=== PATIENT | female | born 1940 | race Caucasian/White ===

== ENCOUNTER 2020-12-03 08:55 | Outpatient (REF) | payer MEDICARE, OTHER, SELFPAY ==
[2020-12-03 09:36] LABS: Basophils Percent Auto 0.4 % (0-2); Eosinophils Absolute Auto 0.1 X10*3/uL (0.0-0.4); Eosinophils Percent Auto 1.2 % (0-4); Hematocrit 43.2 % (37-47); Hemoglobin 14.7 g/dl (12.0-16.0); Imm Gran Abs Auto 0.02 X10*3/uL (0.00-0.03); Imm Gran Pct Auto 0.3 % (0.0-0.4); Lymphocytes Absolute Auto 2.2 X10*3/uL (1.2-4.9); Lymphocytes Percent Auto 31.4 % (20-40); MANUAL DIFF FLAG NO; Mean Corpuscular Hemoglobin 32.5 pg (27.0-33.0); Mean Corpuscular Volume 95.4 fL (80-98); Monocytes Absolute Auto 0.5 X10*3/uL (0.1-1.2); Monocytes Percent Auto 7.6 % (2-11); Neutrophils Absolute Auto 4.1 X10*3/uL (2.0-8.3); Neutrophils Percent Auto 59.1 % (45-73); Platelet Count 222 X10*3/uL (160-400); Red Blood Count 4.53 X10*6/uL (4.20-5.50); White Blood Count 6.9 X10*3/uL (4.8-10.8)
[2020-12-03 09:49] LABS: Estimated Average Glucose 103 mg/dL; Hemoglobin A1c % 5.2 %
[2020-12-03 10:05] LABS: Creatinine Urine 30.26 mg/dL; Microalbumin Urine < 5.0 mg/L
[2020-12-03 10:09] LABS: Alanine Aminotransferase 21 U/L (0-31); Albumin Level 4.4 g/dL (3.5-5.0); Alkaline Phosphatase 81 U/L (39-117); Anion Gap 12 (12-20); Aspartate Amino Transferase 29 U/L (5-31); Bilirubin Total 0.6 mg/dL (0.0-1.0); Blood Urea Nitrogen 22 mg/dL (9-16); Calcium 9.4 mg/dL (8.4-10.2); Carbon Dioxide 29 mmol/L (22-29); Chloride 107 mmol/L (96-108); Cholesterol 222 mg/dL; Estimated Glomerular Filt Rate > 60; Glucose Fasting 109 mg/dL (60-99); HDL Cholesterol 63 mg/dL; LDL Cholesterol Calculated 146 mg/dl; Potassium 4.9 mmol/l (3.3-5.1); Sodium 143 mmol/L (135-145); Total Protein 7.1 g/dL (6.5-8.0); Triglycerides 66 mg/dL
[2020-12-03 10:29] LABS: Thyroid Stimulating Hormone 1.36 uIU/mL (0.32-4.0); Vitamin D 25-OH Total 38.3 ng/mL (>30)
== END 2020-12-03 08:56 | disposition home or self-care (01) ==
LOC: HO.LAB 08:55
PROVIDERS: PCP Internal Medicine; Visit Provider Internal Medicine
DX: E03.9 Hypothyroidism, unspecified (principal); R73.03 Prediabetes; E78.00 Pure hypercholesterolemia, unspecified; E55.9 Vitamin D deficiency, unspecified
CPT/HCPCS: 36415; 80053; 80061; 82043; 82306; 83036; 84443; 85025

== ENCOUNTER 2021-06-12 12:23 | Outpatient (REF) | payer MEDICARE, OTHER, SELFPAY ==
[2021-06-12 13:10] LABS: TSH reflex Free T4 1.33 uIU/mL (0.32-4.0)
== END 2021-06-12 12:24 | disposition home or self-care (01) ==
LOC: HO.LNP 12:23
PROVIDERS: Visit Provider Internal Medicine
DX: E03.9 Hypothyroidism, unspecified (principal)
CPT/HCPCS: 84443

== ENCOUNTER 2021-12-22 10:31 | Outpatient (REF) | payer MEDICARE, OTHER, SELFPAY ==
[2021-12-22 10:33] LABS: MANUAL DIFF FLAG NO
[2021-12-22 10:43] LABS: Basophils Absolute Auto 0.1 X10*3/uL (0.0-0.2); Basophils Percent Auto 0.7 % (0-2); Eosinophils Absolute Auto 0.1 X10*3/uL (0.0-0.4); Eosinophils Percent Auto 1.5 % (0-4); Hematocrit 43.6 % (37.0-47.0); Hemoglobin 14.2 g/dl (12.0-16.0); Imm Gran Abs Auto 0.03 X10*3/uL (0.00-0.03); Imm Gran Pct Auto 0.4 % (0.0-0.4); Lymphocytes Absolute Auto 2.7 X10*3/uL (1.2-4.9); Lymphocytes Percent Auto 31.9 % (20-40); Mean Corpuscular HGB Conc 32.6 g/dl (31.0-35.0); Mean Corpuscular Hemoglobin 31.5 pg (27.0-33.0); Mean Corpuscular Volume 96.7 fL (80.0-98.0); Mean Platelet Volume 10.9 fL (9.4-12.3); Monocytes Absolute Auto 0.7 X10*3/uL (0.1-1.2); Monocytes Percent Auto 8.7 % (2-11); Neutrophils Absolute Auto 4.9 x10*3/uL (2.0-8.3); Neutrophils Percent Auto 56.8 % (45-73); Platelet Count 218 X10*3/uL (160-400); Red Blood Count 4.51 X10*6/uL (4.20-5.50); Red Cell Distribution Width 13.2 % (11.0-16.0); White Blood Count 8.5 X10*3/uL (4.8-10.8)
[2021-12-22 10:46] LABS: Appearance Urine HAZY; Color Urine YELLOW; Glucose Urine UA NEG (NEG); Leukocyte Esterase Urine 1+ (NEG); Nitrite Urine POS (NEG); PH 5.5 (5.0-8.0); Specific Gravity - Urine 1.025 (1.005-1.025); Urine Blood TRACE (NEG); Urine Ketones NEG (NEG); Urine Protein NEG (NEG-TRACE)
[2021-12-22 11:19] LABS: TSH reflex Free T4 1.12 uIU/mL (0.32-4.0); Vitamin D 25-OH Total 40.1 ng/mL (>30)
[2021-12-22 11:20] LABS: Alanine Aminotransferase 15 U/L (0-31); Albumin Level 4.1 g/dL (3.5-5.0); Alkaline Phosphatase 81 U/L (39-117); Anion Gap 13 (12-20); Aspartate Amino Transferase 25 U/L (5-31); Bilirubin Total 0.6 mg/dL (0.0-1.0); Blood Urea Nitrogen 21 mg/dL (9-16); Calcium 9.4 mg/dL (8.4-10.2); Carbon Dioxide 26 mmol/L (22-29); Chloride 108 mmol/L (96-108); Cholesterol 216 mg/dL; Estimated Glomerular Filt Rate > 60; Glucose Fasting 113 mg/dL (60-99); HDL Cholesterol 56 mg/dL; LDL Cholesterol Calculated 142 mg/dl; Potassium 4.2 mmol/L (3.3-5.1); Sodium 143 mmol/L (135-145); Total Protein 7.1 g/dL (6.5-8.0); Triglycerides 94 mg/dL
[2021-12-22 11:33] LABS: Bacteria Urine 4+ /LPF; RBC Urine 0-2 /HPF (0); Squamous Epithelial Cell Urine 2+ /LPF
== END 2021-12-22 10:32 | disposition home or self-care (01) ==
LOC: HO.LNP 10:31
PROVIDERS: PCP Internal Medicine; Visit Provider Internal Medicine
DX: E03.9 Hypothyroidism, unspecified (principal); R73.03 Prediabetes; E78.00 Pure hypercholesterolemia, unspecified; E55.9 Vitamin D deficiency, unspecified
CPT/HCPCS: 80053; 80061; 81001; 82306; 84443; 85025

== ENCOUNTER 2021-12-25 15:57 | Outpatient (REF) | payer MEDICARE, OTHER, SELFPAY | END 2021-12-25 15:58 | disposition home or self-care (01) | LOC: HO.LNP 15:57 | PROVIDERS: Visit Provider Internal Medicine | DX: N39.0 Urinary tract infection, site not specified (principal) | CPT/HCPCS: 87086; 87088; 87186 ==

== ENCOUNTER 2022-02-23 14:30 | Outpatient (REF) | payer MEDICARE, OTHER, SELFPAY ==
--- NOTE | ~2022-02-23 | FL_ITS ---
EXAMINATION: XR BARIUM SWALLOW CLINICAL INFORMATION: Aspiration into airway. Dysphagia. COMPARISON: None TECHNIQUE: Routine modified barium swallow was performed with the patient in a left lateral seated position. The patient took thin, pureed and solid food consistencies of barium without difficulty. FINDINGS: The patient demonstrated normal oral bolus formation. There was no delay in the swallow trigger mechanism with no pooling of fluid in the vallecula and piriform sinuses. There was good contraction and elevation of the soft palate without evidence of nasopharyngeal reflux. There was good anterior-superior excursion of the laryngeal-hyoid complex with good posterior-inferior tipping of the epiglottis. No cricopharyngeal abnormalities were noted. The pharynx and cervical spine have a normal appearance. No aspiration or laryngeal penetration was seen with any oral intake. FLUOROSCOPY TIME: 0.6 minutes DOSE AREA PRODUCT: 0.291 Gy-cm2 (avila-centimeter squared) FL/FL barium swallow modified IMPRESSION: No aspiration or penetration with any intake. No significant abnormality during the oral pharyngeal phase of swallow. Please see speech pathologist report for further information and diet recommendations.
--- NOTE | 2022-02-24 12:59 | MHC.SL.IMP ---
Date of Plan of Treatment: 02/23/22 Onset of Symptoms/Illness: 12/26/21 Date Treatment Started: 02/23/22 Admitting Diagnosis: N/A Primary Speech & Language Diagnosis: R13.14 Pharyngoesophageal Phase Dysphagia Reason for Today's Visit: 68660 Modified Barium Swallow Study Pre-evaluation Dietary Consistencies: Regular Pre-evaluation Liquid Consistency: Thin Pre-evaluation Medication Administration: Whole with Liquid Medical History: Modified Barium Swallow Study Fluoroscopic Evaluation of Swallowing Function CPT Code 24084 Evaluation Year: 2021 Reason for Study: Patient reports globus sensation. Referring Physician: Pal Randall MD Evaluating Clinician: Camila Worthington MA, CCC-STICK INSERTER Study Number: 1 Patient Name: Donna Andino Status: Outpatient, Ambulatory Age: 81 Gender: Female MEDICAL HISTORY: Year of Onset or Diagnosis: 2021 Comorbidities: Thyroid Current (pre-evaluation) Intake/Diet: Route: PO Diet Grade: Regular Liquid Consistencies: Thin Pre-Study Functional Oral Intake Scale (FOIS): 7- Total oral intake with no restrictions Pain: None reported at time of study SUBJECTIVE: Patient is an 81 year old female referred for a modified barium swallow study (MBSS) by Pal Randall MD. Patient reports that in December 2021, she was eating peas and she had choked, which required the Heimlich Maneuver provided by her son and resulted in her coughing up pea skins. Patient denies having such episodes since that one incident. Patient reports having reflux, which she has never had before. She describes a burning sensation in her throat, as well as globus sensation below her sternum. Patient denies coughing when eating and denies feeling food or liquid ?go down the wrong way.? Patient reports she was not yet seen by gastroenterology. Oral Motor Exam Facial Symmetry: Symmetrical Mouth Occlusion: Normal Oral-Facial Teeth Characteristics: Intact/Normal Dental Appliance Oral-Facial Lip Pucker Description: Normal Oral-Facial Smile (Lips) Description: Normal Oral-Facial Puff Cheeks Description: Normal Tongue Size: Normal Tongue Excursion Description: Normal Tongue Range of Movement Description: Normal Tongue Speed of Movement Description: Normal Tongue Strength of Movement (against opposing pressure): Normal Tongue Movement Characteristics: Normal/Absent Is patient able to manage secretions?: Yes Food and Liquid Trials: Oral Impairment: Lip Closure: 0=No labial escape Oral Impairment: Tongue Control During Bolus Hold: 0=Cohesive bolus between tongue to palatal seal Oral Impairment: Bolus Preparation/Mastication: 0=Timely and efficient chewing and mashing Oral Impairment: Bolus Transport/Lingual Motion: 0=Brisk tongue motion Oral Impairment: Oral Residue: 1=Trace residue lining oral structures Oral Impairment:Initiation of Pharyngeal Swallow: 0=Bolus head at posterior angle of ramus (first hyoid excursion) Pharyngeal Impairment: Soft Palate Elevation: 0=No bolus between soft palate (SP)/pharyngeal wall (PW) Pharyngeal Impairment: Laryngeal Elevation: 1=Partial thyroid cartilage/arytenoids to epiglottic petiole movement Pharyngeal Impairment: Anterior Hyoid Excursion: 1=Partial anterior movement Pharyngeal Impairment: Epiglottic Movement: 0=Complete inversion Pharyngeal Impairment: Laryngeal Vestibular Closure:: 0=Complete: no air/contrast in laryngeal vestibule Pharyngeal Impairment: Pharyngeal Stripping Wave: 0=Present: complete Pharyngeal Impairment: Pharyngeal Contraction: Did not test Pharyngeal Impairment: Pharyngoesophageal Segment Openin=Complete distension and complete duration: no obstruction of flow Pharyngeal Impairment: Tongue Base (TB) Retraction: 1=Trace column of contrast/air between TB and posterior PW Pharyngeal Impairment: Pharyngeal Residue: 0=Complete pharyngeal clearance Pharyngeal Impairment: Esophageal Clearance Upright Position: Did not test Impressions and Recommendations Clinical Observations: OBJECTIVE: Time-out: performed at 02:55 Evaluation Start: 02:45; Stop: 02:50 Patient Positioning: Seated 70-90 degrees Viewing Planes: LATERAL ONLY Contrast: MBSImP? Standardized Protocol using commercially prepared, standardized Barium viscosities, including: Varibar? THIN LIQUID (40% w/v, <15 cps) , 1/2 Shortbread Cookie (1 x1 x.25 ) MBSImP ID: [id number] MBSImP Results: Lip closure for intraoral bolus containment resulted in no labial escape. Tongue control during bolus hold maintained a cohesive bolus held between tongue to palate seal. Bolus preparation and mastication resulted in timely and efficient chewing and mashing. Bolus transport/lingual motion was with brisk tongue motion. Oral residue was a trace, lining oral structures. Initiation of the pharyngeal swallow occurred as the bolus head reached the posterior angle of the mandibular ramus. Soft palate elevation resulted in no bolus between the soft palate and the pharyngeal wall. Laryngeal elevation was decreased, with partial superior movement of the thyroid cartilage/partial approximation of the arytenoids to the epiglottic petiole. Anterior hyoid excursion demonstrated partial anterior movement. Epiglottic movement resulted in complete inversion. Laryngeal vestibular closure was complete, as indicated by no air or contrast within the laryngeal vestibule at the height of the swallow. Pharyngeal stripping wave was present and complete. Pharyngeal contraction could not be determined due to logistical reasons not related to physiologic impairment. Pharyngoesophageal segment opening was completely distended for complete duration with no obstruction of bolus flow. Tongue base retraction allowed a trace column of contrast or air between the retracted tongue base and the posterior pharyngeal wall. Pharyngeal residue was not present. There was complete pharyngeal clearance. Esophageal clearance in the upright position could not be assessed due to logistical reasons not related to physiologic impairment. Oral Impairment Score: 0 Pharyngeal Impairment Score: 2 (absence of score, component 13) Esophageal Impairment Score: --- (absence of score, component 17) Laryngeal Penetration and Aspiration: Neither penetration nor aspiration was observed in today's study with Cookie, Thin. ASSESSMENT: Clinician Assessment: This exam was conducted by a multidisciplinary team, which included a speech pathologist, radiologist, and textile science technician. Patient was seated upright at 90 degrees in chair for lateral view only. Patient trialed the following liquid and solid consistencies: 5 mL thin liquid barium, individual cup sip thin liquid barium, chain cup sips thin liquid barium, pureed solid (mixture applesauce with barium paste), regular solid (Karen Doone cookie coated with barium paste). Patient displayed good lip closure, with no anterior loss of bolus. Patient demonstrated good tongue control, forming a cohesive bolus between tongue to palatal seal. No posterior escape of bolus. Mastication was timely and efficient, resulting in good oral clearance. Patient displayed brisk posterior lingual propulsion of bolus. Pharyngeal swallow trigger was timely. No nasopharyngeal reflux. Partial laryngeal elevation with partial anterior hyoid excursion. Epiglottic inversion was complete and laryngeal vestibular closure was complete. No evidence of aspiration or penetration during this exam. Complete pharyngeal clearance. No obstruction of flow through pharyngoesophageal segment opening. Liquid Intake Recommendation: Thin Liquid Intake Strategies: Unrestricted Dietary Recommendations: Regular Medication Administration: Whole with Liquid Please contact the pharmacy regarding appropriate crushable or liquid drug formulations that are available whenever modified delivery is recommended. Compensatory Strategies Recommended: Sitting Upright (90 deg) Supervision during eating and or drinking: None Needed Recommendation for Speech Therapy: NA:Typical Evaluation PLAN: Intake Recommendations: Route: PO Diet Grade: Regular Liquid Consistencies: Thin Post-Study Functional Oral Intake Scale (FOIS): 7- Total oral intake with no restrictions No evidence of aspiration or penetration during this exam. Patient displayed good oral and pharyngeal clearance with both solids and liquids. This exam was unremarkable. Further ST intervention is no longer warranted as patient?s swallow is deemed to be within functional limits. Patient may benefit from a G.I. consult for further workup given her reports of reflux and globus sensation. Suggested Referrals: The patient might benefit from a referral to: Gastroenterology Indication for Referral: Patient reports reflux, globus sensation, burning sensation. Therapy Recommendations: Therapy will be discontinued Prognosis for Improvement: The prognosis for the patient to meet nutritional needs by mouth is excellent based on degree of impairment. Clinician - Supplemental, Miscellaneous Communication: It is important to note MBSS objective studies are snapshots in time and Patient function might vary with factors such as time of day or concomitant medical conditions. For this reason, the final treatment plan for this patient should rest with their medical care team. Additional recommendations should be considered with the totality of the Patient in mind. Thank for the opportunity to participate in the care of this patient. If you have any questions about the content of this report, please contact the [facility] at [facility]. Education: Education regarding findings from today's study and plans for therapy were provided to Patient only through Verbal Instruction. Understanding was expressed by the Patient only. Ground Systems Engineer Clinician/Clinical Fellow: No Supervisory Statement: N/A Speech Language Pathologist: Camila Worthington M.A., CCC-STICK INSERTER
== END 2022-02-23 14:31 | disposition home or self-care (01) ==
LOC: HO.XRAY 14:30
PROVIDERS: Visit Provider Internal Medicine
DX: T17.908A Unspecified foreign body in respiratory tract, part unspecified causing other injury, initial encounter (principal); X58.XXXA Exposure to other specified factors, initial encounter; Y93.9 Activity, unspecified; Y92.9 Unspecified place or not applicable; Y99.9 Unspecified external cause status
CPT/HCPCS: 74230; 92611

== ENCOUNTER 2022-04-14 09:50 | Inpatient (IN) | payer MEDICARE, OTHER, SELFPAY ==
--- NOTE | ~2022-04-14 | XR_ITS ---
EXAMINATION: XR CHEST CLINICAL INFORMATION: Syncope COMPARISON: None TECHNIQUE: Frontal view of the chest was obtained. FINDINGS: The lungs are well expanded. There is no focal consolidation, edema, or effusion. No pneumothorax. The cardiomediastinal silhouette is within normal limits of size. Mitral annular calcifications. No acute osseous abnormality. XR/XR chest 1V IMPRESSION: No acute pulmonary finding.
--- NOTE | ~2022-04-14 | XR_ITS ---
EXAMINATION: XR ANKLE, LEFT CLINICAL INFORMATION: Pain at the lateral ankle COMPARISON: None TECHNIQUE: AP, lateral, and mortise views of the left ankle. FINDINGS: Nondisplaced fracture with oblique orientation at the distal fibula. This is in the region of the ankle mortise. Ankle mortise remains congruent. There is lateral soft tissue swelling. No ankle joint effusion. XR/XR ankle LT 2V IMPRESSION: Nondisplaced distal fibular fracture with overlying soft tissue swelling.
--- NOTE | ~2022-04-14 | CT_ITS ---
EXAMINATION: CT BRAIN AND CT CERVICAL SPINE WITHOUT CONTRAST. CLINICAL INFORMATION: Head injury. LOC. COMPARISON: None TECHNIQUE: 5 mm thin axial and reformatted 2 mm thin sagittal and coronal images of brain were obtained without contrast. Subsequently axial 3 mm thin and reformatted 2 mm thin sagittal coronal images of cervical spine were obtained. DLP [id number]. FINDINGS: Brain: There is no acute intra-axial extra-axial bleed, masses, collection or mass effect. There is no acute infarction evolution. The lateral ventricles are symmetrical in size and configuration with mild ventriculomegaly. There is diffuse periventricular hypodensity in both several hemispheres without mass effect. There is left parietal scalp moderate size hematoma without any underlying calvarial fracture. Rest the calvarium and the scalp is unremarkable. Bilateral paranasal sinuses and mastoid air cells are well-aerated. There is moderate deviation nasal septum to the right. Cervical spine: There is mild straightening of cervical lordosis. The vertebral heights, alignment and disc heights are normal. There is grade 1 anterolisthesis C3 over C4. Rest of the vertebral alignment is normal. There is no visible acute fracture, dislocation or subluxation. The craniovertebral junction is normal. Mild interstitial changes seen at the C1-C2 alignment. The lung apices are normal CT/CT head/brain wo con IMPRESSION: Moderate lateral parietal scalp hematoma without calvarial fracture. No acute intracranial process seen. Age-related changes. There is no acute fracture, dislocation or subluxation cervical spine.
--- NOTE | ~2022-04-14 | CT_ITS ---
EXAMINATION: CT BRAIN AND CT CERVICAL SPINE WITHOUT CONTRAST. CLINICAL INFORMATION: Head injury. LOC. COMPARISON: None TECHNIQUE: 5 mm thin axial and reformatted 2 mm thin sagittal and coronal images of brain were obtained without contrast. Subsequently axial 3 mm thin and reformatted 2 mm thin sagittal coronal images of cervical spine were obtained. DLP 958. FINDINGS: Brain: There is no acute intra-axial extra-axial bleed, masses, collection or mass effect. There is no acute infarction evolution. The lateral ventricles are symmetrical in size and configuration with mild ventriculomegaly. There is diffuse periventricular hypodensity in both several hemispheres without mass effect. There is left parietal scalp moderate size hematoma without any underlying calvarial fracture. Rest the calvarium and the scalp is unremarkable. Bilateral paranasal sinuses and mastoid air cells are well-aerated. There is moderate deviation nasal septum to the right. Cervical spine: There is mild straightening of cervical lordosis. The vertebral heights, alignment and disc heights are normal. There is grade 1 anterolisthesis C3 over C4. Rest of the vertebral alignment is normal. There is no visible acute fracture, dislocation or subluxation. The craniovertebral junction is normal. Mild interstitial changes seen at the C1-C2 alignment. The lung apices are normal CT/CT cervical spine wo con IMPRESSION: Moderate lateral parietal scalp hematoma without calvarial fracture. No acute intracranial process seen. Age-related changes. There is no acute fracture, dislocation or subluxation cervical spine.
[2022-04-14 09:56] VITALS: BP 182/79; PULSE 72; RESP 18; TEMP 36.9; O2SAT 98; BMI 24.3
--- NOTE | 2022-04-14 10:02 | ECG_ITS ---
Test Reason : FALL Blood Pressure : / mmHG Vent. Rate : 067 BPM Atrial Rate : 000 BPM P-R Int : 000 ms QRS Dur : 080 ms QT Int : 384 ms P-R-T Axes : 000 036 024 degrees QTc Int : 405 ms Accelerated Junctional rhythm Abnormal ECG When compared with ECG of 26-MAY-2010 09:30, Junctional rhythm has replaced Sinus rhythm Referred By: Generic ED Physician Electronically Signed By:Ze Gallegos
[2022-04-14 10:18] LABS: Glucose, Whole Blood 145 mg/dL (60-115)
[2022-04-14 10:21] LABS: MANUAL DIFF FLAG NO
[2022-04-14 10:30] LABS: INTERNATIONAL NORM RATIO 1.1 (0.9-1.1); Prothrombin Time 12.1 SEC (9.9-13.0)
[2022-04-14 10:31] LABS: Basophils Absolute Auto 0.1 X10*3/uL (0.0-0.2); Basophils Percent Auto 0.7 % (0-2); Eosinophils Absolute Auto 0.1 X10*3/uL (0.0-0.4); Eosinophils Percent Auto 0.7 % (0-4); Hematocrit 42.7 % (37.0-47.0); Hemoglobin 14.2 g/dl (12.0-16.0); Imm Gran Abs Auto 0.03 X10*3/uL (0.00-0.03); Imm Gran Pct Auto 0.4 % (0.0-0.4); Lymphocytes Absolute Auto 1.8 X10*3/uL (1.2-4.9); Lymphocytes Percent Auto 22.4 % (20-40); Mean Corpuscular HGB Conc 33.3 g/dl (31.0-35.0); Mean Corpuscular Hemoglobin 31.4 pg (27.0-33.0); Mean Corpuscular Volume 94.5 fL (80.0-98.0); Mean Platelet Volume 10.2 fL (9.4-12.3); Monocytes Absolute Auto 0.7 X10*3/uL (0.1-1.2); Neutrophils Absolute Auto 5.6 x10*3/uL (2.0-8.3); Neutrophils Percent Auto 67.8 % (45-73); Platelet Count 198 X10*3/uL (160-400); Red Blood Count 4.52 X10*6/uL (4.20-5.50); Red Cell Distribution Width 13.2 % (11.0-16.0); White Blood Count 8.2 X10*3/uL (4.8-10.8)
[2022-04-14 10:41] LABS: Troponin-I High Sensitivity < 3.5 ng/L (<3.5-17.0)
[2022-04-14 10:42] LABS: Alanine Aminotransferase 19 U/L (0-31); Albumin Level 3.9 g/dL (3.5-5.0); Alkaline Phosphatase 78 U/L (39-117); Anion Gap 12 (12-20); Aspartate Amino Transferase 24 U/L (5-31); Bilirubin Total 0.5 mg/dL (0.0-1.0); Blood Urea Nitrogen 24 mg/dL (9-16); COVID-19 Test Negative (Negative); Calcium 9.3 mg/dL (8.4-10.2); Carbon Dioxide 23 mmol/L (22-29); Chloride 109 mmol/L (96-108); Creatinine Clr Calc Pharmacy 50.2; Estimated Glomerular Filt Rate > 60; Glucose Random 136 mg/dL (60-115); IDNOW Serial# 55D5AD1C; Potassium 4.2 mmol/L (3.3-5.1); Sodium 140 mmol/L (135-145); Total Protein 6.8 g/dL (6.5-8.0)
[2022-04-14 11:49] LABS: Appearance Urine CLEAR; Color Urine STRAW; Glucose Urine UA NEG (NEG); Leukocyte Esterase Urine 1+ (NEG); Nitrite Urine POS (NEG); Specific Gravity - Urine <= 1.005 (1.005-1.025); UACC Culture Trigger YES; Urine Blood NEG (NEG); Urine Ketones NEG (NEG); Urine Protein NEG (NEG-TRACE)
[2022-04-14 12:11] LABS: Bacteria Urine 4+ /LPF; RBC Urine 0 /HPF (0); Squamous Epithelial Cell Urine TRACE /LPF
[2022-04-14 12:40] LABS: B Type Natriuretic Peptide 57 pg/mL (<100)
--- NOTE | 2022-04-14 13:30 | PHA.MEDREC ---
Pharmacy Consult ? Medication Reconciliation Pharmacy has completed the medication reconciliation.
--- NOTE | 2022-04-14 13:52 | ED.FALL ---
HPI - Fall General Chief Complaint: Fall Stated Complaint: Fall/head inj Time Seen by Provider: 04/14/22 11:39 Source: patient Mode of arrival: ambulatory History of Present Illness HPI Narrative: 81-year-old female with a past medical history of hypothyroid, presenting to the ED complaining of syncopal episode this morning around 08:00AM. Patient reports she was going to put on her shoe and then woke up on the ground. Daughter states patient was slightly confused upon waking, states she was in the other room and heard the fall, no witnessed seizure-like activity or incontinence. + Head trauma and +LOC during incident. Denies taking anticoagulation. Patient has not been ambulatory since incident due to left ankle pain. Of note patient reports intermittent right eye visual changes however denies occurring today. Denies other symptoms prior to syncope including CP/ SOB, abdominal pain, nausea /vomiting, headache, recent illness MD complaint: fall Onset (ago): hour(s) Related Data Home Medications Medication Instructions Recorded Confirmed cholecalciferol (vitamin D3) 25 25 mcg PO DAILY 04/14/22 04/14/22 mcg (1,000 unit) tablet levothyroxine 88 mcg tablet 1 tab PO DAILY 04/14/22 04/14/22 (Synthroid) Allergies Allergy/AdvReac Type Severity Reaction Status Date / Time No Known Allergies Allergy Verified 04/14/22 09:56 Review of Systems Review of Systems: Constitutional: No Fever, No Chills, No Fatigue, No Malaise ENT/Mouth: No Ear Pain, No Nasal Congestion, No sore throat, No Rhinorrhea, No Swallowing Difficulty Eyes: No Eye Pain, No Swelling, No Redness, +Vision Changes (remote--not today) Cardiovascular: No Chest Pain, No SOB, No Dyspnea on Exertion, No Palpitations Respiratory: No Cough, No Sputum, No Dyspnea Gastrointestinal: No Nausea, No Vomiting, No Diarrhea, No Constipation, No Abdominal pain Genitourinary: No Dysuria, No Urinary Frequency, No Hematuria, No Urinary Incontinence/retention, No Flank Pain Musculoskeletal: + joint pain, No Myalgias, + Joint Swelling Skin: No Skin Lesions, No rash Neuro: No Weakness, No Numbness, No Paresthesias, + Loss of Consciousness, No Dizziness, + Head injury Yes all other systems are reviewed and are negative [facility] Past Medical History Attestation statement: The following information was validated with the patient. Social History Social History Advance Directives: No Physical Exam Vital Signs: Vital Signs: Last Vital Signs Temp 98.5 F 04/14/22 09:56 Pulse 72 04/14/22 09:56 Resp 18 04/14/22 09:56 BP 182/79 H 04/14/22 09:56 Pulse Ox 98 04/14/22 09:56 BMI result Body Mass Index 24.3 Const: General: cooperative, healthy appearing and no acute distress Orientation/consciousness: patient oriented x3 Limitations: no limitations HEENT: Other: + hematoma noted to left posterior scalp with mild tenderness. No appreciable skull depression or laceration Head: No Kumar's sign and No raccoon eyes Ears: hearing grossly normal bilaterally General nose exam: Normal external nose present Face and sinus: Yes normal facial exam Mouth: Normal oral and palatal mucosa present Throat: Yes posterior oropharynx normal, Yes tonsils normal and Yes uvula midline Eyes: General: appearance normal, both eyes and all related structures EOM: EOMs intact bilaterally Neck: Neck: Yes normal visual inspection and Yes no meningeal signs Resp: Effort & Inspection: normal respiratory effort and no respiratory distress Auscultation: clear to auscultation bilaterally, no rales, no rhonchi and no wheezes Cardio: Rate: regular rate Heart sounds: S1 normal heart sound present and S2 normal heart sound present GI: Inspection: Yes normal to inspection Palpation (GI): Soft to palpation, nontender, no guarding and not rigid : General: Yes no CVA tenderness Back/Spine/Pelvis: Other: No midline thoracic/lumbar spinous tenderness/step-off or deformity Back: no CVA tenderness Pelvis: no pain with anterior-posterior compression and no pain with lateral compression Skin: Rashes: no rashes Wounds: no wounds Neuro: General: patient oriented x3, tone normal, moves all extremities, no meningeal signs, no focal motor deficits and CN's II-XI intact bilaterally Cranial nerves: Yes CN's II-XII intact bilaterally and Yes Bilaterally intact EOM present Gait exam (Neuro): Normal gait present Motor exam (neuro): 5/5 motor strength present throughout and Pronator motor function not present Coordination: [id number] test normal Romberg Test: Negative Extrem: Other: left ankle with noted swelling/ ecchymosis greater to lateral aspect with tenderness to palpation. Foot/ knee nontender. Limited ROM secondary to pain. Neurovascularly intact. Sensation intact to light touch Course Course Course Narrative: -1352-- No leukocytosis. BUN mildly elevated (chronically elevated). Labs otherwise unremarkable. Initial troponin negative > Will obtain 3 hour repeat a syncope was OUTREACH ANALYST - UA infected > IV Rocephin ordered based on prior urine cultures CT head/brain wo con IMPRESSION: Moderate lateral parietal scalp hematoma without calvarial fracture. No acute intracranial process seen. Age-related changes. ? CT cervical spine wo con IMPRESSION: There is no acute fracture, dislocation or subluxation cervical spine. XR chest 1V IMPRESSION: No acute pulmonary finding. XR ankle LT 2V IMPRESSION: Nondisplaced distal fibular fracture with overlying soft tissue swelling. >> patient placed in a posterior short-leg splint to be nonweightbearing and follow up with Orthopedics. - Results discussed with patient and daughter at bedside, plan to admit for further management MDM - Fall MDM Narrative Medical decision making narrative: 81-year-old female with a past medical history of hypothyroid, presenting to the ED complaining of syncopal episode this morning around 08:00AM. + Head trauma and +LOC during incident. on exam vital signs stable, NAD, injury noted to posterior scalp, no midline spinous tenderness throughout, no focal neuro deficits. concern for syncope vs ? ACS vs metabolic/infectious etiologies. R/o ICH/fxs plan: EKG, labs, UA, head/ C-spine CT, x-rays, IVF, orthostatics, anticipated admission Differential Diagnosis Differential diagnosis: Likely syncope Medical Records Attestation: I reviewed the patient's medical records. Lab Data Attestation: I reviewed the patient's lab results. Result diagrams: 04/14/22 10:14 04/14/22 10:13 Labs: Lab Results 04/14/22 04/14/22 04/14/22 Range/Units 09:57 10:13 10:13 WBC (4.8-10.8) X10*3/uL RBC (4.20-5.50) X10*6/uL Hgb (12.0-16.0) g/dl Hct (37.0-47.0) % MCV (80.0-98.0) fL MCH (27.0-33.0) pg MCHC (31.0-35.0) g/dl RDW (11.0-16.0) % Plt Count (160-400) X10*3/uL MPV (9.4-12.3) fL Immature Gran % (Auto) (0.0-0.4) % Neut % (Auto) (45-73) % Lymph % (Auto) (20-40) % [place] % (Auto) (2-11) % Eos % (Auto) (0-4) % Baso % (Auto) (0-2) % Lymph # (Auto) (1.2-4.9) X10*3/uL [place] # (Auto) (0.1-1.2) X10*3/uL Eos # (Auto) (0.0-0.4) X10*3/uL Baso # (Auto) (0.0-0.2) X10*3/uL Abs Immat Gran (auto) (0.00-0.03) X10*3/uL Absolute Neuts (auto) (2.0-8.3) x10*3/uL Absolute Nucleated RBC (0.0-0.012) X10*3/uL Nucleated RBC % (auto) (0.0-0.2) /100WBC PT 12.1 (9.9-13.0) SEC INR 1.1 (0.9-1.1) Sodium 140 (135-145) mmol/L Potassium 4.2 (3.3-5.1) mmol/L Chloride 109 H (96-108) mmol/L Carbon Dioxide 23 (22-29) mmol/L Anion Gap 12 (12-20) BUN 24 H (9-16) mg/dL Creatinine 0.71 (0.5-1.4) mg/dL Estim Creat Clear Calc 50.2 Estimated GFR > 60 POC Glucose 145 H (60-115) mg/dL Random Glucose 136 H (60-115) mg/dL Calcium 9.3 (8.4-10.2) mg/dL Magnesium 2.0 (1.6-2.6) mg/dL Total Bilirubin 0.5 (0.0-1.0) mg/dL AST 24 (5-31) U/L ALT 19 (0-31) U/L Alkaline Phosphatase 78 (39-117) U/L Troponin I High Sens (<3.5-17.0) ng/L B-Natriuretic Peptide (<100) pg/mL Total Protein 6.8 (6.5-8.0) g/dL Albumin 3.9 (3.5-5.0) g/dL Urine Color Urine Appearance Urine pH (5.0-8.0) Ur Specific [place] (1.005-1.025) Urine Protein (NEG-TRACE) MG/DL Urine Glucose (UA) (NEG) MG/DL Urine Ketones (NEG) MG/DL Urine Blood (NEG) Urine Nitrite (NEG) Ur Leukocyte Esterase (NEG) Urine RBC (0) /HPF Urine WBC (0-4) /HPF Ur Squamous Epith Cells /LPF Urine Bacteria /LPF COVID-19 (SAMIA) (Negative) COVID-19 Clin Com 04/14/22 04/14/22 04/14/22 Range/Units 10:13 10:13 10:14 WBC 8.2 (4.8-10.8) X10*3/uL RBC 4.52 (4.20-5.50) X10*6/uL Hgb 14.2 (12.0-16.0) g/dl Hct 42.7 (37.0-47.0) % MCV 94.5 (80.0-98.0) fL MCH 31.4 (27.0-33.0) pg MCHC 33.3 (31.0-35.0) g/dl RDW 13.2 (11.0-16.0) % Plt Count 198 (160-400) X10*3/uL MPV 10.2 (9.4-12.3) fL Immature Gran % (Auto) 0.4 (0.0-0.4) % Neut % (Auto) 67.8 (45-73) % Lymph % (Auto) 22.4 (20-40) % [place] % (Auto) 8.0 (2-11) % Eos % (Auto) 0.7 (0-4) % Baso % (Auto) 0.7 (0-2) % Lymph # (Auto) 1.8 (1.2-4.9) X10*3/uL [place] # (Auto) 0.7 (0.1-1.2) X10*3/uL Eos # (Auto) 0.1 (0.0-0.4) X10*3/uL Baso # (Auto) 0.1 (0.0-0.2) X10*3/uL Abs Immat Gran (auto) 0.03 (0.00-0.03) X10*3/uL Absolute Neuts (auto) 5.6 (2.0-8.3) x10*3/uL Absolute Nucleated RBC 0.000 (0.0-0.012) X10*3/uL Nucleated RBC % (auto) 0.0 (0.0-0.2) /100WBC PT (9.9-13.0) SEC INR (0.9-1.1) Sodium (135-145) mmol/L Potassium (3.3-5.1) mmol/L Chloride (96-108) mmol/L Carbon Dioxide (22-29) mmol/L Anion Gap (12-20) BUN (9-16) mg/dL Creatinine (0.5-1.4) mg/dL Estim Creat Clear Calc Estimated GFR POC Glucose (60-115) mg/dL Random Glucose (60-115) mg/dL Calcium (8.4-10.2) mg/dL Magnesium (1.6-2.6) mg/dL Total Bilirubin (0.0-1.0) mg/dL AST (5-31) U/L ALT (0-31) U/L Alkaline Phosphatase (39-117) U/L Troponin I High Sens < 3.5 (<3.5-17.0) ng/L B-Natriuretic Peptide 57 (<100) pg/mL Total Protein (6.5-8.0) g/dL Albumin (3.5-5.0) g/dL Urine Color Urine Appearance Urine pH (5.0-8.0) Ur Specific [place] (1.005-1.025) Urine Protein (NEG-TRACE) MG/DL Urine Glucose (UA) (NEG) MG/DL Urine Ketones (NEG) MG/DL Urine Blood (NEG) Urine Nitrite (NEG) Ur Leukocyte Esterase (NEG) Urine RBC (0) /HPF Urine WBC (0-4) /HPF Ur Squamous Epith Cells /LPF Urine Bacteria /LPF COVID-19 (SAMIA) Negative (Negative) COVID-19 Clin Com See Note 04/14/22 Range/Units 11:23 WBC (4.8-10.8) X10*3/uL RBC (4.20-5.50) X10*6/uL Hgb (12.0-16.0) g/dl Hct (37.0-47.0) % MCV (80.0-98.0) fL MCH (27.0-33.0) pg MCHC (31.0-35.0) g/dl RDW (11.0-16.0) % Plt Count (160-400) X10*3/uL MPV (9.4-12.3) fL Immature Gran % (Auto) (0.0-0.4) % Neut % (Auto) (45-73) % Lymph % (Auto) (20-40) % [place] % (Auto) (2-11) % Eos % (Auto) (0-4) % Baso % (Auto) (0-2) % Lymph # (Auto) (1.2-4.9) X10*3/uL [place] # (Auto) (0.1-1.2) X10*3/uL Eos # (Auto) (0.0-0.4) X10*3/uL Baso # (Auto) (0.0-0.2) X10*3/uL Abs Immat Gran (auto) (0.00-0.03) X10*3/uL Absolute Neuts (auto) (2.0-8.3) x10*3/uL Absolute Nucleated RBC (0.0-0.012) X10*3/uL Nucleated RBC % (auto) (0.0-0.2) /100WBC PT (9.9-13.0) SEC INR (0.9-1.1) Sodium (135-145) mmol/L Potassium (3.3-5.1) mmol/L Chloride (96-108) mmol/L Carbon Dioxide (22-29) mmol/L Anion Gap (12-20) BUN (9-16) mg/dL Creatinine (0.5-1.4) mg/dL Estim Creat Clear Calc Estimated GFR POC Glucose (60-115) mg/dL Random Glucose (60-115) mg/dL Calcium (8.4-10.2) mg/dL Magnesium (1.6-2.6) mg/dL Total Bilirubin (0.0-1.0) mg/dL AST (5-31) U/L ALT (0-31) U/L Alkaline Phosphatase (39-117) U/L Troponin I High Sens (<3.5-17.0) ng/L B-Natriuretic Peptide (<100) pg/mL Total Protein (6.5-8.0) g/dL Albumin (3.5-5.0) g/dL Urine Color STRAW Urine Appearance CLEAR Urine pH 6.0 (5.0-8.0) Ur Specific [place] <= 1.005 (1.005-1.025) Urine Protein NEG (NEG-TRACE) MG/DL Urine Glucose (UA) NEG (NEG) MG/DL Urine Ketones NEG (NEG) MG/DL Urine Blood NEG (NEG) Urine Nitrite POS H (NEG) Ur Leukocyte Esterase 1+ H (NEG) Urine RBC 0 (0) /HPF Urine WBC 1-4 (0-4) /HPF Ur Squamous Epith Cells TRACE /LPF Urine Bacteria 4+ /LPF COVID-19 (SAMIA) (Negative) COVID-19 Clin Com ECG Data Attestation: I personally reviewed and interpreted this ECG as follows: ECG interpretation date: 04/14/22 ECG interpretation time: 09:59 Interpretation: EKG showing accelerated junctional rhythm which has replaced sinus rhythm at a rate of 67. QTC 405. No STEMI. Artifact present Discharge Plan Discharge Clinical Impression: Syncope, Acute UTI, Fracture of distal end of fibula Patient Disposition: Admitted As Inpatient Prescriptions: No Action levothyroxine [Synthroid] 88 mcg tablet 1 tab PO DAILY 0RF cholecalciferol (vitamin D3) 25 mcg (1,000 unit) Tablet 25 mcg PO DAILY 0RF
[2022-04-14] MEDS: 0.9 % Sodium Chloride 1,000 ML 999 ML IV (14:37)
[2022-04-14] MEDS: cefTRIAXone sodium 1 GM in 0.9 % Sodium Chloride 50 ML IV (14:37)
[2022-04-14 15:00] LABS: Influenza A Negative (Negative); Influenza B2 Negative (Negative)
[2022-04-14 15:04] LABS: Troponin-I High Sensitivity 4.4 ng/L (<3.5-17.0)
--- NOTE | 2022-04-14 15:20 | PC.NURSE ---
Thelma LIM instructed blood cultures are not needed prior to antibiotics starting
--- NOTE | 2022-04-14 15:52 | PM.IMHP ---
History of Present Illness Date of Service: 04/14/22 Attending physician on admission: Benita Al Chief Complaint: syncope 81-year-old female patient with past medical history significant for hypothyroidism, congenital nystagmus presented to [facility] [place] after syncopal episode this morning, as per patient and her daughter at bedside patient woke up this morning had her bed coffee then went to the bathroom dressed up had 1 shoe on and was trying to place the other issue after but she does not remember what happened she woke up on the floor daughter in neck is room the fall came to the room and found the patient on the floor, patient denied any preceding symptoms of headache, lightheadedness, dizziness or chest pain she had no weakness, no recent bout of nausea ,vomiting diarrhea, she denied any coughing episodes, after the fall patient was awake alert noted to have no confusion, no tongue biting no incontinence of bowel or bladder noted, fall was not witnessed, patient complained of left ankle pain daughter brought her to the emergency room, as per patient patient was a little confused early in the morning, workup they ER including CT head, C-spine and chest x-ray showed no acute abnormality other than moderate lateral parietal scalp hematoma, urinalysis is positive, troponin negative, x-ray a of left ankle showed nondisplaced distal fibula fracture patient is now being admitted with a diagnosis of syncope, question etiology, urinary tract infection. Review of Systems Review of Systems: [employer] no headache, no dizziness CVS no chest pain, no palpitation general no fevers no chills, no recent weight loss skin no rash musculoskeletal left ankle pain Yes all other systems are reviewed and are negative PMFSH Functional capacity: independent ambulation Pertinent family history: father of sudden cardiac arrest, mother had pacemaker, no family history of seizures Social History Advance Directives: No Meds Allergies Allergy/AdvReac Type Severity Reaction Status Date / Time No Known Allergies Allergy Verified 04/14/22 09:56 Active Medications: Current Medications Acetaminophen (Acetaminophen 325 Mg Tablet) 650 mg PO Q6H PRN PRN Reason: Pain, Mild (Pain Scale 1-3) Enoxaparin Sodium (Enoxaparin Sodium 40 Mg/0.4 Ml Syringe) 40 mg SUBCUT Q24H JAMES Ceftriaxone Sodium 1 gm/ (Sodium Chloride) 50 mls @ 100 mls/hr IV Q24H [facility] Levothyroxine Sodium (Levothyroxine Sodium 88 Mcg Tablet) 88 mcg PO DAILY JAMES Magnesium Hydroxide (Milk Of Magnesia 30 Ml Oral.Susp) 30 ml PO DAILY PRN PRN Reason: Constipation Melatonin (Melatonin 3 Mg Tablet) 3 mg PO BEDTIME PRN PRN Reason: Insomnia Ondansetron HCl (Ondansetron Hcl 4 Mg/2 Ml Vial) 4 mg IVPUSH Q8H PRN PRN Reason: Nausea and Vomiting Pharmacy Consult (Consult Rx Perform Med Rec) 1 each MISCELLANE ONCE PRN PRN Reason: Consult order Sodium Chloride (0.9 % Sodium Chloride Flush 3 Ml Syringe) 3 ml IVFLUSH QSHIFT [facility] Vitamin D (Cholecalciferol (Vitamin D3) 25 Mcg Tablet) 25 mcg PO DAILY [facility] Home Medications Medication Instructions Recorded Confirmed Last Taken Type cholecalciferol (vitamin D3) 25 25 mcg PO DAILY 04/14/22 04/14/22 04/14/22 History mcg (1,000 unit) tablet levothyroxine 88 mcg tablet 1 tab PO DAILY 04/14/22 04/14/22 04/14/22 History (Synthroid) Physical Exam Vital Signs and Narrative: Vital Signs: Last Vital Signs Temp 98.5 F 04/14/22 09:56 Pulse 72 04/14/22 09:56 Resp 18 04/14/22 09:56 BP 182/79 H 04/14/22 09:56 Pulse Ox 98 04/14/22 09:56 BMI result Body Mass Index 24.3 Const: Other: General awake alert x3, in no acute distress. HEENT bilateral rotator nystagmus Neck supple no JVD. CVS regular rate rhythm, Respiratory lungs clear to auscultation, no respiratory distress, no wheeze, no rhonchi. Gastrointestinal abdomen soft, nontender, bowel sounds audible Extremities no edema/ left ankle splint in place. Neuro nonfocal Skin no rash psych appropriate affect Results Labs CBC and Chem 7: 04/14/22 10:14 04/14/22 10:13 Labs: Laboratory Results - last 24 hr 04/14/22 04/14/22 04/14/22 09:57 10:13 10:13 MCV MCH MCHC RDW Plt Count MPV Immature Gran % (Auto) Neut % (Auto) Lymph % (Auto) [place] % (Auto) Eos % (Auto) Baso % (Auto) Lymph # (Auto) [place] # (Auto) Eos # (Auto) Baso # (Auto) Abs Immat Gran (auto) Absolute Neuts (auto) Absolute Nucleated RBC Nucleated RBC % (auto) PT 12.1 INR 1.1 Anion Gap 12 Estim Creat Clear Calc 50.2 Estimated GFR > 60 POC Glucose 145 H Random Glucose 136 H Calcium 9.3 Magnesium 2.0 Total Bilirubin 0.5 AST 24 ALT 19 Alkaline Phosphatase 78 Troponin I High Sens B-Natriuretic Peptide Total Protein 6.8 Albumin 3.9 Urine Color Urine Appearance Urine pH Ur Specific [place] Urine Protein Urine Glucose (UA) Urine Ketones Urine Blood Urine Nitrite Ur Leukocyte Esterase Urine RBC Urine WBC Ur Squamous Epith Cells Urine Bacteria COVID-19 (SAMIA) COVID-19 Clin Com Influenza Type A (PROSPER) Influenza Type B (PROSPER) Influenza A & B Note 04/14/22 04/14/22 04/14/22 10:13 10:13 10:14 MCV 94.5 MCH 31.4 MCHC 33.3 RDW 13.2 Plt Count 198 MPV 10.2 Immature Gran % (Auto) 0.4 Neut % (Auto) 67.8 Lymph % (Auto) 22.4 [place] % (Auto) 8.0 Eos % (Auto) 0.7 Baso % (Auto) 0.7 Lymph # (Auto) 1.8 [place] # (Auto) 0.7 Eos # (Auto) 0.1 Baso # (Auto) 0.1 Abs Immat Gran (auto) 0.03 Absolute Neuts (auto) 5.6 Absolute Nucleated RBC 0.000 Nucleated RBC % (auto) 0.0 PT INR Anion Gap Estim Creat Clear Calc Estimated GFR POC Glucose Random Glucose Calcium Magnesium Total Bilirubin AST ALT Alkaline Phosphatase Troponin I High Sens < 3.5 B-Natriuretic Peptide 57 Total Protein Albumin Urine Color Urine Appearance Urine pH Ur Specific [place] Urine Protein Urine Glucose (UA) Urine Ketones Urine Blood Urine Nitrite Ur Leukocyte Esterase Urine RBC Urine WBC Ur Squamous Epith Cells Urine Bacteria COVID-19 (SAMIA) Negative COVID-19 Clin Com See Note Influenza Type A (PROSPER) Influenza Type B (PROSPER) Influenza A & B Note 04/14/22 04/14/22 04/14/22 11:23 14:29 14:29 MCV MCH MCHC RDW Plt Count MPV Immature Gran % (Auto) Neut % (Auto) Lymph % (Auto) [place] % (Auto) Eos % (Auto) Baso % (Auto) Lymph # (Auto) [place] # (Auto) Eos # (Auto) Baso # (Auto) Abs Immat Gran (auto) Absolute Neuts (auto) Absolute Nucleated RBC Nucleated RBC % (auto) PT INR Anion Gap Estim Creat Clear Calc Estimated GFR POC Glucose Random Glucose Calcium Magnesium Total Bilirubin AST ALT Alkaline Phosphatase Troponin I High Sens 4.4 B-Natriuretic Peptide Total Protein Albumin Urine Color STRAW Urine Appearance CLEAR Urine pH 6.0 Ur Specific [place] <= 1.005 Urine Protein NEG Urine Glucose (UA) NEG Urine Ketones NEG Urine Blood NEG Urine Nitrite POS H Ur Leukocyte Esterase 1+ H Urine RBC 0 Urine WBC 1-4 Ur Squamous Epith Cells TRACE Urine Bacteria 4+ COVID-19 (SAMIA) COVID-19 Clin Com Influenza Type A (PROSPER) Negative Influenza Type B (PROSPER) Negative Influenza A & B Note See Note Imaging Radiologist's Impressions: Impressions Ankle X-Ray 04/14/22 12:21 IMPRESSION: Nondisplaced distal fibular fracture with overlying soft tissue swelling. Chest X-Ray 04/14/22 12:21 IMPRESSION: No acute pulmonary finding. Head CT 04/14/22 12:25 IMPRESSION: Moderate lateral parietal scalp hematoma without calvarial fracture. No acute intracranial process seen. Age-related changes. There is no acute fracture, dislocation or subluxation cervical spine. Cervical Spine CT 04/14/22 12:38 IMPRESSION: Moderate lateral parietal scalp hematoma without calvarial fracture. No acute intracranial process seen. Age-related changes. There is no acute fracture, dislocation or subluxation cervical spine. Assessment and Plan (1) Nystagmus, congenital: Status: Acute (2) Hypothyroidism: Status: Acute (3) Syncope: Status: Acute (4) Acute UTI: Status: Acute (5) Fracture of distal end of fibula: Status: Acute Plan 81-year-old female patient with congenital nystagmus and hypothyroidism presented to [facility] [place] after the risks syncopal episode patient diagnosed to have urinary tract infection and left nondisplaced fibula fracture. Syncope with head trauma/ left nondisplaced fibula fracture question etiology of syncope, no seizure-like activity no preceding symptoms suggestive of vasovagal episode no arrhythmia on monitor no preceding symptoms of lightheadedness, dizziness. question related to lack of sleep since take care of her with dementia with history of for nocturia requiring constant assistance at night admit to telemetry rule out arrhythmia, check orthostatic blood pressures, neuro checks Q shift treat underlying infection, check TSH urinary tract infection follow urine cultures, continue IV ceftriaxone started in emergency room, patient asymptomatic no fevers no chills no dysuria. Nondisplaced left fibular fracture obtain orthopedic consult, nonweightbearing for now, Tylenol and as needed oxycodone for pain control hypothyroidism continue Synthroid DVT prophylaxis with Lovenox patient will require inpatient is state due to syncope will require further workup for cause of syncope as well as treatment for urinary tract infection and nondisplaced left fibular fracture patient unable to bear weight. Need ortho eval. code status full code Quality Stroke Does the patient have a stroke diagnosis?: No VTE Prior VTE?: No VTE Risk Level:: Medical - moderate - high VTE Device Contraindication: Treatment Not Indicated VTE Drug Contraindication: N/A - Med Ordered
[2022-04-14 16:08] VITALS: BP 176/79; PULSE 68; RESP 16; TEMP 36.9; O2SAT 97
--- NOTE | 2022-04-14 16:22 | PC.NURSE ---
MD Al made aware of patients blood pressure.
[2022-04-14] MEDS: 0.9 % Sodium Chloride Flush 3 ML SYRINGE IVFLUSH (16:23)
[2022-04-14 16:32] LABS: Thyroid Stimulating Hormone 0.92 uIU/mL (0.32-4.0)
[2022-04-14] MEDS: Enoxaparin Sodium 40 MG/0.4 ML SYRINGE SUBCUT (17:19)
[2022-04-14 22:43] VITALS: PULSE 80; TEMP 37.1; O2SAT 97
[2022-04-15] VITALS (8 sets, daily range): BP systolic 126–170; BP diastolic 60–74; PULSE 64–86; RESP 16–20; TEMP 36.1–36.9; O2SAT 93–98; BMI 26.5
[2022-04-15] MEDS: 0.9 % Sodium Chloride Flush 3 ML SYRINGE IVFLUSH ×3 (01:50→15:50)
[2022-04-15] MEDS: Levothyroxine Sodium 88 MCG TABLET PO (06:02)
--- NOTE | 2022-04-15 07:44 | P.PNOP_ITS ---
Subjective Subjective Date of Service: 04/15/22 Interval history: Ms. Andino Is an 81-year-old female who sustained a syncopal episode yesterday. She states that she was putting on a shoe and then the next thing that she remembers she was on the ground. She had a left ankle pain and difficulty with ambulation. She presented to the emergency department where x- rays were obtained of her left ankle and revealed a nondisplaced distal fibular fracture. The patient was admitted to the medical service for evaluation syncopal episode and Orthopedics was consulted for the left ankle. Physical Exam Vital Signs: Vital Signs: Last Vital Signs Temp 97.0 F 04/15/22 07:33 Pulse 70 04/15/22 07:33 Resp 17 04/15/22 07:33 BP 161/74 H 04/15/22 07:33 Pulse Ox 95 04/15/22 07:33 BMI result Body Mass Index 26.5 Const: General: cooperative, healthy appearing and no acute distress Resp: Effort & Inspection: normal respiratory effort and able to speak in complete sentences Cardio: Rate: regular rate Peripheral pulses: Peripheral pulses 2+ throughout GI: Palpation (GI): Soft to palpation Skin: Lesions: no lesions Rashes: no rashes Extrem: Other: Left ankle skin is intact with no abrasions or lesions. Patient is able to dorsiflex and plantar flex with minor pain. Able to move all digits. Sensation is intact. Pedal pulse intact. Splint is clean dry and intact. Procedures Date of Service Date of Service: 04/15/22 Progress Note: A&P Assessment and plan (1) Fracture of distal end of left fibula: Status: Acute Assessment and Plan: Ms. Andino is an 81-year-old female who presented to the emergency department on 04/14/2022 after sustaining a syncopal episode. After syncopal episode she noticed an increase in left ankle pain with inability to weighbear. X-rays obtained in the emergency department reveal a nondisplaced left distal fibular fracture. The patient was placed in a posterior short-leg splint and Orthopedics was consulted for further evaluation and treatment. Patient will be placed in a tall walking boot. She may weight bear as tolerated. No additional orthopedic intervention needed at this time. She may follow-up in the outpatient clinic after discharge. Time Spent With Patient Time: Total time spent is greater than 50% in coordination of care (as documented) at patient's floor/unit and/or counseling patient: Quality Stroke Does the patient have a stroke diagnosis?: No VTE Prior VTE?: No VTE Risk Level:: Medical - moderate - high VTE Device Contraindication: Treatment Not Indicated VTE Drug Contraindication: N/A - Med Ordered
[2022-04-15] MEDS: Cholecalciferol (Vitamin D3) 25 MCG TABLET PO (09:04)
[2022-04-15] MEDS: lisinopriL 10 MG TABLET PO (09:04)
[2022-04-15] MEDS: Acetaminophen 325 MG TABLET 650 MG PO ×2 (09:06→16:32)
--- NOTE | 2022-04-15 09:58 | P.CONCA_ITS ---
History of Present Illness History of Present Illness Date of Service: 04/15/22 Requesting physician: Benita Al Chief complaint: Syncope Narrative: 81-year-old female with background history of hypothyroidism and congenital nystagmus was presenting with syncope. She said she was getting dressed up and was wearing her shoe when she bent forward and then found herself on the floor. She said her daughter heard the fall and came running and was talking to her and she remembers the conversation. It appears this was a very short period of unconsciousness if any. Does not remember having any chest discomfort shortness of breath. Has not had any previous episodes similar to this. She has been admitted for observation. No arrhythmia on telemetry. EKG is not showing any heart block. She has a nondisplaced left foot fracture and has a boot on now. [facility] Past Medical History Functional capacity: independent ambulation Social History Social History Household Members: Spouse and Family Housing: House Alcohol intake: never Patient Tobacco Use Status: Never used Tobacco Meds Allergies Allergy/AdvReac Type Severity Reaction Status Date / Time No Known Allergies Allergy Verified 04/14/22 09:56 Active Medications: Current Medications Acetaminophen (Acetaminophen 325 Mg Tablet) 650 mg PO Q6H PRN PRN Reason: Pain, Mild (Pain Scale 1-3) Last Admin: 04/15/22 09:06 Dose: 650 mg Documented by: Enoxaparin Sodium (Enoxaparin Sodium 40 Mg/0.4 Ml Syringe) 40 mg SUBCUT Q24H COUNTS INCLUDE 234 BEDS AT THE [facility] Last Admin: 04/14/22 17:19 Dose: 40 mg Documented by: Ceftriaxone Sodium 1 gm/ (Sodium Chloride) 50 mls @ 100 mls/hr IV Q24H COUNTS INCLUDE 234 BEDS AT THE [facility] Levothyroxine Sodium (Levothyroxine Sodium 88 Mcg Tablet) 88 mcg PO DAILY@0600 COUNTS INCLUDE 234 BEDS AT THE [facility] Last Admin: 04/15/22 06:02 Dose: 88 mcg Documented by: Lisinopril (Lisinopril 10 Mg Tablet) 10 mg PO DAILY COUNTS INCLUDE 234 BEDS AT THE [facility]; Protocol Last Admin: 04/15/22 09:04 Dose: 10 mg Documented by: Magnesium Hydroxide (Milk Of Magnesia 30 Ml Oral.Susp) 30 ml PO DAILY PRN PRN Reason: Constipation Melatonin (Melatonin 3 Mg Tablet) 3 mg PO BEDTIME PRN PRN Reason: Insomnia Ondansetron HCl (Ondansetron Hcl 4 Mg/2 Ml Vial) 4 mg IVPUSH Q8H PRN PRN Reason: Nausea and Vomiting Pharmacy Consult (Consult Rx Perform Med Rec) 1 each MISCELLANE ONCE PRN PRN Reason: Consult order Sodium Chloride (0.9 % Sodium Chloride Flush 3 Ml Syringe) 3 ml IVFLUSH QSHIFT COUNTS INCLUDE 234 BEDS AT THE [facility] Last Admin: 04/15/22 09:08 Dose: 3 ml Documented by: Vitamin D (Cholecalciferol (Vitamin D3) 25 Mcg Tablet) 25 mcg PO DAILY COUNTS INCLUDE 234 BEDS AT THE [facility] Last Admin: 04/15/22 09:04 Dose: 25 mcg Documented by: Home Medications Medication Instructions Recorded Confirmed Last Taken Type cholecalciferol (vitamin D3) 25 25 mcg PO DAILY 04/14/22 04/14/22 04/14/22 History mcg (1,000 unit) tablet levothyroxine 88 mcg tablet 1 tab PO DAILY 04/14/22 04/14/22 04/14/22 History (Synthroid) Physical Exam Vital Signs: Vital Signs: Last Vital Signs Temp 97.0 F 04/15/22 07:33 Pulse 70 04/15/22 07:33 Resp 17 04/15/22 07:33 BP 161/74 H 04/15/22 07:33 Pulse Ox 95 04/15/22 07:33 BMI result Body Mass Index 26.5 GENERAL APPEARANCE: in no acute distress, pleasant. NECK: no carotid bruit, no jugular venous distention. SKIN: no suspicious lesions, warm and dry. HEART: no murmurs, regular rate and rhythm. LUNGS: clear to auscultation bilaterally. ABDOMEN: soft, nontender. EXTREMITIES: no edema. Left foot in boot. PERIPHERAL PULSES: equal. NEUROLOGIC: No gross deficits, AAO X 3 Objective Labs and Meds Result diagrams: 04/14/22 10:14 04/14/22 10:13 Lab results: Laboratory Results - last 24 hr 04/14/22 04/14/22 04/14/22 09:57 10:13 10:13 WBC RBC Hgb Hct MCV MCH MCHC RDW Plt Count MPV Immature Gran % (Auto) Neut % (Auto) Lymph % (Auto) Sanders % (Auto) Eos % (Auto) Baso % (Auto) Lymph # (Auto) Sanders # (Auto) Eos # (Auto) Baso # (Auto) Abs Immat Gran (auto) Absolute Neuts (auto) Absolute Nucleated RBC Nucleated RBC % (auto) PT 12.1 INR 1.1 Sodium 140 Potassium 4.2 Chloride 109 H Carbon Dioxide 23 Anion Gap 12 BUN 24 H Creatinine 0.71 Estim Creat Clear Calc 50.2 Estimated GFR > 60 POC Glucose 145 H Random Glucose 136 H Calcium 9.3 Magnesium 2.0 Total Bilirubin 0.5 AST 24 ALT 19 Alkaline Phosphatase 78 Troponin I High Sens B-Natriuretic Peptide Total Protein 6.8 Albumin 3.9 TSH 0.92 Urine Color Urine Appearance Urine pH Ur Specific [place] Urine Protein Urine Glucose (UA) Urine Ketones Urine Blood Urine Nitrite Ur Leukocyte Esterase Urine RBC Urine WBC Ur Squamous Epith Cells Urine Bacteria COVID-19 (SAMIA) COVID-19 Clin Com Influenza Type A (PROSPER) Influenza Type B (PROSPER) Influenza A & B Note 04/14/22 04/14/22 04/14/22 10:13 10:13 10:14 WBC 8.2 RBC 4.52 Hgb 14.2 Hct 42.7 MCV 94.5 MCH 31.4 MCHC 33.3 RDW 13.2 Plt Count 198 MPV 10.2 Immature Gran % (Auto) 0.4 Neut % (Auto) 67.8 Lymph % (Auto) 22.4 Sanders % (Auto) 8.0 Eos % (Auto) 0.7 Baso % (Auto) 0.7 Lymph # (Auto) 1.8 Sanders # (Auto) 0.7 Eos # (Auto) 0.1 Baso # (Auto) 0.1 Abs Immat Gran (auto) 0.03 Absolute Neuts (auto) 5.6 Absolute Nucleated RBC 0.000 Nucleated RBC % (auto) 0.0 PT INR Sodium Potassium Chloride Carbon Dioxide Anion Gap BUN Creatinine Estim Creat Clear Calc Estimated GFR POC Glucose Random Glucose Calcium Magnesium Total Bilirubin AST ALT Alkaline Phosphatase Troponin I High Sens < 3.5 B-Natriuretic Peptide 57 Total Protein Albumin TSH Urine Color Urine Appearance Urine pH Ur Specific [place] Urine Protein Urine Glucose (UA) Urine Ketones Urine Blood Urine Nitrite Ur Leukocyte Esterase Urine RBC Urine WBC Ur Squamous Epith Cells Urine Bacteria COVID-19 (SAMIA) Negative COVID-19 Clin Com See Note Influenza Type A (PROSPER) Influenza Type B (PROSPER) Influenza A & B Note 04/14/22 04/14/22 04/14/22 11:23 14:29 14:29 WBC RBC Hgb Hct MCV MCH MCHC RDW Plt Count MPV Immature Gran % (Auto) Neut % (Auto) Lymph % (Auto) Sanders % (Auto) Eos % (Auto) Baso % (Auto) Lymph # (Auto) Sanders # (Auto) Eos # (Auto) Baso # (Auto) Abs Immat Gran (auto) Absolute Neuts (auto) Absolute Nucleated RBC Nucleated RBC % (auto) PT INR Sodium Potassium Chloride Carbon Dioxide Anion Gap BUN Creatinine Estim Creat Clear Calc Estimated GFR POC Glucose Random Glucose Calcium Magnesium Total Bilirubin AST ALT Alkaline Phosphatase Troponin I High Sens 4.4 B-Natriuretic Peptide Total Protein Albumin TSH Urine Color STRAW Urine Appearance CLEAR Urine pH 6.0 Ur Specific [place] <= 1.005 Urine Protein NEG Urine Glucose (UA) NEG Urine Ketones NEG Urine Blood NEG Urine Nitrite POS H Ur Leukocyte Esterase 1+ H Urine RBC 0 Urine WBC 1-4 Ur Squamous Epith Cells TRACE Urine Bacteria 4+ COVID-19 (SAMIA) COVID-19 Clin Com Influenza Type A (PROSPER) Negative Influenza Type B (PROSPER) Negative Influenza A & B Note See Note Imaging Radiologist's impression: Impressions Ankle X-Ray 04/14/22 12:21 IMPRESSION: Nondisplaced distal fibular fracture with overlying soft tissue swelling. Chest X-Ray 04/14/22 12:21 IMPRESSION: No acute pulmonary finding. Head CT 04/14/22 12:25 IMPRESSION: Moderate lateral parietal scalp hematoma without calvarial fracture. No acute intracranial process seen. Age-related changes. There is no acute fracture, dislocation or subluxation cervical spine. Cervical Spine CT 04/14/22 12:38 IMPRESSION: Moderate lateral parietal scalp hematoma without calvarial fracture. No acute intracranial process seen. Age-related changes. There is no acute fracture, dislocation or subluxation cervical spine. Assessment and Plan (1) Syncope: Status: Acute Plan 81-year-old female presenting for syncope. She was bending forward and when tried to stand up she passed out and fell to the ground. This was transient as her daughter heard her falling and came to check and she was awake at that time and remembers a conversation with her daughter. She has no chest pain or shortness of breath. EKG and labs were reviewed and do not show any obvious issues. Orthostatic vital signs are normal. She has a trach infection and has been started on ceftriaxone. It is possible that the infection led to some orthostasis and that is why she passed out. In any case we are monitoring her on telemetry. I will check echocardiogram to rule out any cardiomyopathy or valvular disease. Gentle hydration. Depending on if he fine obvious cause or not we may have to do a Holter monitor on her to rule out any arrhythmia outside the hospital. Thank you for allowing me to participate in the care of your patient. Please feel free to contact me if you have any questions. Procedures Date of Service Date of Service: 04/15/22
--- NOTE | 2022-04-15 13:11 | P.PNIM_ITS ---
Subjective Subjective Date of Service: 04/15/22 Interval History: Offers no acute complaints denies headache, no dizziness, no ankle pain, no acute overnight events noted to have elevated blood pressures with no prior history of hypertension, was never told to have high blood pressure in the past, denies chest pain, no shortness of breath, no fevers, no chills Review of Systems General no headache no dizziness no fever chills. CVS no chest pain, no palpitation. Respiratory no cough no sob Gastrointestinal no nausea ,no vomiting, no abdominal pain Review of Systems: Yes all other systems are reviewed and are negative Physical Exam Vital Signs: Vital Signs: Last Vital Signs Temp 98.4 F 04/15/22 11:32 Pulse 69 04/15/22 11:32 Resp 17 04/15/22 11:32 BP 140/65 H 04/15/22 11:32 Pulse Ox 96 04/15/22 11:32 BMI result Body Mass Index 26.5 Const: Other: General? awake alert x3, in no acute distress. HEENT? bilateral rotator nystagmus Neck? supple no JVD. CVS? regular rate rhythm, Respiratory lungs clear to auscultation, no respiratory distress, no wheeze, no rhonchi. Gastrointestinal abdomen soft, nontender, bowel sounds audible Extremities no edema/ left ankle splint in place. Neuro nonfocal Skin no rash psych appropriate affect Objective Data Active Medications Acetaminophen (Acetaminophen 325 Mg Tablet) 650 mg PO Q6H PRN PRN Reason: Pain, Mild (Pain Scale 1-3) Last Admin: 04/15/22 09:06 Dose: 650 mg Documented by: VAN Enoxaparin Sodium (Enoxaparin Sodium 40 Mg/0.4 Ml Syringe) 40 mg SUBCUT Q24H [facility] Last Admin: 04/14/22 17:19 Dose: 40 mg Documented by: THOMAS Ceftriaxone Sodium 1 gm/ (Sodium Chloride) 50 mls @ 100 mls/hr IV Q24H [facility] Levothyroxine Sodium (Levothyroxine Sodium 88 Mcg Tablet) 88 mcg PO DAILY@0600 [facility] Last Admin: 04/15/22 06:02 Dose: 88 mcg Documented by: MARIPOSA Lisinopril (Lisinopril 10 Mg Tablet) 10 mg PO DAILY [facility]; Protocol Last Admin: 04/15/22 09:04 Dose: 10 mg Documented by: VAN Magnesium Hydroxide (Milk Of Magnesia 30 Ml Oral.Susp) 30 ml PO DAILY PRN PRN Reason: Constipation Melatonin (Melatonin 3 Mg Tablet) 3 mg PO BEDTIME PRN PRN Reason: Insomnia Ondansetron HCl (Ondansetron Hcl 4 Mg/2 Ml Vial) 4 mg IVPUSH Q8H PRN PRN Reason: Nausea and Vomiting Pharmacy Consult (Consult Rx Perform Med Rec) 1 each MISCELLANE ONCE PRN PRN Reason: Consult order Sodium Chloride (0.9 % Sodium Chloride Flush 3 Ml Syringe) 3 ml IVFLUSH QSHIFT [facility] Last Admin: 04/15/22 09:08 Dose: 3 ml Documented by: VAN Vitamin D (Cholecalciferol (Vitamin D3) 25 Mcg Tablet) 25 mcg PO DAILY [facility] Last Admin: 04/15/22 09:04 Dose: 25 mcg Documented by: VAN Labs CBC & Chem 7: 04/14/22 10:14 04/14/22 10:13 Labs: Laboratory Results - last 24 hr 04/14/22 04/14/22 04/14/22 09:57 10:13 10:13 POC Glucose 145 H Magnesium 2.0 Troponin I High Sens B-Natriuretic Peptide 57 TSH 0.92 Influenza Type A (PROSPER) Influenza Type B (PROSEPR) Influenza A & B Note 04/14/22 04/14/22 14:29 14:29 POC Glucose Magnesium Troponin I High Sens 4.4 B-Natriuretic Peptide TSH Influenza Type A (PROSPER) Negative Influenza Type B (PROSPER) Negative Influenza A & B Note See Note Microbiology Microbiology Results: Microbiology 04/14/22 00:00 Urine Culture - Preliminary Urine clean catch - Urine avila top Gram negative iliana Assessment and Plan (1) Fracture of distal end of left fibula: Status: Acute (2) Nystagmus, congenital: Status: Acute (3) Hypothyroidism: Status: Acute (4) Syncope: Status: Acute (5) Acute UTI: Status: Acute (6) Elevated blood pressure reading: Status: Acute Plan 81-year-old female patient with congenital nystagmus and hypothyroidism presented [facility] after the risks syncopal episode patient diagnosed to have urinary tract infection and left nondisplaced fibula fracture. ?Syncope with head trauma/ left nondisplaced fibula fracture ? question etiology of syncope, no seizure-like activity no preceding symptoms suggestive of vasovagal episode no arrhythmia on monitor no preceding symptoms of lightheadedness, dizziness. ? question related to lack of sleep since take care of her with dementia with history of for nocturia requiring constant assistance at night/question due to UTI ? Tele monitor showed no abnormal rhythm, normal TSH, normal orthostatic blood pressure, normal neuro exam, not related to mildly elevated blood pressure Await cardiology input, continue treatment for infection ?urinary tract infection urine culture growing Gram-negative rods continue IV ceftriaxone, follow final urine culture, patient asymptomatic no fevers no chills no dysuria. ?Nondisplaced left fibular fracture seen by orthopedic surgery they will order tall walking boot and recommend weightbear as tolerated and outpatient follow-up with ortho Continue Tylenol and as needed oxycodone for pain control Obtain PT eval Hypertension no prior history of hypertension, started on low-dose lisinopril follow BP closely ?hypothyroidism continue? Synthroid ?DVT prophylaxis with Lovenox ?Will require continued inpatient hospitalization for syncope/IV antibiotics for urinary tract infection newly diagnosed hypertension and for safe discharge planning awaiting PT eval ?code status full code Quality Stroke Does the patient have a stroke diagnosis?: No VTE Prior VTE?: No VTE Risk Level:: Medical - moderate - high VTE Device Contraindication: Treatment Not Indicated VTE Drug Contraindication: N/A - Med Ordered
--- NOTE | 2022-04-15 13:57 | MHC.CM.PN ---
IMM 04/15/22, EMR REVIEWED, PT ADMITTED S/P SYNCOPE/UTI AND LEFT DISTAL TIB FX, PER PT PT DOES NOT REQUIRE HOME SERVICES, PT WILL REMAIN INPT SHE WILL NEED CARDIOLOGY WORK UP AND ECCHO, PT REPORTS SHE LIVES W/ AND HER YOUNGER SON, PT HAS A CANE/WALKER AND GRAB BARS IN BR/KITCHEN, PT'S ONLY HOME SERVICE IS [facility] HOWEVER [facility] IS GETTING A SURGERY ATTENDANT FOR PT AND PT'S , PT PCP VERIFIED GERMAN TODD, PFIZER X3 ON FILE. HCP COMPLETED W/PT, PT PROVIDED W/EDUCATION, ORIGINAL DOCUMENT AND TWO COPIES, COPY UPLOADED TO ALLCall [employer]TS AND PLACED IN CHART W/PT PERMISSION D/C PLAN HOME W/SCRIPT FOR WALKER VS HOME W/NEW VNA, FAMILY FOR TRANSPORT
[2022-04-15] MEDS: Enoxaparin Sodium 40 MG/0.4 ML SYRINGE SUBCUT (15:48)
[2022-04-15] MEDS: cefTRIAXone sodium 1 GM in 0.9 % Sodium Chloride 50 ML IV (15:48)
[2022-04-16] MEDS: 0.9 % Sodium Chloride Flush 3 ML SYRINGE IVFLUSH ×2 (01:17→08:13)
[2022-04-16 03:36] VITALS: BP 152/84; PULSE 72; RESP 18; TEMP 36.1; O2SAT 94
[2022-04-16] MEDS: Acetaminophen 325 MG TABLET 650 MG PO (05:10)
[2022-04-16] MEDS: Levothyroxine Sodium 88 MCG TABLET PO (05:10)
--- NOTE | 2022-04-16 07:00 | CA_ITS ---
Transthoracic Echocardiogram Patient (Last, First, Middle): Donna Andino M Gender: Female Date of : 1940 Age: 81 Procedure Date: 04/16/2022 Procedure Type: Transthoracic Echocardiogram Location: S3E Height: 154.94 cm Weight: 63.5 kg BSA: 1.62 m2 Heart Rate: bpm BP: 140 / 65 mmHg Dog Daycare Provider: GIANNA Referring MD: Benita Al MD Symptoms: syncope Study Quality: Fair Conclusions: - Normal left ventricular cavity size. There is mildly increased left ventricular wall thickness. The left ventricular systolic function is hyperdynamic. The visually estimated ejection fraction is >70%. - There is severe mitral annular calcification. - Calcification of the subvalvular apparatus and papillary muscle is noted. - Normal right ventricular cavity size and systolic function. Findings Left Ventricle Normal left ventricular cavity size. There is mildly increased left ventricular wall thickness. The left ventricular systolic function is hyperdynamic. The visually estimated ejection fraction is >70%. There is no evidence of regional wall motion abnormalities. Diastolic function is indeterminate on the basis of available data. Right Ventricle Normal right ventricular cavity size and systolic function. Atria Both atria are normal in size. Aortic Valve Normal aortic valve structure and function. There is no aortic valve stenosis. There is no aortic valve regurgitation. Mitral Valve There is severe mitral annular calcification. There is no mitral valve regurgitation. There is no mitral valve stenosis. Calcification of the subvalvular apparatus and papillary muscle is noted. Pulmonic Valve The pulmonic valve is likely normal. Tricuspid Valve Normal tricuspid valve structure and function. There is trace tricuspid valve regurgitation. Normal right atrial pressure. There is no evidence of pulmonary hypertension. Great Vessels All visible segments of the aorta are normal in size. The visualized portions of the pulmonary artery and branches are normal. Venous The inferior vena cava is normal in size and collapses greater than 50% with inspiration. Pericardium/Pleural There is no evidence of pericardial effusion. Prior Study Comparison No prior study available for comparison. Measurements 2D Linear Measurements IVSd: 1.02 0.6-0.9/0.6-1.0 cm LVIDd: 3.72 3.9-5.3/4.2-5.9 cm LVIDd Index: 2.30 2.4-3.2/2.2-3.1 cm/m2 LVIDs: 2.37 2.0-3.6 cm LVPWd: 1.01 0.7-1.1 cm LA Diam: 3.00 2.7-3.8/3.0-4.0 cm LAIDs Index: 1.85 1.5-2.3 cm/m2 LV Mass: 144.18 67-162/88-224 g LV Mass Index: 89.00 43-95/49-115 g/m2 LVOT Diam: 2.00 3.0+(-)1.3 cm 2D Systolic Function EF 4C: 67.70 >55% EF 2C: 68.00 >55% EF BiP: 67.30 >55% Mitral Valve MV VTI: 0.45 MV Pk Jose Enrique: 1.38 MV Mn Jose Enrique: 0.86 MV Pk Grad: 8.00 MV Mn Grad: 3.00 MV Pk E: 0.92 MV PK A: 1.23 MV Decel Time: 274.00 E/A: 0.70 E'Lateral: 7.40 E'Medial: 6.53 E/E' Med: 14.10 E/E' Lat: 12.50 PHT: 80.00 MVA PHT: 2.75 MVA Continuity: 1.55 Decel [place]: 3.36 Aortic Valve AoV Pk Jose Enrique: 1.45 AoV Mn Jose Enrique: 0.92 AoV VTI: 0.28 AoV Pk Grad: 8.00 Aov Mn Grad: 4.00 SHERMAN Cont.VTI: 2.49 LVOT LVOT Pk Jose Enrique: 1.11 LVOT Mn Jose Enrique: 0.72 LVOT VTI: 0.22 LVOT Pk Grad: 5.00 LVOT Mn Grad: 2.00 LVOT Diam: 2.00 LVOT Area: 3.14 Diastolic Function MV Pk E: 0.92 MV Pk A: 1.23 E/A: 0.70 E'Medial: 6.53 E/E' Med: 14.10 E' Laterial: 7.40 E/E' Lat: 12.50 Right Ventricle TAPSE (mm): 23.20 TVS' Jose Enrique: 12.32 Tricuspid Valve TR Pk Jose Enrique: 1.10 TR Pk Grad: 5.00 RA Press: 3.00 RVSP: 8.00 Great Vessels Aorta Sinus of Valsalva: 3.05 2.0-3.[address] [place]: 2.93 1.7-3.4 cm Ao Asc: 3.20 2.1-3.4 cm Ao Arch: 2.60 Updated in Other Vendor System with Status of Final Ze Gallegos MD electronically signed on 04/16/2022 1:52:02 PM with status of Final
[2022-04-16 07:09] VITALS: BP 151/69; PULSE 70; RESP 16; TEMP 36.2; O2SAT 96
[2022-04-16] MEDS: Cholecalciferol (Vitamin D3) 25 MCG TABLET PO (08:13)
[2022-04-16] MEDS: lisinopriL 10 MG TABLET PO (08:13)
[2022-04-16 09:40] VITALS: BP 151/69; PULSE 70; O2SAT 96
--- NOTE | 2022-04-16 10:22 | P.DS_ITS ---
DS: Providers Provider Date of Service: 04/16/22 Date of admission: 04/14/22 15:40 Primary care physician: Pal Dumas MD Consults: 04/14/22 15:50 Consult to Orthopedics Routine Consulting Provider: Homero Teran Reason for consultation: left distal fibula fx Has provider been notified: No 04/15/22 08:33 Consult to Cardiology Routine Consulting Provider: Ze Gallegos Reason for consultation: syncope Has provider been notified: No DS: Diagnosis Discharge Diagnosis (1) Fracture of distal end of left fibula: Status: Acute (2) Nystagmus, congenital: Status: Acute (3) Hypothyroidism: Status: Acute (4) Syncope: Status: Acute (5) Acute UTI: Status: Acute (6) Elevated blood pressure reading: Status: Acute DS: Summary Hospital Course Hospital Course: Chief Complaint:? syncope ?81-year-old female patient with past medical history significant for hypothyroidism, congenital nystagmus presented to [facility] after syncopal episode this morning, as per patient and her daughter at bedside patient woke up this morning had her bed coffee then went to the bathroom dressed up had 1 shoe on and was trying to place the other issue after but she does not remember what happened she woke up on the floor daughter in neck is room the fall came to the room and found the patient on the floor, patient denied any preceding symptoms of headache, lightheadedness, dizziness or chest pain she had no weakness, no recent bout of nausea ,vomiting diarrhea, she denied any coughing episodes, after the fall patient was awake alert noted to have no confusion, no tongue biting no incontinence of bowel or bladder noted, fall was not witnessed, patient complained of left ankle pain daughter brought her to the emergency room, as per patient patient was a little confused early in the morning, workup they ER including CT head, C-spine and chest x-ray showed no acute abnormality other than moderate lateral parietal scalp hematoma, urinalysis is positive, troponin negative, x-ray a of left ankle showed nondisplaced distal fibula fracture patient is now being admitted with a diagnosis of syncope, question etiology, urinary tract infection. Hospital course 81-year-old female patient with congenital nystagmus and hypothyroidism presented to [facility] after the risks syncopal episode patient diagnosed to have urinary tract infection and left nondisplaced fibula fracture. ?Syncope with head trauma/ left nondisplaced fibula fracture, patient admitted to telemetry unit, noted to have normal orthostatic studies, tele monitor showed no arrhythmia, had no seizure-like activity, TSH normal, patient diagnosed to have urinary tract infection and high blood pressure patient treated with IV ceftriaxone urine culture grew E coli sensitive to cephalosporin therefore being discharged home on by mouth Ceftin for total 5 day course of antibiotic in regard to her blood pressure patient placed on Zestril 10 mg daily patient evaluated by plastic products sales representative Dr. Gallegos, no cause of syncope found likely syncope related to underlying infection, lack of sleep, patient is being discharged home to have outpatient follow-up with Cardiology for outpatient Holter monitor, and echocardiogram showed EF greater than 70% severe mitral annular calcification, mildly increased left ventricular wall thickness no regional wall motion abnormality diastolic function is indeterminate on the basis of L of available data, severe mitral annular calcification. ?Urinary tract infection , patient had no fever, normal WBC count, urine culture grew E coli will discharge home on by mouth Ceftin for total 5 day serve antibiotic ?Nondisplaced left fibular fracture seen by orthopedic surgery they recommend tall walking boot and weightbear as tolerated , patient evaluated by Physical therapy and they recommend home PT, patient is being discharged home with [facility] services and physical therapy ? ?Hypertension? no prior history of hypertension, started on low-dose lisinopril recommend close outpatient follow-up with PCP ?hypothyroidism continue? Synthroid Time Spent with Patient Time attestation: Total time spent providing and/or coordinating discharge services: Discharge coordination time: Greater than 30 minutes Quality: Safe Use of Opioids Does Pt have an Active Cancer Diagnosis on the Problem List?: No Quality: Stroke Does the patient have a stroke diagnosis?: No Physical Exam Vital Signs: Vital Signs: Last Vital Signs Temp 97.2 F 04/16/22 07:09 Pulse 70 04/16/22 09:40 Resp 16 04/16/22 07:09 BP 151/69 H 04/16/22 09:40 Pulse Ox 96 04/16/22 09:40 BMI result Body Mass Index 26.5 Const: Other: General? awake alert x3, no acute distress. HEENT? bilateral rotator nystagmus (congenital) Neck? supple no JVD. CVS? regular rate rhythm, Respiratory lungs clear to auscultation, no respiratory distress, no wheeze, no rhonchi. Gastrointestinal abdomen soft, nontender, bowel sounds audible Extremities no edema/ left ankle boot in place. Neuro nonfocal Skin no rash psych appropriate affect Discharge Plan Discharge Patient Disposition: Home Health Service Discharge Diagnosis: Syncope UTI Left distal fibula fracture Hypertension Referrals: [facility] [Other] - 3-5 Days ([facility] FOR HOME PHYSICAL THERAPY PCP DR DUMAS TO CALL FOR [facility]SP[facility] ) Pal Dumas MD [Primary Care Provider] - 1 Week Discharge Medications: New cefuroxime axetil 250 mg tablet 250 mg PO BID Qty: 7 0RF lisinopril 10 mg Tablet 10 mg PO DAILY Qty: 30 0RF Protocol: Hold for SBP< HOLD for SBP < : 90 (DME) Ultra-Light Rollator Misc See Rx Instructions .Route Qty: 1 0RF Rx Instructions: As directed Continued levothyroxine [Synthroid] 88 mcg tablet 1 tab PO DAILY 0RF cholecalciferol (vitamin D3) 25 mcg (1,000 unit) Tablet 25 mcg PO DAILY 0RF Discharge Orders: Discharge Order (Routine); Ordered 04/16/22 Ordered By: Benita Al Diet: advance to usual diet Activity on Discharge: As tolerated Stand Alone Forms: Patient Portal Discharge page Care Plan Goals: Continue orthopedic boot weight-bearing as tolerated, with home physical therapy ambulate with front wheeled walker, in regard to syncope follow-up with plastic products sales representative Dr. 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 Gallegos for Holter monitor, outpatient follow-up with Orthopedic surgery call to make appointment. Assessment: As per discharge summary
[2022-04-16 11:18] VITALS: BP 148/69; PULSE 80; RESP 18; TEMP 36.3; O2SAT 98
--- NOTE | 2022-04-16 11:31 | MHC.CM.PN ---
NURSE ELECTRIC INSTALLER NOTE ELECTRONIC MEDICAL RECORD REVIEWED ALONG WITH CASE DISUCSSED WITH STAFF NURSE AND THE HOS[IT;AIT PATIENT TO BE DISCHARGED HOME TODAY WITH NEW REFERRAL FOR THE [facility] DISCHARGE PLAN HOME WITH [facility] FOR HOME PHYSICAL THERAPY PCP DR KATHRYN DUMAS TRANSPORTATION FAMILY RECIVED T/C FROM PATIENTS GRANDDAUGHTER AMBROCIO. (SHE INFORMED ME THAT PATIENT KARO HAS [facility] JARED MEALS ON WHEELS ,
--- NOTE | 2022-04-16 11:49 | W.MHC.F2F ---
Service Date Service Date: 04/16/22 Encounter Date of encounter: 04/16/22 Reasons for Services Signs and symptoms assessed: Syncope unknown etiology likely due to infection and lack of sleep, left distal fibular fracture continue ankle splint use boot for ambulation weightbear as tolerated will need home physical therapy , noted to have elevated blood pressure will need close blood pressure monitoring as outpatient. Reason for shelter: medication management Reason for physical therapy: home safety and mobility Homebound: Leaving the home is medically contraindicated at this time without the asist of a device and/or another person due th the listed conditions above and below. Reason homebound: pain with ambulation and weakness related to hospital stay Homebound supporting statement: Left distal fibular fracture with limited ambulation/infection Certification: Based on the above findings, I certify that this patient is confined to the home and needs intermittent shelter care, physical therapy and/or speech therapy, or continues to need occupational therapy. The patient is under my care, and I have initiated the establishment of the plan of care. The patient will be followed by a physician who will periodically review the plan of care.
--- NOTE | 2022-04-16 12:51 | P.PNCA_ITS ---
Subjective Subjective Date of Service: 04/16/22 <JOJO Harrington - Last Filed: 04/16/22 13:02> 04/16/22 <Ze Gallegos MD - Last Filed: 04/16/22 14:16> Principal diagnosis: syncope <JOJO Harrington Last Filed: 04/16/22 13:02> Interval history: Seen at 1100. Today she is observed sitting in recliner, no distress. Reports feeling good. No dizziness or lightheadedness. Has ambulated with use of walker and help of physical therapist. No chest discomfort, palpitations, sob. Wearing orthopedic boot on left. Tele monitor showing normal rhythm, occassional PVC. <JOJO Harrington Last Filed: 04/16/22 13:02> Review of Systems Review of Systems as above <JOJO Harrington - Last Filed: 04/16/22 13:02> Yes all other systems are reviewed and are negative <JOJO Harrington - Last Filed: 04/16/22 13:02> Physical Exam Vital Signs: Last Vital Signs Temp 97.3 F 04/16/22 11:18 Pulse 80 04/16/22 11:18 Resp 18 04/16/22 11:18 BP 148/69 H 04/16/22 11:18 Pulse Ox 98 04/16/22 11:18 BMI result Body Mass Index 26.5 <JOJO Harrington - Last Filed: 04/16/22 13:02> Const General: cooperative, healthy appearing, no acute distress, alert and awake <JOJO Harrington - Last Filed: 04/16/22 13:02> Orientation/consciousness: patient oriented x3 <JOJO Harrington Last Filed: 04/16/22 13:02> Neck Neck: Yes normal visual inspection and Yes no JVD <JOJO Harrington Last Filed: 04/16/22 13:02> Resp Effort & Inspection: normal respiratory effort, able to speak in complete sentences and not labored <JOJO Harrington - Last Filed: 04/16/22 13:02> Auscultation: clear to auscultation bilaterally, no rales, no rhonchi and no wheezes <JOJO Harrington Last Filed: 04/16/22 13:02> Cardio Jugular venous distension: JVD present <JOJO Harrington Last Filed: 04/16/22 13:02> Palpation: normal PMI <[facility] Last Filed: 04/16/22 13:02> Rate: regular rate <CECIL Harrington David Last Filed: 04/16/22 13:02> Rhythm: regular rhythm <[facility] Last Filed: 04/16/22 13:02> Heart sounds: S1 normal heart sound present and S2 normal heart sound present <CECIL Harrington David Last Filed: 04/16/22 13:02> Peripheral pulses: Peripheral pulses 2+ throughout <[facility] Last Filed: 04/16/22 13:02> Neuro General: patient oriented x3 <CECIL Harrington David Last Filed: 04/16/22 13:02> Extrem Other: ortho boot on left. right lower leg normal <JOJO Harrington [facility] Filed: 04/16/22 13:02> Objective Labs and Meds Result diagrams: : 04/14/22 10:14 04/14/22 10:13 <CECIL Harrington David Last Filed: 04/16/22 13:02> Progress Note: A&P Assessment and plan (1) Syncope: Status: Acute <CECIL Harrington David Last Filed: 04/16/22 13:02> Assessment and Plan: Syncopal event at home prior to admission. EKG and lab work reviewed with no significant abnormalities. She was positive for UTI and started on appropriate medical management. Telemetry monitoring has shown no significant a rrhythmia. She has sinus rhythm with an occasional PVC, heart rate range 70s to 80s. She has no reports of heart palpitations, dizziness and no recurrent presyncope or syncopal events. Echocardiogram has been completed, result is pending. If no significant findings and she can likely be discharged from a cardiology perspective. We can arrange for outpatient Holter monitor for completeness. <JOJO Harrington - Last Filed: 04/16/22 13:02> (2) Elevated blood pressure reading: Status: Acute <JOJO Harrington - Last Filed: 04/16/22 13:02> Assessment and Plan: Blood pressure elevated during this admission. High reading of 182/79. Lisinopril 10 mg daily has been added. Blood pressure improving, today 148/69. Labs show potassium 4.2, creatinine 0.71. <JOJO Harrington - Last Filed: 04/16/22 13:02> (3) Fracture of distal end of left fibula: Status: Acute <JOJO Harrington Last Filed: 04/16/22 13:02> Assessment and Plan: Being followed by Orthopedics <JOJO Harrington - Last Filed: 04/16/22 13:02> (4) Acute UTI: Status: Acute <JOJO Harrington Last Filed: 04/16/22 13:02> Assessment and Plan: The managed by hospitalist <JOJO Harrington - Last Filed: 04/16/22 13:02> Plan Patient seen examined at bedside. Clinically stable. Telemetry did not show any significant arrhythmia. Echocardiography has shown hyperdynamic left ventricular function and normal right ventricular function. She has severe mitral annular calcification as well as calcification of papillary muscle. This is an incidental finding in her. There is no wall motion abnormalities to suggest old IN which is 1 of the conditions where papillary muscle calcification can be seen. She is not end-stage renal disease. I think this is incidental finding in her and this could be senile calcification. I do not think she needs further workup for this. We will arrange a Holter monitor for her to rule out any significant arrhythmia. I think her presentation is due to UTI and orthostasis. She should hydrate herself and be treated for the UTI. Thank you for allowing me to participate in the care of your patient. Please feel free to contact me if you have any questions. <Ze Gallegos MD - Last Filed: 04/16/22 14:16> Time Spent With Patient Time: Total time spent is greater than 50% in coordination of care (as docum ented) at patient's floor/unit and/or counseling patient: 20 <JOJO Harrington - Last Filed: 04/16/22 13:02> Progress Note: Quality Stroke Does the patient have a stroke diagnosis?: No <JOJO Harrington - Last Filed: 04/16/22 13:02> Procedures Date of Service Date of Service: 04/16/22 <JOJO Harrington - Last Filed: 04/16/22 13:02>
--- NOTE | 2022-04-16 13:12 | MHC.CM.PN ---
UPDATE PATIENTSDARITA BUSH CALLED AND SHE ANTS ME TO CANCELL THE [facility] WANTS REFERRALS TO [facility] THIS IS THE AGENCY THAT COMES TO THE HOUSE TO SEE PATIENTS , THIS REFERRAL WAS MADE AND IN INFORMED HER THAT THEY COULD START THE [place] OF THE WEEK BUT WAS TOLD THEY WILL TRY TO HAVE PT OVER THE WEEKENDED , SHE IS AWARE OF THIS AND ACEPPTING , SHE RPEORTED THAT HER BROTHER LIVES WITH FAMILY AND EXTENDED FAMILYWILL BE IN/OUT THROUGHT THE WEEK . ONFORMED THE [facility] OF THIS CHANGE ALL D/C PAPERWORK WAS SENT TO [facility]
== END 2022-04-16 16:38 | disposition home health service (06) | DRG 690 ==
LOC: HO.ED 14:18 → HO.EDOVER 15:48 → HO.S3 23:23
PROVIDERS: Physician Assistant; Admitting Provider Hospitalist; Emergency Provider Internal Medicine; PCP Internal Medicine; Visit Provider Hospitalist
DX: N39.0 Urinary tract infection, site not specified (principal); E03.9 Hypothyroidism, unspecified; S82.435A Nondisplaced oblique fracture of shaft of left fibula, initial encounter for closed fracture; W18.30XA Fall on same level, unspecified, initial encounter; Y92.009 Unspecified place in unspecified non-institutional (private) residence as the place of occurrence of the external cause; R03.0 Elevated blood-pressure reading, without diagnosis of hypertension; B96.20 Unspecified Escherichia coli [E. coli] as the cause of diseases classified elsewhere; I49.3 Ventricular premature depolarization; H55.01 Congenital nystagmus; Z20.822 Contact with and (suspected) exposure to COVID-19; Z79.02 Long term (current) use of antithrombotics/antiplatelets; Z79.82 Long term (current) use of aspirin; Z79.890 Hormone replacement therapy; Z79.899 Other long term (current) drug therapy
CPT/HCPCS: 36415; 70450; 71045; 72125; 73600; 80053; 81001; 82947; 83735; 83880; 84443; 84484; 85025; 85610; 87086; 87088; 87186; 87502; 87635; 93005; 93306; 96361; 96365; 97110; 97116; 97162; 99285; J0696; J1650

== ENCOUNTER 2022-04-18 12:52 | Inpatient (IN) | payer MEDICARE, OTHER, SELFPAY ==
[2022-04-18] VITALS (9 sets, daily range): BP systolic 124–172; BP diastolic 67–94; PULSE 68–79; RESP 16–20; TEMP 36.6–37.2; O2SAT 95–98; BMI 24.5
--- NOTE | 2022-04-18 | ECG_ITS ---
Test Reason : SYNCOPE Blood Pressure : / mmHG Vent. Rate : 076 BPM Atrial Rate : 076 BPM P-R Int : 172 ms QRS Dur : 074 ms QT Int : 368 ms P-R-T Axes : 024 028 032 degrees QTc Int : 414 ms Normal sinus rhythm Normal ECG When compared with ECG of 14-APR-2022 09:59, No significant change was found Referred By: Generic ED Physician Electronically Signed By:Ze Gallegos
--- NOTE | ~2022-04-18 | CT_ITS ---
EXAMINATION: CT ANGIOGRAM NECK AND HEAD CLINICAL INFORMATION: Right patient changes, syncope COMPARISON: Noncontrast head CT from earlier today TECHNIQUE: Test bolus sequences followed by intravenous administration 70 mL of Omnipaque 350. Helical imaging was performed in the axial plane from the thoracic inlet to the skull vertex. Delayed postcontrast imaging of the head was also performed. The data was processed at the 3d technologist's workstation for generation of MIP sequences. Angled MIPs and volume rendered reformatted images were also generated at an offline 3D workstation. Stenoses are assessed in accordance with NASCET criteria unless otherwise indicated. DOSE LOWERING TECHNIQUES: This CT examination was performed using dose optimization techniques as appropriate, variously including the following: - Automated exposure control - Adjustment of mA and/or kV according to patient size (this includes techniques or standardized protocols for targeted exams were dose is matched to indication/reason for exam; i.e. extremities or head) - Use of iterative reconstruction technique DLP: 1409 mGy-cm FINDINGS: Neck CTA: There is a classic 3 vessel branching pattern of the aortic arch. There is mild calcification at the origin of the left subclavian artery. There is a segment of left V2 vertebral artery dissection at the level of C4-C5 with a double-lumen appearance, extending for approximately 1.7 cm in length. Remainder of the left vertebral artery is unremarkable. The right vertebral artery appears normal. There is calcified and noncalcified plaque at the proximal right internal carotid artery with less than 50% luminal narrowing. There is minimal calcification at the origin and proximal left internal carotid artery. Otherwise normal appearance of the common and internal carotid arteries without significant stenosis. Brain CTA: Normal appearance of the intradural vertebral arteries. Basilar artery is well-opacified. Normal appearance of the posterior cerebral arteries bilaterally. Normal appearance of the intradural internal carotid arteries without focal stenosis. Normal appearance of the anterior cerebral and middle cerebral arteries without focal occlusion or stenosis. Normal anterior communicating artery. Normal arborization of the middle cerebral arteries. CT Head: No intracranial mass, hemorrhage, extra-axial collection, or midline shift. The avila-white matter differentiation is preserved. There is mild periventricular white matter hypoattenuation consistent with chronic small vessel ischemic disease. Mild volume loss is noted. No pathologic intra-axial enhancement or regional oligemia. No hydrocephalus. No acute fracture is seen. There is left posterior scalp soft tissue swelling at the vertex. The mastoid air cells and paranasal sinuses remain well aerated. CT Neck: The thyroid gland and remaining cervical soft tissues are normal in appearance. No acute cervical spine abnormalities demonstrated. Upper Chest: No abnormalities in the visualized lung apices or upper mediastinum. CT/CT angio head neck IMPRESSION: 1. 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 2. No large vessel occlusion or significant stenosis in the intracranial circulation. 3. Mild chronic small vessel ischemic disease and volume loss. This critical result was discussed with RAPHAEL Brown on 04/19/2022 12:06 AM, and it was ascertained that the content and urgency of the report was understood at the time of direct communication.
--- NOTE | ~2022-04-18 | XR_ITS ---
EXAMINATION: XR CHEST CLINICAL INFORMATION: Syncope. COMPARISON: Chest radiograph dated from 04/14/2022. TECHNIQUE: AP view of the chest was obtained. FINDINGS: Stable appearance of the cardiomediastinal silhouette including mitral annular calcifications. Similar asymmetric lucency of the right costodiaphragmatic angle. No focal airspace opacities, pleural effusions or pneumothorax. No acute osseous abnormalities. The visualized upper abdomen is within normal limit. XR/XR chest 1V IMPRESSION: No acute cardiopulmonary findings.
--- NOTE | ~2022-04-18 | CT_ITS ---
EXAMINATION: CT HEAD WITHOUT CONTRAST CLINICAL INFORMATION: Syncope COMPARISON: None TECHNIQUE: Contiguous axial imaging was performed from the skull base to vertex without intravenous administration of contrast. This CT examination was performed using dose optimization techniques as appropriate, variously including the following: *Automated exposure control *Adjustment of mA and/or kV according to patient size (this includes techniques or standardized protocols for targeted exams where dose is matched to indication/reason for exam; i.e. extremities or head) *Use of iterative reconstruction technique DLP: 639 mGy-cm FINDINGS: There is no evidence of acute intracranial hemorrhage or territorial infarction. No abnormal mass effect or midline shift is seen. Tapia to white matter differentiation is well preserved. No extra-axial fluid collections are identified. The ventricles are normal in size. There is no abnormal attenuation within the brain parenchyma. The osseous structures and soft tissues are normal. The mastoid air cells and visualized portions of the paranasal sinuses are well aerated. CT/CT head/brain wo con IMPRESSION: No acute intracranial pathology.
[2022-04-18 13:21] LABS: MANUAL DIFF FLAG NO
[2022-04-18 13:23] LABS: Basophils Absolute Auto 0.1 X10*3/uL (0.0-0.2); Basophils Percent Auto 0.5 % (0-2); Eosinophils Absolute Auto 0.2 X10*3/uL (0.0-0.4); Hematocrit 38.6 % (37.0-47.0); Hemoglobin 12.8 g/dl (12.0-16.0); Imm Gran Abs Auto 0.03 X10*3/uL (0.00-0.03); Imm Gran Pct Auto 0.3 % (0.0-0.4); Lymphocytes Absolute Auto 2.6 X10*3/uL (1.2-4.9); Lymphocytes Percent Auto 25.9 % (20-40); Mean Corpuscular HGB Conc 33.2 g/dl (31.0-35.0); Mean Corpuscular Hemoglobin 31.4 pg (27.0-33.0); Mean Corpuscular Volume 94.6 fL (80.0-98.0); Mean Platelet Volume 10.3 fL (9.4-12.3); Monocytes Absolute Auto 0.7 X10*3/uL (0.1-1.2); Monocytes Percent Auto 7.1 % (2-11); Neutrophils Absolute Auto 6.4 x10*3/uL (2.0-8.3); Neutrophils Percent Auto 64.2 % (45-73); Platelet Count 197 X10*3/uL (160-400); Red Blood Count 4.08 X10*6/uL (4.20-5.50); Red Cell Distribution Width 13.6 % (11.0-16.0)
[2022-04-18 13:38] LABS: Alanine Aminotransferase 26 U/L (0-31); Albumin Level 3.8 g/dL (3.5-5.0); Alkaline Phosphatase 65 U/L (39-117); Anion Gap 12 (12-20); Aspartate Amino Transferase 26 U/L (5-31); Bilirubin Total 0.6 mg/dL (0.0-1.0); Blood Urea Nitrogen 17 mg/dL (9-16); COVID-19 Test Negative (Negative); Calcium 9.2 mg/dL (8.4-10.2); Carbon Dioxide 26 mmol/L (22-29); Chloride 106 mmol/L (96-108); Creatinine Clr Calc Pharmacy 47.7; Estimated Glomerular Filt Rate > 60; Glucose Random 141 mg/dL (60-115); IDNOW Serial# 9DB6401D; Influenza A Negative (Negative); Influenza B2 Negative (Negative); Sodium 140 mmol/L (135-145); Total Protein 6.6 g/dL (6.5-8.0)
[2022-04-18 13:44] LABS: Troponin-I High Sensitivity 3.5 ng/L (<3.5-17.0)
[2022-04-18 16:41] LABS: B Type Natriuretic Peptide 50 pg/mL (<100)
--- NOTE | 2022-04-18 16:51 | ED_ITS ---
HPI - Syncope General Chief Complaint: Syncope Stated Complaint: Blacked Out D/C on 04/16/22 Time Seen by Provider: 04/18/22 15:52 Source: patient Mode of arrival: ambulatory History of Present Illness HPI narrative: 81-year-old female with a past medical history of hypothyroid, presenting to the ED complaining of syncopal episode [employer]. Patient reports she turned her head to the left, turned back, then had delcid curtain quickly go over right eye field and syncopized for about 5-10secs. Episode was witnessed by patient's daughter who reports patient was sitting, no fall to ground or head trauma, does report shakiness, and memory loss after incodent. Denies seizure-like activity. Of note patient was recently admitted to our facility on 04/14 for similar instance of syncope, had negative workup. Patient denies other symptoms prior to incident including headache, lightheadedness, CP/SOB, abdominal pain, nausea/vomiting, fever, neck pain. Denies vision changes at present Onset (ago): hour(s) Related Data Home Medications Medication Instructions Recorded Confirmed cholecalciferol (vitamin D3) 25 25 mcg PO DAILY 04/14/22 04/18/22 mcg (1,000 unit) tablet levothyroxine 88 mcg tablet 1 tab PO DAILY 04/14/22 04/18/22 (Synthroid) ibuprofen 200 mg tablet (Advil) 400 mg PO Q6H PRN 04/18/22 04/18/22 lisinopril 10 mg tablet 10 mg PO BEDTIME 04/18/22 04/18/22 Previous Rx's Medication Instructions Recorded cefuroxime axetil 250 mg tablet 250 mg PO BID #7 tab 04/16/22 walker (Ultra-Light Rollator) #1 ea 04/16/22 Allergies Allergy/AdvReac Type Severity Reaction Status Date / Time No Known Allergies Allergy Verified 04/14/22 09:56 Review of Systems Review of Systems: Constitutional: No Fever, No Chills, No Fatigue, No Malaise ENT/Mouth: No Ear Pain, No Nasal Congestion, No sore throat, No Rhinorrhea, No Swallowing Difficulty Eyes: No Eye Pain, No Swelling, No Redness, No Discharge, + Vision Changes Cardiovascular: No Chest Pain, No SOB, No Dyspnea on Exertion, No Palpitations Respiratory: No Cough, No Sputum, No Dyspnea Gastrointestinal: No Nausea, No Vomiting, No Diarrhea, No Constipation, No Abdominal pain Genitourinary: No Dysuria, No Urinary Frequency, No Hematuria, No Urinary Incontinence/retention, No Flank Pain Musculoskeletal: No joint pain, No Myalgias, No Joint Swelling Skin: No Skin Lesions, No rash Neuro: No Weakness, No Numbness, No Paresthesias, + Loss of Consciousness, No Dizziness, No Headache Yes all other systems are reviewed and are negative Neurologic: Denies Abnormal speech present [facility] Past Medical History Attestation statement: The following information was validated with the patient. Social History Social History Household Members: Spouse and Family Housing: House Alcohol intake: never Patient Tobacco Use Status: Never used Tobacco Advance Directives: Yes Advance Directives Information Provided: No Advance Directives on File: No service: No Current occupational status: retired Physical Exam Vital Signs: Vital Signs: Last Vital Signs Temp 98 F 04/18/22 19:06 Pulse 78 04/18/22 19:06 Resp 20 04/18/22 19:06 BP 153/69 H 04/18/22 19:06 Pulse Ox 97 04/18/22 19:06 BMI result Body Mass Index 24.5 Const: General: cooperative, healthy appearing and no acute distress Orientation/consciousness: patient oriented x3 Limitations: no limitations HEENT: Head: Yes normal to inspection, Yes atraumatic, No Kumar's sign and No raccoon eyes Ears: hearing grossly normal bilaterally General nose exam: Normal external nose present Face and sinus: Yes normal facial exam Mouth: Normal oral and palatal mucosa present Throat: Yes posterior oropharynx normal, Yes tonsils normal and Yes uvula midline Eyes: General: appearance normal, both eyes and all related structures Pupils: Equal, round and reactive pupils present EOM: EOMs intact bilaterally Neck: Other: No midline cervical spinous tenderness Neck: Yes normal visual inspection, Yes full ROM and Yes no meningeal signs Resp: Effort & Inspection: normal respiratory effort and no respiratory distress Auscultation: clear to auscultation bilaterally, no rales, no rhonchi and no wheezes Cardio: Rate: regular rate Heart sounds: S1 normal heart sound present and S2 normal heart sound present GI: Inspection: Yes normal to inspection Palpation (GI): Soft to palpation, nontender, no guarding and not rigid : General: Yes no CVA tenderness Back/Spine/Pelvis: Other: No midline thoracic/lumbar spinous tenderness/step-off or deformity Back: no CVA tenderness Skin: Rashes: no rashes Wounds: no wounds Neuro: General: patient oriented x3, tone normal, moves all extremities, no meningeal signs, no focal motor deficits and CN's II-XI intact bilaterally Cranial nerves: Yes CN's II-XII intact bilaterally, Yes Equal, round and reactive pupils present and Yes Bilaterally intact EOM present Cognition (Neuro): normal cognition Speech: No Abnormal speech present Gait exam (Neuro): Normal gait present Motor exam (neuro): 5/5 motor strength present throughout, Pronator motor function not present and no tremor noted Coordination: [id number] test normal Romberg Test: Negative Extrem: General: Yes normal to inspection Course Course Course Narrative: -1708--no leukocytosis. H&H stable. Labs otherwise unremarkable including a negative troponin > Will obtain 3hr repeat -UA negative. COVID-19 and influenza negative -1758--XR chest 1V IMPRESSION: No acute cardiopulmonary findings. CT head/brain wo con IMPRESSION: No acute intracranial pathology. ? >> patient admitted for further management -orthostatic vital signs negative -spoke to hospitalist, will consult Cardiology prior to admission to inquire about Holter monitor >> cardiology Dr. Gallegos also recommends admission MDM - Syncope MDM Narrative Medical decision making narrative: 81-year-old female with a past medical history of hypothyroid, presenting to the ED complaining of syncopal episode [employer]. Patient reports she turned her head to the left, turned back, then had delcid curtain quickly go over right eye field and syncopized for about 5-10secs. On exam vital signs stable, temp 99 degrees, NAD/nontoxic, no focal neuro deficits. Patient asymptomatic at present. Concern for ACS vs ICH vs ?Cervical stenosis. Lower concern for cervical dissection, CVA/TIA. Plan: EKG, labs, CXR, UA, head CT, admission Differential Diagnosis Differential diagnosis: Likely syncope due to orthostatic hypotension, vasovagal syncope, subarachnoid hemorrhage and dehydration Medical Records Attestation: I reviewed the patient's medical records. Lab Data Attestation: I reviewed the patient's lab results. Result diagrams: 04/18/22 13:16 04/18/22 13:16 Labs: Lab Results 04/18/22 04/18/22 04/18/22 Range/Units 13:16 13:16 13:16 WBC 10.0 (4.8-10.8) X10*3/uL RBC 4.08 L (4.20-5.50) X10*6/uL Hgb 12.8 (12.0-16.0) g/dl Hct 38.6 (37.0-47.0) % MCV 94.6 (80.0-98.0) fL MCH 31.4 (27.0-33.0) pg MCHC 33.2 (31.0-35.0) g/dl RDW 13.6 (11.0-16.0) % Plt Count 197 (160-400) X10*3/uL MPV 10.3 (9.4-12.3) fL Immature Gran % (Auto) 0.3 (0.0-0.4) % Neut % (Auto) 64.2 (45-73) % Lymph % (Auto) 25.9 (20-40) % Woodson % (Auto) 7.1 (2-11) % Eos % (Auto) 2.0 (0-4) % Baso % (Auto) 0.5 (0-2) % Lymph # (Auto) 2.6 (1.2-4.9) X10*3/uL Woodson # (Auto) 0.7 (0.1-1.2) X10*3/uL Eos # (Auto) 0.2 (0.0-0.4) X10*3/uL Baso # (Auto) 0.1 (0.0-0.2) X10*3/uL Abs Immat Gran (auto) 0.03 (0.00-0.03) X10*3/uL Absolute Neuts (auto) 6.4 (2.0-8.3) x10*3/uL Absolute Nucleated RBC 0.000 (0.0-0.012) X10*3/uL Nucleated RBC % (auto) 0.0 (0.0-0.2) /100WBC PT (9.9-13.0) SEC INR (0.9-1.1) APTT (24.1-38.0) SEC Sodium 140 (135-145) mmol/L Potassium 4.0 (3.3-5.1) mmol/L Chloride 106 (96-108) mmol/L Carbon Dioxide 26 (22-29) mmol/L Anion Gap 12 (12-20) BUN 17 H (9-16) mg/dL Creatinine 0.75 (0.5-1.4) mg/dL Estim Creat Clear Calc 47.7 Estimated GFR > 60 Random Glucose 141 H (60-115) mg/dL Calcium 9.2 (8.4-10.2) mg/dL Magnesium 2.0 (1.6-2.6) mg/dL Total Bilirubin 0.6 (0.0-1.0) mg/dL AST 26 (5-31) U/L ALT 26 (0-31) U/L Alkaline Phosphatase 65 (39-117) U/L Troponin I High Sens 3.5 (<3.5-17.0) ng/L B-Natriuretic Peptide 50 (<100) pg/mL Total Protein 6.6 (6.5-8.0) g/dL Albumin 3.8 (3.5-5.0) g/dL Urine Color Urine Appearance Urine pH (5.0-8.0) Ur Specific Garvin (1.005-1.025) Urine Protein (NEG-TRACE) MG/DL Urine Glucose (UA) (NEG) MG/DL Urine Ketones (NEG) MG/DL Urine Blood (NEG) Urine Nitrite (NEG) Ur Leukocyte Esterase (NEG) COVID-19 (SAMIA) (Negative) COVID-19 Clin Com Influenza Type A (PROSPER) (Negative) Influenza Type B (PROSPER) (Negative) Influenza A & B Note 04/18/22 04/18/22 04/18/22 Range/Units 13:16 13:16 16:32 WBC (4.8-10.8) X10*3/uL RBC (4.20-5.50) X10*6/uL Hgb (12.0-16.0) g/dl Hct (37.0-47.0) % MCV (80.0-98.0) fL MCH (27.0-33.0) pg MCHC (31.0-35.0) g/dl RDW (11.0-16.0) % Plt Count (160-400) X10*3/uL MPV (9.4-12.3) fL Immature Gran % (Auto) (0.0-0.4) % Neut % (Auto) (45-73) % Lymph % (Auto) (20-40) % Woodson % (Auto) (2-11) % Eos % (Auto) (0-4) % Baso % (Auto) (0-2) % Lymph # (Auto) (1.2-4.9) X10*3/uL Woodson # (Auto) (0.1-1.2) X10*3/uL Eos # (Auto) (0.0-0.4) X10*3/uL Baso # (Auto) (0.0-0.2) X10*3/uL Abs Immat Gran (auto) (0.00-0.03) X10*3/uL Absolute Neuts (auto) (2.0-8.3) x10*3/uL Absolute Nucleated RBC (0.0-0.012) X10*3/uL Nucleated RBC % (auto) (0.0-0.2) /100WBC PT (9.9-13.0) SEC INR (0.9-1.1) APTT (24.1-38.0) SEC Sodium (135-145) mmol/L Potassium (3.3-5.1) mmol/L Chloride (96-108) mmol/L Carbon Dioxide (22-29) mmol/L Anion Gap (12-20) BUN (9-16) mg/dL Creatinine (0.5-1.4) mg/dL Estim Creat Clear Calc Estimated GFR Random Glucose (60-115) mg/dL Calcium (8.4-10.2) mg/dL Magnesium (1.6-2.6) mg/dL Total Bilirubin (0.0-1.0) mg/dL AST (5-31) U/L ALT (0-31) U/L Alkaline Phosphatase (39-117) U/L Troponin I High Sens (<3.5-17.0) ng/L B-Natriuretic Peptide (<100) pg/mL Total Protein (6.5-8.0) g/dL Albumin (3.5-5.0) g/dL Urine Color Urine Appearance Urine pH (5.0-8.0) Ur Specific Garvin (1.005-1.025) Urine Protein (NEG-TRACE) MG/DL Urine Glucose (UA) (NEG) MG/DL Urine Ketones (NEG) MG/DL Urine Blood (NEG) Urine Nitrite (NEG) Ur Leukocyte Esterase (NEG) COVID-19 (SAMIA) Negative (Negative) COVID-19 Clin Com See Note Influenza Type A (PROSPER) Negative Negative (Negative) Influenza Type B (PROSPER) Negative Negative (Negative) Influenza A & B Note See Note See Note 04/18/22 04/18/22 04/18/22 Range/Units 16:32 16:51 17:35 WBC (4.8-10.8) X10*3/uL RBC (4.20-5.50) X10*6/uL Hgb (12.0-16.0) g/dl Hct (37.0-47.0) % MCV (80.0-98.0) fL MCH (27.0-33.0) pg MCHC (31.0-35.0) g/dl RDW (11.0-16.0) % Plt Count (160-400) X10*3/uL MPV (9.4-12.3) fL Immature Gran % (Auto) (0.0-0.4) % Neut % (Auto) (45-73) % Lymph % (Auto) (20-40) % Woodson % (Auto) (2-11) % Eos % (Auto) (0-4) % Baso % (Auto) (0-2) % Lymph # (Auto) (1.2-4.9) X10*3/uL Woodson # (Auto) (0.1-1.2) X10*3/uL Eos # (Auto) (0.0-0.4) X10*3/uL Baso # (Auto) (0.0-0.2) X10*3/uL Abs Immat Gran (auto) (0.00-0.03) X10*3/uL Absolute Neuts (auto) (2.0-8.3) x10*3/uL Absolute Nucleated RBC (0.0-0.012) X10*3/uL Nucleated RBC % (auto) (0.0-0.2) /100WBC PT 11.8 (9.9-13.0) SEC INR 1.0 (0.9-1.1) APTT 33.7 (24.1-38.0) SEC Sodium (135-145) mmol/L Potassium (3.3-5.1) mmol/L Chloride (96-108) mmol/L Carbon Dioxide (22-29) mmol/L Anion Gap (12-20) BUN (9-16) mg/dL Creatinine (0.5-1.4) mg/dL Estim Creat Clear Calc Estimated GFR Random Glucose (60-115) mg/dL Calcium (8.4-10.2) mg/dL Magnesium (1.6-2.6) mg/dL Total Bilirubin (0.0-1.0) mg/dL AST (5-31) U/L ALT (0-31) U/L Alkaline Phosphatase (39-117) U/L Troponin I High Sens < 3.5 (<3.5-17.0) ng/L B-Natriuretic Peptide (<100) pg/mL Total Protein (6.5-8.0) g/dL Albumin (3.5-5.0) g/dL Urine Color YELLOW Urine Appearance CLEAR Urine pH 5.5 (5.0-8.0) Ur Specific Garvin 1.020 (1.005-1.025) Urine Protein NEG (NEG-TRACE) MG/DL Urine Glucose (UA) NEG (NEG) MG/DL Urine Ketones NEG (NEG) MG/DL Urine Blood NEG (NEG) Urine Nitrite NEG (NEG) Ur Leukocyte Esterase NEG (NEG) COVID-19 (SAMIA) (Negative) COVID-19 Clin Com Influenza Type A (PROSPER) (Negative) Influenza Type B (PROSPER) (Negative) Influenza A & B Note ECG Data Attestation: I personally reviewed and interpreted this ECG as follows: ECG interpretation date: 04/18/22 ECG interpretation time: 12:58 Prior ECG tracings: available for review Interpretation: EKG normal sinus rhythm at a rate of 76. Pr interval 172. QTC 414. No STEMI. Discharge Plan Discharge Clinical Impression: Syncope Patient Disposition: Admitted As Inpatient
[2022-04-18 16:57] LABS: Prothrombin Time 11.8 SEC (9.9-13.0)
[2022-04-18 16:58] LABS: Appearance Urine CLEAR; Color Urine YELLOW; Glucose Urine UA NEG (NEG); Leukocyte Esterase Urine NEG (NEG); Nitrite Urine NEG (NEG); PH 5.5 (5.0-8.0); Urine Blood NEG (NEG); Urine Ketones NEG (NEG); Urine Protein NEG (NEG-TRACE)
[2022-04-18 17:00] LABS: Partial Thromboplastin Time 33.7 SEC (24.1-38.0)
[2022-04-18 17:01] LABS: Influenza A Negative (Negative); Influenza B2 Negative (Negative)
[2022-04-18 18:04] LABS: Troponin-I High Sensitivity < 3.5 ng/L (<3.5-17.0)
--- NOTE | 2022-04-18 19:20 | PHA.MEDREC ---
Pharmacy Consult ? Medication Reconciliation Pharmacy has completed the medication reconciliation.
--- NOTE | 2022-04-18 20:14 | PC.NURSE ---
pt provided with sandwich and gingerale per .
--- NOTE | 2022-04-18 21:50 | P.HPHOSP_ITS ---
History of Present Illness Date of Service: 04/18/22 Chief Complaint: syncope 81-year-old female with a past medical history of hypothyroidism, congenital nystagmus; recent admission to the hospital for syncope/UTI/ left fibular fracture; discharged on 04/16/2022; presented to the hospital today with a chief complaint of syncope. Patient reports that today she was sitting in the chair and suddenly felt grayin g out in front of the eyes and briefly lost consciousness; Denies any chest pain or palpitations. Denies any lightheadedness dizziness. Denies any numbness tingling or focal weakness. patient reports that she initially felt mild blurry vision which currently improved. Denies any fall or trauma Review of all other systems is negative except mentioned above ER course: Per ER team patient's exam was nonfocal; EKG was nonischemic; discussed with Cardiology -who suggested admission for observation. [facility] Social History Household Members: Spouse and Family Housing: House Alcohol intake: never Patient Tobacco Use Status: Never used Tobacco Advance Directives: Yes Advance Directives Information Provided: No Advance Directives on File: No service: No Current occupational status: retired Meds Allergies Allergy/AdvReac Type Severity Reaction Status Date / Time No Known Allergies Allergy Verified 04/14/22 09:56 Active Medications: Current Medications Heparin Sodium (Porcine) (Heparin Sodium,Porcine 5,000 Unit/Ml Vial) 5,000 unit SUBCUT Q8H [facility] Sodium Chloride (0.9 % Sodium Chloride Flush 3 Ml Syringe) 3 ml IVFLUSH [facility] Home Medications Medication Instructions Recorded Confirmed Last Taken Type cholecalciferol (vitamin D3) 25 25 mcg PO DAILY 04/14/22 04/18/22 04/18/22 History mcg (1,000 unit) tablet levothyroxine 88 mcg tablet 1 tab PO DAILY 04/14/22 04/18/22 04/18/22 History (Synthroid) ibuprofen 200 mg tablet (Advil) 400 mg PO Q6H PRN 04/18/22 04/18/22 04/17/22 History lisinopril 10 mg tablet 10 mg PO BEDTIME 04/18/22 04/18/22 04/17/22 History Physical Exam 2 Vital Signs and Narrative: Vital Signs: Last Vital Signs Temp 98 F 04/18/22 19:06 Pulse 78 04/18/22 19:06 Resp 20 04/18/22 19:06 BP 153/69 H 04/18/22 19:06 Pulse Ox 97 04/18/22 19:06 BMI result Body Mass Index 24.5 Gen: Appears be in no acute distress HEENT: NCAT, Moist mucosa. Pulmonary: Vesicular breath sounds, fair air entry CVS: Normal S1-S2 Abdomen: BS+, Soft, Nontender Extremities: Warm well perfused; has boot for the left lower extremity Neuro: Alert and awake. Grossly nonfocal Results Labs CBC and Chem 7: 04/18/22 13:16 04/18/22 13:16 Labs: Laboratory Results - last 24 hr 04/18/22 04/18/22 04/18/22 13:16 13:16 13:16 MCV 94.6 MCH 31.4 MCHC 33.2 RDW 13.6 Plt Count 197 MPV 10.3 Immature Gran % (Auto) 0.3 Neut % (Auto) 64.2 Lymph % (Auto) 25.9 Payette % (Auto) 7.1 Eos % (Auto) 2.0 Baso % (Auto) 0.5 Lymph # (Auto) 2.6 [place]ette # (Auto) 0.7 Eos # (Auto) 0.2 Baso # (Auto) 0.1 Abs Immat Gran (auto) 0.03 Absolute Neuts (auto) 6.4 Absolute Nucleated RBC 0.000 Nucleated RBC % (auto) 0.0 PT INR APTT Anion Gap 12 Estim Creat Clear Calc 47.7 Estimated GFR > 60 Random Glucose 141 H Calcium 9.2 Magnesium 2.0 Total Bilirubin 0.6 AST 26 ALT 26 Alkaline Phosphatase 65 Troponin I High Sens 3.5 B-Natriuretic Peptide 50 Total Protein 6.6 Albumin 3.8 Urine Color Urine Appearance Urine pH Ur Specific Olive Urine Protein Urine Glucose (UA) Urine Ketones Urine Blood Urine Nitrite Ur Leukocyte Esterase COVID-19 (SAMIA) COVID-19 Clin Com Influenza Type A (PROSPER) Influenza Type B (PROSPER) Influenza A & B Note 04/18/22 04/18/22 04/18/22 13:16 13:16 16:32 MCV MCH MCHC RDW Plt Count MPV Immature Gran % (Auto) Neut % (Auto) Lymph % (Auto) Payette % (Auto) Eos % (Auto) Baso % (Auto) Lymph # (Auto) [place]ette # (Auto) Eos # (Auto) Baso # (Auto) Abs Immat Gran (auto) Absolute Neuts (auto) Absolute Nucleated RBC Nucleated RBC % (auto) PT INR APTT Anion Gap Estim Creat Clear Calc Estimated GFR Random Glucose Calcium Magnesium Total Bilirubin AST ALT Alkaline Phosphatase Troponin I High Sens B-Natriuretic Peptide Total Protein Albumin Urine Color Urine Appearance Urine pH Ur Specific Olive Urine Protein Urine Glucose (UA) Urine Ketones Urine Blood Urine Nitrite Ur Leukocyte Esterase COVID-19 (SAMIA) Negative COVID-19 Clin Com See Note Influenza Type A (PROSPER) Negative Negative Influenza Type B (PROSPER) Negative Negative Influenza A & B Note See Note See Note 04/18/22 04/18/22 04/18/22 16:32 16:51 17:35 MCV MCH MCHC RDW Plt Count MPV Immature Gran % (Auto) Neut % (Auto) Lymph % (Auto) [place]ette % (Auto) Eos % (Auto) Baso % (Auto) Lymph # (Auto) [place]ette # (Auto) Eos # (Auto) Baso # (Auto) Abs Immat Gran (auto) Absolute Neuts (auto) Absolute Nucleated RBC Nucleated RBC % (auto) PT 11.8 INR 1.0 APTT 33.7 Anion Gap Estim Creat Clear Calc Estimated GFR Random Glucose Calcium Magnesium Total Bilirubin AST ALT Alkaline Phosphatase Troponin I High Sens < 3.5 B-Natriuretic Peptide Total Protein Albumin Urine Color YELLOW Urine Appearance CLEAR Urine pH 5.5 Ur Specific Olive 1.020 Urine Protein NEG Urine Glucose (UA) NEG Urine Ketones NEG Urine Blood NEG Urine Nitrite NEG Ur Leukocyte Esterase NEG COVID-19 (SAMIA) COVID-19 Clin Com Influenza Type A (PROSPER) Influenza Type B (PROSPER) Influenza A & B Note Imaging Radiologist's Impressions: Impressions Head CT 04/18/22 17:10 IMPRESSION: No acute intracranial pathology. Chest X-Ray 04/18/22 17:27 IMPRESSION: No acute cardiopulmonary findings. Assessment and Plan (1) Syncope: Status: Acute Plan 81-year-old female with a past medical history of hypothyroidism, congenital nystagmus; recent admission to the hospital for syncope/UTI/ left fibular fracture; discharged on 04/16/2022; presented to the hospital today with a chief complaint of syncope. Syncope: Patient had recent admission for syncope- presumed to be secondary to dehydration/infection. Echocardiogram showed EF of 70%, severe mitral annular calcification, increased LV wall thickness EKG showed no evidence of bradycardia Telemetry troponins negative Orthostatic vitals Cardiology consult notified Exam nonfocal; CT angio head and neck showed vertebral artery dissection patient denies any concerns for seizure. vertebral artery dissection: CT angio head and neck showed V2 segment of the vertebral artery dissection extending up to 1.7 cm At the level of C4-C5. Neurology consult Dr maher was notified-> suggested to keep the patient on aspirin Plavix History of hypothyroidism: Continue home levothyroxine Recent history of UTI: Continue home cefuroxime to finish the course. Recent left fibular fracture: Patient has boot. Orthopedics follow-up. DVT prophylaxis: Subcu heparin Code status: Full code Quality Stroke Does the patient have a stroke diagnosis?: No VTE Prior VTE?: No VTE Risk Level:: Medical - moderate - high VTE Device Contraindication: Treatment Not Indicated VTE Drug Contraindication: N/A - Med Ordered
[2022-04-18] MEDS: Acetaminophen 325 MG TABLET 650 MG PO (22:03)
[2022-04-18] MEDS: Heparin Sodium,Porcine 5,000 UNIT/ML VIAL 5000 UNIT SUBCUT (22:04)
[2022-04-18] MEDS: Dextrose 5 % and 0.9 % NaCl 1,000 ML 100 ML IVCONT (22:26)
[2022-04-18] MEDS: iohexoL 350 MG/ML 100 ML INFUS..BTL 70 ML IV (23:14)
[2022-04-19 03:24] VITALS: BP 149/75; PULSE 74; RESP 20; TEMP 36.7; O2SAT 96
[2022-04-19] MEDS: Heparin Sodium,Porcine 5,000 UNIT/ML VIAL 5000 UNIT SUBCUT (06:23)
[2022-04-19] MEDS: Levothyroxine Sodium 88 MCG TABLET PO (06:23)
[2022-04-19 07:19] LABS: MANUAL DIFF FLAG NO
[2022-04-19 07:23] LABS: Basophils Absolute Auto 0.1 X10*3/uL (0.0-0.2); Basophils Percent Auto 0.5 % (0-2); Eosinophils Absolute Auto 0.2 X10*3/uL (0.0-0.4); Eosinophils Percent Auto 1.7 % (0-4); Hematocrit 36.2 % (37.0-47.0); Hemoglobin 12.1 g/dl (12.0-16.0); Imm Gran Abs Auto 0.06 X10*3/uL (0.00-0.03); Imm Gran Pct Auto 0.6 % (0.0-0.4); Lymphocytes Percent Auto 21.7 % (20-40); Mean Corpuscular HGB Conc 33.4 g/dl (31.0-35.0); Mean Corpuscular Hemoglobin 31.7 pg (27.0-33.0); Mean Corpuscular Volume 94.8 fL (80.0-98.0); Mean Platelet Volume 10.4 fL (9.4-12.3); Monocytes Absolute Auto 0.8 X10*3/uL (0.1-1.2); Neutrophils Absolute Auto 6.4 x10*3/uL (2.0-8.3); Neutrophils Percent Auto 67.5 % (45-73); Platelet Count 181 X10*3/uL (160-400); Red Blood Count 3.82 X10*6/uL (4.20-5.50); Red Cell Distribution Width 13.6 % (11.0-16.0); White Blood Count 9.4 X10*3/uL (4.8-10.8)
[2022-04-19 07:33] VITALS: BP 153/72; PULSE 77; RESP 21; O2SAT 96
[2022-04-19 07:43] LABS: Anion Gap 12 (12-20); Blood Urea Nitrogen 13 mg/dL (9-16); Calcium 8.4 mg/dL (8.4-10.2); Carbon Dioxide 23 mmol/L (22-29); Chloride 109 mmol/L (96-108); Creatinine Clr Calc Pharmacy 58.7; Estimated Glomerular Filt Rate > 60; Glucose Random 113 mg/dL (60-115); Potassium 4.1 mmol/L (3.3-5.1); Sodium 140 mmol/L (135-145)
[2022-04-19] MEDS: Cholecalciferol (Vitamin D3) 25 MCG TABLET PO (08:04)
[2022-04-19] MEDS: Aspirin Enteric Coated 81 MG TABLET.DR PO (08:04)
[2022-04-19] MEDS: Clopidogrel Bisulfate 75 MG TABLET PO (08:05)
[2022-04-19] MEDS: Dextrose 5 % and 0.9 % NaCl 1,000 ML 100 ML IVCONT (08:05)
--- NOTE | 2022-04-19 10:32 | P.DS_ITS ---
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 Of note patient was discharged from the hospital on 04/16 after being managed and evaluated for syncope which was felt to be secondary to UTI dehydration. Patient return to the hospital on 04/18 and per the HPI with a chief complaint of syncope. Patient's daughter at bedside reported that the syncope happened and witnessed by her after the patient turn her neck. 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 Patient was evaluated by Neurology who recommended Plavix and aspirin for 30 days followed by aspirin only. Neurology also recommended patient to be on Keppra for concern for seizures. Keppra 500 b.i.d. has been started. Patient will be discharged on Keppra, Plavix, aspirin and follow-up with Neurology. This morning patient is feeling well, and reports that she is ready to go home, will have physical therapy at home. On previous discharge patient was prescribed Holter monitor which I recommend that she receives and follow cardiology to rule out other causes of syncope Time Spent with Patient Time attestation: Total time spent providing and/or coordinating discharge services: Discharge coordination time: Greater than 30 minutes Quality: Safe Use of Opioids Does Pt have an Active Cancer Diagnosis on the Problem List?: No Quality: Stroke Does the patient have a stroke diagnosis?: No Physical Exam Vital Signs: Vital Signs: Last Vital Signs Temp 98.1 F 04/19/22 03:24 Pulse 77 04/19/22 07:33 Resp 21 H 04/19/22 07:33 BP 153/72 H 04/19/22 07:33 Pulse Ox 96 04/19/22 07:33 BMI result Body Mass Index 24.5 Const: General: cooperative and no acute distress Eyes: Other: mild positional nystagmus Resp: Effort & Inspection: normal respiratory effort Auscultation: clear to auscultation bilaterally GI: Palpation (GI): Soft to palpation Auscultation: normal bowel sounds DS: Data Data Completed and Pending Labs on day of discharge: Laboratory Results - last 24 hr 04/18/22 04/18/22 04/18/22 13:16 13:16 13:16 WBC 10.0 RBC 4.08 L Hgb 12.8 Hct 38.6 MCV 94.6 MCH 31.4 MCHC 33.2 RDW 13.6 Plt Count 197 MPV 10.3 Immature Gran % (Auto) 0.3 Neut % (Auto) 64.2 Lymph % (Auto) 25.9 Humphreys % (Auto) 7.1 Eos % (Auto) 2.0 Baso % (Auto) 0.5 Lymph # (Auto) 2.6 Humphreys # (Auto) 0.7 Eos # (Auto) 0.2 Baso # (Auto) 0.1 Abs Immat Gran (auto) 0.03 Absolute Neuts (auto) 6.4 Absolute Nucleated RBC 0.000 Nucleated RBC % (auto) 0.0 PT INR APTT Sodium 140 Potassium 4.0 Chloride 106 Carbon Dioxide 26 Anion Gap 12 BUN 17 H Creatinine 0.75 Estim Creat Clear Calc 47.7 Estimated GFR > 60 Random Glucose 141 H Calcium 9.2 Magnesium 2.0 Total Bilirubin 0.6 AST 26 ALT 26 Alkaline Phosphatase 65 Troponin I High Sens 3.5 B-Natriuretic Peptide 50 Total Protein 6.6 Albumin 3.8 Urine Color Urine Appearance Urine pH Ur Specific [place] Urine Protein Urine Glucose (UA) Urine Ketones Urine Blood Urine Nitrite Ur Leukocyte Esterase COVID-19 (SAMIA) COVID-19 Clin Com Influenza Type A (PROSPER) Influenza Type B (PROSPER) Influenza A & B Note 04/18/22 04/18/22 04/18/22 13:16 13:16 16:32 WBC RBC Hgb Hct MCV MCH MCHC RDW Plt Count MPV Immature Gran % (Auto) Neut % (Auto) Lymph % (Auto) [place] % (Auto) Eos % (Auto) Baso % (Auto) Lymph # (Auto) Humph[place]ys # (Auto) Eos # (Auto) Baso # (Auto) Abs Immat Gran (auto) Absolute Neuts (auto) Absolute Nucleated RBC Nucleated RBC % (auto) PT INR APTT Sodium Potassium Chloride Carbon Dioxide Anion Gap BUN Creatinine Estim Creat Clear Calc Estimated GFR Random Glucose Calcium Magnesium Total Bilirubin AST ALT Alkaline Phosphatase Troponin I High Sens B-Natriuretic Peptide Total Protein Albumin Urine Color Urine Appearance Urine pH Ur Specific [place] Urine Protein Urine Glucose (UA) Urine Ketones Urine Blood Urine Nitrite Ur Leukocyte Esterase COVID-19 (SAMIA) Negative COVID-19 Clin Com See Note Influenza Type A (PROSPER) Negative Negative Influenza Type B (PROSPER) Negative Negative Influenza A & B Note See Note See Note 04/18/22 04/18/22 04/18/22 16:32 16:51 17:35 WBC RBC Hgb Hct MCV MCH MCHC RDW Plt Count MPV Immature Gran % (Auto) Neut % (Auto) Lymph % (Auto) [place] % (Auto) Eos % (Auto) Baso % (Auto) Lymph # (Auto) [place] # (Auto) Eos # (Auto) Baso # (Auto) Abs Immat Gran (auto) Absolute Neuts (auto) Absolute Nucleated RBC Nucleated RBC % (auto) PT 11.8 INR 1.0 APTT 33.7 Sodium Potassium Chloride Carbon Dioxide Anion Gap BUN Creatinine Estim Creat Clear Calc Estimated GFR Random Glucose Calcium Magnesium Total Bilirubin AST ALT Alkaline Phosphatase Troponin I High Sens < 3.5 B-Natriuretic Peptide Total Protein Albumin Urine Color YELLOW Urine Appearance CLEAR Urine pH 5.5 Ur Specific [place] 1.020 Urine Protein NEG Urine Glucose (UA) NEG Urine Ketones NEG Urine Blood NEG Urine Nitrite NEG Ur Leukocyte Esterase NEG COVID-19 (SAMIA) COVID-19 Clin Com Influenza Type A (PROSPER) Influenza Type B (PROSPER) Influenza A & B Note 04/19/22 04/19/22 06:57 06:57 WBC 9.4 RBC 3.82 L Hgb 12.1 Hct 36.2 L MCV 94.8 MCH 31.7 MCHC 33.4 RDW 13.6 Plt Count 181 MPV 10.4 Immature Gran % (Auto) 0.6 H Neut % (Auto) 67.5 Lymph % (Auto) 21.7 [place] % (Auto) 8.0 Eos % (Auto) 1.7 Baso % (Auto) 0.5 Lymph # (Auto) 2.0 [place] # (Auto) 0.8 Eos # (Auto) 0.2 Baso # (Auto) 0.1 Abs Immat Gran (auto) 0.06 H Absolute Neuts (auto) 6.4 Absolute Nucleated RBC 0.000 Nucleated RBC % (auto) 0.0 PT INR APTT Sodium 140 Potassium 4.1 Chloride 109 H Carbon Dioxide 23 Anion Gap 12 BUN 13 Creatinine 0.61 Estim Creat Clear Calc 58.7 Estimated GFR > 60 Random Glucose 113 Calcium 8.4 D Magnesium Total Bilirubin AST ALT Alkaline Phosphatase Troponin I High Sens B-Natriuretic Peptide Total Protein Albumin Urine Color Urine Appearance Urine pH Ur Specific [place] Urine Protein Urine Glucose (UA) Urine Ketones Urine Blood Urine Nitrite Ur Leukocyte Esterase COVID-19 (SAMIA) COVID-19 Clin Com Influenza Type A (PROSPER) Influenza Type B (PROSPER) Influenza A & B Note Discharge Plan Discharge Patient Disposition: Home, Self-Care Discharge Diagnosis: Syncope, Vertebral artery dissection Referrals: Pal Randall MD [Primary Care Provider] - 1 Week Ashley Vásquez MD [Physician] - 1 Week Discharge Medications: New acetaminophen 325 mg Tablet 650 mg PO Q8-10H PRN (Reason: Pain, Mild (Pain Scale 1-3)) 90 Days 0RF levetiracetam 500 mg Tablet 500 mg PO BID 30 Days Qty: 60 0RF clopidogrel 75 mg Tablet 75 mg PO DAILY 30 Days Qty: 30 0RF aspirin 81 mg Tablet,Delayed Release (Dr/Ec) 81 mg PO DAILY 90 Days Qty: 90 1RF Continued levothyroxine [Synthroid] 88 mcg tablet 1 tab PO DAILY 0RF cholecalciferol (vitamin D3) 25 mcg (1,000 unit) Tablet 25 mcg PO DAILY 0RF cefuroxime axetil 250 mg tablet 250 mg PO BID Qty: 7 0RF (DME) Ultra-Light Rollator Misc See Rx Instructions .Route Qty: 1 0RF Rx Instructions: As directed lisinopril 10 mg tablet 10 mg PO BEDTIME 0RF Protocol: Hold for SBP< HOLD for SBP < : 90 Discontinued ibuprofen [Advil] 200 mg Tablet 400 mg PO Q6H PRN (Reason: Pain) 0RF Discharge Orders: Discharge Order (Routine); Ordered 04/19/22 Ordered By: Sandrine Wheeler Activity on Discharge: Use cane or walker Stand Alone Forms: Patient Portal Discharge page Care Plan Goals: To avoid injury, and hospitalization Health Concerns: Syncope and injury Plan of Treatment: Aspirin and plavix for 30 days followed by aspirin only keppra 500 BID Assessment: You were admitted and managed for syncopal episode. Found to have vertebral dissection and syncope possibly due to seizure. You have been started on 3 new medications, including Aspirin, Plavix to take daily for 30 days, followed by aspirin only. Also Keppra 500 mg twice/day please follow up with neurology upon discharge please follow up with cardiology to get the holter monitor to rule out cardiological causes of syncope
--- NOTE | 2022-04-19 10:42 | P.CNNE_ITS ---
History of Present Illness Data of Consult Service Date: 04/19/22 Primary Care Provider: Pal Randall MD [facility] Reason for consult: Syncope 81 years old woman with underlying history of congenital nystagmus because of which she always head tilted and neck to left side to get better focus started having new set of symptoms during recent weeks. She had 3 episodes. The 1st episode was about 3 weeks ago when she was walking in her yd when she noted a graying of vision like a curtain was pulled. It lasted few seconds but nothing else happened. The 2nd episode was 2 days ago when family noted a noise from h er room. They rash to her room and found her on the floor passed out. In few seconds she was back but she was confused and did not know what had happened. During this fall she hit back of her head on the ground and sustained a significant bruise on also fractured her left foot. The 3rd episode was yesterday when she was sitting in a chair and looked outside and then back to inside of the room when suddenly the same graying of vision happen and then she did not know what happened. Apparently she passed out for few seconds and during those few seconds she was shaking like a convulsion. After that she was confused for little while or few seconds to a minute not knowing what had happened. Review of Systems Review of Systems: No recent cold or flu-like illness. [facility] Social History Social History Household Members: Spouse and Family Housing: House Alcohol intake: never Patient Tobacco Use Status: Never used Tobacco Advance Directives: Yes Advance Directives Information Provided: No Advance Directives on File: No service: No Current occupational status: retired Meds Allergies Allergy/AdvReac Type Severity Reaction Status Date / Time No Known Allergies Allergy Verified 04/14/22 09:56 Active Medications: Current Medications Acetaminophen (Acetaminophen 325 Mg Tablet) 650 mg PO Q6H PRN PRN Reason: Pain, Mild (Pain Scale 1-3) Last Admin: 04/18/22 22:03 Dose: 650 mg Documented by: Aspirin (Aspirin Enteric Coated 81 Mg Tablet.) 81 mg PO DAILY [facility] Last Admin: 04/19/22 08:04 Dose: 81 mg Documented by: Cefuroxime Axetil (Cefuroxime Axetil 250 Mg Tablet) 250 mg PO BID [facility] Last Admin: 04/19/22 08:05 Dose: 250 mg Documented by: Clopidogrel Bisulfate (Clopidogrel Bisulfate 75 Mg Tablet) 75 mg PO DAILY [facility] Last Admin: 04/19/22 08:05 Dose: 75 mg Documented by: Heparin Sodium (Porcine) (Heparin Sodium,Porcine 5,000 Unit/Ml Vial) 5,000 unit SUBCUT Q8H [facility] Last Admin: 04/19/22 06:23 Dose: 5,000 unit Documented by: Dextrose/Sodium Chloride (D5ns) 1,000 mls @ 100 mls/hr IVCONT .Q10H [facility] Last Admin: 04/19/22 08:05 Dose: 100 mls/hr Documented by: Levetiracetam (Levetiracetam 500 Mg Tablet) 500 mg PO BID [facility] Levothyroxine Sodium (Levothyroxine Sodium 88 Mcg Tablet) 88 mcg PO DAILY@0600 [facility] Last Admin: 04/19/22 06:23 Dose: 88 mcg Documented by: Lisinopril (Lisinopril 10 Mg Tablet) 10 mg PO BEDTIME [facility]; Protocol Melatonin (Melatonin 3 Mg Tablet) 6 mg PO BEDTIME PRN PRN Reason: Insomnia Senna (Sennosides 8.6 Mg Tablet) 17.2 mg PO BEDTIME PRN PRN Reason: Constipation Sodium Chloride (0.9 % Sodium Chloride Flush 3 Ml Syringe) 3 ml IVFLUSH QSHIFT [facility] Last Admin: 04/19/22 08:45 Dose: Not Given Documented by: Vitamin D (Cholecalciferol (Vitamin D3) 25 Mcg Tablet) 25 mcg PO DAILY [facility] Last Admin: 04/19/22 08:04 Dose: 25 mcg Documented by: Home Medications Medication Instructions Recorded Confirmed Last Taken Type cholecalciferol (vitamin D3) 25 25 mcg PO DAILY 04/14/22 04/18/22 04/18/22 History mcg (1,000 unit) tablet levothyroxine 88 mcg tablet 1 tab PO DAILY 04/14/22 04/18/22 04/18/22 History (Synthroid) lisinopril 10 mg tablet 10 mg PO BEDTIME 04/18/22 04/18/22 04/17/22 History Physical Exam Vital Signs: Vital Signs: Last Vital Signs Temp 98.1 F 04/19/22 03:24 Pulse 77 04/19/22 07:33 Resp 21 H 04/19/22 07:33 BP 153/72 H 04/19/22 07:33 Pulse Ox 96 04/19/22 07:33 BMI result Body Mass Index 24.5 Neuro: Other: Mild position changing nystagmus in each visual field. She is alert and awake with normal spontaneity of speech fluency comprehension and affect. Visual patterson are full to threat. Face is symmetrical. Tongue is midline. There is no pronator drift. Xoxfes-qa-ojwn testing is normal. Deep tendon reflexes are trace to 1+ with flexor plantars. Results Labs CBC & Chem 7: 04/19/22 06:57 04/19/22 06:57 Labs: Short CBC 04/18/22 04/19/22 Range/Units 13:16 06:57 WBC 10.0 9.4 (4.8-10.8) X10*3/uL Hgb 12.8 12.1 (12.0-16.0) g/dl Hct 38.6 36.2 L (37.0-47.0) % Plt Count 197 181 (160-400) X10*3/uL BMP 04/18/22 04/19/22 13:16 06:57 Sodium 140 140 Potassium 4.0 4.1 Chloride 106 109 H Carbon Dioxide 26 23 BUN 17 H 13 Creatinine 0.75 0.61 Calcium 9.2 8.4 D Liver Function 04/18/22 Range/Units 13:16 Total Bilirubin 0.6 (0.0-1.0) mg/dL AST 26 (5-31) U/L ALT 26 (0-31) U/L Alkaline Phosphatase 65 (39-117) U/L Albumin 3.8 (3.5-5.0) g/dL Urine 04/18/22 Range/Units 16:51 Urine Color YELLOW Urine Appearance CLEAR Urine pH 5.5 (5.0-8.0) Ur Specific [place] 1.020 (1.005-1.025) Urine Protein NEG (NEG-TRACE) MG/DL Urine Glucose (UA) NEG (NEG) MG/DL CT head without contrast and CTA of brain and neck were reviewed. No obvious acute cortical lesion was noted. Mild diffuse cerebral atrophy and mild chronic microvascular ischemic changes were noted. Also noted was left vertebral dissection. Echocardiogram revealed severe mitral stenosis. EKG revealed NSR. Assessment and Plan (1) Syncope: Status: Acute 81 y/o woman with underlying h/o ceongenital nystagmus prompting her to turn her neck to one side al life to gain process focus, which likely put her vertebral artery at risk for dissection, started having new symptoms. 3 weeks ago she had an episode of blurred vision like a avila curtain coming on for a few seconds. The second episode was two days ago when fell and passed out at home. She hit her head on the ground and fractured her left foot. The 3rd episode was yesterday when she had the same graying of vision and then she became unresponsive for a few seconds and was shaking. Exam revealed nystagmus and otherwise no focal findings. Imaging revealed severe mitral stenosis and left vertebral dissection. The dissection does not explain her symptoms and likey is due to life long risk, as described above, and the fall. Mitral stenosis put her at risk of passing out but she does not describe many other symptoms usually associated with it. Seizure disoder can explain these three episodes and was not uncommon in this age group. I suggest: a: Aspirn 81 plus clopidogrel 75 daily for a month and then aspirin alone. If cardiogloist wanted to anticoagulate, there was no neurological contraindication b: EEG c: Levetiracetam 500mg bid d: Appropriate cardiology work up for mitral stenosis e: MRI brain w/o cont to r/o any acute lesion or stroke. Its absence will help to confirm the diagnosis of seizure as described above Procedures Date of Service Date of Service: 04/19/22
[2022-04-19] MEDS: levETIRAcetam 500 MG TABLET PO (10:44)
[2022-04-19 10:46] VITALS: BP 160/87; PULSE 80; RESP 18; TEMP 36.9; O2SAT 97
--- NOTE | 2022-04-19 12:20 | P.CONCA_ITS ---
History of Present Illness History of Present Illness Date of Service: 04/19/22 Requesting physician: Sandrine Wheeler Chief complaint: Syncope Narrative: 81-year-old female who was recently seen with syncope. She was diagnosed with UTI and story was consistent with likely orthostasis. She was given IV fluids. Echocardiography showed calcification of papillary muscle with normal ejection fraction with no significant valvular or pericardial pathology. She was d ischarged home with a plan to do a Holter monitor. It appears yesterday while she was sitting with her daughter she turned her neck to her left side and started feeling dizzy. She felt as if a curtain was coming over her right eye and soon after that she passed out for few seconds. The daughter was there who noticed that she was shaking. With these symptoms she was brought back. Once again her workup has not shown any significant cardiovascular issue. Cardiac biomarkers are normal. EKG did not show any significant changes. 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 This is not the cause for syncope. She is being managed as seizure. [facility] Social History Social History Household Members: Spouse and Family Housing: House Alcohol intake: never Patient Tobacco Use Status: Never used Tobacco service: No Current occupational status: retired Meds Allergies Allergy/AdvReac Type Severity Reaction Status Date / Time No Known Allergies Allergy Verified 04/14/22 09:56 Active Medications: Current Medications Acetaminophen (Acetaminophen 325 Mg Tablet) 650 mg PO Q6H PRN PRN Reason: Pain, Mild (Pain Scale 1-3) Last Admin: 04/18/22 22:03 Dose: 650 mg Documented by: Aspirin (Aspirin Enteric Coated 81 Mg Tablet.) 81 mg PO DAILY [facility] Last Admin: 04/19/22 08:04 Dose: 81 mg Documented by: Cefuroxime Axetil (Cefuroxime Axetil 250 Mg Tablet) 250 mg PO BID [facility] Last Admin: 04/19/22 08:05 Dose: 250 mg Documented by: Clopidogrel Bisulfate (Clopidogrel Bisulfate 75 Mg Tablet) 75 mg PO DAILY [facility] Last Admin: 04/19/22 08:05 Dose: 75 mg Documented by: Heparin Sodium (Porcine) (Heparin Sodium,Porcine 5,000 Unit/Ml Vial) 5,000 unit SUBCUT Q8H [facility] Last Admin: 04/19/22 06:23 Dose: 5,000 unit Documented by: Dextrose/Sodium Chloride (D5ns) 1,000 mls @ 100 mls/hr IVCONT .Q10H [facility] Last Admin: 04/19/22 08:05 Dose: 100 mls/hr Documented by: Levetiracetam (Levetiracetam 500 Mg Tablet) 500 mg PO BID [facility] Last Admin: 04/19/22 10:44 Dose: 500 mg Documented by: Levothyroxine Sodium (Levothyroxine Sodium 88 Mcg Tablet) 88 mcg PO DAILY@0600 [facility] Last Admin: 04/19/22 06:23 Dose: 88 mcg Documented by: Lisinopril (Lisinopril 10 Mg Tablet) 10 mg PO BEDTIME [facility]; Protocol Melatonin (Melatonin 3 Mg Tablet) 6 mg PO BEDTIME PRN PRN Reason: Insomnia Senna (Sennosides 8.6 Mg Tablet) 17.2 mg PO BEDTIME PRN PRN Reason: Constipation Sodium Chloride (0.9 % Sodium Chloride Flush 3 Ml Syringe) 3 ml IVFLUSH QSHIFT [facility] Last Admin: 04/19/22 08:45 Dose: Not Given Documented by: Vitamin D (Cholecalciferol (Vitamin D3) 25 Mcg Tablet) 25 mcg PO DAILY [facility] Last Admin: 04/19/22 08:04 Dose: 25 mcg Documented by: Home Medications Medication Instructions Recorded Confirmed Last Taken Type cholecalciferol (vitamin D3) 25 25 mcg PO DAILY 04/14/22 04/18/22 04/18/22 History mcg (1,000 unit) tablet levothyroxine 88 mcg tablet 1 tab PO DAILY 04/14/22 04/18/22 04/18/22 History (Synthroid) lisinopril 10 mg tablet 10 mg PO BEDTIME 04/18/22 04/18/22 04/17/22 History Physical Exam Vital Signs: Vital Signs: Last Vital Signs Temp 98.4 F 04/19/22 10:46 Pulse 80 04/19/22 10:46 Resp 18 04/19/22 10:46 BP 160/87 H 04/19/22 10:46 Pulse Ox 97 04/19/22 10:46 BMI result Body Mass Index 24.5 GENERAL APPEARANCE: in no acute distress, pleasant. NECK: no carotid bruit, no jugular venous distention. SKIN: no suspicious lesions, warm and dry. HEART: no murmurs, regular rate and rhythm. LUNGS: clear to auscultation bilaterally. ABDOMEN: soft, nontender. EXTREMITIES: no edema.? Left foot in boot. PERIPHERAL PULSES: equal. NEUROLOGIC: No gross deficits, AAO X 3 Objective Labs and Meds Result diagrams: 04/19/22 06:57 04/19/22 06:57 Lab results: Laboratory Results - last 24 hr 04/18/22 04/18/22 04/18/22 13:16 13:16 13:16 WBC 10.0 RBC 4.08 L Hgb 12.8 Hct 38.6 MCV 94.6 MCH 31.4 MCHC 33.2 RDW 13.6 Plt Count 197 MPV 10.3 Immature Gran % (Auto) 0.3 Neut % (Auto) 64.2 Lymph % (Auto) 25.9 [place] % (Auto) 7.1 Eos % (Auto) 2.0 Baso % (Auto) 0.5 Lymph # (Auto) 2.6 [place] # (Auto) 0.7 Eos # (Auto) 0.2 Baso # (Auto) 0.1 Abs Immat Gran (auto) 0.03 Absolute Neuts (auto) 6.4 Absolute Nucleated RBC 0.000 Nucleated RBC % (auto) 0.0 PT INR APTT Sodium 140 Potassium 4.0 Chloride 106 Carbon Dioxide 26 Anion Gap 12 BUN 17 H Creatinine 0.75 Estim Creat Clear Calc 47.7 Estimated GFR > 60 Random Glucose 141 H Calcium 9.2 Magnesium 2.0 Total Bilirubin 0.6 AST 26 ALT 26 Alkaline Phosphatase 65 Troponin I High Sens 3.5 B-Natriuretic Peptide 50 Total Protein 6.6 Albumin 3.8 Urine Color Urine Appearance Urine pH Ur Specific [place] Urine Protein Urine Glucose (UA) Urine Ketones Urine Blood Urine Nitrite Ur Leukocyte Esterase COVID-19 (SAMIA) COVID-19 Clin Com Influenza Type A (PROSPER) Influenza Type B (PROSPER) Influenza A & B Note 04/18/22 04/18/22 04/18/22 13:16 13:16 16:32 WBC RBC Hgb Hct MCV MCH MCHC RDW Plt Count MPV Immature Gran % (Auto) Neut % (Auto) Lymph % (Auto) [place] % (Auto) Eos % (Auto) Baso % (Auto) Lymph # (Auto) [place] # (Auto) Eos # (Auto) Baso # (Auto) Abs Immat Gran (auto) Absolute Neuts (auto) Absolute Nucleated RBC Nucleated RBC % (auto) PT INR APTT Sodium Potassium Chloride Carbon Dioxide Anion Gap BUN Creatinine Estim Creat Clear Calc Estimated GFR Random Glucose Calcium Magnesium Total Bilirubin AST ALT Alkaline Phosphatase Troponin I High Sens B-Natriuretic Peptide Total Protein Albumin Urine Color Urine Appearance Urine pH Ur Specific [place] Urine Protein Urine Glucose (UA) Urine Ketones Urine Blood Urine Nitrite Ur Leukocyte Esterase COVID-19 (SAMIA) Negative COVID-19 Clin Com See Note Influenza Type A (PROSPER) Negative Negative Influenza Type B (PROSPER) Negative Negative Influenza A & B Note See Note See Note 04/18/22 04/18/22 04/18/22 16:32 16:51 17:35 WBC RBC Hgb Hct MCV MCH MCHC RDW Plt Count MPV Immature Gran % (Auto) Neut % (Auto) Lymph % (Auto) [place] % (Auto) Eos % (Auto) Baso % (Auto) Lymph # (Auto) [place] # (Auto) Eos # (Auto) Baso # (Auto) Abs Immat Gran (auto) Absolute Neuts (auto) Absolute Nucleated RBC Nucleated RBC % (auto) PT 11.8 INR 1.0 APTT 33.7 Sodium Potassium Chloride Carbon Dioxide Anion Gap BUN Creatinine Estim Creat Clear Calc Estimated GFR Random Glucose Calcium Magnesium Total Bilirubin AST ALT Alkaline Phosphatase Troponin I High Sens < 3.5 B-Natriuretic Peptide Total Protein Albumin Urine Color YELLOW Urine Appearance CLEAR Urine pH 5.5 Ur Specific [place] 1.020 Urine Protein NEG Urine Glucose (UA) NEG Urine Ketones NEG Urine Blood NEG Urine Nitrite NEG Ur Leukocyte Esterase NEG COVID-19 (SAMIA) COVID-19 Clin Com Influenza Type A (PROSPER) Influenza Type B (PROSPER) Influenza A & B Note 04/19/22 04/19/22 06:57 06:57 WBC 9.4 RBC 3.82 L Hgb 12.1 Hct 36.2 L MCV 94.8 MCH 31.7 MCHC 33.4 RDW 13.6 Plt Count 181 MPV 10.4 Immature Gran % (Auto) 0.6 H Neut % (Auto) 67.5 Lymph % (Auto) 21.7 [place] % (Auto) 8.0 Eos % (Auto) 1.7 Baso % (Auto) 0.5 Lymph # (Auto) 2.0 [place] # (Auto) 0.8 Eos # (Auto) 0.2 Baso # (Auto) 0.1 Abs Immat Gran (auto) 0.06 H Absolute Neuts (auto) 6.4 Absolute Nucleated RBC 0.000 Nucleated RBC % (auto) 0.0 PT INR APTT Sodium 140 Potassium 4.1 Chloride 109 H Carbon Dioxide 23 Anion Gap 12 BUN 13 Creatinine 0.61 Estim Creat Clear Calc 58.7 Estimated GFR > 60 Random Glucose 113 Calcium 8.4 D Magnesium Total Bilirubin AST ALT Alkaline Phosphatase Troponin I High Sens B-Natriuretic Peptide Total Protein Albumin Urine Color Urine Appearance Urine pH Ur Specific [place] Urine Protein Urine Glucose (UA) Urine Ketones Urine Blood Urine Nitrite Ur Leukocyte Esterase COVID-19 (SAMIA) COVID-19 Clin Com Influenza Type A (PROSPER) Influenza Type B (PROSPER) Influenza A & B Note Imaging Radiologist's impression: Impressions Head CT 04/18/22 17:10 IMPRESSION: No acute intracranial pathology. Chest X-Ray 04/18/22 17:27 IMPRESSION: No acute cardiopulmonary findings. Head/Neck CTA 04/18/22 23:15 IMPRESSION: 1. 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 2. No large vessel occlusion or significant stenosis in the intracranial circulation. 3. Mild chronic small vessel ischemic disease and volume loss. This critical result was discussed with RAPHAEL Brown on 04/19/2022 12:06 AM, and it was ascertained that the content and urgency of the report was understood at the time of direct communication. Assessment and Plan (1) Syncope: Status: Acute Plan 81-year-old female with recent episode of syncope presenting with another episode of syncope. she was turning head to the left side when this happened. She does not have any recurrent symptoms on turning her head. She was not wearing a tight call or sure when this happened. I doubt this is carotid hypersensitivity. Neurology is on board and it is felt that this is due to seizures. She has been started on Keppra. She also has vertebral artery dissection and has been started on aspirin and Plavix. Overall I think her presentation does not sound cardiovascular. We will still pursue Holter monitor on her to rule out any arrhythmia outside the hospital. Patient has severe mitral annular calcification and severe papillary muscle calcification. These are incidental findings. Thank you for allowing me to participate in the care of your patient. Please feel free to contact me if you have any questions. Procedures Date of Service Date of Service: 04/19/22
--- NOTE | 2022-04-19 19:39 | P.DS_ITS ---
DS: Providers Provider Date of Service: 04/19/22 Date of admission: 04/18/22 21:48 Primary care physician: Pal Randall MD Consults: 04/18/22 21:48 Consult to Cardiology Routine Consulting Provider: Ze Gallegos Reason for consultation: Rec Syncope 04/19/22 04:40 Consult to Neurology Routine Consulting Provider: [facility] Reason for consultation: V2 vertebral artery dissection at the level of C4-C5 DS: Diagnosis Discharge Diagnosis (1) Syncope: Status: Acute DS: Summary Hospital Course Hospital Course: This is an 81-year-old female with past medical history of hypothyroidism, congenital nystagmus and recently diagnosed hypertension as well as UTI presents to the hospital with syncope. Of note patient was discharged from the hospital on 04/16 after being managed and evaluated for syncope which was felt to be secondary to UTI dehydration. Patient return to the hospital on 04/18 and per the HPI with a chief complaint of syncope. Patient's daughter at bedside reported that the syncope happened and witnessed by her after the patient turn her neck. 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 Patient was evaluated by Neurology who recommended Plavix and aspirin for 30 days followed by aspirin only. Neurology also recommended patient to be on Keppra for concern for seizures. Keppra 500 b.i.d. has been started. Patient will be discharged on Keppra, Plavix, aspirin and follow-up with Neurology. This morning patient is feeling well, and reports that she is ready to go home, will have physical therapy at home. On previous discharge patient was prescribed Holter monitor which I recommend that she receives and follow cardiology to rule out other causes of syncope Time Spent with Patient Time attestation: Total time spent providing and/or coordinating discharge services: Discharge coordination time: Greater than 30 minutes Quality: Safe Use of Opioids Does Pt have an Active Cancer Diagnosis on the Problem List?: No Physical Exam Vital Signs: Vital Signs: Last Vital Signs Temp 98.4 F 04/19/22 10:46 Pulse 80 04/19/22 10:46 Resp 18 04/19/22 10:46 BP 160/87 H 04/19/22 10:46 Pulse Ox 97 04/19/22 10:46 BMI result Body Mass Index 24.5 DS: Data Data Completed and Pending Labs on day of discharge: Laboratory Results - last 24 hr 04/18/22 04/18/22 04/19/22 13:16 13:16 06:57 WBC 9.4 RBC 3.82 L Hgb 12.1 Hct 36.2 L MCV 94.8 MCH 31.7 MCHC 33.4 RDW 13.6 Plt Count 181 MPV 10.4 Immature Gran % (Auto) 0.6 H Neut % (Auto) 67.5 Lymph % (Auto) 21.7 [place] % (Auto) 8.0 Eos % (Auto) 1.7 Baso % (Auto) 0.5 Lymph # (Auto) 2.0 [place] # (Auto) 0.8 Eos # (Auto) 0.2 Baso # (Auto) 0.1 Abs Immat Gran (auto) 0.06 H Absolute Neuts (auto) 6.4 Absolute Nucleated RBC 0.000 Nucleated RBC % (auto) 0.0 Sodium Potassium Chloride Carbon Dioxide Anion Gap BUN Creatinine Estim Creat Clear Calc Estimated GFR Random Glucose Calcium Magnesium 2.0 B-Natriuretic Peptide 50 04/19/22 06:57 WBC RBC Hgb Hct MCV MCH MCHC RDW Plt Count MPV Immature Gran % (Auto) Neut % (Auto) Lymph % (Auto) [place] % (Auto) Eos % (Auto) Baso % (Auto) Lymph # (Auto) [place] # (Auto) Eos # (Auto) Baso # (Auto) Abs Immat Gran (auto) Absolute Neuts (auto) Absolute Nucleated RBC Nucleated RBC % (auto) Sodium 140 Potassium 4.1 Chloride 109 H Carbon Dioxide 23 Anion Gap 12 BUN 13 Creatinine 0.61 Estim Creat Clear Calc 58.7 Estimated GFR > 60 Random Glucose 113 Calcium 8.4 D Magnesium B-Natriuretic Peptide Discharge Plan Discharge Patient Disposition: Home, Self-Care Discharge Diagnosis: Syncope, Vertebral artery dissection Referrals: Pal Randall MD [Primary Care Provider] - 1 Week Ashley Vásquez MD [Physician] - 1 Week Discharge Medications: New acetaminophen 325 mg Tablet 650 mg PO Q8-10H PRN (Reason: Pain, Mild (Pain Scale 1-3)) 90 Days 0RF levetiracetam 500 mg Tablet 500 mg PO BID 30 Days Qty: 60 0RF clopidogrel 75 mg Tablet 75 mg PO DAILY 30 Days Qty: 30 0RF aspirin 81 mg Tablet,Delayed Release (Dr/Ec) 81 mg PO DAILY 90 Days Qty: 90 1RF Continued levothyroxine [Synthroid] 88 mcg tablet 1 tab PO DAILY 0RF cholecalciferol (vitamin D3) 25 mcg (1,000 unit) Tablet 25 mcg PO DAILY 0RF cefuroxime axetil 250 mg tablet 250 mg PO BID Qty: 7 0RF (DME) Ultra-Light Rollator Misc See Rx Instructions .Route Qty: 1 0RF Rx Instructions: As directed lisinopril 10 mg tablet 10 mg PO BEDTIME 0RF Protocol: Hold for SBP< HOLD for SBP < : 90 Discontinued ibuprofen [Advil] 200 mg Tablet 400 mg PO Q6H PRN (Reason: Pain) 0RF Discharge Orders: Discharge Order (Routine); Ordered 04/19/22 Ordered By: Sandrine Wheeler Activity on Discharge: Use cane or walker Stand Alone Forms: Patient Portal Discharge page Care Plan Goals: To avoid injury, and hospitalization Health Concerns: Syncope and injury Plan of Treatment: Aspirin and plavix for 30 days followed by aspirin only keppra 500 BID Assessment: You were admitted and managed for syncopal episode. Found to have vertebral dissection and syncope possibly due to seizure. You have been started on 3 new medications, including Aspirin, Plavix to take daily for 30 days, followed by aspirin only. Also Keppra 500 mg twice/day please follow up with neurology upon discharge please follow up with cardiology to get the holter monitor to rule out cardiological causes of syncope Patient Instructions: Syncope (DC) Discharge Date/Time: 04/19/22 13:29
== END 2022-04-19 13:29 | disposition home or self-care (01) | DRG 312 ==
LOC: HO.ED 18:00 → HO.EDOVER 21:54 → HO.IMC 04-19 13:14
PROVIDERS: Physician Assistant; Admitting Provider Hospitalist; Emergency Provider Emergency Medicine Emergency Medical Services; PCP Internal Medicine; Visit Provider Internal Medicine
DX: R55 Syncope and collapse (principal); I77.74 Dissection of vertebral artery; E03.9 Hypothyroidism, unspecified; R56.9 Unspecified convulsions; H55.01 Congenital nystagmus; Z20.822 Contact with and (suspected) exposure to COVID-19; Z87.440 Personal history of urinary (tract) infections; Z79.02 Long term (current) use of antithrombotics/antiplatelets; Z79.890 Hormone replacement therapy; Z79.899 Other long term (current) drug therapy
CPT/HCPCS: 36415; 70450; 70496; 70498; 71045; 80048; 80053; 81003; 83735; 83880; 84484; 85025; 85610; 85730; 87502; 87635; 93005; 99285; Q9967

== ENCOUNTER 2022-04-30 04:34 | Inpatient (IN) | payer MEDICARE, OTHER, SELFPAY ==
--- NOTE | 2022-04-30 | ECG_ITS ---
Test Reason : BRADYCARDIA Blood Pressure : / mmHG Vent. Rate : 092 BPM Atrial Rate : 092 BPM P-R Int : 194 ms QRS Dur : 076 ms QT Int : 352 ms P-R-T Axes : 074 041 026 degrees QTc Int : 435 ms Normal sinus rhythm Normal ECG When compared with ECG of 18-APR-2022 12:58, No significant change was found Referred By: Generic ED Physician Electronically Signed By:DELMI ROBERTS
--- NOTE | ~2022-04-30 | CT_ITS ---
EXAMINATION: CT ANGIOGRAM OF THE CHEST WITH AND WITHOUT CONTRAST (CT PULMONARY ANGIOGRAM FOR PE) CLINICAL INFORMATION: Reason for Exam SOB, Dizzy, ankle fx COMPARISON: None TECHNIQUE: Prior to contrast administration, noncontrast localization images were obtained. Subsequently, multidetector volumetric imaging was performed from the thoracic inlet to below the diaphragms following the administration of 80 mL Omnipaque 350 intravenous contrast. No contrast reaction reported Sagittal, coronal, and MIP oblique sagittal reformatted images were obtained on the CT workstation, uploaded to PACS, and reviewed. This CT examination was performed using dose optimization techniques as appropriate, variously including the following: *Automated exposure control *Adjustment of mA and/or kV according to patient size (this includes techniques or standardized protocols for targeted exams where dose is matched to indication/reason for exam; i.e. extremities or head) *Use of iterative reconstruction technique Total exam dose-length product 239 mGy-cm FINDINGS: QUALITY OF STUDY/CONTRAST BOLUS: Satisfactory. PULMONARY ARTERIES: Left upper lobe and left lower lobe segmental and subsegmental pulmonary emboli. Main pulmonary artery is not enlarged. THORACIC AORTA: No aneurysm or dissection. Atherosclerotic calcifications of the aortic arch. LUNG/PLEURA: Biapical pleural parenchymal scarring. Mild to moderate emphysematous changes. Peripheral reticular nodular opacities likely representing scarring. Respiratory motion artifact limits evaluation of the bilateral mid and lower lung patterson. 3 mm subpleural nodule in the lateral aspect of the left upper lobe (series 7, image 22). Bibasilar atelectasis. Central airways are patent. No pneumothorax. No large pleural effusion. MEDIASTINUM: Heart is not enlarged. No pericardial effusion. Coronary artery calcifications are noted. No enlarged lymph nodes per size criteria. No evidence of septal bowing or right heart strain. CHEST WALL/AXILLA: No axillary or internal mammary lymphadenopathy. OSSEOUS STRUCTURES: Osteopenia. Multilevel degenerative changes of the thoracolumbar spine. No large lytic or blastic lesions are noted. Rotatory levocurvature of the lower thoracic spine. 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 Abdominal aorta is nonaneurysmal and demonstrates atherosclerotic calcifications. Mild thickening of the medial limb of the left adrenal gland, nonspecific. No reflux of contrast into the hepatic veins to suggest elevated right heart pressures. CT/CT angio chest PE protocol IMPRESSION: 1. Left upper lobe and left lower lobe segmental and subsegmental pulmonary emboli without evidence of septal bowing or right heart strain. 2. 3 mm subpleural nodule in the lateral aspect of the left upper lobe (series 7, image 22). Follow-up as per Fleischner criteria. 3. Emphysematous changes of the bilateral lung patterson. 4. Osteopenia. Various management parameters for solitary pulmonary nodules are in the literature. According to the Fleischner Society, recommendations for pulmonary nodules are as follows: According to the UPDATED 2017 Fleischner Society recommendations, the advised follow-up imaging for solid nodules < 6 mm is: LOW RISK PATIENT: No routine follow-up. HIGH RISK PATIENT: Optional CT at 12 months. This critical result was discussed with SERGEY MONTENEGRO NP by telephone on 04/30/2022 9:34 AM and it was ascertained that the content and urgency of the report was understood at the time of direct communication.
[2022-04-30 04:48] VITALS: BP 128/44; PULSE 90; RESP 18; TEMP 36.8; O2SAT 96; BMI 26.1
[2022-04-30 05:07] LABS: Basophils Absolute Auto 0.1 X10*3/uL (0.0-0.2); Basophils Percent Auto 0.6 % (0-2); Eosinophils Absolute Auto 0.2 X10*3/uL (0.0-0.4); Eosinophils Percent Auto 1.5 % (0-4); Hematocrit 39.8 % (37.0-47.0); Hemoglobin 13.4 g/dl (12.0-16.0); Imm Gran Abs Auto 0.06 X10*3/uL (0.00-0.03); Imm Gran Pct Auto 0.5 % (0.0-0.4); Lymphocytes Absolute Auto 2.5 X10*3/uL (1.2-4.9); Lymphocytes Percent Auto 21.5 % (20-40); MANUAL DIFF FLAG NO; Mean Corpuscular HGB Conc 33.7 g/dl (31.0-35.0); Mean Corpuscular Hemoglobin 31.4 pg (27.0-33.0); Mean Corpuscular Volume 93.2 fL (80.0-98.0); Mean Platelet Volume 9.4 fL (9.4-12.3); Monocytes Absolute Auto 0.9 X10*3/uL (0.1-1.2); Monocytes Percent Auto 7.8 % (2-11); Neutrophils Percent Auto 68.1 % (45-73); Platelet Count 289 X10*3/uL (160-400); Red Blood Count 4.27 X10*6/uL (4.20-5.50); Red Cell Distribution Width 13.4 % (11.0-16.0); White Blood Count 11.7 X10*3/uL (4.8-10.8)
--- NOTE | 2022-04-30 05:15 | ED_ITS ---
HPI - Dizziness General Chief Complaint: Dizziness Stated Complaint: dizzy Time Seen by Provider: 04/30/22 05:15 Source: patient Mode of arrival: EMS History of Present Illness HPI Narrative: This is a pleasant 81-year-old female who states that she woke up feeling lightheaded, at this time patient states that it has essentially resolved but when she initially woke up the dizziness was worse when she moved her head. She denies any recent fever, chills, nausea, vomiting, shortness of breath, chest pain/palpitations. EN route and also initially here in the emergency room patient was noted to have episodes of bradycardia into the 30s but maintain good mentation and no hypotension was noted. Related Data Home Medications Medication Instructions Recorded Confirmed cholecalciferol (vitamin D3) 25 25 mcg PO DAILY 04/14/22 04/18/22 mcg (1,000 unit) tablet levothyroxine 88 mcg tablet 1 tab PO DAILY 04/14/22 04/18/22 (Synthroid) lisinopril 10 mg tablet 10 mg PO BEDTIME 04/18/22 04/18/22 Previous Rx's Medication Instructions Recorded cefuroxime axetil 250 mg tablet 250 mg PO BID #7 tabs 04/16/22 walker (Ultra-Light Rollator) #1 ea 04/16/22 acetaminophen 325 mg tablet 650 mg PO Q8-10H PRN Pain, Mild 04/19/22 (Pain Scale 1-3) 90 days aspirin 81 mg tablet,delayed 81 mg PO DAILY 90 days #90 tabs 04/19/22 release clopidogrel 75 mg tablet 75 mg PO DAILY 30 days #30 tabs 04/19/22 levetiracetam 500 mg tablet 500 mg PO BID 30 days #60 tabs 04/19/22 Allergies Allergy/AdvReac Type Severity Reaction Status Date / Time No Known Allergies Allergy Verified 04/14/22 09:56 Review of Systems Review of Systems: Pertinent positives and negatives as stated in HPI 10 point review of systems is otherwise negative. [facility] Past Medical History Source: nursing notes reviewed Medical History Hypothyroidism Nystagmus, congenital Social History Social History Household Members: Spouse and Family Housing: House Alcohol intake: never Patient Tobacco Use Status: Never used Tobacco Advance Directives: No Advance Directives Information Provided: Yes service: No Current occupational status: retired Physical Exam Vital Signs: Vital Signs: Last Vital Signs Temp 98.2 F 04/30/22 04:48 Pulse 90 04/30/22 04:48 Resp 18 04/30/22 04:48 BP 128/44 L 04/30/22 04:48 Pulse Ox 96 04/30/22 04:48 O2 Del Method 04/30/22 04:48 BMI result Body Mass Index 26.1 VITAL SIGNS: Reviewed. GENERAL: Well developed, well nourished, in no acute distress. HEAD: Normocephalic/atraumatic EYES: PERRLA, EOMI intact without pain, no nystagmus EARS: Ext canals without abnormality OROPHARYNX: no oral lesions noted, posterior pharynx clear LUNGS: Normal breath sounds. No adventitious sounds or accessory muscle use. SpO2<96> CARDIOVASCULAR: Regular rate and rhythm without noted murmurs, no JVD or lower extremity edema. ABDOMEN: Soft, non-tender, non-distended with bowel sounds. MUSCULOSKELETAL: No tenderness, deformities, or effusions noted on gross inspection. EXTREMITIES: No cyanosis, clubbing or edema; LLE: Noted walking boot on left foot SKIN: Inspection of the skin reveals no rashes, NEUROLOGIC: Alert and oriented x 4. Strength and sensation to light touch were grossly intact x 4, no facial asymmetry, no pronator drift, finger pass pointing intact, heel to pineda intact, cranial nerves 2-12 grossly intact.. Course Course Course Narrative: 81-year-old female with history and clinical presentation suggestive of possible infectious etiology, but then when I noted the walking boot patient will be worked up for PE as well. I did note some wide range in heart rate variation between 30s and 90s, patient mentated well throughout. D-dimer is elevated and awaiting the PE study. Signed out to RAPHAEL Smith - f/umang UA - f/u CT angio PE protocol MDM - Dizziness Lab Data Result diagrams: 04/30/22 05:02 04/30/22 05:02 Labs: Lab Results 04/30/22 04/30/22 04/30/22 Range/Units 05:02 05:02 05:02 WBC 11.7 H (4.8-10.8) X10*3/uL RBC 4.27 (4.20-5.50) X10*6/uL Hgb 13.4 (12.0-16.0) g/dl Hct 39.8 (37.0-47.0) % MCV 93.2 (80.0-98.0) fL MCH 31.4 (27.0-33.0) pg MCHC 33.7 (31.0-35.0) g/dl RDW 13.4 (11.0-16.0) % Plt Count 289 D (160-400) X10*3/uL MPV 9.4 (9.4-12.3) fL Immature Gran % (Auto) 0.5 H (0.0-0.4) % Neut % (Auto) 68.1 (45-73) % Lymph % (Auto) 21.5 (20-40) % [place] % (Auto) 7.8 (2-11) % Eos % (Auto) 1.5 (0-4) % Baso % (Auto) 0.6 (0-2) % Lymph # (Auto) 2.5 (1.2-4.9) X10*3/uL [place] # (Auto) 0.9 (0.1-1.2) X10*3/uL Eos # (Auto) 0.2 (0.0-0.4) X10*3/uL Baso # (Auto) 0.1 (0.0-0.2) X10*3/uL Abs Immat Gran (auto) 0.06 H (0.00-0.03) X10*3/uL Absolute Neuts (auto) 8.0 (2.0-8.3) x10*3/uL Absolute Nucleated RBC 0.000 (0.0-0.012) X10*3/uL Nucleated RBC % (auto) 0.0 (0.0-0.2) /100WBC APTT 34.7 (24.1-38.0) SEC D-Dimer High Sensitivty 1598 NG/ML Sodium 139 (135-145) mmol/L Potassium 4.1 (3.3-5.1) mmol/L Chloride 110 H (96-108) mmol/L Carbon Dioxide 21 L (22-29) mmol/L Anion Gap 12 (12-20) BUN 29 H D (9-16) mg/dL Creatinine 0.79 (0.5-1.4) mg/dL Estim Creat Clear Calc 46.6 Estimated GFR > 60 Random Glucose 112 (60-115) mg/dL Calcium 9.0 D (8.4-10.2) mg/dL Total Bilirubin 0.2 (0.0-1.0) mg/dL AST 20 (5-31) U/L ALT 13 (0-31) U/L Alkaline Phosphatase 119 H D (39-117) U/L Troponin I High Sens (<3.5-17.0) ng/L Total Protein 6.8 (6.5-8.0) g/dL Albumin 3.8 (3.5-5.0) g/dL COVID-19 (SAMIA) (Negative) COVID-19 Clin Com 04/30/22 04/30/22 Range/Units 05:02 05:15 WBC (4.8-10.8) X10*3/uL RBC (4.20-5.50) X10*6/uL Hgb (12.0-16.0) g/dl Hct (37.0-47.0) % MCV (80.0-98.0) fL MCH (27.0-33.0) pg MCHC (31.0-35.0) g/dl RDW (11.0-16.0) % Plt Count (160-400) X10*3/uL MPV (9.4-12.3) fL Immature Gran % (Auto) (0.0-0.4) % Neut % (Auto) (45-73) % Lymph % (Auto) (20-40) % [place] % (Auto) (2-11) % Eos % (Auto) (0-4) % Baso % (Auto) (0-2) % Lymph # (Auto) (1.2-4.9) X10*3/uL [place] # (Auto) (0.1-1.2) X10*3/uL Eos # (Auto) (0.0-0.4) X10*3/uL Baso # (Auto) (0.0-0.2) X10*3/uL Abs Immat Gran (auto) (0.00-0.03) X10*3/uL Absolute Neuts (auto) (2.0-8.3) x10*3/uL Absolute Nucleated RBC (0.0-0.012) X10*3/uL Nucleated RBC % (auto) (0.0-0.2) /100WBC APTT (24.1-38.0) SEC D-Dimer High Sensitivty NG/ML Sodium (135-145) mmol/L Potassium (3.3-5.1) mmol/L Chloride (96-108) mmol/L Carbon Dioxide (22-29) mmol/L Anion Gap (12-20) BUN (9-16) mg/dL Creatinine (0.5-1.4) mg/dL Estim Creat Clear Calc Estimated GFR Random Glucose (60-115) mg/dL Calcium (8.4-10.2) mg/dL Total Bilirubin (0.0-1.0) mg/dL AST (5-31) U/L ALT (0-31) U/L Alkaline Phosphatase (39-117) U/L Troponin I High Sens 7.0 D (<3.5-17.0) ng/L Total Protein (6.5-8.0) g/dL Albumin (3.5-5.0) g/dL COVID-19 (SAMIA) Negative (Negative) COVID-19 Clin Com See Note ECG Data Attestation: I personally reviewed and interpreted this ECG as follows: Prior ECG tracings: available for review Interpretation: NSR, HR-92, no STEMI, UT/QRS/QTC are within normal limits. Discharge Plan Discharge Clinical Impression: Dizziness, Elevated d-dimer Patient Disposition: Still a Patient Prescriptions: No Action levothyroxine [Synthroid] 88 mcg tablet 1 tab PO DAILY cholecalciferol (vitamin D3) 25 mcg (1,000 unit) Tablet 25 mcg PO DAILY cefuroxime axetil 250 mg tablet 250 mg PO BID Qty: 7 0RF (DME) Ultra-Light Rollator Misc See Rx Instructions .Route Qty: 1 0RF Rx Instructions: As directed lisinopril 10 mg tablet 10 mg PO BEDTIME Protocol: Hold for SBP< HOLD for SBP < : 90 acetaminophen 325 mg Tablet 650 mg PO Q8-10H PRN (Reason: Pain, Mild (Pain Scale 1-3)) 90 Days 0RF levetiracetam 500 mg Tablet 500 mg PO BID 30 Days Qty: 60 0RF clopidogrel 75 mg Tablet 75 mg PO DAILY 30 Days Qty: 30 0RF aspirin 81 mg Tablet,Delayed Release (Dr/Ec) 81 mg PO DAILY 90 Days Qty: 90 1RF
[2022-04-30 05:19] LABS: Partial Thromboplastin Time 34.7 SEC (24.1-38.0)
[2022-04-30 05:26] LABS: Alanine Aminotransferase 13 U/L (0-31); Albumin Level 3.8 g/dL (3.5-5.0); Alkaline Phosphatase 119 U/L (39-117); Anion Gap 12 (12-20); Aspartate Amino Transferase 20 U/L (5-31); Bilirubin Total 0.2 mg/dL (0.0-1.0); Blood Urea Nitrogen 29 mg/dL (9-16); Carbon Dioxide 21 mmol/L (22-29); Chloride 110 mmol/L (96-108); Creatinine Clr Calc Pharmacy 46.6; Estimated Glomerular Filt Rate > 60; Glucose Random 112 mg/dL (60-115); Potassium 4.1 mmol/L (3.3-5.1); Sodium 139 mmol/L (135-145); Total Protein 6.8 g/dL (6.5-8.0)
[2022-04-30 05:35] LABS: COVID-19 Test Negative (Negative)
[2022-04-30 06:40] LABS: D Dimer High Sensitivity 1598 NG/ML
[2022-04-30 08:45] VITALS: BP 144/68; PULSE 77; RESP 16
--- NOTE | 2022-04-30 08:48 | PC.NURSE ---
NSR on tele rate 80s. Pt denies dizziness at this time, worse with movement. Pacer pads in place for precaution. Speech is clear. Son at bedside. SKin pwd.
[2022-04-30] MEDS: iohexoL 350 MG/ML 100 ML INFUS..BTL IV (08:51)
--- NOTE | 2022-04-30 10:19 | PM.IMHP ---
History of Present Illness Date of Service: 04/30/22 Chief Complaint: lightheadedness This is an 81 yo F with a PMH as outlined below who presents to the ED with complaints of lightheadedness which occured immdiately after she awoke during the night prior to admission. She reports her symptoms occurred when she moved her head side to side. She denies any loss of consciousness. She describes the sensation as passing out rather than the room spinning. She had no headache during this time or at all. She reports no cardiac symptoms during this time. She reports being her in usual state of health otherwise. She denies any nausea/vomiting or diarrhea. Per ED provider -- patient had bradycardia in the EMS to the 30s with normal mentation and BP. Work up in the ED this visit reveals subsegmental PE. She has been given Eliquis and now will be admitted for further work up and treatment Review of Systems Review of Systems: negative except HPI PMFSH Medical History Hypothyroidism Nystagmus, congenital Social History Household Members: Spouse and Family Housing: House Alcohol intake: never Patient Tobacco Use Status: Never used Tobacco Use of substances other than those prescribed or required for medical reasons: No Advance Directives: No Advance Directives Information Provided: Yes service: No Current occupational status: retired [employer] Allergies Allergy/AdvReac Type Severity Reaction Status Date / Time No Known Allergies Allergy Verified 04/14/22 09:56 Active Medications: Current Medications Acetaminophen (Acetaminophen 325 Mg Tablet) 650 mg PO Q6H PRN PRN Reason: Pain, Mild (Pain Scale 1-3) Ondansetron HCl (Ondansetron Hcl 4 Mg/2 Ml Vial) 4 mg IVPUSH Q8H PRN PRN Reason: Nausea and Vomiting Pharmacy Consult (Consult Rx Perform Med Rec) 1 each MISCELLANE ONCE PRN PRN Reason: Consult order Sodium Chloride (0.9 % Sodium Chloride Flush 3 Ml Syringe) 3 ml IVFLUSH [facility] Home Medications Medication Instructions Recorded Confirmed Last Taken Type cholecalciferol (vitamin D3) 25 25 mcg PO DAILY 04/14/22 04/30/22 04/29/22 History mcg (1,000 unit) tablet levothyroxine 88 mcg tablet 1 tab PO DAILY 04/14/22 04/30/22 04/29/22 History (Synthroid) lisinopril 10 mg tablet 10 mg PO BEDTIME 04/18/22 04/30/22 04/29/22 History acetaminophen 325 mg tablet 650 mg PO Q8H PRN Pain, Mild (Pain 04/30/22 04/30/22 Unknown History Scale 1-3) Physical Exam Vital Signs and Narrative: Vital Signs: Last Vital Signs Temp 98.2 F 04/30/22 04:48 Pulse 77 04/30/22 08:45 Resp 16 04/30/22 08:45 BP 144/68 H 04/30/22 08:45 Pulse Ox 96 04/30/22 04:48 O2 Del Method 04/30/22 04:48 BMI result Body Mass Index 26.1 Const: Other: Constitutional - Awake and Alert, No apparent distress Eyes - PERRLA, EOMI Cardiovascular - S1S2, RRR, No edema Respiratory - Normal lung expansion, Normal respiratory effort, No respiratory distress, CTA bilaterally Gastrointestinal - NT / ND; +BS; No rebound or guarding - No CVA tenderness Extremities - no calf tenderness bilaterally, no swelling Musculoskeletal - Normal inspection, normal ROM Skin - Warm/Dry Neurological - Alert & oriented x3, No focal deficit; horizontal nystamgus when looking left Psychological - Appropriate affect Results Labs CBC and Chem 7: 04/30/22 05:02 04/30/22 05:02 Labs: Laboratory Results - last 24 hr 04/30/22 04/30/22 04/30/22 05:02 05:02 05:02 MCV 93.2 MCH 31.4 MCHC 33.7 RDW 13.4 Plt Count 289 D MPV 9.4 Immature Gran % (Auto) 0.5 H Neut % (Auto) 68.1 Lymph % (Auto) 21.5 [place] % (Auto) 7.8 Eos % (Auto) 1.5 Baso % (Auto) 0.6 Lymph # (Auto) 2.5 [place] # (Auto) 0.9 Eos # (Auto) 0.2 Baso # (Auto) 0.1 Abs Immat Gran (auto) 0.06 H Absolute Neuts (auto) 8.0 Absolute Nucleated RBC 0.000 Nucleated RBC % (auto) 0.0 APTT 34.7 D-Dimer High Sensitivty 1598 Anion Gap 12 Estim Creat Clear Calc 46.6 Estimated GFR > 60 Random Glucose 112 Calcium 9.0 D Total Bilirubin 0.2 AST 20 ALT 13 Alkaline Phosphatase 119 H D Troponin I High Sens Total Protein 6.8 Albumin 3.8 COVID-19 ([facility]IA) COVID-19 Clin Com 04/30/22 04/30/22 05:02 05:15 MCV MCH MCHC RDW Plt Count MPV Immature Gran % (Auto) Neut % (Auto) Lymph % (Auto) [place] % (Auto) Eos % (Auto) Baso % (Auto) Lymph # (Auto) [place] # (Auto) Eos # (Auto) Baso # (Auto) Abs Immat Gran (auto) Absolute Neuts (auto) Absolute Nucleated RBC Nucleated RBC % (auto) APTT D-Dimer High Sensitivty Anion Gap Estim Creat Clear Calc Estimated GFR Random Glucose Calcium Total Bilirubin AST ALT Alkaline Phosphatase Troponin I High Sens 7.0 D Total Protein Albumin COVID-19 ([facility]IA) Negative COVID-19 Clin Com See Note Imaging Radiologist's Impressions: Impressions Chest CTA 04/30/22 08:55 IMPRESSION: 1. Left upper lobe and left lower lobe segmental and subsegmental pulmonary emboli without evidence of septal bowing or right heart strain. 2. 3 mm subpleural nodule in the lateral aspect of the left upper lobe (series 7, image 22). Follow-up as per Fleischner criteria. 3. Emphysematous changes of the bilateral lung patterson. 4. Osteopenia. Various management parameters for solitary pulmonary nodules are in the literature. According to the Fleischner Society, recommendations for pulmonary nodules are as follows: According to the UPDATED 2017 Fleischner Society recommendations, the advised follow-up imaging for solid nodules < 6 mm is: LOW RISK PATIENT: No routine follow-up. HIGH RISK PATIENT: Optional CT at 12 months. This critical result was discussed with SERGEY MONTENEGRO NP by telephone on 04/30/2022 9:34 AM and it was ascertained that the content and urgency of the report was understood at the time of direct communication. Assessment and Plan (1) Bradycardia: Status: Acute Plan This is an 81 yo F with a history of vertebral artery dissection -- recently started on DAPT + keppra who now presents to the ED with lightheadedness (now resolved) of short duration and acute in onset. This is the patients 3rd visit related to syncope / lightheadedness. A PE has been incidentally found during this work up. 1. Acute PE unlikely to cause the patients symptoms Given Eliquis 10mg in the ED, will continue the same she has a previous echo completed in the last month (but ? doesnt appear to be with bubble study). Will d/w cardiology / neurology to see if one with bubble study is needed HS trop-I negative, check BNP; no evidence of right heart strain on CT imaging 2. Lightheadedness based off her description, this appears to be more pre-syncope rather than vertigo. She does have a history of congenital nystagmus. Check orthostatic Monitor on tele -- she has a period of bradycardia while with the paramedics. Reported mentation and BP in tact at that time. 3. Possible seizure d/o on empiric keppra -- continue the same 4. Hypothyroidism synthroid 5. HTN on lisinopril, will continue Full Code DVT pptx, Marcos Reports one of her children as HCP -- not sure which one, but does have paper work; In light of the patient's multitude of findings as above, particuarly recurrent syncope/lightheadedness without an obvious cause -- I anticipate she will require an inpatient hospitalization which is likely to span at least 2 midnights for work up and treatment of etiology, which is not known at this time. This cannot be completed in a less acute setting. Tele-reviewed -- appears to have a long sinus pause this morning, unclear if any symptoms at that time; pacer pads are in place and cardiology will be seeing the patient. Quality Stroke Does the patient have a stroke diagnosis?: No VTE Prior VTE?: No VTE Risk Level:: Medical - moderate - high VTE Device Contraindication: Treatment Not Indicated VTE Drug Contraindication: N/A - Med Ordered
[2022-04-30] MEDS: Apixaban 5 MG TABLET 10 MG PO (10:28)
--- NOTE | 2022-04-30 11:47 | PHA.MEDREC ---
MED REC COMPLETE, NO ISSUES Pharmacy Consult ? Medication Reconciliation Pharmacy has completed the medication reconciliation.
[2022-04-30] MEDS: levETIRAcetam 500 MG TABLET PO (12:14)
[2022-04-30 12:15] VITALS: BP 148/68; PULSE 76; RESP 23; TEMP 37.1; O2SAT 94
[2022-04-30 12:17] VITALS: BP 142/84; BP 148/68; PULSE 77; PULSE 79
[2022-04-30 12:20] VITALS: BP 177/75; PULSE 87
--- NOTE | 2022-04-30 14:56 | P.CNNE_ITS ---
History of Present Illness Data of Consult Service Date: 04/30/22 Primary Care Provider: Nonstaff Physician HPI Reason for consult: Disease 81 years old woman with underlying history of congenital nystagmus and episodes of dizziness that were suggestive of seizure disorder but recently her CTA of brain and neck also revealed left vertebral dissection. She was discharged on aspirin, clopidogrel and Keppra 500 mg twice a day. She came back to hospital with episode of dizziness. Her family was sitting next to her stating that she had another spell few minutes before I saw her. She remembered the spell stati ng that it was like she was sinking somewhere and her family member was able to pull her out of it. When asked how long it lasted? She said about 5 minutes but according to family member it was few seconds. She was not having any shortness of breath or palpitation or chest pain but was diagnosed with pulmonary embolism. [facility] Past Medical History Medical History Hypothyroidism Nystagmus, congenital Social History Social History Household Members: Spouse and Family Housing: House Alcohol intake: never Patient Tobacco Use Status: Never used Tobacco Use of substances other than those prescribed or required for medical reasons: No Advance Directives: No Advance Directives Information Provided: Yes service: No Current occupational status: retired [employer] Allergies Allergy/AdvReac Type Severity Reaction Status Date / Time No Known Allergies Allergy Verified 04/14/22 09:56 Active Medications: Current Medications Acetaminophen (Acetaminophen 325 Mg Tablet) 650 mg PO Q6H PRN PRN Reason: Pain, Mild (Pain Scale 1-3) Apixaban (Apixaban 5 Mg Tablet) 10 mg PO BID [facility] Stop: 05/06/22 21:01 Levetiracetam (Levetiracetam 500 Mg Tablet) 500 mg PO BID [facility] Last Admin: 04/30/22 12:14 Dose: 500 mg Ondansetron HCl (Ondansetron Hcl 4 Mg/2 Ml Vial) 4 mg IVPUSH Q8H PRN PRN Reason: Nausea and Vomiting Pharmacy Consult (Consult Rx Perform Med Rec) 1 each MISCELLANE ONCE PRN PRN Reason: Consult order Sodium Chloride (0.9 % Sodium Chloride Flush 3 Ml Syringe) 3 ml IVFLUSH QSHIFT [facility] Home Medications Medication Instructions Recorded Confirmed Last Taken Type cholecalciferol (vitamin D3) 25 25 mcg PO DAILY 04/14/22 04/30/22 04/29/22 History mcg (1,000 unit) tablet levothyroxine 88 mcg tablet 1 tab PO DAILY 04/14/22 04/30/22 04/29/22 History (Synthroid) lisinopril 10 mg tablet 10 mg PO BEDTIME 04/18/22 04/30/22 04/29/22 History acetaminophen 325 mg tablet 650 mg PO Q8H PRN Pain, Mild (Pain 04/30/22 04/30/22 Unknown History Scale 1-3) Physical Exam Vital Signs: Vital Signs: Last Vital Signs Temp 98.7 F 04/30/22 12:15 Pulse 87 04/30/22 12:20 Resp 23 H 04/30/22 12:15 BP 177/75 H 04/30/22 12:20 Pulse Ox 94 04/30/22 12:15 O2 Del Method 04/30/22 12:15 BMI result Body Mass Index 26.1 Neuro: Other: She was alert and awake with normal spontaneity of speech fluency comprehension and anxious affect. There was position changing nystagmus in all field of dissection. Face was symmetrical. There was no pronator drift. Cenafh-[id number] testing 1 did not reveal any significant abnormality. Deep tendon reflexes were trace to absent with flexor plantars. 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 She was flat in her bed and did not have full account of what had happened and how long it lasted. This would suggest possibility of seizure disorder more than transient ischemic attack. As far as pulmonary embolism is concerned, I am not sure how it is related. I would recommend continuing anticoagulation now that she was diagnosed with pulmonary embolism and stopping anti-platelet agents. Also I would suggest increasing dose of levetiracetam to 750 mg twice a day and obtaining an EEG tomorrow. Procedures Date of Service Date of Service: 04/30/22
--- NOTE | 2022-04-30 15:18 | PM.CNCAR ---
History of Present Illness History of Present Illness Date of Service: 04/30/22 Chief complaint: Syncope Narrative: This is a cardiology consultation regarding lightheadedness. It seems that she has been having symptoms of feeling dizzy/lightheaded for the last couple of weeks or so. On reviewing the notes, these are variable presentations. Very confusing in fact about what the precipitating factors or. Sometimes these happen randomly. Sometimes when she turns her head left or right she feels somewhat dizzy. Overall, difficult to say. However on the monitoring and evaluation advisor in the ER, the numerous pauses as long as 8 seconds. Hence they could certainly be the etiology for her symptoms. Otherwise, she does not have any known cardiac issues like coronary disease myocardial infarction or cardiomyopathy. Additionally, workup in the ER had shown subsegmental PE. She has been given Eliquis in that regard. Review of Systems Review of Systems: Yes all other systems are reviewed and are negative Constitutional: Constitutional: Reports as per HPI Eyes: Eyes: Reports as per HPI ENT: Reports as per HPI Cardiovascular: Cardiovascular: Reports as per HPI, Denies acrocyanosis, Denies cool extremities, Denies chest pain, Denies leg edema, Denies lightheadedness, Denies palpitations and Denies dyspnea Respiratory: Respiratory: Reports as per HPI, Reports no additional respiratory complaints and Denies dyspnea Gastrointestinal: Gastrointestinal: Reports as per HPI and Reports no additional gastrointestinal complaints Genitourinary: Genitourinary: Reports as per HPI Musculoskeletal: Musculoskeletal: Reports no additional musculoskeletal complaints and Reports as per HPI Integumentary/Breasts: Skin/Breast: Reports system reviewed and no additional complaints, except as docu Neurologic: Reports system reviewed and no additional complaints, except as documented and Reports as per HPI Psychiatric: Psychiatric: Reports no additional psychiatric complaints and Reports as per HPI Endocrine: Endocrine: Reports no additional endocrine complaints, Reports as per HPI and Denies palpitations Hematologic/Lymphatic: Hematologic/Lymphatic: Reports no additional hematologic/lymphatic complaints and Reports as per HPI Allergic/Immunologic: Allergic/Immunologic: Reports no additional allergic/immunologic complaints and Reports as per HPI COUNTS INCLUDE 234 BEDS AT THE [facility] Past Medical History Medical History Hypothyroidism Nystagmus, congenital Family History Family History (Updated 04/30/22 @ 15:23 by Daniel Altamirano MD) Father Myocardial infarction Mother Pacemaker Social History Social History Household Members: Spouse and Family Housing: House Alcohol intake: never Patient Tobacco Use Status: Never used Tobacco Use of substances other than those prescribed or required for medical reasons: No Advance Directives: No Advance Directives Information Provided: Yes service: No Current occupational status: retired Meds Allergies Allergy/AdvReac Type Severity Reaction Status Date / Time No Known Allergies Allergy Verified 04/14/22 09:56 Active Medications: Current Medications Acetaminophen (Acetaminophen 325 Mg Tablet) 650 mg PO Q6H PRN PRN Reason: Pain, Mild (Pain Scale 1-3) Apixaban (Apixaban 5 Mg Tablet) 10 mg PO BID [facility] Stop: 05/06/22 21:01 Levetiracetam (Levetiracetam 500 Mg Tablet) 500 mg PO BID [facility] Last Admin: 04/30/22 12:14 Dose: 500 mg Ondansetron HCl (Ondansetron Hcl 4 Mg/2 Ml Vial) 4 mg IVPUSH Q8H PRN PRN Reason: Nausea and Vomiting Pharmacy Consult (Consult Rx Perform Med Rec) 1 each MISCELLANE ONCE PRN PRN Reason: Consult order Sodium Chloride (0.9 % Sodium Chloride Flush 3 Ml Syringe) 3 ml IVFLUSH QSHIFT [facility] Home Medications Medication Instructions Recorded Confirmed Last Taken Type cholecalciferol (vitamin D3) 25 25 mcg PO DAILY 04/14/22 04/30/22 04/29/22 History mcg (1,000 unit) tablet levothyroxine 88 mcg tablet 1 tab PO DAILY 04/14/22 04/30/22 04/29/22 History (Synthroid) lisinopril 10 mg tablet 10 mg PO BEDTIME 04/18/22 04/30/22 04/29/22 History acetaminophen 325 mg tablet 650 mg PO Q8H PRN Pain, Mild (Pain 04/30/22 04/30/22 Unknown History Scale 1-3) Physical Exam Vital Signs: Vital Signs: Last Vital Signs Temp 98.7 F 04/30/22 12:15 Pulse 87 04/30/22 12:20 Resp 23 H 04/30/22 12:15 BP 177/75 H 04/30/22 12:20 Pulse Ox 94 04/30/22 12:15 O2 Del Method 04/30/22 12:15 BMI result Body Mass Index 26.1 Const: General: comfortable and no acute distress Orientation/consciousness: patient oriented x3 HEENT: Other: Unremarkable Head: Yes normal to inspection Neck: Neck: Yes normal visual inspection Chest: Chest palpation & inspection: normal inspection of the chest Resp: Auscultation: clear to auscultation bilaterally Cardio: Palpation: normal PMI Heart sounds: S1 normal heart sound present, S2 normal heart sound present, no gallops, Murmur heart sound present systolic early, I/ and at the right sternal border and no rubs GI: Palpation (GI): Soft to palpation Back/Spine/Pelvis: Other: unremarkable Skin: General skin exam: no rashes or lesions noted Neuro: General: patient oriented x3 Extrem: General: Yes normal to inspection Psych: Mental Status: mental status grossly normal Objective Labs and Meds Result diagrams: 04/30/22 05:02 04/30/22 05:02 Lab results: Laboratory Results - last 24 hr 04/30/22 04/30/22 04/30/22 05:02 05:02 05:02 WBC 11.7 H RBC 4.27 Hgb 13.4 Hct 39.8 MCV 93.2 MCH 31.4 MCHC 33.7 RDW 13.4 Plt Count 289 D MPV 9.4 Immature Gran % (Auto) 0.5 H Neut % (Auto) 68.1 Lymph % (Auto) 21.5 [place] % (Auto) 7.8 Eos % (Auto) 1.5 Baso % (Auto) 0.6 Lymph # (Auto) 2.5 [place] # (Auto) 0.9 Eos # (Auto) 0.2 Baso # (Auto) 0.1 Abs Immat Gran (auto) 0.06 H Absolute Neuts (auto) 8.0 Absolute Nucleated RBC 0.000 Nucleated RBC % (auto) 0.0 APTT 34.7 D-Dimer High Sensitivty 1598 Sodium 139 Potassium 4.1 Chloride 110 H Carbon Dioxide 21 L Anion Gap 12 BUN 29 H D Creatinine 0.79 Estim Creat Clear Calc 46.6 Estimated GFR > 60 Random Glucose 112 Calcium 9.0 D Total Bilirubin 0.2 AST 20 ALT 13 Alkaline Phosphatase 119 H D Troponin I High Sens Total Protein 6.8 Albumin 3.8 COVID-19 ([facility]) COVID-19 Clin Com 04/30/22 04/30/22 05:02 05:15 WBC RBC Hgb Hct MCV MCH MCHC RDW Plt Count MPV Immature Gran % (Auto) Neut % (Auto) Lymph % (Auto) [place] % (Auto) Eos % (Auto) Baso % (Auto) Lymph # (Auto) [place] # (Auto) Eos # (Auto) Baso # (Auto) Abs Immat Gran (auto) Absolute Neuts (auto) Absolute Nucleated RBC Nucleated RBC % (auto) APTT D-Dimer High Sensitivty Sodium Potassium Chloride Carbon Dioxide Anion Gap BUN Creatinine Estim Creat Clear Calc Estimated GFR Random Glucose Calcium Total Bilirubin AST ALT Alkaline Phosphatase Troponin I High Sens 7.0 D Total Protein Albumin COVID-19 ([facility]IA) Negative COVID-19 Clin Com See Note ECG Interpretation: EKG with sinus rhythm at 92/Min; no significant ST-T changes and otherwise unremarkable. Normal CT/QTc. Imaging Radiologist's impression: Impressions Chest CTA 04/30/22 08:55 IMPRESSION: 1. Left upper lobe and left lower lobe segmental and subsegmental pulmonary emboli without evidence of septal bowing or right heart strain. 2. 3 mm subpleural nodule in the lateral aspect of the left upper lobe (series 7, image 22). Follow-up as per Fleischner criteria. 3. Emphysematous changes of the bilateral lung patterson. 4. Osteopenia. Various management parameters for solitary pulmonary nodules are in the literature. According to the Fleischner Society, recommendations for pulmonary nodules are as follows: According to the UPDATED 2017 Fleischner Society recommendations, the advised follow-up imaging for solid nodules < 6 mm is: LOW RISK PATIENT: No routine follow-up. HIGH RISK PATIENT: Optional CT at 12 months. This critical result was discussed with SERGEY MONTENEGRO NP by telephone on 04/30/2022 9:34 AM and it was ascertained that the content and urgency of the report was understood at the time of direct communication. Assessment and Plan (1) Complete heart block: Status: Acute Telemetry in the emergency room reviewed. There are several areas where there is no conducted QRS complexes. These are likely areas of complete heart block. Duration goes up to about 8 seconds or so. There are several shorter episodes too. There is some atrial activity seen in these areas and hence likely not conducting through the AV node. Doubt these are asystole. However in some areas difficult to say. In the baseline EKG there is no clear conduction system disease. Discussed with patient and son about this in great detail. Her symptoms are difficult to understand as discussed in the initial part of this consultation. Sometimes she gets dizzy just turning her head. I told him that any components of dizziness related to the conduction system disease will be resolved through pacemaker placement. However other causes of dizziness unlikely to get better. They understand and agree to proceed with pacemaker placement. We contacted our real estate underwriter as well as thoracic surgeon but both are unavailable. Hence will need to transfer to [facility]. In the recent echocardiogram, LVEF hyperdynamic, > 70%. (2) Pulmonary emboli: Status: Acute CT chest reported to have left upper lobe/left lower lobe segmental and subsegmental pulmonary emboli. She will need anticoagulation but will hold at this time as she also needs a pacemaker. Probably okay to just use IV heparin for the time being. Procedures Date of Service Date of Service: 04/30/22
--- NOTE | 2022-04-30 15:47 | PM.DS ---
DS: Providers Provider Date of Service: 04/30/22 Date of admission: 04/30/22 10:16 Primary care physician: Nonstaff Physician Consults: 04/30/22 10:17 Consult to Neurology Routine Consulting Provider: [facility] Reason for consultation: known vertebral dissection, multiple admissions for syncope 04/30/22 10:18 Consult to Cardiology Routine Consulting Provider: Daniel Altamirano Reason for consultation: recurrent syncopal episodes DS: Diagnosis Discharge Diagnosis (1) Complete heart block: Status: Acute (2) Pulmonary emboli: Status: Acute DS: Summary Status at Discharge Cognitive/behavioral status at discharge: From the admission H&P: This is an 81 yo F with a PMH as outlined below who presents to the ED with complaints of lightheadedness which occured immdiately after she awoke during the night prior to admission. She reports her symptoms occurred when she moved her head side to side. She denies any loss of consciousness. She describes the sensation as passing out rather than the room spinning. She had no headache during this time or at all. She reports no cardiac symptoms during this time. She reports being her in usual state of health otherwise. She denies any nausea/vomiting or diarrhea. Per ED provider -- patient had bradycardia in the EMS to the 30s with normal mentation and BP. Work up in the ED this visit reveals subsegmental PE. She has been given Eliquis and now will be admitted for further work up and treatment Hospital Course: Patient was placed on tele, given Eliquis for her PE and cardiology was consulted. Patient began having complete heart block and cardiology recommended permanent PPM placement. Unfortunately, a physician was not available to place this and she will require transfer to tertiary care center which is being arranged by cardiology. This was explained to the patient and her son and both are in agreement. Patient was given Eliquis around 10Am for her acute PE. She will be initiated on IV heparin drip around 10PM today and this can be held prior to surgery as deemed appropriate by the surgeon. Furthermore, during her previous hospitalization -- she was initated on DAPT with asa/plavix for her vertebral artery dissection. These have been held while anticoagluation has been initiated. Would recommended neurology input on the need of these watermaster. Time Spent with Patient Time attestation: Total time spent providing and/or coordinating discharge services: Discharge coordination time: Greater than 30 minutes Quality: Safe Use of Opioids Does Pt have an Active Cancer Diagnosis on the Problem List?: No Quality: Stroke Does the patient have a stroke diagnosis?: No Physical Exam Vital Signs: Vital Signs: Last Vital Signs Temp 98.7 F 04/30/22 12:15 Pulse 87 04/30/22 12:20 Resp 23 H 04/30/22 12:15 BP 177/75 H 04/30/22 12:20 Pulse Ox 94 04/30/22 12:15 O2 Del Method 04/30/22 12:15 BMI result Body Mass Index 26.1 Const: Other: General - no acute distress, appears comfortable Cardiovascular - regular rate and rhythm, S1-S2 Lungs - normal respiratory effort, clear to auscultation bilaterally, no wheezing Abdomen - soft, nontender, no rebound or guarding Extremities - no edema bilaterally Neuro - awake and alert, no focal deficits DS: Data Data Completed and Pending Labs on day of discharge: Laboratory Results - last 24 hr 04/30/22 04/30/22 04/30/22 05:02 05:02 05:02 WBC 11.7 H RBC 4.27 Hgb 13.4 Hct 39.8 MCV 93.2 MCH 31.4 MCHC 33.7 RDW 13.4 Plt Count 289 D MPV 9.4 Immature Gran % (Auto) 0.5 H Neut % (Auto) 68.1 Lymph % (Auto) 21.5 Appling % (Auto) 7.8 Eos % (Auto) 1.5 Baso % (Auto) 0.6 Lymph # (Auto) 2.5 Appling # (Auto) 0.9 Eos # (Auto) 0.2 Baso # (Auto) 0.1 Abs Immat Gran (auto) 0.06 H Absolute Neuts (auto) 8.0 Absolute Nucleated RBC 0.000 Nucleated RBC % (auto) 0.0 APTT 34.7 D-Dimer High Sensitivty 1598 Sodium 139 Potassium 4.1 Chloride 110 H Carbon Dioxide 21 L Anion Gap 12 BUN 29 H D Creatinine 0.79 Estim Creat Clear Calc 46.6 Estimated GFR > 60 Random Glucose 112 Calcium 9.0 D Total Bilirubin 0.2 AST 20 ALT 13 Alkaline Phosphatase 119 H D Troponin I High Sens Total Protein 6.8 Albumin 3.8 COVID-19 ([facility]) COVID-19 Clin Com 04/30/22 04/30/22 05:02 05:15 WBC RBC Hgb Hct MCV MCH MCHC RDW Plt Count MPV Immature Gran % (Auto) Neut % (Auto) Lymph % (Auto) Appling % (Auto) Eos % (Auto) Baso % (Auto) Lymph # (Auto) Appling # (Auto) Eos # (Auto) Baso # (Auto) Abs Immat Gran (auto) Absolute Neuts (auto) Absolute Nucleated RBC Nucleated RBC % (auto) APTT D-Dimer High Sensitivty Sodium Potassium Chloride Carbon Dioxide Anion Gap BUN Creatinine Estim Creat Clear Calc Estimated GFR Random Glucose Calcium Total Bilirubin AST ALT Alkaline Phosphatase Troponin I High Sens 7.0 D Total Protein Albumin COVID-19 ([facility]IA) Negative COVID-19 Clin Com See Note Discharge Plan Discharge Patient Disposition: Xfer Acute Care Hospital Discharge Diagnosis: Heart block PE Referrals: Physician,Nonstaff [Primary Care Provider] - 1 Week Discharge Medications: Continued levothyroxine [Synthroid] 88 mcg tablet 1 tab PO DAILY cholecalciferol (vitamin D3) 25 mcg (1,000 unit) Tablet 25 mcg PO DAILY (DME) Ultra-Light Rollator Misc See Rx Instructions .Route Qty: 1 0RF Rx Instructions: As directed levetiracetam 500 mg Tablet 500 mg PO BID 30 Days Qty: 60 0RF acetaminophen 325 mg tablet 650 mg PO Q8H PRN (Reason: Pain, Mild (Pain Scale 1-3)) Held lisinopril 10 mg tablet 10 mg PO BEDTIME Hold Instructions: Resume on 05/06/22. restart once advised to do so by [facility] doctors Protocol: Hold for SBP< HOLD for SBP < : 90 clopidogrel 75 mg Tablet 75 mg PO DAILY 30 Days Qty: 30 0RF Hold Instructions: Resume on 05/06/22. restart once advised to do so by [facility] doctors aspirin 81 mg Tablet,Delayed Release (Dr/Ec) 81 mg PO DAILY 90 Days Qty: 90 1RF Hold Instructions: Resume on 05/06/22. restart once advised to do so by [facility] doctors Discharge Orders: Discharge Order (Routine); Ordered 04/30/22 Ordered By: Sj Sheffield Diet: advance to usual diet Activity on Discharge: As tolerated Stand Alone Forms: Patient Portal Discharge page Care [place] [facility] [place] Health Concerns: Heart Block Pulmonary Embolism Plan of Treatment[place] [facility] [place]: see discharge summary
[2022-04-30 15:49] VITALS: BMI 28.5
[2022-04-30 15:51] VITALS: BP 137/66; PULSE 83; RESP 19; TEMP 36.7; O2SAT 96
--- NOTE | 2022-04-30 16:31 | PC.NURSE ---
@[id number] ANDREW FROM PT TX LINE CALLS WITH ROOM ASSIGNMENT AND ACCEPTING MD FOR THIS PT [employer] [employer] 3 ROOM 21 RN TO RN SHOULD BE CALLED TO [phone] SOLO
[2022-04-30 16:57] LABS: Hemoglobin 13.4 g/dl (12.0-16.0); Mean Corpuscular HGB Conc 33.5 g/dl (31.0-35.0); Mean Corpuscular Hemoglobin 31.5 pg (27.0-33.0); Mean Corpuscular Volume 93.9 fL (80.0-98.0); Mean Platelet Volume 9.5 fL (9.4-12.3); Platelet Count 296 X10*3/uL (160-400); Red Blood Count 4.26 X10*6/uL (4.20-5.50); Red Cell Distribution Width 13.4 % (11.0-16.0); White Blood Count 10.8 X10*3/uL (4.8-10.8)
--- NOTE | 2022-04-30 16:58 | PC.NURSE ---
RN-RN report given to [facility].
[2022-04-30 17:14] LABS: INTERNATIONAL NORM RATIO 1.5 (0.9-1.1); Prothrombin Time 16.6 SEC (9.9-13.0)
[2022-04-30 17:17] LABS: PTT Heparin Drip 37.4 SEC (53-77.9)
--- NOTE | 2022-05-01 10:37 | MHC.CM.PN ---
Patient transferred to [facility] before she could be seen by case management.
== END 2022-04-30 17:30 | disposition short-term general hospital (02) | DRG 308 ==
LOC: HO.ED 08:04 → HO.EDOVER 10:24
PROVIDERS: Admitting Provider Family Medicine; Emergency Provider Student in an Organized Health Care Education/Training Program; Visit Provider Family Medicine
DX: I44.2 Atrioventricular block, complete (principal); I26.94 Multiple subsegmental thrombotic pulmonary emboli without acute cor pulmonale; E03.9 Hypothyroidism, unspecified; G40.909 Epilepsy, unspecified, not intractable, without status epilepticus; H55.01 Congenital nystagmus; Z20.822 Contact with and (suspected) exposure to COVID-19; Z95.0 Presence of cardiac pacemaker; Z79.02 Long term (current) use of antithrombotics/antiplatelets; Z79.82 Long term (current) use of aspirin; Z79.899 Other long term (current) drug therapy
CPT/HCPCS: 36415; 71275; 80053; 84484; 85025; 85027; 85379; 85610; 85730; 87635; 93005; 99284; 99285; Q9967

== ENCOUNTER 2022-05-04 07:21 | Outpatient (REF) | payer MEDICARE, OTHER, SELFPAY | END 2022-05-04 07:22 | disposition home or self-care (01) | LOC: HO.HOSX 07:21 | PROVIDERS: Visit Provider Physician Assistant | DX: Z13.89 Encounter for screening for other disorder (principal) ==

== ENCOUNTER 2022-05-11 08:01 | Outpatient (REF) | payer MEDICARE, OTHER, SELFPAY ==
--- NOTE | ~2022-05-11 | XR_ITS ---
EXAMINATION: XR ANKLE, LEFT CLINICAL INFORMATION: Pain in the left ankle and foot COMPARISON: Left ankle radiograph from 04/14/2022 TECHNIQUE: AP, lateral, and mortise views of the left ankle. FINDINGS: Redemonstration of the oblique distal fibular fracture extending into the ankle joint. There is overlying soft tissue swelling. No additional fractures.. XR/XR ankle LT min 3V IMPRESSION: No change in alignment of the distal fibular fracture.
== END 2022-05-11 08:02 | disposition home or self-care (01) ==
LOC: HO.HOSX 08:01
PROVIDERS: Visit Provider Physician Assistant
DX: M25.572 Pain in left ankle and joints of left foot (principal)
CPT/HCPCS: 73610

== ENCOUNTER 2022-06-15 08:54 | Outpatient (REF) | payer MEDICARE, OTHER, SELFPAY ==
--- NOTE | ~2022-06-15 | XR_ITS ---
EXAMINATION: XR ANKLE, LEFT CLINICAL INFORMATION: M25.572 - Pain in left ankle and joints of left foot COMPARISON: Radiographs left ankle 05/11/2022, 04/14/2022 TECHNIQUE: AP, lateral, and mortise views of the left ankle. FINDINGS: Distal fibular fracture is similar to prior studies. No change in alignment. Fracture line still visible. No callus formation demonstrated at this time. The ankle mortise is symmetric. There is no new fracture or dislocation or destructive process. No joint narrowing. XR/XR ankle LT min 3V IMPRESSION: Distal fibular fracture is stable in alignment. No interval callus formation.
== END 2022-06-15 08:55 | disposition home or self-care (01) ==
LOC: HO.HOSX 08:54
PROVIDERS: Visit Provider Physician Assistant
DX: Z45.018 Encounter for adjustment and management of other part of cardiac pacemaker (principal); M25.572 Pain in left ankle and joints of left foot; R55 Syncope and collapse; R42 Dizziness and giddiness; R00.1 Bradycardia, unspecified; I44.2 Atrioventricular block, complete; I26.99 Other pulmonary embolism without acute cor pulmonale
CPT/HCPCS: 73610; 93280; 99212

== ENCOUNTER → 2022-11-30 12:30 | Outpatient (BNVA) | payer MEDICARE, OTHER, SELFPAY | PROVIDERS: PCP Internal Medicine; Referring Provider Internal Medicine; Visit Provider Nurse Practitioner Family | DX: Z45.018 Encounter for adjustment and management of other part of cardiac pacemaker (principal); R55 Syncope and collapse; R42 Dizziness and giddiness; R00.1 Bradycardia, unspecified; I44.2 Atrioventricular block, complete; I26.99 Other pulmonary embolism without acute cor pulmonale | CPT/HCPCS: 93280; 99212 ==

== ENCOUNTER 2022-12-22 10:53 | Outpatient (REF) | payer MEDICARE, OTHER, SELFPAY ==
[2022-12-22 10:56] LABS: MANUAL DIFF FLAG NO
[2022-12-22 11:14] LABS: Basophils Absolute Auto 0.1 X10*3/uL (0.0-0.2); Basophils Percent Auto 0.6 % (0-2); Eosinophils Absolute Auto 0.1 X10*3/uL (0.0-0.4); Eosinophils Percent Auto 1.1 % (0-4); Hematocrit 43.1 % (37.0-47.0); Hemoglobin 14.5 g/dl (12.0-16.0); Imm Gran Abs Auto 0.03 X10*3/uL (0.00-0.03); Imm Gran Pct Auto 0.3 % (0.0-0.4); Lymphocytes Absolute Auto 3.4 X10*3/uL (1.2-4.9); Lymphocytes Percent Auto 35.4 % (20-40); Mean Corpuscular HGB Conc 33.6 g/dl (31.0-35.0); Mean Corpuscular Hemoglobin 31.3 pg (27.0-33.0); Mean Corpuscular Volume 92.9 fL (80.0-98.0); Mean Platelet Volume 10.8 fL (9.4-12.3); Monocytes Absolute Auto 0.7 X10*3/uL (0.1-1.2); Monocytes Percent Auto 7.4 % (2-11); Neutrophils Absolute Auto 5.4 x10*3/uL (2.0-8.3); Neutrophils Percent Auto 55.2 % (45-73); Platelet Count 215 X10*3/uL (160-400); Red Blood Count 4.64 X10*6/uL (4.20-5.50); Red Cell Distribution Width 13.8 % (11.0-16.0); White Blood Count 9.7 X10*3/uL (4.8-10.8)
[2022-12-22 11:17] LABS: Appearance Urine Clear; Color Urine Yellow; Glucose Urine UA Negative (Negative); Leukocyte Esterase Urine Negative (Negative); Nitrite Urine Negative (Negative); PH 5.5 (5.0-9.0); Urine Blood Negative (Negative); Urine Ketones Negative (Negative); Urine Protein Negative (Neg-Trace)
[2022-12-22 11:22] LABS: Bacteria Urine None Seen (None Seen); Hyaline Casts Urine 0-2 /LPF (0-2); Squamous Epithelial Cell Urine 0-2 /HPF (0-2); WBC Urine 0-5 /HPF (0-5)
[2022-12-22 12:03] LABS: Alanine Aminotransferase 14 U/L (0-31); Albumin Level 4.1 g/dL (3.5-5.0); Alkaline Phosphatase 87 U/L (39-117); Anion Gap 11 (12-20); Aspartate Amino Transferase 22 U/L (5-31); Bilirubin Total 0.7 mg/dL (0.0-1.0); Blood Urea Nitrogen 21 mg/dL (9-16); Calcium 9.2 mg/dL (8.4-10.2); Carbon Dioxide 26 mmol/L (22-29); Chloride 107 mmol/L (96-108); Cholesterol 209 mg/dL; Estimated Glomerular Filt Rate > 60; Glucose Fasting 110 mg/dL (60-99); HDL Cholesterol 50 mg/dL; LDL Cholesterol Calculated 140 mg/dl; Sodium 140 mmol/L (135-145); Total Protein 6.7 g/dL (6.5-8.0); Triglycerides 96 mg/dL
[2022-12-22 12:05] LABS: Vitamin D 25-OH Total 35.4 ng/mL (>30)
[2022-12-22 12:35] LABS: Estimated Average Glucose 114 mg/dL; Hemoglobin A1c % 5.6 %
[2022-12-22 12:53] LABS: Creatinine Urine 91.25 mg/dL; Microalbumin Urine < 5.0 mg/L
== END 2022-12-22 10:54 | disposition home or self-care (01) ==
LOC: HO.LNP 10:53
PROVIDERS: Visit Provider Internal Medicine
DX: E03.9 Hypothyroidism, unspecified (principal); E55.9 Vitamin D deficiency, unspecified; E78.00 Pure hypercholesterolemia, unspecified; R73.03 Prediabetes
CPT/HCPCS: 80053; 80061; 81001; 82043; 82306; 83036; 85025

== ENCOUNTER 2023-01-26 11:04 | Outpatient (REF) | payer MEDICARE, OTHER, SELFPAY ==
[2023-01-26 11:15] LABS: Appearance Urine Clear; Color Urine Yellow; Glucose Urine UA Negative (Negative); Leukocyte Esterase Urine Negative (Negative); Nitrite Urine Negative (Negative); PH 6.5 (5.0-9.0); Urine Blood Negative (Negative); Urine Ketones Negative (Negative); Urine Protein Negative (Neg-Trace)
[2023-01-26 11:21] LABS: Bacteria Urine None Seen (None Seen); Hyaline Casts Urine 0-2 /LPF (0-2); RBC Urine 0-2 /HPF (0-2); Squamous Epithelial Cell Urine 0-2 /HPF (0-2); WBC Urine 0-5 /HPF (0-5)
== END 2023-01-26 11:05 | disposition home or self-care (01) ==
LOC: HO.LNP 11:04
PROVIDERS: Visit Provider Internal Medicine
DX: R31.9 Hematuria, unspecified (principal)
CPT/HCPCS: 81001

== ENCOUNTER 2023-05-31 13:30 | Outpatient (AMB) | payer MEDICARE, OTHER, SELFPAY ==
--- NOTE | 2023-05-31 13:51 | MHC.OFFVIS ---
Intake Vital Signs 05/31/23 13:57 Height 5 ft 1 in BP 128/72 Blood Pressure Location Lt femoral Position Sitting Intake Visit Reasons: 6 mo medtronic Intake Note: 6 mo follow up medtronic check, pt states recently she had an episode when waking in the night where she was short of breath or had the feeling she wasn't breathing. no chest pain or palpitations Accompanied by: Daughter Allergies No Known Allergies Allergy (Verified 05/31/23 13:55) Medication List - Last Reconciled 05/31/23 by Ze Gallegos MD acetaminophen 650 mg PO Q8H PRN apixaban (Eliquis) 10 mg PO BID cholecalciferol (vitamin D3) 25 mcg PO DAILY levothyroxine (Synthroid) 1 tab PO DAILY lisinopril 10 mg PO DAILY walker (Ultra-Light Rollator misc) As directed HPI HPI Comments History of Present Illness Details 82-year-old female who is here for follow-up. She has background of complete heart block and underwent pacemaker placement in April 2022. Also has background of pulmonary emboli in the past. She is on apixaban 10 mg twice a day since the pulmonary emboli last year. No bleeding issues. She is on antihypertensive therapy with lisinopril 10 mg daily. Pacemaker was interrogated in the clinic and is working fine. No acute alerts. She is paced 99% time and is pacer dependent. [facility] Medical History Hypothyroidism Nystagmus, congenital Pacemaker Surgical History History of permanent cardiac pacemaker placement (~05/01/22) Family History Father Myocardial infarction Mother Pacemaker Social History Household Members: Spouse and Family Housing: House Alcohol intake: never Patient Tobacco Use Status: Never used Tobacco service: No Current occupational status: retired Review of Systems Const Denies chills, Denies fatigue, Denies fever(s), Denies frequent falls, Denies weakness, Denies weight gain and Denies weight loss ENT Denies dizziness Card Denies chest pain, Denies leg edema, Denies lightheadedness, Denies palpitations, Denies dyspnea, Denies dyspnea on exertion, Denies orthopnea and Denies other (loss of consciousness) Resp Denies cough, Denies dyspnea and Denies dyspnea on exertion GI Denies hematochezia and Denies change in stool character Musc Denies abnormal gait, Denies muscle weakness, Denies numbness, Denies radiating pain into limb and Denies tingling Neuro Denies abnormal gait, Denies dizziness, Denies frequent falls, Denies numbness, Denies tingling and Denies weakness Endo Denies fatigue and Denies palpitations Physical Exam Vital Signs: Last Vital Signs BP 128/72 05/31/23 13:57 GENERAL APPEARANCE: in no acute distress, pleasant. NECK: no carotid bruit, no jugular venous distention. SKIN: no suspicious lesions, warm and dry. HEART: no murmurs, regular rate and rhythm. LUNGS: clear to auscultation bilaterally. ABDOMEN: soft, nontender. EXTREMITIES: no edema. PERIPHERAL PULSES: equal. NEUROLOGIC: No gross deficits, AAO X 3 Office Procedures Cardiac Device Check Cardiac Device Check Details: Medtronic permanent pacemaker. DDD mode. Battery life 12 years. No new alerts. V paced 99.6%. A paced 2.5%. [id number] Device Interrogation, pacemaker Procedure code (CPT) selection complete EKG Details: Atrial paced rhythm 79 beats minute nonspecific T-wave changes, QTC 424 milliseconds. [id number], Complete Assessment & Plan Assessment & Plan (1) Complete heart block: Code(s): I44.2 - Atrioventricular block, complete Plan 82-year-old female background history of pulmonary emboli and complete heart block. She underwent permanent pacemaker placement in the past. Pacemaker is working fine at this point. She has hypertension and blood pressure control is good on lisinopril 10 mg daily. She should continue same dose for now. She previously had pulmonary emboli and and has been on apixaban 10 mg twice a day. I think she should be on Eliquis 5 mg twice a day. Thank you for allowing me to participate in the care of your patient. Please feel free to contact me if you have any questions. Orders: Orders AMB Cardiac Device Follow-up Today I44.2 - Atrioventricular block, complete Coding Level of Care Code Est Pt Level 4 (73076) Diagnoses Complete heart block I44.2 CPT Codes Cardiac Device Check - Cardiac Device 8: [id number] Device Interrogation, pacemaker ([id number]) EKG - CPT: 52670-Oiirjuccmpkivivjt, Complete ([id number])
[2023-05-31 13:57] VITALS: BP 128/72
== END 2023-05-31 14:26 | disposition home or self-care (01) ==
PROVIDERS: Visit Provider Internal Medicine Cardiovascular Disease
DX: I44.2 Atrioventricular block, complete (principal)
CPT/HCPCS: 93010; 93288; 99214

== ENCOUNTER → 2023-05-31 13:30 | Outpatient (BNVA) | payer MEDICARE, OTHER, SELFPAY | PROVIDERS: Visit Provider Internal Medicine Cardiovascular Disease | DX: I44.2 Atrioventricular block, complete (principal); R06.02 Shortness of breath; Z86.711 Personal history of pulmonary embolism; Z45.018 Encounter for adjustment and management of other part of cardiac pacemaker; Z95.2 Presence of prosthetic heart valve; Z79.01 Long term (current) use of anticoagulants | CPT/HCPCS: 93005; 99212 ==

== ENCOUNTER → 2023-09-26 23:59 | Outpatient (BNV) | payer MEDICARE, OTHER, SELFPAY ==
--- NOTE | 2023-10-18 09:24 | A.OFFVIS_ITS ---
Intake Intake Visit Reasons: Remote Device Check- Medtronic Allergies No Known Allergies Allergy (Verified 09/27/23 15:07) [facility] Medical History Hypothyroidism Nystagmus, congenital Pacemaker Surgical History History of permanent cardiac pacemaker placement (~05/01/22) Family History Father Myocardial infarction Mother Pacemaker Household Members: Spouse and Family Housing: House Alcohol intake: never Patient Tobacco Use Status: Never used Tobacco service: No Current occupational status: retired Office Procedures Cardiac Device Check Cardiac Device Check Details: PPM Good battery life [employer] 100% No new alerts. [id number] Cardiac Device Interrogation, pacemaker Procedure code (CPT) selection complete Assessment & Plan Assessment & Plan (1) History of permanent cardiac pacemaker placement: Onset Date: ~05/01/22 Comment: [place]; Dr. Patel - [facility], 05/01/2022 Code(s): Z95.0 - Presence of cardiac pacemaker Coding Level of Care Code Procedure Only Diagnoses History of permanent cardiac pacemaker placement Z95.0 CPT Codes Cardiac Device Check - Cardiac Device 12: [id number] Cardiac Device Interrogation, pacemaker ([id number])
== END ==
PROVIDERS: PCP Internal Medicine; Visit Provider Internal Medicine Cardiovascular Disease
DX: I44.2 Atrioventricular block, complete (principal); Z95.0 Presence of cardiac pacemaker
CPT/HCPCS: 93294

== ENCOUNTER 2023-09-27 14:52 | Outpatient (AMB) | payer MEDICARE, OTHER, SELFPAY ==
--- NOTE | 2023-09-27 15:04 | A.OFFVIS_ITS ---
Intake Vital Signs 09/27/23 15:05 Weight 123 lb 7.342 oz BP 138/77 Blood Pressure Location Rt brachial Position Sitting Pulse 82 Pulse Source Pulse Oximeter Intake Visit Reasons: follow up SOB Intake Note: f/u up s/b Grain Trader Required: No General Scrap Worker: General Scrap Worker Present Accompanied by: Son Allergies No Known Allergies Allergy (Verified 09/27/23 15:07) Medication List - Last Reconciled 09/27/23 by JOJO Harrington acetaminophen 650 mg PO Q8H PRN apixaban (Eliquis) 5 mg PO BID cholecalciferol (vitamin D3) 25 mcg PO DAILY levothyroxine (Synthroid) 1 tab PO DAILY lisinopril 10 mg PO DAILY walker (Ultra-Light Rollator misc) As directed HPI follow up SOB HPI Details Donna is an 83-year-old female with past medical history pulmonary embolism, heart block, syncope status post dual-chamber pacemaker placement who presents for follow-up. Today she reports that she had an episode 2 weeks ago where she woke up in the morning and she felt short of breath. This lasted for a few minutes and resolved. She did not have any signs of sickness. She does not typically feel short of breath. She has not had recurrent episodes like this. She also describes an episode a few weeks ago where she got up in the morning and she felt tingling around each of her ankles. She was able to walk with her cane and the symptom gradually improved. She has not had recurrent tingling in her ankles. Her breathing has been good, no concerns shortness of breath with ambulation. She has noticed some decreased stamina recently. No chest discomfort at rest or with activity. No heart palpitations, presyncope, syncope, falls. No PND, orthopnea or edema. Her son is present describes that she has had issues with hip discomfort approximately 1 month ago which did slow down her physical activity at that time. Taking meds as directed [facility] Medical History Hypothyroidism Nystagmus, congenital Pacemaker Surgical History History of permanent cardiac pacemaker placement (~05/01/22) Family History Father Myocardial infarction Mother Pacemaker Social History Household Members: Spouse and Family Housing: House Alcohol intake: never Patient Tobacco Use Status: Never used Tobacco service: No Current occupational status: retired Review of Systems Const All systems reviewed & are unremarkable except as noted in HPI and below ENT Denies dizziness Card Denies chest pain, Denies chest pain at rest, Denies chest pain with activity, Denies rapid heart rate, Denies pedal edema, Denies edema, Denies leg edema, Denies lightheadedness, Denies palpitations, Reports dyspnea (one episode), Denies dyspnea on exertion and Denies orthopnea Resp Denies cough, Reports dyspnea (one episode) and Denies dyspnea on exertion GI Denies hematochezia and Denies change in stool character Musc Details: tingling in ankles one morning. ambulates with cane Denies abnormal gait, Denies limited range of motion, Denies muscle cramps, Denies muscle weakness, Denies numbness, Denies radiating pain into limb, Denies stiffness and Denies tingling Neuro Denies abnormal gait, Denies dizziness, Denies numbness and Denies tingling Endo Denies palpitations Physical Exam Vital Signs: Last Vital Signs Pulse 82 09/27/23 15:05 BP 138/77 09/27/23 15:05 Const General: cooperative, healthy appearing, comfortable and no acute distress Orientation/consciousness: patient oriented x3 Neck Neck: Yes normal visual inspection Resp Effort & Inspection: normal respiratory effort Auscultation: clear to auscultation bilaterally, no rales, no rhonchi and no wheezes Cardio Jugular venous distension: no JVD Rate: regular rate Rhythm: regular rhythm Heart sounds: S1 normal heart sound present, S2 normal heart sound present, no murmurs and no rubs Neuro General: patient oriented x3 Extrem General: Yes normal to inspection, No no pedal edema and No calf tenderness Psych Appearance: grossly normal Mental Status: mental status grossly normal Speech and movement: Normal speech and movement present Assessment & Plan Assessment & Plan (1) Shortness of breath: Code(s): R06.02 - Shortness of breath Plan: Episode of feeling short of breath 1 morning approximally 2 weeks ago. No recurrence since then. Symptom lasted a few minutes and resolved. No signs of sickness. She has noticed some decreased stamina. On examination today she does not appear fluid overloaded. Her decrease in stamina could be related to having hip discomfort for a few weeks approximally a month ago. Discussed deconditioning with her. Instructed to call this office if she has any recurrent episodes of shortness of breath in the night or morning. (2) History of permanent cardiac pacemaker placement: Onset Date: ~05/01/22 Comment: [place]; Dr. Patel - [facility], 05/01/2022 Code(s): Z95.0 - Presence of cardiac pacemaker Plan: Permanent pacemaker in place, Medtronic dual-chamber. Functioning normally on last interrogation. Next office interrogation due in 3 months. Remote monitoring used. (3) Complete heart block: Code(s): I44.2 - Atrioventricular block, complete Plan: Pacemaker in place Coding Level of Care Code Est Pt Level 3 (30658) Diagnoses Shortness of breath R06.02 History of permanent cardiac pacemaker placement Z95.0 Complete heart block I44.2 Time Spent (min) 24
[2023-09-27 15:05] VITALS: BP 138/77; PULSE 82
== END 2023-09-27 15:46 | disposition home or self-care (01) ==
PROVIDERS: PCP Internal Medicine; Visit Provider Nurse Practitioner Family
DX: R06.02 Shortness of breath (principal); Z95.0 Presence of cardiac pacemaker; I44.2 Atrioventricular block, complete
CPT/HCPCS: 99213

== ENCOUNTER → 2023-09-27 14:52 | Outpatient (BNVA) | payer MEDICARE, OTHER, SELFPAY | PROVIDERS: PCP Internal Medicine; Visit Provider Nurse Practitioner Family | DX: R06.02 Shortness of breath (principal); I44.2 Atrioventricular block, complete; Z95.0 Presence of cardiac pacemaker | CPT/HCPCS: 99212 ==

== ENCOUNTER 2023-11-30 13:14 | Outpatient (AMB) | payer MEDICARE, OTHER, SELFPAY ==
[2023-11-30 13:23] VITALS: BP 140/64; PULSE 72; BMI 23.5
--- NOTE | 2023-11-30 13:23 | MHC.OFFVIS ---
Intake Vital Signs 11/30/23 13:23 Height 5 ft 1 in Weight 124 lb 5.451 oz BMI 23.5 BP 140/64 H Blood Pressure Location Rt brachial Position Sitting Pulse 72 Pulse Source Pulse Oximeter Intake Visit Reasons: 6 month follow up per KM Chronograph Operator Required: No Cloth Covered Helmet Puller: Cloth Covered Helmet Puller Present Allergies No Known Allergies Allergy (Verified 11/30/23 13:26) Medication List - Last Reconciled 11/30/23 by Nathalia Mendoza NP-C acetaminophen 650 mg PO Q8H PRN apixaban (Eliquis) 5 mg PO BID cholecalciferol (vitamin D3) 25 mcg PO DAILY dexamethasone 2 mg PO BID levothyroxine (Synthroid) 1 tab PO DAILY lisinopril 10 mg PO DAILY walker (Ultra-Light Rollator misc) As directed HPI 6 month follow up per KM HPI Details Donna is an 83-year-old female with past medical history pulmonary embolism, heart block, syncope status post dual-chamber pacemaker placement who presents for follow-up. Today she reports that she has been feeling well since her last visit. She is not having any issues with shortness of breath. She denies chest discomfort, heart palpitations, presyncope, syncope, PND, orthopnea or edema. She tolerates light activities around the house. No reports of bleeding issues. Son is present. [facility] Medical History Pacemaker Nystagmus, congenital Hypothyroidism Surgical History History of permanent cardiac pacemaker placement (~05/01/22) Family History Father Myocardial infarction Mother Pacemaker Social History Household Members: Spouse and Family Housing: House Alcohol intake: never Patient Tobacco Use Status: Never used Tobacco service: No Current occupational status: retired Review of Systems Const All systems reviewed & are unremarkable except as noted in HPI and below ENT Denies dizziness Card Denies chest pain, Denies chest pain at rest, Denies chest pain with activity, Denies rapid heart rate, Denies pedal edema, Denies edema, Denies leg edema, Denies lightheadedness, Denies palpitations, Denies dyspnea, Denies dyspnea on exertion and Denies orthopnea Resp Denies cough, Denies dyspnea and Denies dyspnea on exertion GI Denies hematochezia and Denies change in stool character Musc Denies abnormal gait, Denies limited range of motion, Denies muscle cramps, Denies muscle weakness, Denies numbness, Denies radiating pain into limb, Denies stiffness and Denies tingling Neuro Denies abnormal gait, Denies dizziness, Denies numbness and Denies tingling Endo Denies palpitations Physical Exam Const General: cooperative, healthy appearing, comfortable and no acute distress Orientation/consciousness: patient oriented x3 Neck Neck: Yes normal visual inspection Resp Effort & Inspection: normal respiratory effort Auscultation: clear to auscultation bilaterally, no rales, no rhonchi and no wheezes Cardio Jugular venous distension: no JVD Rate: regular rate Rhythm: regular rhythm Heart sounds: S1 normal heart sound present, S2 normal heart sound present, no murmurs and no rubs Neuro General: patient oriented x3 Extrem General: Yes normal to inspection, No no pedal edema and No calf tenderness Psych Appearance: grossly normal Mental Status: mental status grossly normal Speech and movement: Normal speech and movement present Office Procedures Cardiac Device Check Cardiac Device Check Details: Medtronic dual-chamber pacemaker interrogation today, battery 11.7 years, a threshold 0.75 volts at 0.4 milliseconds, RV threshold 0.75 volts at 0.4 milliseconds, DDD mode, low rate 60, V paced 99.9%, a paced 4.2%, no VT, AF burden less than 0.1%, activity 2-3 hours per day, [id number]-PR Cardiac Device Check, pacemaker dual lead Procedure code (CPT) selection complete Assessment & Plan Assessment & Plan (1) History of permanent cardiac pacemaker placement: Onset Date: ~05/01/22 Comment: BASSAM; Dr. Patel - [facility], 05/01/2022 Code(s): Z95.0 - Presence of cardiac pacemaker Plan: Medtronic dual-chamber pacemaker in place. Office interrogation today shows device is functioning normally. Battery 11.7 years. No alerts. Remote monitoring in use. Pacemaker site is benign. Next office interrogation in 6 months. (2) Complete heart block: Code(s): I44.2 - Atrioventricular block, complete Plan: Pacemaker in place (3) Shortness of breath: Code(s): R06.02 - Shortness of breath Plan: On last visit reported an episode of shortness of breath on 1 occasion. No recurrence since then. Symptom lasted a few minutes and resolved. No signs of sickness. She has noticed some decreased stamina. On examination last visit and today today she does not appear fluid overloaded. Her decrease in stamina could be related deconditioning. She does only light activities around the house. No change to treatment plan at this time. Instructed to call this office or her PCP if she has any recurrent episodes of shortness of breath in the night or morning. Plan Time spent on chart review, documentation, interview and assessment Coding Level of Care Code Est Pt Level 3 (11395) Diagnoses History of permanent cardiac pacemaker placement Z95.0 Complete heart block I44.2 Shortness of breath R06.02 CPT Codes Cardiac Device Check - Cardiac Device 2: 41542-YX Cardiac Device Check, pacemaker dual lead ([id number]) Time Spent (min) 24
== END 2023-11-30 13:57 | disposition home or self-care (01) ==
PROVIDERS: PCP Internal Medicine; Visit Provider Nurse Practitioner Family
DX: I44.2 Atrioventricular block, complete (principal); R06.02 Shortness of breath; Z95.0 Presence of cardiac pacemaker
CPT/HCPCS: 93280; 99213

== ENCOUNTER → 2023-11-30 13:14 | Outpatient (BNVA) | payer MEDICARE, OTHER, SELFPAY | PROVIDERS: PCP Internal Medicine; Visit Provider Nurse Practitioner Family | DX: Z45.018 Encounter for adjustment and management of other part of cardiac pacemaker (principal); I44.2 Atrioventricular block, complete; R06.02 Shortness of breath | CPT/HCPCS: 93280; 99212 ==

== ENCOUNTER 2023-12-15 14:23 | Outpatient (AMB) | payer MEDICARE, OTHER, SELFPAY ==
--- NOTE | 2023-12-15 14:31 | A.OFFVIS_ITS ---
Intake Vital Signs 12/15/23 14:43 Height 5 ft 1 in Weight 120 lb BMI 22.7 BP 120/60 Blood Pressure Location Lt brachial Position Sitting Respiration 14 Pulse 88 Pulse Source Pulse Oximeter Pulse Oximetry (%) 95 Oxygen Delivery Method Room Air Intake Visit Reasons: Lumbar Disc Disease - LVM Intake Note: Patient comes in for initial visit was referred by Primary care. Reports pain 2- 3/10. Allergies No Known Allergies Allergy (Verified 12/15/23 14:43) HPI HPI Comments History of Present Illness Details Donna Acharya) is 83 years old female who came to my office today with the complains on pain in the left lower leg below the level of her knee. She reports that this pain started 1 month ago. She denies any trauma car accident or poor posture which could of resulted in this pain. On further questioning she reported that she feels this pain connected to the pain on the left side of her lower back with some vague radiation. She reports that she can not sleep normally because of this pain but she can not do activities of daily living she can not take care of herself but she can not function normally. She is retired individual. She reports that movements and weather changes aggravate her pain. She reports that she was given dexamethasone oral by Dr. Randall as the taper and she reported pain improvement after the treatment with this medication. She stated that the pain today is 2 to 3/10. She reports her pain most severe at evening and late night and less severe in the afternoon. In terms of tissue damage she reports her pain is pulsing, throbbing, pounding, tugging, pulling, ranging, dull, sore, aching, heavy sensation. She tried Tylenol to treat her pain. She never had physical therapy to treat her pain. He had a history of ankle fracture on the left many years ago, she did not have any history of surgery the fracture was treated conservatively. She does not believe that the pain in the lower leg related to the fracture. Her past medical history significant for hypothyroidism and heart dysrhythmia probably complete heart block for which she was given pacemaker she is taking Synthroid for hypothyroidism. She is retired individual she does not smoke cigarettes does not use alcohol she does not use recreational drugs. [facility] Medical History Pacemaker Nystagmus, congenital Hypothyroidism Surgical History History of permanent cardiac pacemaker placement (~05/01/22) Family History Father Myocardial infarction Mother Pacemaker Social History Household Members: Spouse and Family Housing: House Alcohol intake: never Patient Tobacco Use Status: Never used Tobacco service: No Current occupational status: retired Review of Systems Const All systems reviewed & are unremarkable except as noted in HPI and below Reports no additional complaints ENT Reports Normal hearing present Card Reports as per HPI Resp Reports no additional complaints GI Reports no additional complaints Reports no additional complaints Musc Reports as per HPI Neuro Reports Normal hearing present, Denies Abnormal speech present, Denies confusion and Denies Sensory deficit (Neuro) Psych Denies confusion Physical Exam Vital Signs: Last Vital Signs Pulse 88 12/15/23 14:43 Resp 14 12/15/23 14:43 BP 120/60 12/15/23 14:43 Pulse Ox 95 12/15/23 14:43 Oxygen Delivery Method Room Air 12/15/23 14:43 BMI result Body Mass Index 22.7 Const General: no acute distress; No confusion Orientation/consciousness: patient oriented x3 and No confusion Eyes General: appearance normal, both eyes and all related structures Pupils: Equal, round and reactive pupils present EOM: EOMs intact bilaterally Neck Neck: Yes full ROM Chest Chest palpation & inspection: normal inspection of the chest Resp Effort & Inspection: normal respiratory effort, able to speak in complete sentences, normal respiratory pattern, no audible wheezes and no cough Cardio Jugular venous distension: no JVD GI Inspection: Yes normal to inspection Back/Spine/Pelvis Other: Severe tenderness on palpation in projection of the left sacroiliac joint. SLR is negative bilaterally. Lassegue test is negative bilaterally. Ten test is positive on the left, pelvic distraction test is negative bilaterally but pelvis compression test is positive on the left. Lateral rotation and medial rotation of the hip cause minimal discomfort in the groin. Neuro General: patient oriented x3, gait normal and No confusion Cranial nerves: Yes CN's II-XII intact bilaterally, Yes Equal, round and reactive pupils present, Yes Normal hearing present and Yes Ability to bilaterally elevate shoulders present Speech: No Abnormal speech present Gait exam (Neuro): Normal gait present Motor exam (neuro): 5/5 motor strength present throughout Sensory Exam: No Sensory deficit (Neuro) Extrem Other: Bilateral PT and DP pulses appear to be weak with stronger pulses on the left side and weaker pulses on the right side. However patient does not complain on any pain on the right side. No edema of the left lower extremity which would be evident of deep vein thrombosis however patient exhibits some tenderness on palpation of the calf muscle. General: No pedal edema Psych Speech and movement: Normal speech and movement present Affect: normal affect Attitude: cooperative Thought process: Normal thought process present Thought content: Normal thought content present Insight: Good insight present (Psych) Judgement: Good judgement present (Psych) Assessment & Plan Assessment & Plan (1) Sacroiliac joint dysfunction of left side: Code(s): M53.3 - Sacrococcygeal disorders, not elsewhere classified (2) Sacroiliitis: Code(s): M46.1 - Sacroiliitis, not elsewhere classified Plan: 1 (3) Left leg pain: Code(s): M79.605 - Pain in left leg Plan: To Plan It looks like that this patient is suffering from sacroiliitis with radiation of the pain into the left lower extremity. She has a history of DVT in the past and pulmonary embolism. I noticed this history only after I read her chart. She failed to mention this to me during the conversation. Because of the absence of the edema I do not think that pain in the cough is related to the deep vein thrombosis. In any case she reports that her pain is starting to get better. I offered her to diagnose this pain to perform sacroiliac joint injection on the left. The patient agreed to go for the procedure. I also offered her to go to physical therapy and treat this pain with gentle physical therapy manipulations. Orders: Orders PT Evaluation and Treatment Today M46.1 - Sacroiliitis, not elsewhere classified, M53.3 - Sacrococcygeal disorders, not elsewhere classified, M79.605 - Pain in left leg Patient Instructions: I here by testify that I spent 47 minutes discussing this patient's problem, evaluating her prior records, and organizing this r note. Coding Level of Care Code New Pt Level 4 (77690) Diagnoses Sacroiliac joint dysfunction of left side M53.3 Sacroiliitis M46.1 Left leg pain M79.606
[2023-12-15 14:43] VITALS: BP 120/60; PULSE 88; RESP 14; O2SAT 95; BMI 22.7
== END 2023-12-15 15:09 | disposition home or self-care (01) ==
PROVIDERS: PCP Internal Medicine; Visit Provider Anesthesiology
DX: M53.3 Sacrococcygeal disorders, not elsewhere classified (principal); M46.1 Sacroiliitis, not elsewhere classified; M79.605 Pain in left leg
CPT/HCPCS: 99204

== ENCOUNTER → 2023-12-15 14:23 | Outpatient (BNVA) | payer MEDICARE, OTHER, SELFPAY | PROVIDERS: PCP Internal Medicine; Visit Provider Anesthesiology | DX: M53.3 Sacrococcygeal disorders, not elsewhere classified (principal); M46.1 Sacroiliitis, not elsewhere classified; M79.605 Pain in left leg | CPT/HCPCS: 99202 ==

== ENCOUNTER 2023-12-23 11:05 | Outpatient (REF) | payer MEDICARE, OTHER, SELFPAY ==
[2023-12-23 11:08] LABS: MANUAL DIFF FLAG NO
[2023-12-23 11:44] LABS: Estimated Average Glucose 105 mg/dL; Hemoglobin A1c % 5.3 % (<6.0)
[2023-12-23 11:48] LABS: Basophils Percent Auto 0.4 % (0-2); Eosinophils Absolute Auto 0.2 X10*3/uL (0.0-0.4); Eosinophils Percent Auto 2.2 % (0-4); Hematocrit 46.2 % (37.0-47.0); Hemoglobin 15.3 g/dl (12.0-16.0); Imm Gran Abs Auto 0.03 X10*3/uL (0.00-0.03); Imm Gran Pct Auto 0.3 % (0.0-0.4); Lymphocytes Absolute Auto 4.2 X10*3/uL (1.2-4.9); Mean Corpuscular HGB Conc 33.1 g/dl (31.0-35.0); Mean Corpuscular Hemoglobin 31.9 pg (27.0-33.0); Mean Corpuscular Volume 96.5 fL (80.0-98.0); Mean Platelet Volume 10.4 fL (9.4-12.3); Monocytes Absolute Auto 0.7 X10*3/uL (0.1-1.2); Monocytes Percent Auto 7.9 % (2-11); Neutrophils Absolute Auto 4.1 x10*3/uL (2.0-8.3); Neutrophils Percent Auto 44.2 % (45-73); Platelet Count 190 X10*3/uL (160-400); Red Blood Count 4.79 X10*6/uL (4.20-5.50); Red Cell Distribution Width 14.6 % (11.0-16.0); White Blood Count 9.4 X10*3/uL (4.8-10.8)
[2023-12-23 12:11] LABS: Alanine Aminotransferase 14 U/L (0-31); Alkaline Phosphatase 74 U/L (39-117); Anion Gap 15 (12-20); Aspartate Amino Transferase 22 U/L (5-31); Bilirubin Total 0.7 mg/dL (0.0-1.0); Blood Urea Nitrogen 15 mg/dL (9-16); Calcium 9.3 mg/dL (8.4-10.2); Carbon Dioxide 24 mmol/L (22-29); Chloride 104 mmol/L (96-108); Cholesterol 220 mg/dL (<200); Estimated Glomerular Filt Rate 53; Glucose Fasting 116 mg/dL (60-99); HDL Cholesterol 53 mg/dL (>40); LDL Cholesterol Calculated 136 mg/dL (<100); Potassium 4.1 mmol/L (3.3-5.1); Sodium 139 mmol/L (135-145); Total Protein 6.9 g/dL (6.5-8.0); Triglycerides 158 mg/dL (<150)
== END 2023-12-23 11:06 | disposition home or self-care (01) ==
LOC: HO.LNP 11:05
PROVIDERS: Visit Provider Internal Medicine
DX: E03.9 Hypothyroidism, unspecified (principal); R73.03 Prediabetes; E78.00 Pure hypercholesterolemia, unspecified; E55.9 Vitamin D deficiency, unspecified
CPT/HCPCS: 80053; 80061; 82306; 83036; 85025

== ENCOUNTER → 2023-12-26 23:59 | Outpatient (BNV) | payer MEDICARE, OTHER, SELFPAY ==
--- NOTE | 2024-01-01 21:00 | A.OFFVIS_ITS ---
Intake Intake Visit Reasons: Remote Device Check- Medtronic Allergies No Known Allergies Allergy (Verified 12/15/23 14:43) [facility] Medical History Pacemaker Nystagmus, congenital Hypothyroidism Surgical History History of permanent cardiac pacemaker placement (~05/01/22) Family History Father Myocardial infarction Mother Pacemaker Social History Household Members: Spouse and Family Housing: House Alcohol intake: never Patient Tobacco Use Status: Never used Tobacco service: No Current occupational status: retired Office Procedures Cardiac Device Check Cardiac Device Check Details: PPM Good battery life No new alerts. [id number] Cardiac Device Interrogation, pacemaker or defibrillator Procedure code (CPT) selection complete Assessment & Plan Assessment & Plan (1) Complete heart block: Code(s): I44.2 - Atrioventricular block, complete Plan Orders: Orders AMB Cardiac Device Follow-up 12/26/23 I44.2 - Atrioventricular block, complete Coding Level of Care Code Procedure Only Diagnoses Complete heart block I44.2 CPT Codes Cardiac Device Check - Cardiac Device 14: 13514-[id number] Cardiac Device Interrogation, pacemaker or defibrillator ([id number])
== END ==
PROVIDERS: PCP Internal Medicine; Visit Provider Internal Medicine Cardiovascular Disease
DX: I44.2 Atrioventricular block, complete (principal); Z95.0 Presence of cardiac pacemaker
CPT/HCPCS: 93294

== ENCOUNTER 2023-12-30 15:25 | Outpatient (REF) | payer MEDICARE, OTHER, SELFPAY ==
[2023-12-30 15:35] LABS: Appearance Urine Clear; Color Urine Yellow; Glucose Urine UA Negative (Negative); Leukocyte Esterase Urine Small (1+) (Negative); Nitrite Urine Negative (Negative); PH 6.5 (5.0-9.0); Specific Gravity - Urine 1.015 (1.005-1.025); UMIC TRIGGER UACC YES; Urine Blood Negative (Negative); Urine Ketones Negative (Negative); Urine Protein Negative (Neg-Trace)
[2023-12-30 15:52] LABS: Bacteria Urine Trace (None Seen); Hyaline Casts Urine 0-2 /LPF (0-2); RBC Urine 0-2 /HPF (0-2); Squamous Epithelial Cell Urine 0-2 /HPF (0-2); UACC Culture Trigger YES; WBC Urine 0-5 /HPF (0-5)
[2023-12-30 16:33] LABS: Creatinine Urine 87.86 mg/dL; Microalbumin Urine < 5.0 mg/L
== END 2023-12-30 15:26 | disposition home or self-care (01) ==
LOC: HO.LNP 15:25
PROVIDERS: Visit Provider Internal Medicine
DX: R73.03 Prediabetes (principal); N39.46 Mixed incontinence
CPT/HCPCS: 81001; 82043; 82570; 87086

== ENCOUNTER 2024-01-27 11:40 | Outpatient (REF) | payer MEDICARE, OTHER, SELFPAY ==
[2024-01-27 11:42] LABS: MANUAL DIFF FLAG NO
[2024-01-27 12:00] LABS: Basophils Absolute Auto 0.1 X10*3/uL (0.0-0.2); Basophils Percent Auto 0.9 % (0-2); Eosinophils Absolute Auto 0.2 X10*3/uL (0.0-0.4); Eosinophils Percent Auto 1.6 % (0-4); Hematocrit 41.8 % (37.0-47.0); Imm Gran Abs Auto 0.02 X10*3/uL (0.00-0.03); Imm Gran Pct Auto 0.2 % (0.0-0.4); Lymphocytes Absolute Auto 2.9 X10*3/uL (1.2-4.9); Mean Corpuscular HGB Conc 33.5 g/dl (31.0-35.0); Mean Corpuscular Volume 95.4 fL (80.0-98.0); Mean Platelet Volume 10.7 fL (9.4-12.3); Monocytes Absolute Auto 0.7 X10*3/uL (0.1-1.2); Neutrophils Absolute Auto 5.3 x10*3/uL (2.0-8.3); Neutrophils Percent Auto 57.3 % (45-73); Platelet Count 255 X10*3/uL (160-400); Red Blood Count 4.38 X10*6/uL (4.20-5.50); Red Cell Distribution Width 14.2 % (11.0-16.0); White Blood Count 9.2 X10*3/uL (4.8-10.8)
== END 2024-01-27 11:41 | disposition home or self-care (01) ==
LOC: HO.LNP 11:40
PROVIDERS: Visit Provider Internal Medicine
DX: D72.820 Lymphocytosis (symptomatic) (principal)
CPT/HCPCS: 85025

== ENCOUNTER → 2024-03-25 23:59 | Outpatient (BNV) | payer MEDICARE, OTHER, SELFPAY ==
--- NOTE | 2024-04-24 12:08 | MHC.OFFVIS ---
Intake Visit Reasons: REmote device check- Medtronic Allergies No Known Allergies Allergy (Verified 12/15/23 14:43) [facility] Medical History Pacemaker Nystagmus, congenital Hypothyroidism Surgical History History of permanent cardiac pacemaker placement (~05/01/22) Family History Father Myocardial infarction Mother Pacemaker Social History Household Members: Spouse and Family Housing: House Alcohol intake: never Patient Tobacco Use Status: Never used Tobacco service: No Current occupational status: retired Office Procedures Cardiac Device Check Cardiac Device Check Details: PPM Good battery life 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 No new alerts. 13584-[place] Cardiac Device Check, pacemaker dual lead Procedure code (CPT) selection complete Assessment & Plan Assessment & Plan (1) History of permanent cardiac pacemaker placement: Onset Date: ~05/01/22 Comment: [place]IR[place]; Dr. Patel - [facility], 05/01/2022 Code(s): Z95.0 - Presence of cardiac pacemaker Category: Surgical Plan Coding Level of Care Code Procedure Only Diagnoses History of permanent cardiac pacemaker placement Z95.0 CPT Codes Cardiac Device Check - Cardiac Device 2: 34115-YM Cardiac Device Check, pacemaker dual lead ([id number])
== END ==
PROVIDERS: PCP Internal Medicine; Visit Provider Internal Medicine Cardiovascular Disease
DX: Z45.018 Encounter for adjustment and management of other part of cardiac pacemaker (principal)
CPT/HCPCS: 93294

== ENCOUNTER 2024-06-19 14:11 | Outpatient (AMB) | payer MEDICARE, OTHER, SELFPAY ==
--- NOTE | 2024-06-19 14:29 | MHC.OFFVIS ---
Vital Signs 06/19/24 14:30 Height 5 ft 1 in Weight 113 lb 12.136 oz BMI 21.5 BP 124/62 Blood Pressure Location Lt brachial Position Sitting Pulse 74 Pulse Source Monitor Intake Visit Reasons: 6 mth w/ medtronic ck Residential Direct Support Professional Required: No Carton Gluing Machine Operator: Carton Gluing Machine Operator Present Allergies No Known Allergies Allergy (Verified 06/19/24 14:33) Medication List - Last Reconciled 06/19/24 by Nathalia Mendoza NP-C acetaminophen 650 mg PO Q8H PRN apixaban (Eliquis) 5 mg PO BID cholecalciferol (vitamin D3) 25 mcg PO DAILY dexamethasone 2 mg PO BID levothyroxine (Synthroid) 1 tab PO DAILY lisinopril 10 mg PO DAILY walker (Ultra-Light Rollator misc) As directed HPI HPI 6 mth w/ medtronic ck: Details: Donna is an 83-year-old female with past medical history pulmonary embolism, heart block, syncope status post dual-chamber pacemaker placement who presents for follow-up. Today she reports that she has been feeling well since her last visit in November. She is not having any issues with shortness of breath. She denies chest discomfort, heart palpitations, presyncope, syncope, PND, orthopnea or edema. She tolerates light activities around the house. No reports of bleeding issues. Daughter is present. [facility] Medical History Pacemaker Nystagmus, congenital Hypothyroidism Surgical History History of permanent cardiac pacemaker placement (~05/01/22) Family History Father Myocardial infarction Mother Pacemaker Social History Household Members: Spouse and Family Housing: House Alcohol intake: never Patient Tobacco Use Status: Never used Tobacco service: No Current occupational status: retired Review of Systems Const All systems reviewed & are unremarkable except as noted in HPI and below ENT Denies dizziness Card Denies chest pain, Denies chest pain at rest, Denies chest pain with activity, Denies rapid heart rate, Denies pedal edema, Denies edema, Denies leg edema, Denies lightheadedness, Denies palpitations, Denies dyspnea, Denies dyspnea on exertion and Denies orthopnea Resp Denies cough, Denies dyspnea and Denies dyspnea on exertion GI Denies hematochezia and Denies change in stool character Musc Denies abnormal gait, Denies limited range of motion, Denies muscle cramps, Denies muscle weakness, Denies numbness, Denies radiating pain into limb, Denies stiffness and Denies tingling Neuro Denies abnormal gait, Denies dizziness, Denies numbness and Denies tingling Endo Denies palpitations Physical Exam Vital Signs: Last Vital Signs Pulse 74 06/19/24 14:30 BP 124/62 06/19/24 14:30 BMI result Body Mass Index 21.5 Const General: cooperative, healthy appearing, comfortable and no acute distress Orientation/consciousness: patient oriented x3 Neck Neck: Yes normal visual inspection Resp Effort & Inspection: normal respiratory effort Auscultation: clear to auscultation bilaterally, no rales, no rhonchi and no wheezes Cardio Jugular venous distension: no JVD Rate: regular rate Rhythm: regular rhythm Heart sounds: S1 normal heart sound present, S2 normal heart sound present, no murmurs and no rubs Neuro General: patient oriented x3 Extrem General: Yes normal to inspection, No no pedal edema and No calf tenderness Psych Appearance: grossly normal Mental Status: mental status grossly normal Speech and movement: Normal speech and movement present Office Procedures Cardiac Device Check Cardiac Device Check Details: Medtronic dual-chamber pacemaker interrogation today, battery 11 years, atrial threshold 1 volt at 0.4 milliseconds, ventricular threshold 0.875 volts at 0.4 milliseconds, DDD mode, low rate 60, AT/AF episode November 2023 lasting 3 minutes 6 seconds, V paced 100%, a paced 6.1%, activity 1.3 hours per day 35341-DM Cardiac Device Check, pacemaker dual lead Procedure code (CPT) selection complete Assessment & Plan Assessment & Plan (1) History of permanent cardiac pacemaker placement: Onset Date: ~05/01/22 Comment: [place]; Dr. Patel - [facility], 05/01/2022 Code(s): Z95.0 - Presence of cardiac pacemaker Category: Surgical Plan: Medtronic dual-chamber pacemaker in place. Office interrogation today shows device is functioning normally. Battery 11 years. No alerts. Remote monitoring in use. Pacemaker site is benign. Next office interrogation in 6 months. (2) Complete heart block: Code(s): I44.2 - Atrioventricular block, complete Category: Medical Plan: Pacemaker in place (3) Shortness of breath: Code(s): R06.02 - Shortness of breath Category: Medical Plan: Previously had reported some shortness of breath. Has not had any recurrent episodes since last visit. She reports good activity tolerance. Overall she is very pleased with how she is doing. Last echo in our system 04/16/2022 showed EF greater than 70%, severe mitral annular calcification, no evidence of regional wall motion abnormalities. No clinical signs of heart failure on examination. No further testing needed at this time. Plan Time spent on chart review, documentation, interview and assessment Coding Level of Care Code Est Pt Level 3 (34946) Diagnoses History of permanent cardiac pacemaker placement Z95.0 Complete heart block I44.2 Shortness of breath R06.02 CPT Codes Cardiac Device Check - Cardiac Device 2: 21478-SO Cardiac Device Check, pacemaker dual lead ([id number]) Time Spent (min) 24
[2024-06-19 14:30] VITALS: BP 124/62; PULSE 74; BMI 21.5
== END 2024-06-19 15:03 | disposition home or self-care (01) ==
PROVIDERS: PCP Internal Medicine; Visit Provider Nurse Practitioner Family
DX: I44.2 Atrioventricular block, complete (principal); R06.02 Shortness of breath; Z95.0 Presence of cardiac pacemaker
CPT/HCPCS: 93280; 99213

== ENCOUNTER → 2024-06-19 14:11 | Outpatient (BNVA) | payer MEDICARE, OTHER, SELFPAY | PROVIDERS: PCP Internal Medicine; Visit Provider Nurse Practitioner Family | DX: Z45.018 Encounter for adjustment and management of other part of cardiac pacemaker (principal); I44.2 Atrioventricular block, complete; R06.02 Shortness of breath | CPT/HCPCS: 93280; 99212 ==

== ENCOUNTER → 2024-06-24 23:59 | Outpatient (BNV) | payer MEDICARE, OTHER, SELFPAY ==
--- NOTE | 2024-06-28 20:58 | A.OFFVIS_ITS ---
Intake Visit Reasons: Remote device check- Medtronic Allergies No Known Allergies Allergy (Verified 06/19/24 14:33) [facility] Medical History Pacemaker Nystagmus, congenital Hypothyroidism Surgical History History of permanent cardiac pacemaker placement (~05/01/22) Family History Father Myocardial infarction Mother Pacemaker Social History Household Members: Spouse and Family Housing: House Alcohol intake: never Patient Tobacco Use Status: Never used Tobacco service: No Current occupational status: retired Office Procedures Cardiac Device Check Cardiac Device Check Details: PPM-Medtronic Good battery life No new alerts WOUND CARE CENTER CONSULTANT 100%. 32531-[place] Cardiac Device Check, pacemaker dual lead Procedure code (CPT) selection complete Assessment & Plan Assessment & Plan (1) Complete heart block: Code(s): I44.2 - Atrioventricular block, complete Category: Medical Plan: Orders: Orders AMB Cardiac Device Follow-up 06/24/24 I44.2 - Atrioventricular block, complete Coding Level of Care Code Procedure Only Diagnoses Complete heart block I44.2 CPT Codes Cardiac Device Check - Cardiac Device 2: 16069-WD Cardiac Device Check, pace maker dual lead ([id number])
== END ==
PROVIDERS: PCP Internal Medicine; Visit Provider Internal Medicine Cardiovascular Disease
DX: I44.2 Atrioventricular block, complete (principal); Z95.0 Presence of cardiac pacemaker
CPT/HCPCS: 93294

== ENCOUNTER 2024-07-04 15:35 | Outpatient (REF) | payer MEDICARE, OTHER, SELFPAY ==
[2024-07-04 17:53] LABS: TSH reflex Free T4 1.77 uIU/mL (0.32-4.0)
== END 2024-07-04 15:36 | disposition home or self-care (01) ==
LOC: HO.LNP 15:35
PROVIDERS: Visit Provider Internal Medicine
DX: E03.9 Hypothyroidism, unspecified (principal)
CPT/HCPCS: 84443

== ENCOUNTER → 2024-09-23 23:59 | Outpatient (BNV) | payer MEDICARE, OTHER, SELFPAY ==
--- NOTE | 2024-10-14 20:07 | A.OFFVIS_ITS ---
Intake Visit Reasons: Remote device check- Medtronic Allergies No Known Allergies Allergy (Verified 06/19/24 14:33) [facility] Medical History Pacemaker Nystagmus, congenital Hypothyroidism Surgical History History of permanent cardiac pacemaker placement (~05/01/22) Family History Father Myocardial infarction Mother Pacemaker Social History Household Members: Spouse and Family Housing: House Alcohol intake: never Patient Tobacco Use Status: Never used Tobacco service: No Current occupational status: retired Office Procedures Cardiac Device Check Cardiac Device Check Details: PPM Battery 10 years 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 Patel - [facility], 05/01/2022 Code(s): Z95.0 - Presence of cardiac pacemaker Category: Surgical Plan Coding Level of Care Code Procedure Only Diagnoses History of permanent cardiac pacemaker placement Z95.0 CPT Codes Cardiac Device Check - Cardiac Device 2: 32589-TT Cardiac Device Check, pacemaker dual lead ([id number])
== END ==
PROVIDERS: PCP Internal Medicine; Visit Provider Internal Medicine Cardiovascular Disease
DX: Z45.018 Encounter for adjustment and management of other part of cardiac pacemaker (principal)
CPT/HCPCS: 93294

== ENCOUNTER 2024-10-28 12:45 | Emergency (ER) | payer MEDICARE, OTHER, SELFPAY ==
--- NOTE | ~2024-10-28 | CT_ITS ---
EXAMINATION: CT HEAD WITHOUT CONTRAST CT CERVICAL SPINE WITHOUT CONTRAST CLINICAL INFORMATION: Unwitnessed fall. COMPARISON: Head CTs dated April 16, 2022 and April 14, 2022. CT scan of the cervical spine dated April 14, 2022. TECHNIQUE: CT of the head and cervical spine were performed without intravenous contrast. Multiplanar reformats were rendered and reviewed. This CT examination was performed using dose optimization techniques as appropriate, variously including the following: *Automated exposure control *Adjustment of mA and/or kV according to patient size (this includes techniques or standardized protocols for targeted exams where dose is matched to indication/reason for exam; i.e. extremities or head) *Use of iterative reconstruction technique DLP: Within normal limits, FINDINGS: CT head: No intracranial hemorrhage, large infarction, or mass lesion is seen. Age-appropriate diffuse cortical atrophy and chronic bilateral periventricular white matter ischemic change. No extra-axial collection is appreciated. The ventricles are normal in size and configuration without evidence of hydrocephalus. Left occipital subgaleal/subcutaneous hematoma. The visualized paranasal sinuses and mastoid air cells are clear. Mild deviation of the nasal septum toward the right. Bilateral lens extractions. CT cervical spine: The vertebral body heights appear maintained. No cervical spine fracture is seen. Mild reversal of the normal cervical lordosis, likely positional. No acute malalignment identified. The paraspinal soft tissues appear within normal limits. The partially imaged lung apices appear clear. Mild calcification of the carotid bulbs. CT/CT cervical spine wo IV con IMPRESSION: CT head: No acute intracranial finding. CT cervical spine: No cervical spine fracture or traumatic malalignment identified. Electronically signed by: Lamont Villalta MD 10/28/2024 02:55 PM ANN
--- NOTE | ~2024-10-28 | CT_ITS ---
EXAMINATION: CT HEAD WITHOUT CONTRAST CT CERVICAL SPINE WITHOUT CONTRAST CLINICAL INFORMATION: Unwitnessed fall. COMPARISON: Head CTs dated April 16, 2022 and April 14, 2022. CT scan of the cervical spine dated April 14, 2022. TECHNIQUE: CT of the head and cervical spine were performed without intravenous contrast. Multiplanar reformats were rendered and reviewed. This CT examination was performed using dose optimization techniques as appropriate, variously including the following: *Automated exposure control *Adjustment of mA and/or kV according to patient size (this includes techniques or standardized protocols for targeted exams where dose is matched to indication/reason for exam; i.e. extremities or head) *Use of iterative reconstruction technique DLP: Within normal limits, FINDINGS: CT head: No intracranial hemorrhage, large infarction, or mass lesion is seen. Age-appropriate diffuse cortical atrophy and chronic bilateral periventricular white matter ischemic change. No extra-axial collection is appreciated. The ventricles are normal in size and configuration without evidence of hydrocephalus. Left occipital subgaleal/subcutaneous hematoma. The visualized paranasal sinuses and mastoid air cells are clear. Mild deviation of the nasal septum toward the right. Bilateral lens extractions. CT cervical spine: The vertebral body heights appear maintained. No cervical spine fracture is seen. Mild reversal of the normal cervical lordosis, likely positional. No acute malalignment identified. The paraspinal soft tissues appear within normal limits. The partially imaged lung apices appear clear. Mild calcification of the carotid bulbs. CT/CT head/brain wo IV con IMPRESSION: CT head: No acute intracranial finding. CT cervical spine: No cervical spine fracture or traumatic malalignment identified. Electronically signed by: Lamont Villalta MD 10/28/2024 02:55 PM ANN
--- NOTE | ~2024-10-28 | XR_ITS ---
EXAMINATION: XR CHEST CLINICAL INFORMATION: weakness, fever COMPARISON: CTA chest April 30, 2022 TECHNIQUE: 2 views of the chest were obtained. FINDINGS: The heart and mediastinal borders are normal. No focal consolidation. No pleural effusion. 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 Diffuse osteopenia XR/XR chest 2V IMPRESSION: No focal consolidation to suggest pneumonia Electronically signed by: Brian Orozco MD 10/28/2024 03:48 PM EST
[2024-10-28 12:52] VITALS: BP 118/74; PULSE 103; O2SAT 96; BMI 19.3
[2024-10-28 12:55] VITALS: BP 125/68; PULSE 102; RESP 16; TEMP 38.2; O2SAT 96
--- NOTE | 2024-10-28 13:42 | ECG_ITS ---
Test Reason : weakness Blood Pressure : / mmHG Vent. Rate : 098 BPM Atrial Rate : 098 BPM P-R Int : 148 ms QRS Dur : 124 ms QT Int : 376 ms P-R-T Axes : 094 047 034 degrees QTc Int : 480 ms Normal sinus rhythm Normal ECG When compared with ECG of 30-APR-2022 04:56, No significant changes seen Referred By: Tammie Quinn Electronically Signed By:Ze Gallegos
[2024-10-28 14:49] LABS: MANUAL DIFF FLAG NO
[2024-10-28 14:56] LABS: Basophils Percent Auto 0.2 % (0-2); Eosinophils Percent Auto 0.1 % (0-4); Hemoglobin 13.5 g/dl (12.0-16.0); Imm Gran Abs Auto 0.06 X10*3/uL (0.00-0.03); Imm Gran Pct Auto 0.5 % (0.0-0.4); Lymphocytes Absolute Auto 0.8 X10*3/uL (1.2-4.9); Mean Corpuscular HGB Conc 35.5 g/dl (31.0-35.0); Mean Corpuscular Hemoglobin 32.5 pg (27.0-33.0); Mean Corpuscular Volume 91.6 fL (80.0-98.0); Monocytes Absolute Auto 0.8 X10*3/uL (0.1-1.2); Monocytes Percent Auto 6.7 % (2-11); Neutrophils Absolute Auto 10.3 x10*3/uL (2.0-8.3); Neutrophils Percent Auto 85.5 % (45-73); Red Blood Count 4.15 X10*6/uL (4.20-5.50); Red Cell Distribution Width 13.7 % (11.0-16.0)
[2024-10-28 14:57] LABS: INTERNATIONAL NORM RATIO 1.6 (0.9-1.1); Prothrombin Time 18.6 SEC (10.9-12.4)
[2024-10-28] MEDS: Acetaminophen 325 MG TABLET 975 MG PO (14:58)
[2024-10-28] MEDS: cefTRIAXone sodium 2 GM VIAL IVPUSH (14:58)
[2024-10-28 15:03] LABS: Lactic Acid 1.3 mmol/L (0.5-2.0)
[2024-10-28 15:04] LABS: Alanine Aminotransferase 25 U/L (0-31); Albumin Level 3.9 g/dL (3.5-5.0); Alkaline Phosphatase 56 U/L (39-117); Anion Gap 14 (12-20); Aspartate Amino Transferase 32 U/L (5-31); Bilirubin Direct 0.3 mg/dL (0.0-0.5); Bilirubin Total 0.6 mg/dL (0.0-1.0); Blood Urea Nitrogen 16 mg/dL (9-16); Calcium 9.2 mg/dL (8.4-10.2); Carbon Dioxide 23 mmol/L (22-29); Chloride 103 mmol/L (96-108); Creatinine Clr Calc Pharmacy 42.4; Estimated Glomerular Filt Rate > 60; Glucose Random 112 mg/dL (60-115); Magnesium 1.9 mg/dL (1.6-2.6); Potassium 3.9 mmol/L (3.3-5.1); Sodium 136 mmol/L (135-145); Total Protein 6.8 g/dL (6.5-8.0)
[2024-10-28] MEDS: 0.9 % Sodium Chloride 1,000 ML 999 ML IV (15:04)
[2024-10-28 15:10] LABS: Troponin-I High Sensitivity 31.3 ng/L (<3.5-17.0)
[2024-10-28 15:11] VITALS: BP 122/65; PULSE 99; RESP 18; TEMP 37.6; O2SAT 97
[2024-10-28 15:24] LABS: Mean Platelet Volume 10.1 fL (9.4-12.3); Platelet Count 129 X10*3/uL (160-400)
[2024-10-28 15:38] LABS: Influenza A PCR NEGATIVE (Negative); Influenza B PCR NEGATIVE (Negative); Resp Syncy Virus RNA Qual PCR NEGATIVE (Negative); SARS COV2 PCR INHOUSE POSITIVE (Negative)
--- NOTE | 2024-10-28 15:47 | PC.NURSE ---
this nurse took over pt care for patient from [facility] at 3pm, pt alert to person/place, family at bedside, pt denies pain/discomfort, pt just returned from radiology. neck brace previously removed, iv previously inserted/labs had been drawn, pt had been medicated. pt and family member as well as tech are all aware we need a urine. rr equal/non labored, call jackson within reach, will continue to monitor
[2024-10-28 17:40] LABS: Appearance Urine Clear; Color Urine Yellow; Glucose Urine UA Negative (Negative); Leukocyte Esterase Urine Trace (Negative); Nitrite Urine Negative (Negative); UMIC TRIGGER UACC YES; Urine Blood Small (1+) (Negative); Urine Ketones 15 mg/dL (Negative); Urine Protein 30 (1+) mg/dL (Neg-Trace)
[2024-10-28 17:42] LABS: Bacteria Urine None Seen (None Seen); Hyaline Casts Urine 0-2 /LPF (0-2); WBC Urine 0-5 /HPF (0-5)
[2024-10-28 17:57] VITALS: BP 103/56; PULSE 81; RESP 14; TEMP 36.4; O2SAT 95
--- NOTE | 2024-10-28 17:57 | PC.NURSE ---
contact numbers: [facility] [phone] amish rodrigez [phone]
--- NOTE | 2024-10-28 18:01 | PC.NURSE ---
pts son was inquiring about the patient being admitted to the hospital as he feels she isnt safe to be at home, this nurse told the son that admission is up to the provider who hasn't seen the patient as of yet. the provider would need a reason for admission and at this time that has not been determined. the son stated that he feels she shouldnt go home- this nurse explained to the son and daughter in law that if they would like the patient to be placed in a facility for rehab or permanent placement they could discuss that with the providers and the patient would become pt/case management for placement for short or skilled nursing depending on the needs. after the patient is picked up and seen by a provider this nurse will pass along this information, the son and dil phone numbers have been placed in the chart for the provider to continue this conversation.
[2024-10-28 19:12] LABS: Troponin-I High Sensitivity 32.7 ng/L (<3.5-17.0)
--- NOTE | 2024-10-28 19:28 | ED.GENADULT ---
HPI - General Adult General Chief complaint: Fall Stated complaint: UNWITNESSED FALL Time Seen by Provider: 10/28/24 18:39 Source: patient, family (son, Jeyson), RN notes reviewed and old records reviewed Mode of arrival: EMS Limitations: no limitations History of Present Illness ED Provider: Kyle GOODWIN narrative: 84-year-old female with a past medical history significant for PE on Eliquis, permanent pacemaker due to complete heart block presents for evaluation of weakness and a fall. The patient presents from EMS. Apparently she slid off the edge of the bed and landed on her buttocks. The patient's son reports increased weakness, delirium and foul-smelling urine that started today. The patient denies hitting her head or losing consciousness. The son went to evaluate weight her after he heard the thud from her hitting the ground. The patient was responsive She denies any pain. She reports that the family has had ?a cold going around. She has been around her grandchildren who have been sick She denies any rashes, abdominal pain nausea vomiting, chest pain Related Data Home Medications ?Medication ?Instructions ?Recorded ?Confirmed cholecalciferol (vitamin D3) 25 25 mcg PO DAILY 04/14/22 10/29/24 mcg (1,000 unit) tablet levothyroxine 88 mcg tablet 1 tab PO DAILY 04/14/22 10/29/24 (Synthroid) acetaminophen 325 mg tablet 650 mg PO Q8H PRN Pain, Mild (Pain 04/30/22 10/29/24 Scale 1-3) lisinopril 10 mg tablet 10 mg PO DAILY 11/30/22 10/29/24 apixaban 5 mg tablet (Eliquis) 5 mg PO BID 06/01/23 10/29/24 Previous Rx's ?Medication ?Instructions ?Recorded walker (Ultra-Light Rollator misc) #1 ea 04/16/22 Allergies Allergy/AdvReac Type Severity Reaction Status Date / Time No Known Allergies Allergy Verified 10/28/24 12:53 Review of Systems Constitutional: Constitutional: Denies body ache(s), Denies chills, Reports fever(s), Reports lethargy, Reports malaise and Reports weakness Eyes: Eyes: Denies blurry vision ENT: Denies vertigo and Denies dizziness Cardiovascular: Cardiovascular: Denies chest pain and Denies dyspnea Respiratory: Respiratory: Reports cough and Denies dyspnea Gastrointestinal: Gastrointestinal: Denies abdominal pain, Denies nausea and Denies vomiting Musculoskeletal: Musculoskeletal: Denies back pain Integumentary/Breasts: Skin/Breast: Denies rash Neurologic: Denies vertigo, Denies dizziness and Reports weakness PMFSH Past Medical History Medical History Pacemaker Nystagmus, congenital Hypothyroidism Surgical History History of permanent cardiac pacemaker placement (~05/01/22) Family History Family History Father Myocardial infarction Mother Pacemaker Social History Social History Household Members: Spouse and Family Housing: House Alcohol intake: never Patient Tobacco Use Status: Never used Tobacco Smoked in Last 30 Days: No Use of substances other than those prescribed or required for medical reasons: No Advance Directives: No Advance Directives Information Provided: Yes Do you have a plan to hurt others: No Plan service: No Current occupational status: retired Physical Exam ED Vital Signs: Vital Signs - 24 hr 10/28/24 22:16 10/29/24 06:27 10/29/24 08:00 Temperature 98.0 F 98.8 F 98.1 F Pulse Rate 80 76 88 Respiratory Rate 18 12 18 Blood Pressure 128/72 138/72 128/62 Pulse Oximetry 97 95 97 Oxygen Delivery Method Room Air Room Air Room Air 10/29/24 14:00 10/29/24 16:05 Temperature 99.5 F Pulse Rate 87 Respiratory Rate 18 Blood Pressure 169/77 H 128/74 Pulse Oximetry 97 Oxygen Delivery Method Room Air BMI result Body Mass Index 19.3 Const General: healthy appearing, comfortable, no acute distress, alert and awake Nutritional Appearance: well nourished Orientation/consciousness: patient oriented x3 HENMT Head: Yes normocephalic and Yes atraumatic Eyes Eyelids: Yes eyelids normal Conjunctivae: conjunctivae normal Sclerae: sclerae normal Corneas: corneas normal Pupils: Equal, round and reactive pupils present EOM: EOMs intact bilaterally Neck Neck: Yes full ROM Resp Effort & Inspection: normal respiratory effort, able to speak in complete sentences, no audible wheezes and not labored Auscultation: clear to auscultation bilaterally Cardio Rate: regular rate Rhythm: regular rhythm GI Inspection: No distended Palpation (GI): Soft to palpation, not firm, nontender, no guarding and not rigid Skin General skin exam: elasticity normal Neuro General: patient oriented x3 Cranial nerves: Yes Equal, round and reactive pupils present and Yes Bilaterally intact EOM present Cognition (Neuro): normal cognition Extrem Other: Moving all extremities well without any obvious deformities Course Course Course Narrative: 10/29/2024 0730 ---> Ne Frias PA-C. Observation continues. Patient continues to be followed by case management. Reevaluation(s) Reevaluation #1: Received call from nursing staff, the patient had 1 of 2 blood cultures test positive for Gram-positive cocci in clusters. She has not had any further fevers. It is likely that this is a contaminant, plan to repeat the blood cultures. Time: 19:42 Medications Administered Discontinued Medications Generic Name Dose Route Start Last Admin Trade Name Avelina PRN Reason Stop Dose Admin Acetaminophen 975 mg 10/28/24 13:42 10/28/24 14:58 Acetaminophen 325 Mg Tablet PO 10/28/24 13:43 975 mg ONCE ONE Administration Ceftriaxone Sodium 2 gm 10/28/24 13:42 10/28/24 14:58 Ceftriaxone Sodium 2 Gm Vial IVPUSH 10/28/24 13:43 2 gm ONCE ONE Administration Sodium Chloride 1,000 mls @ 999 mls/hr 10/28/24 13:42 10/28/24 16:05 Ns IV 10/28/24 14:42 Infused .Q1H1M STA Infusion Medical Decision Making Medical Decision Making [facility] Narrative: 84-year-old female presents for evaluation of weakness. She was found to be COVID positive, she was febrile. She had initially received ceftriaxone empirically when she was triaged as she was febrile and family was concerned about a UTI. Her urinalysis is not consistent with a UTI. The patient's fever and weakness is likely related to COVID-19. The remainder the patient's workup is unremarkable. The patient's fever improved with Tylenol. She became mildly hypotensive, but she does not require admission, she was also given IV fluids. She is quite well appearing. I discussed with the patient's son and he would like the patient to remain in the hospital overnight for physical therapy evaluation in case management Differential Diagnosis Differential Diagnoses: The differential diagnosis associated with the presentation includes COVID-19 UTI Upper respiratory infection Pneumonia Admission/Observation Consideration of admission/observation: Escalation of care including admission/observation considered Patient ruled out for sepsis Lab Data MDM Lab Attestation statement: I reviewed the patient's lab results. Mild leukocytosis to 12.0, no anemia. Platelet count of 129k which may be related to the viral syndrome. No significant electrolyte abnormalities. 10/28/24 14:41 10/28/24 14:41 Labs: Lab Results 10/28/24 10/28/24 10/28/24 Range/Units 14:41 14:49 17:27 WBC 12.0 H (4.8-10.8) X10*3/uL RBC 4.15 L (4.20-5.50) X10*6/uL Hgb 13.5 (12.0-16.0) g/dl Hct 38.0 (37.0-47.0) % MCV 91.6 (80.0-98.0) fL MCH 32.5 (27.0-33.0) pg MCHC 35.5 H (31.0-35.0) g/dl RDW 13.7 (11.0-16.0) % Plt Count 129 L D (160-400) X10*3/uL MPV 10.1 (9.4-12.3) fL Immature Gran % (Auto) 0.5 H (0.0-0.4) % Neut % (Auto) 85.5 H (45-73) % Lymph % (Auto) 7.0 L (20-40) % [place] % (Auto) 6.7 (2-11) % Eos % (Auto) 0.1 (0-4) % Baso % (Auto) 0.2 (0-2) % Lymph # (Auto) 0.8 L (1.2-4.9) X10*3/uL [place] # (Auto) 0.8 (0.1-1.2) X10*3/uL Eos # (Auto) 0.0 (0.0-0.4) X10*3/uL Baso # (Auto) 0.0 (0.0-0.2) X10*3/uL Abs Immat Gran (auto) 0.06 H (0.00-0.03) X10*3/uL Absolute Neuts (auto) 10.3 H (2.0-8.3) x10*3/uL Absolute Nucleated RBC 0.000 (0.0-0.012) X10*3/uL Nucleated RBC % (auto) 0.0 (0.0-0.2) /100WBC PT 18.6 H (10.9-12.4) SEC INR 1.6 H (0.9-1.1) Sodium 136 (135-145) mmol/L Potassium 3.9 (3.3-5.1) mmol/L Chloride 103 (96-108) mmol/L Carbon Dioxide 23 (22-29) mmol/L Anion Gap 14 (12-20) BUN 16 (9-16) mg/dL Creatinine 0.78 (0.5-1.4) mg/dL Estim Creat Clear Calc 42.4 Estimated GFR > 60 Random Glucose 112 (60-115) mg/dL Lactic Acid 1.3 (0.5-2.0) mmol/L Calcium 9.2 (8.4-10.2) mg/dL Magnesium 1.9 (1.6-2.6) mg/dL Total Bilirubin 0.6 (0.0-1.0) mg/dL Direct Bilirubin 0.3 (0.0-0.5) mg/dL AST 32 H (5-31) U/L ALT 25 (0-31) U/L Alkaline Phosphatase 56 (39-117) U/L Troponin I High Sens 31.3 H (<3.5-17.0) ng/L Total Protein 6.8 (6.5-8.0) g/dL Albumin 3.9 (3.5-5.0) g/dL Urine Color Yellow Urine Appearance Clear Urine pH 6.0 (5.0-9.0) Ur Specific [place] 1.020 (1.005-1.025) Urine Protein 30 (1+) H (Neg-Trace) mg/dL Urine Glucose (UA) Negative (Negative) mg/dL Urine Ketones 15 (Negative) mg/dL Urine Blood Small (1+) H (Negative) Urine Nitrite Negative (Negative) Ur Leukocyte Esterase Trace H (Negative) Urine RBC 11-20 H (0-2) /HPF Urine WBC 0-5 (0-5) /HPF Ur Squamous Epith Cells 3-5 (0-2) /HPF Urine Bacteria None Seen (None Seen) Hyaline Casts 0-2 (0-2) /LPF Influenza Type A (PCR) NEGATIVE (Negative) Influenza Type B (PCR) NEGATIVE (Negative) RSV RNA Qual (PCR) NEGATIVE (Negative) SARS-CoV-2 RNA (RT-PCR) POSITIVE A (Negative) 10/28/24 Range/Units 18:47 WBC (4.8-10.8) X10*3/uL RBC (4.20-5.50) X10*6/uL Hgb (12.0-16.0) g/dl Hct (37.0-47.0) % MCV (80.0-98.0) fL MCH (27.0-33.0) pg MCHC (31.0-35.0) g/dl RDW (11.0-16.0) % Plt Count (160-400) X10*3/uL MPV (9.4-12.3) fL Immature Gran % (Auto) (0.0-0.4) % Neut % (Auto) (45-73) % Lymph % (Auto) (20-40) % [place] % (Auto) (2-11) % Eos % (Auto) (0-4) % Baso % (Auto) (0-2) % Lymph # (Auto) (1.2-4.9) X10*3/uL [place] # (Auto) (0.1-1.2) X10*3/uL Eos # (Auto) (0.0-0.4) X10*3/uL Baso # (Auto) (0.0-0.2) X10*3/uL Abs Immat Gran (auto) (0.00-0.03) X10*3/uL Absolute Neuts (auto) (2.0-8.3) x10*3/uL Absolute Nucleated RBC (0.0-0.012) X10*3/uL Nucleated RBC % (auto) (0.0-0.2) /100WBC PT (10.9-12.4) SEC INR (0.9-1.1) Sodium (135-145) mmol/L Potassium (3.3-5.1) mmol/L Chloride (96-108) mmol/L Carbon Dioxide (22-29) mmol/L Anion Gap (12-20) BUN (9-16) mg/dL Creatinine (0.5-1.4) mg/dL Estim Creat Clear Calc Estimated GFR Random Glucose (60-115) mg/dL Lactic Acid (0.5-2.0) mmol/L Calcium (8.4-10.2) mg/dL Magnesium (1.6-2.6) mg/dL Total Bilirubin (0.0-1.0) mg/dL Direct Bilirubin (0.0-0.5) mg/dL AST (5-31) U/L ALT (0-31) U/L Alkaline Phosphatase (39-117) U/L Troponin I High Sens 32.7 H (<3.5-17.0) ng/L Total Protein (6.5-8.0) g/dL Albumin (3.5-5.0) g/dL Urine Color Urine Appearance Urine pH (5.0-9.0) Ur Specific [place] (1.005-1.025) Urine Protein (Neg-Trace) mg/dL Urine Glucose (UA) (Negative) mg/dL Urine Ketones (Negative) mg/dL Urine Blood (Negative) Urine Nitrite (Negative) Ur Leukocyte Esterase (Negative) Urine RBC (0-2) /HPF Urine WBC (0-5) /HPF Ur Squamous Epith Cells (0-2) /HPF Urine Bacteria (None Seen) Hyaline Casts (0-2) /LPF Influenza Type A (PCR) (Negative) Influenza Type B (PCR) (Negative) RSV RNA Qual (PCR) (Negative) SARS-CoV-2 RNA (RT-PCR) (Negative) Discharge Plan Discharge Clinical Impression: COVID-19 Patient Disposition: Still a Patient Prescriptions: No Action Eliquis 5 mg tablet 5 mg PO BID levothyroxine [Synthroid] 88 mcg tablet 1 tab PO DAILY cholecalciferol (vitamin D3) 25 mcg (1,000 unit) Tablet 25 mcg PO DAILY (DME) Ultra-Light Rollator Misc See Rx Instructions .Route Qty: 1 0RF Rx Instructions: As directed acetaminophen 325 mg tablet 650 mg PO Q8H PRN (Reason: Pain, Mild (Pain Scale 1-3)) lisinopril 10 mg tablet 10 mg PO DAILY Print Language: Welsh
--- NOTE | 2024-10-28 20:23 | PC.NURSE ---
Pts daughter Daniela would like us to call her sister Stacie Sanchez @ [phone] with any updates or changes. She is the pts power of trial attorney. Plan of care ongoing.
--- NOTE | 2024-10-28 21:31 | PC.NURSE ---
Pt incontinent of urine. Tracey and bed cleaned Purewick placed Plan of care ongoing.
[2024-10-28 22:16] VITALS: BP 128/72; PULSE 80; RESP 18; TEMP 36.7; O2SAT 97
--- NOTE | 2024-10-29 02:22 | PC.NURSE ---
Pt requested and given drink Plan of care ongoing.
[2024-10-29 06:27] VITALS: BP 138/72; PULSE 76; RESP 12; TEMP 37.1; O2SAT 95
[2024-10-29 08:00] VITALS: BP 128/62; PULSE 88; RESP 18; TEMP 36.7; O2SAT 97
--- NOTE | 2024-10-29 08:49 | PHA.MEDREC ---
Pharmacy Consult ? Medication Reconciliation Pharmacy has completed the medication reconciliation.
--- NOTE | 2024-10-29 10:57 | MHC.CM.PN ---
Addendum entered by Marilynn Jacinto, RN 10/29/24 14:06: CM RECEIVED CALL BACK FROM PT'S DTR/HCP RACHELLE [phone] AND ANOTHER DTR PROJECT CONTR[employer]LLER WELL, BOTH DTRS ARE CONCERNED D/T FEELING PT IS EXHIBITING SIGNS OF DEMENTIA AND UNSURE SHE WILL BE SAFE AT HOME, PT'S SON DANO WORKS AND CLARIFIED PT HAS AREA FIELD PERSON WED/WED AND A PAID LPN OR MEDICAL ASSISTANT ON TUESDAYS, BOTH SISTERS WOULD LIKE TO WAIT FOR P.T. EVAL TO DETERMINE NEEDS AND COULD PRIVATE PAY FOR STR FOR A SHORT TERM, THEY WOULD LIKE PT TO BE STRONGER PRIOR TO RETURNING HOME AND HAD QUESTIONS ABOUT PT'S MEDICATIONS, CM OFFERED TO SEND MESSAGE TO ED PROVIDER HOWEVER PT'S DTR'S WOULD LIKE TO SPEAK W/ED NURSE, CALL TRANSFERRED TO ED OVER. 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 PT WOULD LIKE TO GO HOME W/HOME PT AND GIVES VERBAL PERMISSION FOR CM TO CONTACT DANO. CM CONTACTED DANO AT 10:45AM AND DANO REPORTS HE WILL BE IN TO VISIT PT TODAY AND VOICES CONCERNS REGARDING PT'S MENTATION, DANO AWARE THAT PT APPEARED A&O AND WAS ABLE TO ANSWER QUESTIONS HOWEVER DANO BELIEVES HCP/RACHELLE LUKAS [phone] WILL WANT PT TO STAY FOR P.T. EVAL TOMORROW, CM AWAITING CALL FROM RACHELLE. REFERRAL PLACED TO [facility] FOR HOME PT. HCP ON FILE.
[2024-10-29 14:00] VITALS: BP 169/77; PULSE 87; RESP 18; TEMP 37.5; O2SAT 97
--- NOTE | 2024-10-29 14:28 | PC.NURSE ---
Call received from patient's daughter re: patient's care, specifically about treatment for covid, patient's daughter reported patient was treated with paxlovid for covid in the past with good results. Msg sent to the provider, Stacie was advised son is a bedside and he will be updated after provider responds.
[2024-10-29 16:05] VITALS: BP 128/74
--- NOTE | 2024-10-29 19:42 | PC.NURSE ---
Provider Ihsan Fine ordered one set of blood cultures, due to it may of been a contaminated result.
--- NOTE | 2024-10-29 20:06 | PC.NURSE ---
cultures to be drawn, called main for supplies to draw.
[2024-10-29 20:22] VITALS: BP 130/79; PULSE 78; RESP 16; TEMP 36.7; O2SAT 96
[2024-10-30 06:12] VITALS: BP 122/66; PULSE 62; RESP 16; TEMP 36.9; O2SAT 95
--- NOTE | 2024-10-30 06:29 | PC.NURSE ---
pt slept thur the night no events. pt used bedside commode with no difficutly. needs at bedside, covid + and precautions/gown/gloves posted on the door.
[2024-10-30 08:24] VITALS: BP 122/66; PULSE 62; O2SAT 95
--- NOTE | 2024-10-30 11:51 | MHC.CM.ED ---
Patient remains in ER overflow. Physical therapy eval completed. Home with services is recommended. Attempted to speak with patient's daughter, Stacie, via telephone at [phone]. Left message requesting return telephone call. Spoke with patient's son, Jeyson, via telephone. Jeyson aware physical therapy rec home with services. Jeyson with speak to his siblings and contact CM. Continue to monitor for d/c needs.
[2024-10-30 15:05] VITALS: BP 130/63; PULSE 80; RESP 14; TEMP 37.2; O2SAT 96
[2024-10-30 16:43] VITALS: BP 130/63; PULSE 80; RESP 14; TEMP 37.2; O2SAT 96
--- OUTSIDE RECORDS SUMMARY | 2024-11-01 11:49 | XMS_ITS | Clinical Summary ---
Author Organization Unknown Care Team Providers Care District Manager Primary Care Sales Name Role Phone PITER JOHNSON, GERMAN Unavailable Unavailable EZ PTAUSTIN Unavailable Unavailable Payers Payer Name Policy Type Policy Number Effective Date Expira tion Date MEDICARE - NGS [place] - PD [id number] Problems Condition Name Condition Details Condition Category Status Onset Date Resolution Date Last Treatment Date Treating Clinician Comments OTH FX UPR AND LOW END L FIBULA, SUBS FOR CLOS FX W ROUTN HEAL Active 11-22 00:00: 00 UNSP FX LOWER END OF L TIBIA, SUBS FOR CLOS FX W ROUTN HEAL Active 11-22 00:00: 00 HYPOTHYROIDI SM, UNSPECIFIED Active 11-22 00:00: 00 ESSENTIAL (PRIMARY) HYPERTENSION Active 11-22 00:00: 00 CONGENITAL NYSTAGMUS Active 11-22 00:00: 00 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 11-22 00:00: 00 SUMATRA OPENER (CURRENT) USE OF ASPIRIN Active 11-22 00:00: 00 SUMATRA OPENER (CURRENT) USE OF ANTITHROMBOT ICS/ANTIPLAT ELETS Active 11-22 00:00: 00 HISTORY OF FALLING Active 11-22 00:00: 00 PERSONAL HISTORY OF URINARY (TRACT) INFECTIONS Active 11-22 00:00: 00 PRESENCE OF CARDIAC PACEMAKER Active 11-22 00:00: 00 Allergies, Adverse Reactions, Alerts Allergy Name Allergy Type Status Severity Reaction(s) Onset Date Inactive Date Treating Clinician Comments NKA Propensity to adverse reactions Active 2022-03 12:29:3 4 Medications Ordered Medication Name Filled Medication Name Start Date Stop Date Current Medication? Ordering Clinician Indication Dosage Frequency Signature (SIG) Comments Components NONE Yes [id number] (route: ) acetaminoph en 325 mg tablet 04-24 00:00: 00 Yes [id number] 2 tablet DIRECTED 2 tablet DIRECTED (route: oral) Med Classific ation: Analgesic , Anti-infl ammatory or Antipyret ic Keppra 500 mg tablet 04-24 00:00: 00 Yes [id number] 1 tablet 2 TIMES DAILY 1 tablet 2 TIMES DAILY (route: oral) Med Classific ation: Central Nervous System Agents Plavix 75 mg tablet 04-24 00:00: 00 Yes [id number] 1 tablet DAILY 1 tablet DAILY (route: oral) Med Classific ation: Hematolog ical Agents Adult Low Dose Aspirin 81 mg tablet,nannette yed release 04-24 00:00: 00 Yes [id number] 1 tablet DAILY 1 tablet DAILY (route: oral) Med Classific ation: Hematolog ical Agents levothyroxi ne 88 mcg tablet 04-24 00:00: 00 Yes [id number] 1 tablet DAILY 1 tablet DAILY (route: oral) Med Classific ation: Endocrine Vitamin D3 25 mcg (1,000 unit) capsule 04-24 00:00: 00 Yes [id number] 1 capsule DAILY 1 capsule DAILY (route: oral) Med Classific ation: Electroly te Balance-N utritiona l Products cefuroxime axetil 250 mg tablet 04-24 00:00: 00 04-24 23:59 :00 No [id number] 1 tablet 2 TIMES DAILY 1 tablet 2 TIMES DAILY (route: oral) Med Classific ation: Anti-Infe ctive Agents lisinopril 10 mg tablet 04-24 00:00: 00 Yes [id number] 1 tablet DAILY 1 tablet DAILY (route: oral) Med Classific ation: Cardiovas cular Therapy Agents Vital Signs Vital Name Observation Time Observation Value Commen ts Temperature 2022-05-14 14:29:00.000 97.8 [degF] Pulse 2022-06-08 11:20:00.000 72 /min Pulse 2022-05-26 13:26:00.000 72 /min Pulse 2022-05-14 14:29:00.000 84 /min O2 Saturation (%) 2022-06-08 11:20:00.000 99 % O2 Saturation (%) 2022-05-26 13:26:00.000 98 % Respirations 2022-05-14 14:29:00.000 18 /min Systolic Blood Pressure 2022-06-08 11:20:00.000 122 mm [Hg] Systolic Blood Pressure 2022-05-26 13:26:00.000 118 mm [Hg] Systolic Blood Pressure 2022-05-14 14:29:00.000 127 mm [Hg] Diastolic Blood Pressure 2022-06-08 11:20:00.000 70 mm [Hg] Diastolic Blood Pressure 2022-05-26 13:26:00.000 64 mm [Hg] Diastolic Blood Pressure 2022-05-14 14:29:00.000 74 mm [Hg] Plan of Treatment Planned Activity Planned Date Details Comments Future Scheduled Test PHYSICAL T HERAPIST TO EVALUATE PATIENT SECONDARY TO FUNCTIONAL DEFICITS/SAFETY CONCERNS. [code = PHYSICAL THERAPIST TO EVALUATE PATIENT SECONDARY TO FUNCTIONAL DEFICITS/SAFETY CONCERNS.] Future Scheduled Test PHYSICAL T HERAPIST TO ASSESS BEST PRACTICE INTERVENTIONS TO ASSIST PATIENTS TO IMPROVE OR STABILIZE MEDICAL STATUS AND PREVENT RE-HOSPITALIZATION. MEASURES INCLUDING REVIEW AND IDENTIFICATION OF CONCERNS FOR THE FOLLOWING AREAS: DEPRESSION, DRUG REGIMEN, ENVIRONMENTAL SAFETY ISSUES AND FALLS, PRESSURE ULCERS, PAIN, AND DISEASE MANAGEMENT. [code = PHYSICAL THERAPIST TO ASSESS BEST PRACTICE INTERVENTIONS TO ASSIST PATIENTS TO IMPROVE OR STABILIZE MEDICAL STATUS AND PREVENT RE-HOSPITALIZATION. MEASURES INCLUDING REVIEW AND IDENTIFICATION OF CONCERNS FOR THE FOLLOWING AREAS: DEPRESSION, DRUG REGIMEN, ENVIRONMENTAL SAFETY ISSUES AND FALLS, PRESSURE ULCERS, PAIN, AND DISEASE MANAGEMENT.] Future Scheduled Test PHYSICAL T HERAPY TO ESTABLISH /UPGRADE/DOWNGRADE THERAPEUTIC EXERCISE PROGRAM AND INSTRUCT PATIENT/CAREGIVER ON EXERCISE PRECAUTIONS WITH WRITTEN HOME PROGRAM. MAY INCLUDE PROM, AAROM, AROM, RROM APPROPRIATE TO IMPROVE FUNCTIONAL STRENGTH AND RANGE OF MOTION. [code = PHYSICAL THERAPY TO ESTABLISH /UPGRADE/DOWNGRADE THERAPEUTIC EXERCISE PROGRAM AND INSTRUCT PATIENT/CAREGIVER ON EXERCISE PRECAUTIONS WITH WRITTEN HOME PROGRAM. MAY INCLUDE PROM, AAROM, AROM, RROM APPROPRIATE TO IMPROVE FUNCTIONAL STRENGTH AND RANGE OF MOTION.] Future Scheduled Test PHYSICAL T HERAPY TO INSTRUCT PATIENT/CAREGIVER ON SAFE TRANSFER TECHNIQUES USING PROPER BODY MECHANICS AND EQUIPMENT. [code = PHYSICAL THERAPY TO INSTRUCT PATIENT/CAREGIVER ON SAFE TRANSFER TECHNIQUES USING PROPER BODY MECHANICS AND EQUIPMENT.] Future Scheduled Test PHYSICAL T HERAPY TO INSTRUCT PATIENT/CAREGIVER ON GAIT TRAINING TECHNIQUES USING APPROPRIATE ASSISTIVE DEVICE, PROPER BODY MECHANICS TO IMPROVE MOBILITY, AND PREVENT INJURY OF PATIENT AND/OR CAREGIVER. [code = PHYSICAL THERAPY TO INSTRUCT PATIENT/CAREGIVER ON GAIT TRAINING TECHNIQUES USING APPROPRIATE ASSISTIVE DEVICE, PROPER BODY MECHANICS TO IMPROVE MOBILITY, AND PREVENT INJURY OF PATIENT AND/OR CAREGIVER.] Future Scheduled Test PHYSICAL T HERAPY TO ASSESS AND RECOMMEND HOME SAFETY ADAPTATIONS AND EDUCATE PATIENT /CAREGIVER ON FALL PREVENTION STRATEGIES. [code = PHYSICAL THERAPY TO ASSESS AND RECOMMEND HOME SAFETY ADAPTATIONS AND EDUCATE PATIENT /CAREGIVER ON FALL PREVENTION STRATEGIES.] Future Scheduled Test PHYSICAL T HERAPY ADMISSION CLINICAL SUMMARY PATIENT IS IN 81 YEAR OLD FEMALE REFERRED TO HOME PHYSICAL THERAPY AFTER HOSPITALIZATION SECONDARY TO LEFT DISTAL FIBULA FRACTURE A RESULT OF A FALL IN HER HOME. PATIENT WAS FOUND TO HAVE HAD SYNCOPE AND U T I. PATIENT LIVES WITH HER IN A SINGLE LEVEL HOME WITH TWO STEPS TO ENTER AND EXIT. CURRENTLY HER SONS ARE STAYING WITH HER TO PROVIDE 24-HOUR CARE UNTIL SHE RECOVERS. PAST MEDICAL HISTORY INCLUDES HYPOTHYROIDISM, HYPERTENSION, UTI, FALL, FRACTURE, SYNCOPE, NYSTAGMUS. PATIENT CURRENTLY REQUIRES CONTACT GUARD ASSIST FOR AMBULATION UP TO 50 FEET WITH FRONT WHEELED WALKER. PATIENT REQUIRES CONTACT GUARD FOR [id number]. PATIENT REQUIRED MINIMUM ASSIST OF WANT TO NEGOTIATE TWO STEPS INTO AND OUT OF HOME. THE PATIENT IS RECEIVING HOMECARE DUE TO NEW ONSET/EXACERBATION OF: LEFT DISTAL FIBULA FRACTURE SECONDARY TO FALL AT HOME, U T I, SYNCOPE RECENT HOSPITALIZATION/INPATIENT ADMISSION RELATED TO: 04/14 TO 04/16 FALL AT HOME , UTI, SYNCOPE, FRACTURE LEFT FIBULA NEW OR CHANGED MEDICATIONS PERTINENT TO THE PLAN OF CARE: NA PATIENT LIVING SITUATION/CAREGIVER STATUS: PATIENT LIVES WITH HER IN A SINGLE LEVEL HOME. CURRENTLY HER SONS ARE STAYING WITH THEM TO ASSIST RECENT FALLS: PATIENT REPORTS FALLING SECONDARY TO PASSING OUT SKILLED TEACHING AND TRAINING, OBSERVATION AND ASSESSMENT, AND/OR TREATMENTS THAT REQUIRE SKILLED CARE: PATIENT REQUIRES PHYSICAL THERAPY FOR DEVELOPMENT OF A HOME EXERCISE PROGRAM WITH VERBAL CUES TO PERFORM CORRECTLY. GAIT TRAINING WITH FRONT WHEELED WALKER ON LEVEL SURFACES AND ON STEPS INTO IN OUT-OF-HOME, TRANSFER TRAINING [id number], WELL DEVELOPMENT OF STANDING BALANCE ACTIVITIES AND MINIMIZE THE RISK OF FUTURE FALLS ADDITIONAL DISCIPLINES NEEDED OR DECLINED ORDERED SERVICES: NA EQUIPMENT IN HOME: FWW REVIEW OF SYSTEMS: NO ISSUES FOUND MD COMMUNICATIONS: UPDATE DR DUMAS ON CLINICAL FINDINGS AND POC REVIEWED AND MEDICATION CONFIRMED DIAGNOSIS OF DISTAL FIBULA FRACTURE ON LEFT, SYNCOPE, YOU T.I. [place] APPT UNKNOWN UPCOMING MD APPTS NEXT WEEK PT WAS EDUCATED ON PAIN CONTROL, PREVENTION OF PRESSURE ULCERS, MEDICATIONS, FALL PREVENTIONS PATIENT AND FAMILY INVOLVED IN POC AND IN AGREEMENT. EMERGENCY PREPAREDNESS REVIEWED, PLAN IN PLACE ANTICIPATED DISCHARGE PLAN: DISCHARGE TO HOME WITH FAMILY INTERVENTIONS NEEDED AT NEXT VISIT: INITIATION OF HOME PROGRAM, GAIT TRAINING AND TRANSFER TRAINING PAY RICCI [code = PHYSICAL THERAPY ADMISSION CLINICAL SUMMARY PATIENT IS IN 81 YEAR OLD FEMALE REFERRED TO HOME PHYSICAL THERAPY AFTER HOSPITALIZATION SECONDARY TO LEFT DISTAL FIBULA FRACTURE A RESULT OF A FALL IN HER HOME. PATIENT WAS FOUND TO HAVE HAD SYNCOPE AND U T I. PATIENT LIVES WITH HER IN A SINGLE LEVEL HOME WITH TWO STEPS TO ENTER AND EXIT. CURRENTLY HER SONS ARE STAYING WITH HER TO PROVIDE 24-HOUR CARE UNTIL SHE RECOVERS. PAST MEDICAL HISTORY INCLUDES HYPOTHYROIDISM, HYPERTENSION, UTI, FALL, FRACTURE, SYNCOPE, NYSTAGMUS. PATIENT CURRENTLY REQUIRES CONTACT GUARD ASSIST FOR AMBULATION UP TO 50 FEET WITH FRONT WHEELED WALKER. PATIENT REQUIRES CONTACT GUARD FOR [id number]. PATIENT REQUIRED MINIMUM ASSIST OF WANT TO NEGOTIATE TWO STEPS INTO AND OUT OF HOME. THE PATIENT IS RECEIVING HOMECARE DUE TO NEW ONSET/EXACERBATION OF: LEFT DISTAL FIBULA FRACTURE SECONDARY TO FALL AT HOME, U T I, SYNCOPE RECENT HOSPITALIZATION/INPATIENT ADMISSION RELATED TO: 04/14 TO 04/16 FALL AT HOME , UTI, SYNCOPE, FRACTURE LEFT FIBULA NEW OR CHANGED MEDICATIONS PERTINENT TO THE PLAN OF CARE: NA PATIENT LIVING SITUATION/CAREGIVER STATUS: PATIENT LIVES WITH HER IN A SINGLE LEVEL HOME. CURRENTLY HER SONS ARE STAYING WITH THEM TO ASSIST RECENT FALLS: PATIENT REPORTS FALLING SECONDARY TO PASSING OUT SKILLED TEACHING AND TRAINING, OBSERVATION AND ASSESSMENT, AND/OR TREATMENTS THAT REQUIRE SKILLED CARE: PATIENT REQUIRES PHYSICAL THERAPY FOR DEVELOPMENT OF A HOME EXERCISE PROGRAM WITH VERBAL CUES TO PERFORM CORRECTLY. GAIT TRAINING WITH FRONT WHEELED WALKER ON LEVEL SURFACES AND ON STEPS INTO IN OUT-OF-HOME, TRANSFER TRAINING [id number], WELL DEVELOPMENT OF STANDING BALANCE ACTIVITIES AND MINIMIZE THE RISK OF FUTURE FALLS ADDITIONAL DISCIPLINES NEEDED OR DECLINED ORDERED SERVICES: NA EQUIPMENT IN HOME: FWW REVIEW OF SYSTEMS: NO ISSUES FOUND MD COMMUNICATIONS: UPDATE DR DUMAS ON CLINICAL FINDINGS AND POC REVIEWED AND MEDICATION CONFIRMED DIAGNOSIS OF DISTAL FIBULA FRACTURE ON LEFT, SYNCOPE, YOU T.I. LAST MD APPT UNKNOWN UPCOMING MD APPTS NEXT WEEK PT WAS EDUCATED ON PAIN CONTROL, PREVENTION OF PRESSURE ULCERS, MEDICATIONS, FALL PREVENTIONS PATIENT AND FAMILY INVOLVED IN POC AND IN AGREEMENT. EMERGENCY PREPAREDNESS REVIEWED, PLAN IN PLACE ANTICIPATED DISCHARGE PLAN: DISCHARGE TO HOME WITH FAMILY INTERVENTIONS NEEDED AT NEXT VISIT: INITIATION OF HOME PROGRAM, GAIT TRAINING AND TRANSFER TRAINING PAY SOUR] Goal 2022-05-14 Patient Goal - T O GET STRONGER AND WALK BETTER Goal 2022-06-08 Patient Goal - T O GET STRONGER AND WALK BETTER Goal Provider Goal - PHYSICAL THERAPY EVALUATION TO BE COMPLETED WITH RECOMMENDATIONS AND/OR WRITTEN TREATMENT PLAN OF CARE ESTABLISHED FOR THE PHYSICIANS SIGNATURE Goal Provider Goal - PATIENT/CAREGIVER VERBALIZES UNDERSTANDING OF THE INITIAL BEST PRACTICE RECOMMENDATIONS. PHYSICIAN TO BE NOTIFIED APPROPRIATE FOR ANY CHANGES OR COMPLICATIONS. Goal Provider Goal - PATIENT/CAREGIVER WILL PERFORM THERAPEUTIC EXERCISE/S AND DEMONSTRATE PARTICIPATION IN A HOME PROGRAM TO IMPROVE FUNCTION Goal Provider Goal - PATIENT/CAREGIVER WILL DEMONSTRATE SAFE TRANSFERS USING APPROPRIATE ASSISTIVE DEVICE, BODY MECHANICS AND EQUIPMENT TO IMPROVE FUNCTION Goal Provider Goal - PATIENT/CAREGIVER WILL DEMONSTRATE IMPROVED GAIT TECHNIQUES TO MINIMIZE RISK OF INJURY AND INCREASE FUNCTION Goal Provider Goal - PATIENT/CAREGIVER WILL DEMONSTRATE/VERBALIZE UNDERSTANDING OF RECOMMENDATIONS TO INCREASE SAFETY IN THE HOME AND FALL PREVENTION TO IMPROVE FUNCTION Goal Provider Goal - Reason for Visit INDEPENDENT IN THE HOME Encounters Start Date/Time End Date/Time Encounter Type Admission Type Attending [facility] Care Facility Care Department Encounter ID Discharge Date Discharge Status Discharge Condition Discharge Reason Percent Goals Met 2022-04-17 00:00:00 2022-06-08 00:00:00 Outpatient NEW ADMISSION [facility] [id number] 00:00:00 DISCHARGE TO HOME OR SELF CARE INDEPENDEN T IN THE HOME GOALS MET ( ONLY) 84.62
== END 2024-10-30 16:44 | disposition home or self-care (01) ==
PROVIDERS: Nurse Practitioner Family; Emergency Provider Emergency Medicine; PCP Internal Medicine
DX: U07.1 COVID-19 (principal); R53.1 Weakness; Z86.711 Personal history of pulmonary embolism; Z95.0 Presence of cardiac pacemaker; Z79.01 Long term (current) use of anticoagulants
CPT/HCPCS: 0241U; 36415; 51701; 70450; 71046; 72125; 80048; 80076; 81001; 83605; 83735; 84484; 85025; 85610; 87040; 87205; 93005; 96361; 96374; 97161; 99285; J0696

== ENCOUNTER → 2024-10-28 13:42 | Outpatient (BNV) | payer MEDICARE, OTHER, SELFPAY | PROVIDERS: Emergency Provider Emergency Medicine; PCP Internal Medicine; Visit Provider Internal Medicine Cardiovascular Disease | DX: R53.1 Weakness (principal) | CPT/HCPCS: 93010 ==

== ENCOUNTER 2024-11-13 14:08 | Outpatient (REF) | payer MEDICARE, OTHER, SELFPAY ==
--- OUTSIDE RECORDS SUMMARY | 2024-11-13 14:11 | XMS_ITS | Clinical Summary ---
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) USE OF ASPIRIN Active 11-22 00:00: 00 AMMONIA SOLUTION PREPARER (CURRENT) USE OF ANTITHROMBOT ICS/ANTIPLAT ELETS Active [...] Frequency Signature (SIG) Comments Components NONE Yes [id number] (route: ) acetaminoph en 325 mg tablet 04-24 00:00: 00 Yes [id number] 2 tablet DIRECTED 2 tablet DIRECTED (route: oral) Med Classific ation: Analgesic , Anti-infl ammatory or Antipyret ic Keppra 500 mg tablet 04-24 00:00: 00 Yes [id number] 1 tablet 2 TIMES DAILY 1 tablet 2 TIMES DAILY (route: oral) Med Classific ation: Central Nervous System Agents Plavix 75 mg tablet 04-24 00:00: 00 Yes [id number] 1 tablet DAILY 1 tablet DAILY (route: oral) Med Classific ation: Hematolog ical Agents Adult Low Dose Aspirin 81 mg tablet,nannette yed release 04-24 00:00: 00 Yes [id number] 1 tablet DAILY 1 tablet DAILY (route: oral) Med Classific ation: Hematolog ical Agents levothyroxi ne 88 mcg tablet 04-24 00:00: 00 Yes [id number] 1 tablet DAILY 1 tablet DAILY (route: oral) Med Classific ation: Endocrine Vitamin D3 25 mcg (1,000 unit) capsule 04-24 00:00: 00 Yes [id number] 1 capsule DAILY 1 capsule DAILY (route: oral) Med Classific ation: Electroly te Balance-N utritiona l Products cefuroxime axetil 250 mg tablet 04-24 00:00: 00 04-24 23:59 :00 No [id number] 1 tablet 2 TIMES DAILY 1 tablet 2 TIMES DAILY (route: oral) Med Classific ation: Anti-Infe ctive Agents lisinopril 10 mg tablet 04-24 00:00: 00 Yes [id number] 1 tablet DAILY 1 tablet DAILY (route: [...] WHEELED WALKER. PATIENT REQUIRES CONTACT GUARD FOR [id number]. PATIENT REQUIRED MINIMUM ASSIST OF WANT TO [...] ON STEPS INTO IN OUT-OF-HOME, TRANSFER TRAINING [id number], WELL DEVELOPMENT OF STANDING BALANCE ACTIVITIES AND [...] WHEELED WALKER. PATIENT REQUIRES CONTACT GUARD FOR [id number]. PATIENT REQUIRED MINIMUM ASSIST OF WANT TO [...] ON STEPS INTO IN OUT-OF-HOME, TRANSFER TRAINING [id number], WELL DEVELOPMENT OF STANDING BALANCE ACTIVITIES AND [...] End Date/Time Encounter Type Admission Type Attending [facility] Care Facility Care Department Encounter ID Discharge Date Discharge Status Discharge Condition Discharge Reason Percent Goals Met 2022-04-17 00:00:00 2022-06-08 00:00:00 Outpatient NEW ADMISSION [facility] [id number] 00:00:00 DISCHARGE TO HOME OR SELF CARE INDEPENDEN T IN THE HOME GOALS MET ( ONLY) 84.62
[2024-11-13 14:12] LABS: MANUAL DIFF FLAG NO
[2024-11-13 14:15] LABS: Basophils Absolute Auto 0.1 X10*3/uL (0.0-0.2); Eosinophils Absolute Auto 0.1 X10*3/uL (0.0-0.4); Eosinophils Percent Auto 0.8 % (0-4); Hematocrit 39.2 % (37.0-47.0); Hemoglobin 12.8 g/dl (12.0-16.0); Imm Gran Abs Auto 0.02 X10*3/uL (0.00-0.03); Imm Gran Pct Auto 0.3 % (0.0-0.4); Lymphocytes Absolute Auto 2.6 X10*3/uL (1.2-4.9); Lymphocytes Percent Auto 33.2 % (20-40); Mean Corpuscular HGB Conc 32.7 g/dl (31.0-35.0); Mean Corpuscular Hemoglobin 31.3 pg (27.0-33.0); Mean Corpuscular Volume 95.8 fL (80.0-98.0); Mean Platelet Volume 9.6 fL (9.4-12.3); Monocytes Absolute Auto 0.7 X10*3/uL (0.1-1.2); Monocytes Percent Auto 8.3 % (2-11); Neutrophils Absolute Auto 4.4 x10*3/uL (2.0-8.3); Neutrophils Percent Auto 56.4 % (45-73); Platelet Count 397 X10*3/uL (160-400); Red Blood Count 4.09 X10*6/uL (4.20-5.50); Red Cell Distribution Width 13.8 % (11.0-16.0); White Blood Count 7.8 X10*3/uL (4.8-10.8)
== END 2024-11-13 14:09 | disposition home or self-care (01) ==
LOC: HO.HVNA 14:08
PROVIDERS: Visit Provider Internal Medicine
DX: D72.820 Lymphocytosis (symptomatic) (principal)
CPT/HCPCS: 36415; 85025

== ENCOUNTER 2024-12-04 13:19 | Outpatient (AMB) | payer MEDICARE, OTHER, SELFPAY ==
--- NOTE | 2024-12-04 13:37 | A.OFFVIS_ITS ---
Vital Signs 12/04/24 13:38 Weight 109 lb 5.588 oz BP 120/52 L Blood Pressure Location Lt brachial Position Sitting Pulse 94 Pulse Source Pulse Oximeter Intake Visit Reasons: 6 mth w/ medtronic Energy Management Specialist Required: No Attendant Campground: Attendant Campground Present Allergies No Known Allergies Allergy (Verified 12/04/24 13:39) Medication List - Last Reconciled 12/04/24 by Nathalia Mendoza, WET CLEANER MACHINE-C acetaminophen 650 mg PO Q8H PRN apixaban (Eliquis) 5 mg PO BID cholecalciferol (vitamin D3) 25 mcg PO DAILY levothyroxine (Synthroid) 1 tab PO DAILY lisinopril 10 mg PO DAILY walker (Ultra-Light Rollator misc) As directed HPI HPI 6 mth w/ medtronic: Details: Donna is an 84-year-old female with past medical history pulmonary embolism, heart block, syncope status post dual-chamber pacemaker placement who was recently admitted for observation after having fall at home and testing positive for COVID. Her condition was stable and she did not require admission. She now presents for follow-up. Today she reports that she doing well since her hospital discharge. She did have some minor cold symptoms last week but has fully recovered. She has no residual affects from her COVID. She denies any breathing issues. No PND, orthopnea or edema. No chest discomfort, heart palpitations, presyncope, syncope, PND, orthopnea or edema. She tolerates light activities around the house. No reports of bleeding issues. Daughter is present. [facility] Medical History Pacemaker Nystagmus, congenital Hypothyroidism Surgical History History of permanent cardiac pacemaker placement (~05/01/22) Family History Father Myocardial infarction Mother Pacemaker Social History Household Members: Spouse and Family Housing: House Alcohol intake: never Patient Tobacco Use Status: Never used Tobacco service: No Current occupational status: retired Review of Systems Const All systems reviewed & are unremarkable except as noted in HPI and below ENT Denies dizziness Card Denies chest pain, Denies chest pain at rest, Denies chest pain with activity, Denies rapid heart rate, Denies pedal edema, Denies edema, Denies leg edema, Denies lightheadedness, Denies palpitations, Denies dyspnea, Denies dyspnea on exertion and Denies orthopnea Resp Denies cough, Denies dyspnea and Denies dyspnea on exertion GI Denies hematochezia and Denies change in stool character Musc Denies abnormal gait, Denies limited range of motion, Denies muscle cramps, Denies muscle weakness, Denies numbness, Denies radiating pain into limb, Denies stiffness and Denies tingling Neuro Denies abnormal gait, Denies dizziness, Denies numbness and Denies tingling Endo Denies palpitations Physical Exam Vital Signs: Last Vital Signs Pulse 94 12/04/24 13:38 BP 120/52 L 12/04/24 13:38 Const General: cooperative, healthy appearing, comfortable and no acute distress Orientation/consciousness: patient oriented x3 Neck Neck: Yes normal visual inspection Resp Effort & Inspection: normal respiratory effort Auscultation: clear to auscultation bilaterally, no rales, no rhonchi and no wheezes Cardio Jugular venous distension: no JVD Rate: regular rate Rhythm: regular rhythm Heart sounds: S1 normal heart sound present, S2 normal heart sound present, no murmurs and no rubs Neuro General: patient oriented x3 Extrem General: Yes normal to inspection, No no pedal edema and No calf tenderness Psych Appearance: grossly normal Mental Status: mental status grossly normal Speech and movement: Normal speech and movement present Office Procedures Cardiac Device Check Cardiac Device Check Details: Medtronic dual-chamber pacemaker interrogation today shows battery 10.6 years, DDD mode, low rate 60, V paced 100%, a paced 8%, 80 AF burden less than 0.1, 10/28/2024 9 episodes of atrial flutter, longest 14 minutes 20 seconds, V rates 60s to 70s, RA threshold 1.25 volts at 0.4 milliseconds, RV threshold 0.5 volts at 0.4 milliseconds [id number] Cardiac Device Check, pacemaker dual lead Procedure code (CPT) selection complete Assessment & Plan Assessment & Plan (1) Atrial flutter: Code(s): I48.92 - Unspecified atrial flutter Category: Medical Plan: Medtronic dual-chamber pacemaker interrogation today is showing episodes of paroxysmal atrial flutter occurring on 10/28/2024. She had 9 episodes with longest lasting 14 minutes and 20 seconds. Average A rate 137, V rate 60s to 70s. This is a new finding for her. She did not notice any heart palpitations. She was in the hospital, ER and observation unit on this day and treated for COVID. She is on Eliquis for anticoagulation due to history of DVT. She is not on any heart rate lowering agents. Her episode of AFib seems to be isolated in the event of acute illness. Last echocardiogram done 04/16/2022 showing EF greater than 70%, severe mitral annular calcification, both atria normal size. Will continue to follow remotely. Continue Eliquis without interruption. Diagnosis of AFib and stroke risk it carries discussed with her and daughter. If she has recurrent episodes then would require further med management to control. (2) History of permanent cardiac pacemaker placement: Onset Date: ~05/01/22 Comment: [place]; Dr. Patel - [facility], 05/01/2022 Code(s): Z95.0 - Presence of cardiac pacemaker Category: Surgical Plan: Medtronic dual-chamber pacemaker in place. Office interrogation today shows device is functioning normally. Battery 10.6 years. Episode of AF as above. Remote monitoring in use. Pacemaker site is benign. Next office interrogation in 6 months. (3) Complete heart block: Code(s): I44.2 - Atrioventricular block, complete Category: Medical Plan: Pacemaker in place Plan Time spent on chart review, documentation, interview and assessment Coding Level of Care Code Est Pt Level 4 (58488) Complex EM visit Add On G2211 Diagnoses Atrial flutter I48.92 History of permanent cardiac pacemaker placement Z95.0 Complete heart block I44.2 CPT Codes Cardiac Device Check - Cardiac Device 2: [id number] Cardiac Device Check, pacemaker dual lead ([id number]) Time Spent (min) 30
[2024-12-04 13:38] VITALS: BP 120/52; PULSE 94
--- OUTSIDE RECORDS SUMMARY | 2024-12-04 16:00 | XMS_ITS ---
Author Organization Pal Randall MD Address [address] [place], [place] [id number] Care Team Providers Care Surgical Services Director Name Role Phone Pal Randall Primary Care Provider [phone] ALLERGIES No Known Allergies REASON FOR VISIT F/U ERV, Accompanied by son MEDICATIONS Medication SIG (Take, Route, Frequency, Duration) Notes Start Date End Date Status Synthroid 88 MCG TAKE 1 TABLET DAILY IN THE MORNING ON AN EMPTY STOMACH Active Eliquis 2.5 MG as directed Orally T wice a day for 5 days 07/10/2022 Not-Taking Ibuprofen 200 MG 1 tablet as needed O rally every 6 hrs Not-Taking Eliquis 5 mg TAKE 1 TABLET TWICE A DAY Active PriLOSEC OTC 20 MG 1 tablet 30 minutes before morning meal Orally Once a day for 30 day(s) Not-Taking Magnesium 125 MG as directed Orally Active Vitamin D-3 1000 UNIT 1 capsule Orally O nce a day 12/06/2018 Active Lisinopril 10 mg TAKE 1 TABLET DAILY Active PROBLEMS Problem Type ICD Code Onset Dates Problem Status W/U Status Risk SNOMED Code Notes Problem Thrombocytopenia (D69.6) Active confirmed 006911480 VITAL SIGNS BMI 20.32 kg/m2 11/17/2024 Blood pressure systolic 120 mm Hg 11/17/20 24 Blood pressure diastolic 60 mm Hg 024 Height 62.25 in 11/17/2024 Weight 112 lbs 11/17/2024 weight is down 2 pounds [facility] 07-04-24 Encounters Encounter Location Date Provider Diagnosis Pal Randall MD [address] [place] [address] [place] [phone] 11/17/2024 Pal Randall COVID-19 U07.1 ; Microscopic hematuria R31.29 and Thrombocytopenia D69.6 ASSESSMENTS Encounter Date Diagnosis Assessment Notes Treatment Notes Treatment Clinical Notes 11/17/2024 COVID-19 (ICD-10 - U07.1) is recovered. 11/17/2024 Microscopic hematuri a (ICD-10 - R31.29) was in er and urine had blood. son says she was not cathed. will repeat. is going to take container home and bring it back 11/17/2024 Thrombocytopenia (ICD-10 - D69.6) that has resolved and platelts back to normal PLAN OF TREATMENT Treatment Notes Assessment Notes COVID-19 is recovered. Microscopic hematuria was in er and urin e had blood. son says she was not cathed. will repeat. is going to take container home and bring it back Thrombocytopenia that has resolved an d platelts back to normal Pending Test Test Name Order Date Urinalysis and Microscopic 11/17/2024 Next Appt Details Provider Name:Pal milian, 12/25/2024 07:00:00 AM, [address] [place] [address], [place] [address], [place], [place], [phone], Provider Name:Pal milian, 01/01/2025 02:30:00 PM, [address] [place] [address], [place] [address], [place], [place], [phone], Progress Notes * Examination Category Sub-Category Detail Notes General Examination GENERAL APPEARANCE: alert, w ell hydrated, in no distress HEAD: normocephalic HEART: regular rate and rhy thm , no murmurs, rubs, gallops LUNGS: no wheezes, rales, r honchi , good air movement , clear to auscultation bilaterally SKIN: good turgor History and Physical Notes * HPI (History of Present Illness) Category Sub-Category Detail Notes Fall Risk History Have you had any falls with injury in the past year?: Yes 10-28-24 slipped off the side of her bed and landed on buttucks. Patient did go to ER
--- OUTSIDE RECORDS SUMMARY | 2024-12-04 16:01 | XMS_ITS ---
Author Organization Pal Randall MD Address [address] [place], [place] [phone] Care Team Providers Care Cigarette Inspector Name Role Phone Pal Randall Primary Care Provider RESULTS Component Value Reference Range Notes Complete Blood Count Auto Di ff Reviewed date:11/13/2024 06:30:50 PM Interpretation: Performing Lab:[facility], [address] [place] [phone] Notes/Report: White Blood Count 7.8 4.8-10.8 X10*3/uL Red Blood Count 4.09 4.20-5.50 X10*6/uL Hemoglobin 12.8 12.0-16.0 g/dl Hematocrit 39.2 37.0-47.0 % Mean Corpuscular Volume 95.8 80.0-98.0 fL Mean Corpuscular Hemoglobin 31.3 27.0-33.0 pg Mean Corpuscular HGB Conc 32.7 31.0-35.0 g/dl Red Cell Distribution Width 13.8 11.0-16.0 % Platelet Count 397 160-400 X10*3/uL Mean Platelet Volume 9.6 9.4-12.3 fL Neutrophils Percent Auto 56.4 45-73 % Imm Gran Pct Auto 0.3 0.0-0.4 % Lymphocytes Percent Auto 33.2 20-40 % Monocytes Percent Auto 8.3 2-11 % Eosinophils Percent Auto 0.8 0-4 % Basophils Percent Auto 1.0 0-2 % NRBC Pct Auto 0.0 0.0-0.2 /100WBC Neutrophils Absolute Auto 4.4 2.0-8.3 x10*3/u L Imm Gran Abs Auto 0.02 0.00-0.03 X10*3/uL Lymphocytes Absolute Auto 2.6 1.2-4.9 X10*3/u L Monocytes Absolute Auto 0.7 0.1-1.2 X10*3/uL Eosinophils Absolute Auto 0.1 0.0-0.4 X10*3/u L Basophils Absolute Auto 0.1 0.0-0.2 X10*3/uL NRBC Abs Auto 0.000 0.0-0.012 X10*3/uL REASON FOR VISIT CBC Encounters Encounter Location Date Provider Diagnosis Pal Randall MD [address] [place] [phone] 11/07/2024 Pal Randall Lymphocytosis D72.82 0 ASSESSMENTS Encounter Date Diagnosis Assessment Notes Treatment Notes Treatment Clinical Notes 11/07/2024 Lymphocytosis (ICD-1 0 - D72.820) PLAN OF TREATMENT Next Appt Details Provider Name:Pal milian, 12/25/2024 07:00:00 AM, [address] [place] [address], [address], [phone], Provider Name:Pal milian, 01/01/2025 02:30:00 PM, [address] [place] [address], [place] [address], [place], [place], [phone],
--- OUTSIDE RECORDS SUMMARY | 2024-12-04 16:01 | XMS_ITS | Clinical Summary ---
Author Organization Unknown Care Team Providers Care Fraud Manager Name Role Phone PITER JOHNSON, GERMAN Unavailable Unavailable EZ PTAUSTIN Unavailable Unavailable Payers Payer Name Policy Type Policy Number Effective Date Expira tion Date MEDICARE - NGS [place] - PD [id number] Problems Condition Name Condition Details Condition Category [...] ACUTE COR [place] Active 11-22 00:00: 00 BOOT TRIMMER (CURRENT) USE OF ASPIRIN Active 11-22 00:00: 00 BOOT TRIMMER (CURRENT) USE OF ANTITHROMBOT ICS/ANTIPLAT ELETS Active [...] Frequency Signature (SIG) Comments Components NONE Yes [id number] (route: ) acetaminoph en 325 mg tablet 04-24 00:00: 00 Yes [id number] 2 tablet DIRECTED 2 tablet DIRECTED (route: oral) Med Classific ation: Analgesic , Anti-infl ammatory or Antipyret ic Keppra 500 mg tablet 04-24 00:00: 00 Yes [id number] 1 tablet 2 TIMES DAILY 1 tablet 2 TIMES DAILY (route: oral) Med Classific ation: Central Nervous System Agents Plavix 75 mg tablet 04-24 00:00: 00 Yes [id number] 1 tablet DAILY 1 tablet DAILY (route: oral) Med Classific ation: Hematolog ical Agents Adult Low Dose Aspirin 81 mg tablet,nannette yed release 04-24 00:00: 00 Yes [id number] 1 tablet DAILY 1 tablet DAILY (route: oral) Med Classific ation: Hematolog ical Agents levothyroxi ne 88 mcg tablet 04-24 00:00: 00 Yes [id number] 1 tablet DAILY 1 tablet DAILY (route: oral) Med Classific ation: Endocrine Vitamin D3 25 mcg (1,000 unit) capsule 04-24 00:00: 00 Yes [id number] 1 capsule DAILY 1 capsule DAILY (route: oral) Med Classific ation: Electroly te Balance-N utritiona l Products cefuroxime axetil 250 mg tablet 04-24 00:00: 00 04-24 23:59 :00 No [id number] 1 tablet 2 TIMES DAILY 1 tablet 2 TIMES DAILY (route: oral) Med Classific ation: Anti-Infe ctive Agents lisinopril 10 mg tablet 04-24 00:00: 00 Yes [id number] 1 tablet DAILY 1 tablet DAILY (route: [...] WHEELED WALKER. PATIENT REQUIRES CONTACT GUARD FOR [id number]. PATIENT REQUIRED MINIMUM ASSIST OF WANT TO [...] ON STEPS INTO IN OUT-OF-HOME, TRANSFER TRAINING [id number], WELL DEVELOPMENT OF STANDING BALANCE ACTIVITIES AND [...] WHEELED WALKER. PATIENT REQUIRES CONTACT GUARD FOR [id number]. PATIENT REQUIRED MINIMUM ASSIST OF WANT TO [...] ON STEPS INTO IN OUT-OF-HOME, TRANSFER TRAINING [id number], WELL DEVELOPMENT OF STANDING BALANCE ACTIVITIES AND [...] End Date/Time Encounter Type Admission Type Attending [facility] Care Facility Care Department Encounter ID Discharge Date Discharge Status Discharge Condition Discharge Reason Percent Goals Met 2022-04-17 00:00:00 2022-06-08 00:00:00 Outpatient NEW ADMISSION [facility] [id number] 00:00:00 DISCHARGE TO HOME OR SELF CARE INDEPENDEN T IN THE HOME GOALS MET ( ONLY) 84.62
--- OUTSIDE RECORDS SUMMARY | 2024-12-04 16:01 | XMS_ITS ---
Author Organization Pal Randall MD Address [address] [place] [phone] Care Team Providers Care Director Of Government Sales Name Role Phone Pal Randall Primary Care Provider REASON FOR VISIT ERV rec'd Encounters Encounter Location Date Provider Diagnosis Pal Randall MD [address] [place] [phone] 11/09/2024 Pal Randall PLAN OF TREATMENT Next Appt Details Provider Name:Pal milian, 12/25/2024 07:00:00 AM, [address] [place] [address], Suite [facility], [place], [place], [phone], Provider Name:Pal milian, 01/01/2025 02:30:00 PM, [address] [place] [address], Suite [facility], [place], [place], [phone],
--- OUTSIDE RECORDS SUMMARY | 2024-12-04 16:01 | XMS_ITS | Patient Health Record ---
Author Organization Pal Randall MD Address [address] [place], [place] [id number] Care Team Providers Care Associate Professor Of Kinesiology Name Role Phone Pal Randall Primary Care Provider ALLERGIES No Known Allergies RESULTS Component Value Reference Range Notes Hemoglobin A1c Reviewed date:07/04/2024 02:04:01 PM Interpretation: Performing Lab: Notes/Report: Value Hemoglobin A1c 5.4 Luis Flynn Reviewed date:12/23/2023 12:12:53 PM Interpretation: Performing Lab:[facility], [address] [place] [phone] Notes/Report: Luis Flynn See Note Specimen held untested for 24 hours; Call to request Chemistry testing. Complete Blood Count Auto Di ff Reviewed date:12/30/2023 02:21:13 PM Interpretation:see back 12-30-23 Performing Lab:[facility], [address] [place] [phone] Notes/Report: White Blood Count 9.4 4.8-10.8 X10*3/uL Red Blood Count 4.79 4.20-5.50 X10*6/uL Hemoglobin 15.3 12.0-16.0 g/dl Hematocrit 46.2 37.0-47.0 % Mean Corpuscular Volume 96.5 80.0-98.0 fL Mean Corpuscular Hemoglobin 31.9 27.0-33.0 pg Mean Corpuscular HGB Conc 33.1 31.0-35.0 g/dl Red Cell Distribution Width 14.6 11.0-16.0 % Platelet Count 190 160-400 X10*3/uL Mean Platelet Volume 10.4 9.4-12.3 fL Neutrophils Percent Auto 44.2 45-73 % Imm Gran Pct Auto 0.3 0.0-0.4 % Lymphocytes Percent Auto 45.0 20-40 % Monocytes Percent Auto 7.9 2-11 % Eosinophils Percent Auto 2.2 0-4 % Basophils Percent Auto 0.4 0-2 % NRBC Pct Auto 0.0 0.0-0.2 /100WBC Neutrophils Absolute Auto 4.1 2.0-8.3 x10*3/uL Imm Gran Abs Auto 0.03 0.00-0.03 X10*3/uL Lymphocytes Absolute Auto 4.2 1.2-4.9 X10*3/uL Monocytes Absolute Auto 0.7 0.1-1.2 X10*3/uL Eosinophils Absolute Auto 0.2 0.0-0.4 X10*3/uL Basophils Absolute Auto 0.0 0.0-0.2 X10*3/uL NRBC Abs Auto 0.000 0.0-0.012 X10*3/uL Comprehensive Sigel. Panel Fa st Reviewed date:12/23/2023 12:53:25 PM Interpretation: Performing Lab:[facility], [address] [place] [phone] Notes/Report: Sodium 139 135-145 mmol/L Potassium 4.1 3.3-5.1 mmol/L Chloride 104 96-108 mmol/L Carbon Dioxide 24 22-29 mmol/L Anion Gap 15 12-20 Blood Urea Nitrogen 15 9-16 mg/dL Creatinine 0.99 0.5-1.4 mg/dL Estimated Glomerular Filt Rate 53 NOTE: For -Irish individuals, multiply the result by 1.210. Chronic Kidney Disease: Estimated GFR < 60 mL/min/1.73m2 Severe Kidney Disease: Estimated GFR < 15 mL/min/1.73m2 Glucose Fasting 116 60-99 mg/dL A fasting glucose from 100-125 mg/dl is considered impaired (pre-diabetes). Calcium 9.3 8.4-10.2 mg/dL Bilirubin Total 0.7 0.0-1.0 mg/dL Aspartate Amino Transferase 22 5-31 U/L Alanine Aminotransferase 14 0-31 U/L Total Protein 6.9 6.5-8.0 g/dL Albumin Level 4.0 3.5-5.0 g/dL Alkaline Phosphatase 74 39-117 U/L Lipid Panel Reviewed date:12/23/2023 12:51:12 PM Interpretation: Performing Lab:[address] [phone] Notes/Report: Triglycerides 158 <150 mg/dL Desirable Triglyceride: less than 150 mg/dL Borderline High Triglyceride 150-199 mg/dL High Triglyceride: 200-499 mg/dL Very High Triglyceride: greater than or equal to 5OO mg/dL Cholesterol 220 <200 mg/dL Desirable Cholesterol: less than 200 mg/dL Borderline High Cholesterol: 200-239 mg/dL High Cholesterol: greater than 239 mg/dL LDL Cholesterol Calculated 136 <100 mg/dL Desirable LDL: less than 100 mg/dL Near Optimal/Above Optimal LDL: 110-129 mg/dL Borderline High LDL: 130-159 mg/dL High LDL: 160-189 mg/dL Very High LDL: greater than or equal to 190 mg/dL HDL Cholesterol 53 >40 mg/dL Desirable HDL: greater than 40 mg/dL Note: This HDL assay may give artificially low results in patients with liver disease. Vitamin D 25-OH Total Reviewed date:12/23/2023 12:51:19 PM Interpretation: Performing Lab:[address] [phone] Notes/Report: Vitamin D 25-OH Total 58.0 >30 ng/mL Health Based Reference Values* < 20 ng/mL Deficient 20-30 ng/mL Insufficient > 30 ng/mL Sufficient *Melyssa RIVERA. N Engl J Med. 2007;357:266-280 Care must be taken in interpreting Vitamin D results from different laboratories and methodologies. Published data demonstrated that results from patients undergoing hemodialysis may show a negative bias when tested with various automated 25-OH vitamin D assays when compared to LC-MS/MS. When testing samples from patients whose predominant form of Vitamin D is Vitamin D2, such as patients receiving Vitamin D2 supplementation, results that are subtherapeutic should be confirmed with another method such as LC-MS/MS. Hemoglobin A1c Reviewed date:12/23/2023 12:15:44 PM Interpretation: Performing Lab:[address] [phone] Notes/Report: Hemoglobin A1c % 5.3 <6.0 % Hemoglobin A1C Reference Range Adults: 4.8 - 6.0 % Non diabetic: < 6.0 % Goal: < 7.0 % Additional Action Suggested: > 8.0 % Note: Hemoglobin A1c results are invalid for patients with abnormal amounts of HbF. Blood transfusions may impact the HbA1c concentration in the patient sample. Estimated Average Glucose 105 eAG = Estimated average glucose which is %A1C expressed as average glucose, using the formula of the P1R-Vanvacv Average Glucose study (ADAG), Diabetes Care, Vol.31,#8, Jun. 2007 Microalbumin, Random Reviewed date:12/30/2023 05:00:06 PM Interpretation: Performing Lab:[address] [phone] Notes/Report: Creatinine Urine 87.86 Microalbumin Urine < 5.0 Microalbum/Creatinine Ratio Ur TNP <30 ug/mg cr Unable to calculate albumin/creatinine ratio due to low microalbumin or creatinine result. UA ClnCatch+Micro w/rflx Cul t Reviewed date:12/30/2023 05:04:20 PM Interpretation: Performing Lab:[address] [phone] Notes/Report: Urine, Clean Catch Color Urine Yellow Appearance Urine Clear PH 6.5 5.0-9.0 Glucose Urine UA Negative Negative mg/dL Urine Blood Negative Negative Specific Cary - Urine 1.015 1.005-1.025 Urine Protein Negative Neg-Trace mg/dL Urine Ketones Negative Negative mg/dL Nitrite Urine Negative Negative Leukocyte Esterase Urine Small (1+) Negative RBC Urine 0-2 0-2 /HPF WBC Urine 0-5 0-5 /HPF Squamous Epithelial Cell Urine 0-2 0-2 /HPF Bacteria Urine Trace None Seen Hyaline Casts Urine 0-2 0-2 /LPF Urine Culture Reviewed date:01/01/2024 06:37:29 PM Interpretation: Performing Lab:[address] [phone] Notes/Report: Urine Culture Report Result Urine Culture 50,000 to 100,000 cfu/ml Urine Culture Mixed bacterial leeroy a characteristic of Urine Culture urogenital contamination. Complete Blood Count Auto Di ff Reviewed date:01/27/2024 12:47:12 PM Interpretation: Performing Lab:[address] [phone] Notes/Report: White Blood Count 9.2 4.8-10.8 X10*3/uL Red Blood Count 4.38 4.20-5.50 X10*6/uL Hemoglobin 14.0 12.0-16.0 g/dl Hematocrit 41.8 37.0-47.0 % Mean Corpuscular Volume 95.4 80.0-98.0 fL Mean Corpuscular Hemoglobin 32.0 27.0-33.0 pg Mean Corpuscular HGB Conc 33.5 31.0-35.0 g/dl Red Cell Distribution Width 14.2 11.0-16.0 % Platelet Count 255 160-400 X10*3/uL Mean Platelet Volume 10.7 9.4-12.3 fL Neutrophils Percent Auto 57.3 45-73 % Imm Gran Pct Auto 0.2 0.0-0.4 % Lymphocytes Percent Auto 32.0 20-40 % Monocytes Percent Auto 8.0 2-11 % Eosinophils Percent Auto 1.6 0-4 % Basophils Percent Auto 0.9 0-2 % NRBC Pct Auto 0.0 0.0-0.2 /100WBC Neutrophils Absolute Auto 5.3 2.0-8.3 x10*3/uL Imm Gran Abs Auto 0.02 0.00-0.03 X10*3/uL Lymphocytes Absolute Auto 2.9 1.2-4.9 X10*3/uL Monocytes Absolute Auto 0.7 0.1-1.2 X10*3/uL Eosinophils Absolute Auto 0.2 0.0-0.4 X10*3/uL Basophils Absolute Auto 0.1 0.0-0.2 X10*3/uL NRBC Abs Auto 0.000 0.0-0.012 X10*3/uL Hold Gold Reviewed date:07/04/2024 05:01:58 PM Interpretation: Performing Lab:[facility], [address] [place] [phone] Notes/Report: Hold Gold See Note Specimen held untested for 24 hours; Call to request Chemistry testing. Glucose, finger stick Reviewed date:07/04/2024 01:41:43 PM Interpretation: Performing Lab: Notes/Report: Value 103 TSH reflex Free T4 Reviewed date:07/05/2024 08:06:33 PM Interpretation: Performing Lab:[facility], [address] [place] [phone] Notes/Report: TSH reflex Free T4 1.77 0.32-4.0 uIU/mL Complete Blood Count Auto Di ff Reviewed date:11/27/2024 01:51:59 PM Interpretation:[place] [facility]forming Lab:[facility], [address] [place] [phone] Notes/Report: White Blood Count 12.0 4.8-10.8 X10*3/uL Red Blood Count 4.15 4.20-5.50 X10*6/uL Hemoglobin 13.5 12.0-16.0 g/dl Hematocrit 38.0 37.0-47.0 % Mean Corpuscular Volume 91.6 80.0-98.0 fL Mean Corpuscular Hemoglobin 32.5 27.0-33.0 pg Mean Corpuscular HGB Conc 35.5 31.0-35.0 g/dl Red Cell Distribution Width 13.7 11.0-16.0 % Platelet Count 129 160-400 X10*3/uL Mean Platelet Volume 10.1 9.4-12.3 fL Neutrophils Percent Auto 85.5 45-73 % Imm Gran Pct Auto 0.5 0.0-0.4 % Lymphocytes Percent Auto 7.0 20-40 % Monocytes Percent Auto 6.7 2-11 % Eosinophils Percent Auto 0.1 0-4 % Basophils Percent Auto 0.2 0-2 % NRBC Pct Auto 0.0 0.0-0.2 /100WBC Neutrophils Absolute Auto 10.3 2.0-8.3 x10*3/uL Imm Gran Abs Auto 0.06 0.00-0.03 X10*3/uL Lymphocytes Absolute Auto 0.8 1.2-4.9 X10*3/uL Monocytes Absolute Auto 0.8 0.1-1.2 X10*3/uL Eosinophils Absolute Auto 0.0 0.0-0.4 X10*3/uL Basophils Absolute Auto 0.0 0.0-0.2 X10*3/uL NRBC Abs Auto 0.000 0.0-0.012 X10*3/uL Prothrombin Time INR Reviewed date:10/29/2024 12:08:00 PM Interpretation: Performing Lab:[address] [phone] Notes/Report: Prothrombin Time 18.6 10.9-12.4 SEC INTERNATIONAL NORM RATIO 1.6 0.9-1.1 INTERNATIONAL NORMALIZED RATIO (INR) REFERENCE RANGES Reference Range For patients not on anticoagulant therapy: 0.9 - 1.1 INR ranges for oral anticoagulant therapy: For prevention and treatment of venous thrombosis and pulmonary embolism: 2.0 - 3.0 For acute myocardial infarction with aspirin therapy: 2.0 - 3.0 For acute myocardial infarction without aspirin therapy: 3.0 - 4.0 For patients with mechanical prosthetic heart valves: 2.5 - 3.5 Liver Panel Reviewed date:10/29/2024 11:56:50 AM Interpretation: Performing Lab:[address] [phone] Notes/Report: Bilirubin Total 0.6 0.0-1.0 mg/dL Bilirubin Direct 0.3 0.0-0.5 mg/dL Aspartate Amino Transferase 32 5-31 U/L Alanine Aminotransferase 25 0-31 U/L Total Protein 6.8 6.5-8.0 g/dL Albumin Level 3.9 3.5-5.0 g/dL Alkaline Phosphatase 56 39-117 U/L Basic Metabolic Panel Reviewed date:10/30/2024 12:57:22 PM Interpretation: Performing Lab:[address] [phone] Notes/Report: Sodium 136 135-145 mmol/L Potassium 3.9 3.3-5.1 mmol/L Chloride 103 96-108 mmol/L Carbon Dioxide 23 22-29 mmol/L Anion Gap 14 12-20 Blood Urea Nitrogen 16 9-16 mg/dL Creatinine 0.78 0.5-1.4 mg/dL Creatinine Clr Calc Pharmacy 42.4 Provided height and weight: 162.56 cm, 51 kg. eGFR (calculated from the MDRD study equation) and eCrCl (calculated from the Cockcroft-Gault equation) are based on different parameters and may not yield comparable results. If eCrCl result is absurd, please check patient's height/weight. Estimated Glomerular Filt Rate > 60 Chronic Kidney Disease: Estimated GFR < 60 mL/min/1.73m2 Severe Kidney Disease: Estimated GFR < 15 mL/min/1.73m2 Glucose Random 112 60-115 mg/dL Calcium 9.2 8.4-10.2 mg/dL Lactic Acid Reviewed date:10/29/2024 12:07:47 PM Interpretation: Performing Lab:[facility], [address] [place] [phone] Notes/Report: Lactic Acid 1.3 0.5-2.0 mmol/L Magnesium Reviewed date:10/29/2024 12:00:41 PM Interpretation: Performing Lab:[facility], [address] [place] [phone] Notes/Report: Magnesium 1.9 1.6-2.6 mg/dL Troponin-I High Sensitivity Reviewed date:10/29/2024 11:56:33 AM Interpretation: Performing Lab:[facility], [address] [place] [phone] Notes/Report: Troponin-I High Sensitivity 31.3 <3.5-17.0 ng/L The Lay high sensitivity Troponin-I results should be used in conjunction with other diagnostic information such as ECG, clinical observations and information, and patient symptoms to aid in the diagnosis of LA. SARS-CoV2/FLU/RSV Reviewed date:10/29/2024 12:00:11 PM Interpretation: Performing Lab:[facility], [address] [place] [phone] Notes/Report: Influenza A PCR NEGATIVE Negative Influenza B PCR NEGATIVE Negative Resp Syncy Virus RNA Qual PCR NEGATIVE Negative SARS COV2 PCR INHOUSE POSITIVE Negative All test results must be correlated with clinical findings. Negative results do not preclude SARS-CoV2, influenza A virus, influenza B virus and/or RSV infection and should not be used as the sole basis for treatment or other patient management decisions. Negative results must be combined with clinical observations, patient history, and epidemiological information. This test has not been evaluated for monitoring treatment of infection. This test has been authorized by the FDA under an Emergency Use Authorization (EUA) for use by authorized laboratories. Testing performed on the [employer] GeneXpert utilizing real-time RT-PCR. All SARS CoV2 and positive influenza A/B results are reported to [facility]. Blood Culture (First) Reviewed date:10/31/2024 12:41:33 PM Interpretation: Performing Lab:[facility], [address] [place] [phone] Notes/Report: Blood Culture (First) Results of Blood Culture gram stain called to and read back by MCTA at 1907 on 10/29/24 by AUSTYN. Blood Culture (First) Results of Blood Culture gram stain called to and read back by MCTA at 1907 on 10/29/24 by AUSTYN. Blood Culture (First) Results of Blood Culture gram stain called to and read back by MCTA at 1907 on 10/29/24 by AUSTYN. Blood Culture (First) Results of Blood Culture gram stain called to and read back by MCTA at 1907 on 10/29/24 by AUSTYN. Blood Culture (First) Results of Blood Culture gram stain called to and read back by MCTA at 1907 on 10/29/24 by AUSTYN. Blood Culture (First) Results of Blood Culture gram stain called to and read back by MCTA at 1907 on 10/29/24 by AUSTYN. Blood Culture (First) Results of Blood Culture gram stain called to and read back by M[facility]A at 1907 on 10/29/24 by AUSTYN. Blood Culture (First) Results of Blood Culture gram stain called to and read back by MCTA at 1907 on 10/29/24 by AUSTYN. Blood Culture (First) Results of Blood Culture gram stain called to and read back by MCTA at 1907 on 10/29/24 by AUSTYN. Blood Culture (First) BC Positive/Drawn Results of Blood Culture gram stain called to and read back by M[facility]A at 1907 on 10/29/24 by AUSTYN. Blood Culture (First) 1 set positive/2 s ets drawn Results of Blood Culture gram stain called to and read back by M[facility]A at 1907 on 10/29/24 by AUSTYN. Blood Culture (First) GS - on external report Results of Blood Culture gram stain called to and read back by M[facility]A at 1907 on 10/29/24 by AUSTYN. Blood Culture (First) Gram-positive cocc i in chains Results of Blood Culture gram stain called to and read back by M[facility]A at 1907 on 10/29/24 by AUSTYN. Blood Culture (First) Review Comment Results of Blood Culture gram stain called to and read back by M[facility]A at 1907 on 10/29/24 by AUSTYN. Blood Culture (First) Gram stain reviewe d by a Scrap Drop Operator Results of Blood Culture gram stain [facility] and [facility] 1907 on 10/29/24 by AUSTYN. O:STRVID Streptococcus virida ns group Blood Culture (First) Unlikely path Results of Blood Culture gram stain called to and read back by [facility] 1907 on 10/29/24 by AUSTYN. Blood Culture (First) Unlikely pathogen; call Micro if further workup indicated. Results of Blood Culture gram stain called to and read back by [facility] 1907 on 10/29/24 by AUSTYN. Blood Culture (Second) Reviewed date:11/03/2024 10:00:02 AM Interpretation: Performing Lab:[address] [phone] Notes/Report: Blood Culture (Second) No growth after 5 days. UA ClnCatch+Micro w/rflx Cul t Reviewed date:10/30/2024 12:56:57 PM Interpretation: Performing Lab:[address] [address] Notes/Report: [id number] Urine, Clean Catch Color Urine Yellow Appearance Urine Clear PH 6.0 5.0-9.0 Glucose Urine UA Negative Negative mg/dL Urine Blood Small (1+) Negative Specific Cary - Urine 1.020 1.005-1.025 Urine Protein 30 (1+) Neg-Trace mg/dL Urine Ketones 15 Negative mg/dL Nitrite Urine Negative Negative Leukocyte Esterase Urine Trace Negative RBC Urine 11-20 0-2 /HPF WBC Urine 0-5 0-5 /HPF Squamous Epithelial Cell Urine 3-5 0-2 /HPF Bacteria Urine None Seen None Seen Hyaline Casts Urine 0-2 0-2 /LPF CT cervical spine wo con Reviewed date:10/29/2024 11:58:41 AM Interpretation: Performing Lab: Notes/Report: [address] [address] [address] Scan Report Signed Patient: Donna Andino MR#: [id number] : 1940 Acct:[id number] Age/Sex: 84 / F ADM Date: 10/28/24 Loc: HO.ED Attending Dr: Ordering Physician: Tammie Quinn NP Date of Service: 10/28/24 Procedure(s): CT cervical spine wo IV con Accession Number(s): [id number] cc: Pal Randall MD; Tammie Quinn NP EXAMINATION: CT HEAD WITHOUT CONTRAST CT CERVICAL SPINE WITHOUT CONTRAST CLINICAL INFORMATION: Unwitnessed fall. COMPARISON: Head CTs dated April 16, 2022 and April 14, 2022. CT scan of the cervical spine dated April 14, 2022. TECHNIQUE: CT of the head and cervical spine were performed without intravenous contrast. Multiplanar reformats were rendered and reviewed. This CT examination was performed using dose optimization techniques as appropriate, variously including the following: *Automated exposure control *Adjustment of mA and/or kV according to patient size (this includes techniques or standardized protocols for targeted exams where dose is matched to indication/reason for exam; i.e. extremities or head) *Use of iterative reconstruction technique DLP: Within normal limits, FINDINGS: CT head: No intracranial hemorrhage, large infarction, or mass lesion is seen. Age-appropriate diffuse cortical atrophy and chronic bilateral periventricular white matter ischemic change. No extra-axial collection is appreciated. The ventricles are normal in size and configuration without evidence of hydrocephalus. Left occipital subgaleal/subcutaneous hematoma. The visualized paranasal sinuses and mastoid air cells are clear. Mild deviation of the nasal septum toward the right. Bilateral lens extractions. CT cervical spine: The vertebral body heights appear maintained. No cervical spine fracture is seen. Mild reversal of the normal cervical lordosis, likely positional. No acute malalignment identified. The paraspinal soft tissues appear within normal limits. The partially imaged lung apices appear clear. Mild calcification of the carotid bulbs. CT/CT cervical spine wo IV con IMPRESSION: CT head: No acute intracranial finding. CT cervical spine: No cervical spine fracture or traumatic malalignment identified. Electronically signed by: Lamont Villalta MD 10/28/2024 02:55 PM [facility] Dictated By: Lamont Villalta Signed By: <Electronically signed by Lamont Villalta in OV> 10/28/24 1455 DD/ 1342 TD/TT: 10/28/24 1420 Plate Slitter And Inspector: CT head/brain wo con Reviewed date:10/29/2024 12:01:37 PM Interpretation: Performing Lab: Notes/Report: [address] [address] [address] Scan Report Signed Patient: Donna Andino MR#: [id number] : 1940 Acct:[id number] Age/Sex: 84 / F ADM Date: 10/28/24 Loc: HO.ED Attending Dr: Ordering Physician: Tammie Quinn NP Date of Service: 10/28/24 Procedure(s): CT head/brain wo IV con Accession Number(s): [id number] cc: Pal Randall MD; Tammie Quinn NP EXAMINATION: CT HEAD WITHOUT CONTRAST CT CERVICAL SPINE WITHOUT CONTRAST CLINICAL INFORMATION: Unwitnessed fall. COMPARISON: Head CTs dated April 16, 2022 and April 14, 2022. CT scan of the cervical spine dated April 14, 2022. TECHNIQUE: CT of the head and cervical spine were performed without intravenous contrast. Multiplanar reformats were rendered and reviewed. This CT examination was performed using dose optimization techniques as appropriate, variously including the following: *Automated exposure control *Adjustment of mA and/or kV according to patient size (this includes techniques or standardized protocols for targeted exams where dose is matched to indication/reason for exam; i.e. extremities or head) *Use of iterative reconstruction technique DLP: Within normal limits, FINDINGS: CT head: No intracranial hemorrhage, large infarction, or mass lesion is seen. Age-appropriate diffuse cortical atrophy and chronic bilateral periventricular white matter ischemic change. No extra-axial collection is appreciated. The ventricles are normal in size and configuration without evidence of hydrocephalus. Left occipital subgaleal/subcutaneous hematoma. The visualized paranasal sinuses and mastoid air cells are clear. Mild deviation of the nasal septum toward the right. Bilateral lens extractions. CT cervical spine: The vertebral body heights appear maintained. No cervical spine fracture is seen. Mild reversal of the normal cervical lordosis, likely positional. No acute malalignment identified. The paraspinal soft tissues appear within normal limits. The partially imaged lung apices appear clear. Mild calcification of the carotid bulbs. CT/CT head/brain wo IV con IMPRESSION: CT head: No acute intracranial finding. CT cervical spine: No cervical spine fracture or traumatic malalignment identified. Electronically signed by: Lamont Villalta MD 10/28/2024 02:55 PM [facility] Dictated By: Lamont Villalta Signed By: <Electronically signed by Lamont Villalta in OV> 10/28/24 1455 DD/ 1342 TD/TT: 10/28/24 1420 Plate Slitter And Inspector: XR chest 2V Reviewed date:10/29/2024 12:00:32 PM Interpretation: Performing Lab: Notes/Report: [address] [address] XRay Report Signed Patient: Donna Andino MR#: [id number] : 1940 Acct:[id number] Age/Sex: 84 / F ADM Date: 10/28/24 Loc: HO.ED Attending Dr: Ordering Physician: Tammie Quinn NP Date of Service: 10/28/24 Procedure(s): XR chest 2V Accession Number(s): [id number] cc: Pal Randall MD; Tammie Quinn NP EXAMINATION: XR CHEST CLINICAL INFORMATION: weakness, fever COMPARISON: CTA chest April 30, 2022 TECHNIQUE: 2 views of the chest were obtained. FINDINGS: The heart and mediastinal borders are normal. No focal consolidation. No pleural effusion. 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 Diffuse osteopenia XR/XR chest 2V IMPRESSION: No focal consolidation to suggest pneumonia Electronically signed by: Brian Orozco MD 10/28/2024 03:48 PM [facility] Dictated By: Brian Orozco MD Signed By: <Electronically signed by Brian Orozco MD in OV> 10/28/24 1548 DD/ 1530 TD/TT: 10/28/24 1535 Plate Slitter And Inspector: Troponin-I High Sensitivity Reviewed date:10/29/2024 11:49:35 AM Interpretation: Performing Lab:[facility], [address] [place] [phone] Notes/Report: Troponin-I High Sensitivity 32.7 <3.5-17.0 ng/L The [place] high sensitivity Troponin-I results should be used in conjunction with other diagnostic information such as ECG, clinical observations and information, and patient symptoms to aid in the diagnosis of LA. Blood Culture (First) Reviewed date:11/04/2024 02:38:51 PM Interpretation: Performing Lab:[facility], [address] [place] [phone] Notes/Report: Blood Culture (First) No growth after 5 days. Blood Culture (Second) Reviewed date:11/04/2024 02:39:00 PM Interpretation: Performing Lab:[facility], [address] [place] [phone] Notes/Report: Blood Culture (Second) No growth after 5 days. Complete Blood Count Auto Di ff Reviewed date:11/13/2024 06:30:50 PM Interpretation: Performing Lab:[facility], [address] [place] [phone] Notes/Report: White Blood Count 7.8 4.8-10.8 X10*3/uL [...] 0.0-0.2 /100WBC Neutrophils Absolute Auto 4.4 2.0-8.3 x10*3/uL Imm Gran Abs Auto 0.02 0.00-0.03 X10*3/uL Lymphocytes Absolute Auto 2.6 1.2-4.9 X10*3/uL Monocytes Absolute Auto 0.7 0.1-1.2 X10*3/uL Eosinophils Absolute Auto 0.1 0.0-0.4 X10*3/uL Basophils Absolute Auto 0.1 0.0-0.2 X10*3/uL NRBC Abs Auto 0.000 0.0-0.012 X10*3/uL REASON FOR REFERRAL Reason lumbar disc disease Diagnosis 1 Lumbar disc disease (M51.9) Referral Organization Pal Randall MD Referring Provider First Name Pal Referring Provider Last Name Prakash Referring Provider Speciality Internal M edicine Referred Provider William Allen Referred Provider Specialty Pain Medicin e General Notes Rachael Rendon 12:59:41 PM EST > info faxed , Rachael Rendon 12/07/2023 01:34:23 PM EST > info faxed patient's daughter will be setting up her appt Referral Priority Routine Referral Appointment Date 12/15/2023 MEDICATIONS Medication SIG (Take, Route, Frequency, Duration) Notes Start Date End Date Status Synthroid 88 MCG TAKE 1 TABLET DAILY IN THE MORNING ON AN EMPTY STOMACH Active Eliquis 2.5 MG as directed Orally T wice a day for 5 days 07/10/2022 Not-Taking Ibuprofen 200 MG 1 tablet as needed O rally every 6 hrs Not-Taking Magnesium 125 MG as directed Orally Active Eliquis 5 mg TAKE 1 TABLET TWICE A DAY Active PriLOSEC OTC 20 MG 1 tablet 30 minutes before morning meal Orally Once a day for 30 day(s) Not-Taking Vitamin D-3 1000 UNIT 1 capsule Orally O nce a day 12/06/2018 Active Lisinopril 10 mg TAKE 1 TABLET DAILY Active IMMUNIZATIONS Vaccine Route Administration Date Status Comme nts Flu Vaccine IM Intramuscular 08/17/2011 Administered Flu Vaccine IM Intramuscular 08/30/2012 Administered Flu Vaccine IM Intramuscular 09/11/2013 Administered PPSV23 (Pnemovax) IM Intramuscular 09/18/2013 Administered Fluarix Quadrivalent IM Intramuscular 08/27/2014 Administe red Prevnar 13 IM Intramuscular 04/01/2015 Administered zFluzone Quadrivalent IM Intramuscular 10/07/2015 Administ ered Fluarix Quadrivalent IM Intramuscular 09/07/2016 Administe red Fluarix Quadrivalent IM Intramuscular 09/30/2017 Administe red Fluarix Quadrivalent IM Intramuscular 08/16/2018 Administe red PPSV23 (Pnemovax) IM Intramuscular 09/29/2018 Administered Fluarix Quadrivalent IM Intramuscular 08/15/2019 Administe red Fluarix Quadrivalent IM Intramuscular 08/14/2020 Administe red SARS-COV-2 Pfizer Unknown 01/20/2021 Administered SARS-COV-2 Pfizer Unknown 12/30/2020 Administered Influenza High Dose IM Intramuscular 08/19/2021 Administer ed SARS-COV-2 Pfizer Unknown 11/03/2021 Administered Influenza High Dose Unknown 10/31/2022 Administered [facility] Influenza High Dose IM Intramuscular 08/19/2023 Administer ed Shingles Unknown 10/14/2015 Refused Flu Vaccine Unknown 08/27/2014 Pending SOCIAL HISTORY Tobacco Use: Social History Observation Description Date Details (start date - stop date) Never Smoker NA - NA Sex Assigned At : Social History Observation Description Sex Assigned At Unknown Tobacco Use/Smoking Question Answer Notes Patient is a nonsmoker Additional Findings: Tobacco Non-User Cu rrent non-smoker, currently using no form of tobacco Alcohol Screen Question Answer Notes Did you have a drink containing alcohol in the p ast year? 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 Dissection o f vertebral artery (880549649) Problem Lumbar disc disease (M51.9) Active confirmed 65466596 Problem Acquired hypothyroid ism (E03.9) Active confirmed 887094435 Problem Prediabetes (R73.09) Active confirmed 9 771153 Problem History of pulmonary embolism (Z86.711) Active confirmed 926210177 Problem Heart block (I45.9) Active confirmed He art block (169379818) Problem Pure hypercholesterolemia (E78.00) Active confirmed 300595298 Problem Osteopenia of multip le sites (M85.89) Active confirmed 015184359 Problem 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) Active confirmed 159759084 VITAL SIGNS Blood pressure diastolic 60 mm Hg 11/17/2024 maribeth ght is down 2 pounds since 07-04-24 Height 62.25 in 11/17/2024 weight is down 2 pounds since 07-04-24 Blood pressure systolic 120 mm Hg 11/17/2024 weig ht is down 2 pounds since 07-04-24 Weight 112 lbs 11/17/2024 weight is down 2 pounds since 07-04-24 BMI 20.32 kg/m2 11/17/2024 weight is down 2 pounds since 07-04-24 Encounters Encounter Location Date Provider Diagnosis Pal Randall MD [address] [place] [address] [id number] 12/30/2023 Pal Randall Prediabetes R73.09 ; Mixed stress and urge urinary incontinence N39.46 ; Lymphocytosis D72.820 ; Lumbar disc disease M51.9 ; Vitamin D deficiency E55.9 ; Pure hypercholesterolemia E78.00 ; Acquired hypothyroidism E03.9 ; Colon cancer screening Z12.11 and Depression screening Z13.31 Pal Randall MD [address] [place] [address] [id number] 12/23/2023 Pal Randall Acquired hypothyroid ism E03.9 ; Prediabetes R73.09 ; Pure hypercholesterolemia E78.00 and Vitamin D deficiency E55.9 Pal Randall MD [address] [place] [address] [id number] 01/27/2024 Pal Randall Lymphocytosis D72.82 0 Pal Randall MD [address] [place] [address] [id number] 11/07/2024 Pal Randall Lymphocytosis D72.82 0 Pal Randall MD [address] [id number] 07/04/2024 Pal Randall Prediabetes R73.09 a nd Acquired hypothyroidism E03.9 Pal Randall MD [address] [place] [address] [id number] 11/17/2024 Pal Randall COVID-19 U07.1 ; Microscopic hematuria R31.29 and Thrombocytopenia D69.6 Pal Randall MD [address] [id number] 12/07/2023 Pal Randall Lumbar disc disease M51.9 Pal Randall MD [address] [id number] 10/30/2024 Pal Randall MD [address] [id number] 11/09/2024 Pal Randall ASSESSMENTS Encounter Date Diagnosis Assessment Notes Treatment Notes Treatment Clinical Notes 12/30/2023 Prediabetes (ICD-10 - R73.09) good a1c, no need for medication at this time 12/30/2023 Mixed stress and urg e urinary incontinence (ICD-10 - N39.46) wears a pad 12/23/2023 Acquired hypothyroid ism (ICD-10 - E03.9) 12/23/2023 Prediabetes (ICD-10 - R73.09) 01/27/2024 Lymphocytosis (ICD-1 0 - D72.820) 11/07/2024 Lymphocytosis (ICD-1 0 - D72.820) 07/04/2024 Acquired hypothyroid ism (ICD-10 - E03.9) stable, will continue current regiment 07/04/2024 Prediabetes (ICD-10 - R73.09) stable, no need formedication at this time 11/17/2024 Microscopic hematuri a (ICD-10 - R31.29) was in er and urine had blood. son says she was not cathed. will repeat. is going to take container home and bring it back 11/17/2024 COVID-19 (ICD-10 - U07.1) is recover ed. 12/07/2023 Lumbar disc disease (ICD-10 - M51.9) 12/30/2023 Lymphocytosis (ICD-1 0 - D72.820) 12/23/2023 Pure hypercholestero lemia (ICD-10 - E78.00) 11/17/2024 Thrombocytopenia (IC D-10 - D69.6) that has resolved and platelts back to normal 12/30/2023 Lumbar disc disease (ICD-10 - M51.9) has resolved 12/23/2023 Vitamin D deficiency (ICD-10 - E55.9) 12/30/2023 Vitamin D deficiency (ICD-10 - E55.9) stable, will continue current regiment 12/30/2023 Pure hypercholestero lemia (ICD-10 - E78.00) stable, will continue current regiment 12/30/2023 Acquired hypothyroid ism (ICD-10 - E03.9) stable, will continue current regiment 12/30/2023 Colon cancer screeni ng (ICD-10 - Z12.11) no stool found, sent home with stool cards, will return cards to office 12/30/2023 Depression screening (ICD-10 - Z13.31) negative screen PLAN OF TREATMENT Pending Test Test Name Order Date Electrocardiogram (EKG) 10/14/2015 Electrocardiogram (EKG) 12/08/2019 XR BARIUM SWALLOW, MODIFIED VIDEO 2021 Urinalysis and Microscopic 11/17/2024 Next Appt Details Provider Name:Pal milian, 12/25/2024 07:00:00 AM, [address], [address], [place], [place], [id number], Provider Name:Pal milian, 01/01/2025 02:30:00 PM, [address], [address], [place], [place], [id number], Insurance Providers Payer Name Payer Address Payer Phone Subscriber Number Group Number Insured Name Patient Relationship to Insured Coverage Start Date Coverage End Date MEDICARE [employer] [address] [place] [address] [id number] Donna Andino Self - patient is the insured [facility] Proxeon [facility] [address] [place] [phone] [id number] Donna Andino Self - patient is the insured MEDICAL (GENERAL) HISTORY Medical History History ICD Code colonoscopy 2010 had a hyperplastic poly p pulmonary embolist 05/13 vertebral artey disection 04/19
--- OUTSIDE RECORDS SUMMARY | 2024-12-04 16:02 | XMS_ITS | Clinical Summary ---
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) USE OF ANTITHROMBOT ICS/ANTIPLAT ELETS Active [...] Frequency Signature (SIG) Comments Components NONE Yes [id number] (route: ) acetaminoph en 325 mg tablet 04-24 00:00: 00 Yes [id number] 2 tablet DIRECTED 2 tablet DIRECTED (route: oral) Med Classific ation: Analgesic , Anti-infl ammatory or Antipyret ic Keppra 500 mg tablet 04-24 00:00: 00 Yes [id number] 1 tablet 2 TIMES DAILY 1 tablet 2 TIMES DAILY (route: oral) Med Classific ation: Central Nervous System Agents Plavix 75 mg tablet 04-24 00:00: 00 Yes [id number] 1 tablet DAILY 1 tablet DAILY (route: oral) Med Classific ation: Hematolog ical Agents Adult Low Dose Aspirin 81 mg tablet,nannette yed release 04-24 00:00: 00 Yes [id number] 1 tablet DAILY 1 tablet DAILY (route: oral) Med Classific ation: Hematolog ical Agents levothyroxi ne 88 mcg tablet 04-24 00:00: 00 Yes [id number] 1 tablet DAILY 1 tablet DAILY (route: oral) Med Classific ation: Endocrine Vitamin D3 25 mcg (1,000 unit) capsule 04-24 00:00: 00 Yes [id number] 1 capsule DAILY 1 capsule DAILY (route: oral) Med Classific ation: Electroly te Balance-N utritiona l Products cefuroxime axetil 250 mg tablet 04-24 00:00: 00 04-24 23:59 :00 No [id number] 1 tablet 2 TIMES DAILY 1 tablet 2 TIMES DAILY (route: oral) Med Classific ation: Anti-Infe ctive Agents lisinopril 10 mg tablet 04-24 00:00: 00 Yes [id number] 1 tablet DAILY 1 tablet DAILY (route: [...] WHEELED WALKER. PATIENT REQUIRES CONTACT GUARD FOR [id number]. PATIENT REQUIRED MINIMUM ASSIST OF WANT TO [...] ON STEPS INTO IN OUT-OF-HOME, TRANSFER TRAINING [id number], WELL DEVELOPMENT OF STANDING BALANCE ACTIVITIES AND [...] WHEELED WALKER. PATIENT REQUIRES CONTACT GUARD FOR [id number]. PATIENT REQUIRED MINIMUM ASSIST OF WANT TO [...] ON STEPS INTO IN OUT-OF-HOME, TRANSFER TRAINING [id number], WELL DEVELOPMENT OF STANDING BALANCE ACTIVITIES AND [...] End Date/Time Encounter Type Admission Type Attending [facility] Care Facility Care Department Encounter ID Discharge Date Discharge Status Discharge Condition Discharge Reason Percent Goals Met 2022-04-17 00:00:00 2022-06-08 00:00:00 Outpatient NEW ADMISSION [facility] [id number] 3812-07-18 00:00:00 DISCHARGE TO HOME OR SELF CARE INDEPENDEN T IN THE HOME GOALS MET ( ONLY) 84.62
== END 2024-12-04 14:03 | disposition home or self-care (01) ==
PROVIDERS: PCP Internal Medicine; Visit Provider Nurse Practitioner Family
DX: I48.92 Unspecified atrial flutter (principal); Z95.0 Presence of cardiac pacemaker; I44.2 Atrioventricular block, complete
CPT/HCPCS: 93280; 99214; G2211

== ENCOUNTER → 2024-12-04 13:19 | Outpatient (BNVA) | payer MEDICARE, OTHER, SELFPAY | PROVIDERS: PCP Internal Medicine; Visit Provider Nurse Practitioner Family | DX: Z45.018 Encounter for adjustment and management of other part of cardiac pacemaker (principal); I48.92 Unspecified atrial flutter; I44.2 Atrioventricular block, complete | CPT/HCPCS: 93280; 99212 ==

== ENCOUNTER 2024-12-25 07:00 | Outpatient (REF) | payer MEDICARE, OTHER, SELFPAY ==
[2024-12-25 10:58] LABS: MANUAL DIFF FLAG NO
[2024-12-25 11:35] LABS: Basophils Absolute Auto 0.1 X10*3/uL (0.0-0.2); Basophils Percent Auto 0.7 % (0-2); Eosinophils Absolute Auto 0.1 X10*3/uL (0.0-0.4); Eosinophils Percent Auto 1.5 % (0-4); Hematocrit 40.4 % (37.0-47.0); Hemoglobin 13.4 g/dl (12.0-16.0); Imm Gran Abs Auto 0.03 X10*3/uL (0.00-0.03); Imm Gran Pct Auto 0.3 % (0.0-0.4); Lymphocytes Absolute Auto 2.8 X10*3/uL (1.2-4.9); Lymphocytes Percent Auto 28.8 % (20-40); Mean Corpuscular HGB Conc 33.2 g/dl (31.0-35.0); Mean Corpuscular Hemoglobin 31.5 pg (27.0-33.0); Mean Corpuscular Volume 95.1 fL (80.0-98.0); Mean Platelet Volume 10.8 fL (9.4-12.3); Monocytes Absolute Auto 0.8 X10*3/uL (0.1-1.2); Monocytes Percent Auto 7.9 % (2-11); Neutrophils Absolute Auto 5.9 x10*3/uL (2.0-8.3); Neutrophils Percent Auto 60.8 % (45-73); Platelet Count 261 X10*3/uL (160-400); Red Blood Count 4.25 X10*6/uL (4.20-5.50); White Blood Count 9.7 X10*3/uL (4.8-10.8)
[2024-12-25 11:37] LABS: Appearance Urine Clear; Color Urine Yellow; Glucose Urine UA Negative (Negative); Leukocyte Esterase Urine Moderate (2+) (Negative); Nitrite Urine Negative (Negative); UMIC TRIGGER UACC YES; Urine Blood Negative (Negative); Urine Ketones Negative (Negative); Urine Protein Negative (Neg-Trace)
[2024-12-25 11:44] LABS: Bacteria Urine None Seen (None Seen); Hyaline Casts Urine 0-2 /LPF (0-2); RBC Urine 0-2 /HPF (0-2); Squamous Epithelial Cell Urine 0-2 /HPF (0-2); UACC Culture Trigger YES; WBC Urine 21-50 /HPF (0-5)
--- OUTSIDE RECORDS SUMMARY | 2024-12-25 11:59 | XMS_ITS | Continuity of Care Document ---
Author Name [facility] Organization [facility] Care Team Providers Care International Accountant Name Role Phone [facility] Unavailable Unavailable Medications Combined list of outpatient medications from Department of Defense and Veterans Affairs facilities.Medications provided include 1) outpatient medications from the last 15 months, and 2) patient-reported medications. Medication Details Route Status Patient Instructions Prescription Expires Prescription Number Last Dispense Date Ordering Provider Order Date Order Qty Source DEXAMETHASO NE (dexamethas one), 2 MG, TABLET, ORAL, AMNEAL PHARMACE, 100 ea. BOTTLE Active [id number] 2023 14 Pharmac y Data Transac tion Service Facilit y DEXAMETHASO NE (dexamethas one), 2 MG, TABLET, ORAL, AMNEAL PHARMACE, 100 ea. BOTTLE Active [id number] 4 2023 14 Pharmac y Data Transac tion Service Facilit y ELIQUIS (APIXABAN), 5 MG, TABLET, ORAL, [facility]MS [facility] , 60 ea. BOTTLE Active [id number] 2023 180 Pharmac y Data Transac tion Service Facilit y LISINOPRIL (lisinopril ), 10 MG, TABLET, ORAL, EXELAN PHARMACE, 1000 ea. BOTTLE Active [id number] 4 2023 90 Pharmac y Data Transac tion Service Facilit y SYNTHROID (LEVOTHYROX INE SODIUM), 88 MCG, TABLET, ORAL, [facility]., 90 ea. BOTTLE Active [id number] 4 2023 90 Pharmac y Data Transac tion Service Facilit y Social History Combined list of available smoking, tobacco, and other social history from Department of Defense and Veterans Affairs facilities. Social History Type Response Date Comment Sourc e This section is an empty social history section. [facility]
[2024-12-25 12:04] LABS: Estimated Average Glucose 100 mg/dL; Hemoglobin A1C 114.7311 umol/L; Hemoglobin A1c % 5.1 % (<6.0); Total Hemoglobin (HGBA1C) 3580.9632 umol/L
[2024-12-25 12:38] LABS: Alanine Aminotransferase 13 U/L (0-31); Alkaline Phosphatase 71 U/L (39-117); Anion Gap 12 (12-20); Aspartate Amino Transferase 26 U/L (5-31); Bilirubin Total 0.5 mg/dL (0.0-1.0); Blood Urea Nitrogen 26 mg/dL (9-16); Calcium 8.8 mg/dL (8.4-10.2); Carbon Dioxide 25 mmol/L (22-29); Chloride 107 mmol/L (96-108); Cholesterol 176 mg/dL (<200); Estimated Glomerular Filt Rate > 60; Glucose Fasting 83 mg/dL (60-99); HDL Cholesterol 52 mg/dL (>40); LDL Cholesterol Calculated 109 mg/dL (<100); Potassium 3.9 mmol/L (3.3-5.1); Sodium 140 mmol/L (135-145); Total Protein 7.3 g/dL (6.5-8.0); Triglycerides 76 mg/dL (<150)
[2024-12-25 12:39] LABS: TSH reflex Free T4 1.19 uIU/mL (0.32-4.0)
[2024-12-25 12:51] LABS: Creatinine Urine 116.72 mg/dL; Microalbum/Creatinine Ratio Ur 5.9 ug/mg cr (<30)
== END 2024-12-25 07:01 | disposition home or self-care (01) ==
LOC: HO.LNP 07:00
PROVIDERS: Visit Provider Internal Medicine
DX: E03.9 Hypothyroidism, unspecified (principal); R73.03 Prediabetes; E78.00 Pure hypercholesterolemia, unspecified; D72.820 Lymphocytosis (symptomatic); E55.9 Vitamin D deficiency, unspecified
CPT/HCPCS: 80053; 80061; 81001; 81003; 82043; 82306; 82570; 83036; 84443; 85025; 87086

== ENCOUNTER → 2025-03-24 23:59 | Outpatient (BNV) | payer MEDICARE, OTHER, SELFPAY ==
--- NOTE | 2025-09-17 20:43 | MHC.OFFVIS ---
Intake Visit Reasons: Remote Device Check ([employer]tr[employer]) Allergies No Known Allergies Allergy (Verified 06/04/25 13:28) [facility] Medical History Pacemaker Nystagmus, congenital Hypothyroidism Surgical History History of permanent cardiac pacemaker placement (~05/01/22) Family History Father Myocardial infarction Mother Pacemaker Social History Household Members: Spouse and Family Housing: House Alcohol intake: never Patient Tobacco Use Status: Never used Tobacco service: No Current occupational status: retired Office Procedures Cardiac Device Check Cardiac Device Check Details: PPM 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 Patel - [facility], 05/01/2022 Code(s): Z95.0 - Presence of cardiac pacemaker Category: Surgical Plan Coding Level of Care Code Procedure Only Diagnoses History of permanent cardiac pacemaker placement Z95.0 CPT Codes Cardiac Device Check - Cardiac Device 12: 40033-[id number] Cardiac Device Interrogation, pacemaker ([id number])
== END ==
PROVIDERS: PCP Internal Medicine; Visit Provider Internal Medicine Cardiovascular Disease
DX: Z45.018 Encounter for adjustment and management of other part of cardiac pacemaker (principal)
CPT/HCPCS: 93294

== ENCOUNTER 2025-06-04 13:13 | Outpatient (AMB) | payer MEDICARE, OTHER, SELFPAY ==
--- NOTE | 2025-06-04 13:25 | A.OFFVIS_ITS ---
Vital Signs 06/04/25 13:26 Weight 111 lb 1.808 oz BP 124/62 Blood Pressure Location Lt brachial Position Sitting Pulse 84 Pulse Source Pulse Oximeter Intake Visit Reasons: 6m follow up w device ck Outpatient Program Coordinator Required: No Sealer Aircraft: Sealer Aircraft Present Allergies No Known Allergies Allergy (Verified 06/04/25 13:28) Medication List - Last Reconciled 06/04/25 by Nathalia Mendoza NP-C acetaminophen 650 mg PO Q8H PRN apixaban (Eliquis) 5 mg PO BID cholecalciferol (vitamin D3) 25 mcg PO DAILY levothyroxine (Synthroid) 1 tab PO DAILY lisinopril 10 mg PO DAILY walker (Ultra-Light Rollator misc) As directed HPI HPI 6m follow up w device ck: Details: Donna is an 84-year-old female with past medical history pulmonary embolism, heart block, syncope status post dual-chamber pacemaker placement, paroxysmal atrial flutter who presents for follow-up. Today she reports that she doing well since her last visit in November. She denies any heart palpitations, lightheadedness, presyncope, syncope, falls. No shortness of breath, PND, orthopnea or edema. No chest discomfort at rest or with activity. She does only light activities in the home. No reports of bleeding. Daughter is present. [facility] Medical History Pacemaker Nystagmus, congenital Hypothyroidism Surgical History History of permanent cardiac pacemaker placement (~05/01/22) Family History Father Myocardial infarction Mother Pacemaker Social History Household Members: Spouse and Family Housing: House Alcohol intake: never Patient Tobacco Use Status: Never used Tobacco service: No Current occupational status: retired Review of Systems Const All systems reviewed & are unremarkable except as noted in HPI and below ENT Denies dizziness Card Denies chest pain, Denies chest pain at rest, Denies chest pain with activity, D enies rapid heart rate, Denies pedal edema, Denies edema, Denies leg edema, Denies lightheadedness, Denies palpitations, Denies dyspnea, Denies dyspnea on exertion and Denies orthopnea Resp Denies cough, Denies dyspnea and Denies dyspnea on exertion GI Denies hematochezia and Denies change in stool character Musc Denies abnormal gait, Denies limited range of motion, Denies muscle cramps, Denies muscle weakness, Denies numbness, Denies radiating pain into limb, Denies stiffness and Denies tingling Neuro Denies abnormal gait, Denies dizziness, Denies numbness and Denies tingling Endo Denies palpitations Physical Exam Vital Signs: Last Vital Signs Pulse 84 06/04/25 13:26 BP 124/62 06/04/25 13:26 Const General: cooperative, healthy appearing, comfortable and no acute distress Orientation/consciousness: patient oriented x3 Neck Neck: Yes normal visual inspection Resp Effort & Inspection: normal respiratory effort Auscultation: clear to auscultation bilaterally, no rales, no rhonchi and no wheezes Cardio Jugular venous distension: no JVD Rate: regular rate Rhythm: regular rhythm Heart sounds: S1 normal heart sound present, S2 normal heart sound present, no murmurs and no rubs Neuro General: patient oriented x3 Extrem General: Yes normal to inspection, No no pedal edema and No calf tenderness Psych Appearance: grossly normal Mental Status: mental status grossly normal Speech and movement: Normal speech and movement present Office Procedures Cardiac Device Check Cardiac Device Check Details: Medtronic dual-chamber pacemaker interrogation today shows battery 9.9 years, DDD mode, low rate 60, atrial threshold 1.125 volts at 0.4 milliseconds, RV threshold 0.75 volts at 0.4 milliseconds, V paced 99.9%, a paced 5%, no events. 63339-CO Cardiac Device Check, pacemaker dual lead Procedure code (CPT) selection complete Assessment & Plan Assessment & Plan (1) Atrial flutter: Code(s): I48.92 - Unspecified atrial flutter Category: Medical Plan: Episodes of paroxysmal atrial flutter noted on device interrogation last October in the setting of COVID. She has not had known recurrent episodes since that time. She is not on rate slowing medications. She is on Eliquis for anticoagulation due to history of DVT and now PAF. Last echocardiogram done 04/16/2022 showing EF greater than 70%, severe mitral annular calcification, both atria normal size. Will continue to follow for AFib remotely. Continue Eliquis without interruption. Reviewed diagnosis of AFib and stroke risk it carries discussed with her and daughter. She does have recurrent episodes then she will likely require further med management to control (2) History of permanent cardiac pacemaker placement: Onset Date: ~05/01/22 Comment: [place]; Dr. Patel - [facility], 05/01/2022 Code(s): Z95.0 - Presence of cardiac pacemaker Category: Surgical Plan: Medtronic dual-chamber pacemaker in place. Office interrogation today shows device is functioning normally. Battery 9.9 years. Remote monitoring in use. Pacemaker site is benign. Next office interrogation in 6 months. (3) Complete heart block: Code(s): I44.2 - Atrioventricular block, complete Category: Medical Plan: Pacemaker in place Plan I discussed with the patient the importance of continuing Eliquis to manage atrial fibrillation and reduce stroke risk. We reviewed the pacemaker's status, confirming it is functioning well with a long battery life remaining. I advised her to maintain her current activity level and use the cane for balance, and to report any new symptoms or concerns. Patient Instructions: - Continue taking Eliquis as prescribed. - Monitor for any new symptoms and report them promptly. - Use cane for balance as needed. - Follow up in six months or sooner if needed. Patient was informed and verbally consented to the use of an ambient scribe for clinic note documentation during this visit. Visit time spent on chart review, interview, assessment, orders, documentation. Coding Level of Care Code Est Pt Level 4 (53826) Complex EM visit Add On G2211 Diagnoses Atrial flutter I48.92 History of permanent cardiac pacemaker placement Z95.0 Complete heart block I44.2 CPT Codes Cardiac Device Check - Cardiac Device 2: 53145-TP Cardiac Device Check, pacemaker dual lead ([id number]) Time Spent (min) 28
[2025-06-04 13:26] VITALS: BP 124/62; PULSE 84
--- OUTSIDE RECORDS SUMMARY | 2025-06-04 14:17 | XMS_ITS | Patient Health Record ---
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 Name Role Phone Pal Randall Primary Care Provider Allergies No Known Allergies Results Component Value Reference Range Notes Hemoglobin A1c Reviewed date:07/04/2024 02:04:01 PM Interpretation: Performing Lab: Notes/Report: Hemoglobin A1c 5.4 Complete Blood Count Auto Di ff Reviewed date:12/25/2024 05:58:00 PM Interpretation: Performing Lab:[facility], [address] [place] [phone] Notes/Report: White Blood Count 9.7 4.8-10.8 X10*3/uL Red Blood Count 4.25 4.20-5.50 X10*6/uL Hemoglobin 13.4 12.0-16.0 g/dl Hematocrit 40.4 37.0-47.0 % Mean Corpuscular Volume 95.1 80.0-98.0 fL Mean Corpuscular Hemoglobin 31.5 27.0-33.0 pg Mean Corpuscular HGB Conc 33.2 31.0-35.0 g/dl Red Cell Distribution Width 14.0 11.0-16.0 % Platelet Count 261 160-400 X10*3/uL Mean Platelet Volume 10.8 9.4-12.3 fL Neutrophils Percent Auto 60.8 45-73 % Imm Gran Pct Auto 0.3 0.0-0.4 % Lymphocytes Percent Auto 28.8 20-40 % Monocytes Percent Auto 7.9 2-11 % Eosinophils Percent Auto 1.5 0-4 % Basophils Percent Auto 0.7 0-2 % NRBC Pct Auto 0.0 0.0-0.2 /100WBC Neutrophils Absolute Auto 5.9 2.0-8.3 x10*3/uL Imm Gran Abs Auto 0.03 0.00-0.03 X10*3/uL Lymphocytes Absolute Auto 2.8 1.2-4.9 X10*3/uL Monocytes Absolute Auto 0.8 0.1-1.2 X10*3/uL Eosinophils Absolute Auto 0.1 0.0-0.4 X10*3/uL Basophils Absolute Auto 0.1 0.0-0.2 X10*3/uL NRBC Abs Auto 0.000 0.0-0.012 X10*3/uL Comprehensive [place]. Panel Fa st Reviewed date:12/25/2024 05:56:59 PM Interpretation: Performing Lab:[facility], [address] [place] [phone] Notes/Report: Sodium 140 135-145 mmol/L Potassium 3.9 3.3-5.1 mmol/L Chloride 107 96-108 mmol/L Carbon Dioxide 25 22-29 mmol/L Anion Gap 12 12-20 Blood Urea Nitrogen 26 9-16 mg/dL Creatinine 0.81 0.5-1.4 mg/dL Estimated Glomerular Filt Rate > 60 Chronic Kidney Disease: Estimated GFR < 60 mL/min/1.73m2 Severe Kidney Disease: Estimated GFR < 15 mL/min/1.73m2 Glucose Fasting 83 60-99 mg/dL Calcium 8.8 8.4-10.2 mg/dL Bilirubin Total 0.5 0.0-1.0 mg/dL Aspartate Amino Transferase 26 5-31 U/L Alanine Aminotransferase 13 0-31 U/L Total Protein 7.3 6.5-8.0 g/dL Albumin Level 4.0 3.5-5.0 g/dL Alkaline Phosphatase 71 39-117 U/L Lipid Panel Reviewed date:12/25/2024 05:52:34 PM Interpretation: Performing Lab:[facility], [address] [place] [phone] Notes/Report: Triglycerides 76 <150 mg/dL Desirable Triglyceride: less than 150 mg/dL Borderline High Triglyceride 150-199 mg/dL High Triglyceride: 200-499 mg/dL Very High Triglyceride: greater than or equal to 5OO mg/dL Cholesterol 176 <200 mg/dL Desirable Cholesterol: less than 200 mg/dL Borderline High Cholesterol: 200-239 mg/dL High Cholesterol: greater than 239 mg/dL LDL Cholesterol Calculated 109 <100 mg/dL Desirable LDL: less than 100 mg/dL Near Optimal/Above Optimal LDL: 110-129 mg/dL Borderline High LDL: 130-159 mg/dL High LDL: 160-189 mg/dL Very High LDL: greater than or equal to 190 mg/dL HDL Cholesterol 52 >40 mg/dL Desirable HDL: greater than 40 mg/dL Note: This HDL assay may give artificially low results in patients with liver disease. Vitamin D 25-OH Total Reviewed date:12/25/2024 05:53:05 PM Interpretation: Performing Lab:[facility], [address] [place] [phone] Notes/Report: Vitamin D 25-OH Total 56.0 >30 ng/mL Health Based Reference Values* < [...] confirmed with another method such as LC-MS/MS. TSH reflex Free T4 Reviewed date:12/25/2024 05:52:26 PM Interpretation: Performing Lab:[facility], [address] [place] [phone] Notes/Report: TSH reflex Free T4 1.19 0.32-4.0 uIU/mL Microalbumin, Random Reviewed date:12/25/2024 01:34:28 PM Interpretation: Performing Lab:[facility], [address] [place] [phone] Notes/Report: Creatinine Urine 116.72 Microalbumin Urine 7.0 Microalbum/Creatinine Ratio Ur 5.9 <30 ug/mg cr Albumin/Creatinine Ratio Reference Ranges: Normal: < 30 ug/mg creatinine Microalbuminuria: 30 - 300 ug/mg creatinine Clinical Albuminuria: > 300 ug/mg creatinine Hemoglobin A1c Reviewed date:12/25/2024 05:52:17 PM Interpretation: Performing Lab:[facility], [address] [place] [phone] Notes/Report: Hemoglobin A1c % 5.1 <6.0 % Hemoglobin A1C Reference Range Adults: 4.8 - 6.0 % Non diabetic: < 6.0 % Goal: < 7.0 % Additional Action Suggested: > 8.0 % Note: Hemoglobin A1c results are invalid for patients with abnormal amounts of HbF. Blood transfusions may impact the HbA1c concentration in the patient sample. Estimated Average Glucose 100 eAG = Estimated average glucose which is %A1C expressed as average glucose, using the formula of the Z6C-Leabwze Average Glucose study (ADAG), Diabetes Care, Vol.31,#8, Jun. 2007 UA ClnCatch+Micro w/rflx Cul t Reviewed date:12/25/2024 05:58:18 PM Interpretation: Performing Lab:[facility], [address] [place] [phone] Notes/Report: [id number] Urine, Clean Catch Color Urine Yellow Appearance Urine Clear PH 6.0 5.0-9.0 Glucose Urine UA Negative Negative mg/dL Urine Blood Negative Negative Specific Vernal - Urine 1.020 1.005-1.025 Urine Protein Negative Neg-Trace mg/dL Urine Ketones Negative Negative mg/dL Nitrite Urine Negative Negative Leukocyte Esterase Urine Moderate (2+) Negative RBC Urine 0-2 0-2 /HPF WBC Urine 21-50 0-5 /HPF Squamous Epithelial Cell Urine 0-2 0-2 /HPF Bacteria Urine None Seen None Seen Hyaline Casts Urine 0-2 0-2 /LPF Glucose, finger stick Reviewed date:07/04/2024 01:41:43 PM Interpretation: Performing Lab: Notes/Report: Value 103 TSH reflex Free T4 Reviewed date:07/05/2024 08:06:33 PM Interpretation: Performing Lab:[facility], [address] [place] [phone] Notes/Report: TSH reflex Free T4 1.77 0.32-4.0 uIU/mL Occult Blood, Stool, Guaiac Reviewed date:01/01/2025 03:46:55 PM Interpretation:Negative Performing Lab: Notes/Report: Negative Occult Blood, Stool, Guaiac Neg Hold Gold Reviewed date:07/04/2024 05:01:58 PM Interpretation: Performing Lab:[facility], [address] [place] [phone] Notes/Report: Hold Gold See Note Specimen held untested for 24 hours; Call to request Chemistry testing. Complete Blood Count Auto Di ff Reviewed date:11/27/2024 01:51:59 PM Interpretation:pt is in the [facility] Performing Lab:[facility], [address] [place] [phone] Notes/Report: White Blood Count 12.0 4.8-10.8 X10*3/uL [...] INR Reviewed date:10/29/2024 12:08:00 PM Interpretation: Performing Lab:[address] [phone] Notes/Report: Prothrombin Time 18.6 10.9-12.4 [employer] [...] Panel Reviewed date:10/29/2024 11:56:50 AM Interpretation: Performing Lab:[address] [phone] Notes/Report: Bilirubin Total 0.6 0.0-1.0 mg/dL Bilirubin Direct 0.3 0.0-0.5 mg/dL Aspartate Amino Transferase 32 5-31 U/L Alanine Aminotransferase 25 0-31 U/L Total Protein 6.8 6.5-8.0 g/dL Albumin Level 3.9 3.5-5.0 g/dL Alkaline Phosphatase 56 39-117 U/L Basic Metabolic Panel Reviewed date:10/30/2024 12:57:22 PM Interpretation: Performing Lab:[address] [phone] Notes/Report: Sodium 136 135-145 mmol/L Potassium 3.9 [...] Acid Reviewed date:10/29/2024 12:07:47 PM Interpretation: Performing Lab:[facility], [address] [place] [phone] Notes/Report: Lactic Acid 1.3 0.5-2.0 mmol/L Magnesium Reviewed date:10/29/2024 12:00:41 PM Interpretation: Performing Lab:[facility], [address] [place] [phone] Notes/Report: Magnesium 1.9 1.6-2.6 mg/dL Troponin-I High Sensitivity Reviewed date:10/29/2024 11:56:33 AM Interpretation: Performing Lab:[facility], [address] [place] [phone] Notes/Report: Troponin-I High Sensitivity 31.3 <3.5-17.0 ng/L The Lay high sensitivity Troponin-I results should be used in conjunction with other diagnostic information such as ECG, clinical observations and information, and patient symptoms to aid in the diagnosis of MS. SARS-CoV2/FLU/RSV Reviewed date:10/29/2024 12:00:11 PM Interpretation: Performing Lab:[address] [phone] Notes/Report: Influenza A PCR NEGATIVE Negative Influenza [...] by authorized laboratories. Testing performed on the [employer] GeneXpert utilizing real-time RT-PCR. All SARS CoV2 and positive influenza A/B results are reported to [facility]. Blood Culture (First) Reviewed date:10/31/2024 12:41:33 PM Interpretation: Performing Lab:[facility], [address] [place] [phone] Notes/Report: Blood Culture (First) Results of Blood [...] by [facility] at 1907 on 10/29/24 by ASUTYN. Blood Culture (First) Results of Blood Culture [...] stain [facility] and [facility] 1907 on 10/29/24 by AUSTYN. Blood Culture (First) GS - on external report Results of Blood Culture gram stain called to and read back by [facility] 1907 on 10/29/24 by AUSTYN. Blood Culture (First) Gram-positive cocc i in chains Results of Blood Culture gram stain called to and read back by [facility] 1907 on 10/29/24 by AUSTYN. Blood Culture (First) Review Comment Results of Blood Culture gram stain called to and read back by [facility] 1907 on 10/29/24 by AUSTYN. Blood Culture (First) Gram stain reviewe d by a Manager Background Results of Blood Culture gram stain called to and read back by [facility] at 1907 on 10/29/24 by AUSTYN. O:STRVID Streptococcus virida ns group Blood Culture (First) Unlikely path Results of Blood Culture gram stain called to and read [facility] 1907 on 10/29/24 by AUSTYN. Blood Culture (First) Unlikely pathogen; call Micro if further workup indicated. Results of Blood Culture gram stain called to and [facility] 1907 on 10/29/24 by AUSTYN. Blood Culture (Second) Reviewed date:11/03/2024 10:00:02 AM Interpretation: Performing Lab:[facility], [address] [place] [phone] Notes/Report: Blood Culture (Second) No growth after 5 days. UA ClnCatch+Micro w/rflx Cul t Reviewed date:10/30/2024 12:56:57 PM Interpretation: Performing Lab:[facility], [address] [place] [phone] Notes/Report: [id number] Urine, Clean Catch Color Urine Yellow Appearance Urine Clear PH 6.0 5.0-9.0 Glucose Urine UA Negative Negative mg/dL Urine Blood Small (1+) Negative Specific Vernal - Urine 1.020 1.005-1.025 Urine Protein 30 [...] date:10/29/2024 11:58:41 AM Interpretation: Performing Lab: Notes/Report: [address] [address] [address] Scan Report Signed Patient: Donna Andino MR#: [id number] : 1940 Acct:[id number] Age/Sex: 84 / F ADM Date: 10/28/24 Loc: HO.ED Attending Dr: Ordering Physician: Tammie Quinn NP Date of Service: 10/28/24 Procedure(s): CT cervical spine wo IV con Accession Number(s): [id number] cc: Pal Randall MD; Tammie Quinn NP [...] by: Lamont Villalta MD 10/28/2024 02:55 PM EST Dictated By: Lamont Villalta Signed By: <Electronically signed by Lamont Villalta in OV> 10/28/24 1455 DD/ 1342 TD/TT: 10/28/24 1420 Director Park: [address] [address] [address] Scan Report Signed Patient: Donna Andino MR#: [id number] : 1940 Acct:[id number] Age/Sex: 84 / F ADM Date: 10/28/24 Loc: HO.ED Attending Dr: Ordering Physician: Tammie Quinn NP Date of Service: 10/28/24 Procedure(s): CT cervical spine wo IV con Accession Number(s): [id number] cc: Pal Randall MD; Tammie Quinn NP EXAMINATION: CT HEAD WITHOUT CONTRAST CT CERVICAL SPINE WITHOUT CONTRAST CLINICAL INFORMATION: Unwitnessed fall. COMPARISON: Head CTs dated March 232021 and April 14, 2022. CT scan of the cervical spine dated April 14, 2022. TECHNIQUE: CT of the head and cervical spine were performed without intravenous contrast. Multiplana r reformats were rendered and reviewed. This CT examination was performed using dose optimization techniques as appropriate, various ly including the following: *Automated exposure control *Adjustment of mA and/or kV according to patient size (this includes techniques or standardized protocols for targeted exams where dose is matched to indication/reason for exam; i.e. extremities or head) *Use of iterative reconstruction technique DLP: Within normal limits, FINDINGS: CT head: No intracranial hemorrhage, large infarction, or mass lesion is seen. Age-appropriate diff use cortical atrophy and chronic bilateral periventricular whit e matter ischemic change. No extra-axial collection is appreciated. The ventricles are normal in size and configuration without evidence of hydrocephalus. Left occipital subgaleal/subcutaneous hematoma. The visualized paranasal sinuses an d mastoid air cells are clear. Mild deviation of the nasal septum tow bernadette the right. Bilateral lens extractions. CT cervical spine: The vertebral body heights appear maintained. No cervical spine fracture is seen. Mi ld reversal of the normal cervical lordosis, likely positional. No acute malalignment identified. The paraspinal soft tissues appear within normal limits. The partially imaged lung apices appear clear. Mild calcification of the carotid bulbs. CT/CT cervical spine wo IV con IMPRESSION: CT head: No acute intracrania l finding. CT cervical spine: No cervical spine fracture or traumatic malalignment identified. Electronically ilana d by: Lamont Villalta MD 10/28/2024 02:55 PM [facility] Dictated By: Lamont Villalta Signed By: <Electronically signed by Lamont Villalta in OV> 10/28/24 1455 DD/ 1342 TD/TT: 10/28/24 1420 Director Park: CT head/brain wo con Reviewed date:10/29/2024 12:01:37 PM Interpretation: Performing Lab: Notes/Report: [address] [address] [address] Scan Report Signed Patient: Donna Andino MR#: [id number] : 1940 Acct:[id number] Age/Sex: 84 / F ADM Date: 10/28/24 Loc: HO.ED Attending Dr: Ordering Physician: Tammie Quinn NP Date of Service: 10/28/24 Procedure(s): CT head/brain wo IV con Accession Number(s): [id number] cc: Pal Randall MD; Tammie Quinn NP [...] by: Lamont Villalta MD 10/28/2024 02:55 PM [facility] Dictated By: Lamont Villalta Signed By: <Electronically signed by Lamont Villalta in OV> 10/28/24 1455 DD/ 1342 TD/TT: 10/28/24 1420 Director Park: [place] [address] CT Scan Report Signed Patient: Donna nAdino MR#: [id number] : 1940 Acct:[id number] Age/Sex: 84 / F ADM Date: 10/28/24 Loc: HO.ED Attending Dr: Ordering Physician: Tammie Quinn NP Date of Service: 10/28/24 Procedure(s): CT head/brain wo IV con Accession Number(s): [id number] cc: Pal Randall MD; Tammie Quinn NP EXAMINATION: CT HEAD WITHOUT CONTRAST CT CERVICAL SPINE WITHOUT CONTRAST CLINICAL INFORMATION: Unwitnessed fall. COMPARISON: Head CTs dated March 232021 and April 14, 2022. CT scan of the cervical spine dated April 14, 2022. TECHNIQUE: CT of the head and cervical spine were performed without intravenous contrast. Multiplana r reformats were rendered and reviewed. This CT examination was performed using dose optimization techniques as appropriate, various ly including the following: *Automated exposure control *Adjustment of mA and/or kV according to patient size (this includes techniques or standardized protocols for targeted exams where dose is matched to indication/reason for exam; i.e. extremities or head) *Use of iterative reconstruction technique DLP: Within normal limits, FINDINGS: CT head: No intracranial hemorrhage, large infarction, or mass lesion is seen. Age-appropriate diff use cortical atrophy and chronic bilateral periventricular whit e matter ischemic change. No extra-axial collection is appreciated. The ventricles are normal in size and configuration without evidence of hydrocephalus. Left occipital subgaleal/subcutaneous hematoma. The visualized paranasal sinuses an d mastoid air cells are clear. Mild deviation of the nasal septum tow bernadette the right. Bilateral lens extractions. CT cervical spine: The vertebral body heights appear maintained. No cervical spine fracture is seen. Mi ld reversal of the normal cervical lordosis, likely positional. No acute malalignment identified. The paraspinal soft tissues appear within normal limits. The partially imaged lung apices appear clear. Mild calcification of the carotid bulbs. CT/CT head/brain wo IV con IMPRESSION: CT head: No acute intracrania l finding. CT cervical spine: No cervical spine fracture or traumatic malalignment identified. Electronically ilana d by: Lamont Villalta MD 10/28/2024 02:55 PM [facility] Dictated By: Lamont Villalta Signed By: <Electronically signed by Lamont Villalta in OV> 10/28/24 0732 DD/ 1342 TD/TT: 10/28/24 1420 Director Park: XR chest 2V Reviewed date:10/29/2024 12:00:32 PM Interpretation: Performing Lab: Notes/Report: [address] [address] XRay Report Signed Patient: Donna Andino MR#: [id number] : 1940 Acct:[id number] Age/Sex: 84 / F ADM Date: 10/28/24 Loc: HO.ED Attending Dr: Ordering Physician: Tammie Quinn NP Date of Service: 10/28/24 Procedure(s): XR chest 2V Accession Number(s): [id number] cc: Pal Randall MD; Tammie Quinn NP [...] by: Brian Orozco MD 10/28/2024 03:48 PM EST Dictated By: Brian Orozco MD Signed By: <Electronically signed by Brian Orozco MD in OV> 10/28/24 1548 DD/ 1530 TD/TT: 10/28/24 1535 Director Park: [address] [address] XRay Report Signed Patient: Donna Andino MR#: [id number] : 1940 Acct:[id number] Age/Sex: 84 / F ADM Date: 10/28/24 Loc: .ED Attending Dr: Ordering Physician: Tammie Quinn NP Date of Service: 10/28/24 Procedure(s): XR nathanael st 2V Accession Number(s): [id number] cc: Pal Randall MD; Tammie Quinn NP EXAMINATION: XR CHEST CLINICAL INFORMATION: weakness, fever COMPARISON: CTA chest April 30, 2022 TECHNIQUE: 2 views of the chest were obtained. FINDINGS: The heart and mediastinal borders are normal. No focal consolidation. No pleural effusion. 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 Diffuse osteopenia XR/XR chest 2V IMPRESSION: No focal consolidati on to suggest pneumonia Electronically ilana d by: Brian Orozco MD 10/28/2024 03:48 PM EST Dictated By: Brian Orozco MD Signed By: <Electronically signed by Brian Orozco MD in OV> 10/28/24 1548 DD/ 1530 TD/TT: 10/28/24 1535 Director Park: Troponin-I High Sensitivity Reviewed date:10/29/2024 11:49:35 AM Interpretation: Performing Lab:[facility], [address] [place] [phone] Notes/Report: Troponin-I High Sensitivity 32.7 <3.5-17.0 ng/L The [place] high sensitivity Troponin-I results should be used in conjunction with other diagnostic information such as ECG, clinical observations and information, and patient symptoms to aid in the diagnosis of MS. Blood Culture (First) Reviewed date:11/04/2024 02:38:51 PM Interpretation: Performing Lab:[facility], [address] [place] [phone] Notes/Report: Blood Culture (First) No growth after 5 days. Blood Culture (Second) Reviewed date:11/04/2024 02:39:00 PM Interpretation: Performing Lab:[facility], [address] [place] [phone] Notes/Report: Blood Culture (Second) No growth after 5 days. Urine Culture Reviewed date:12/26/2024 12:22:16 PM Interpretation: Performing Lab:[address] [phone] Notes/Report: Urine Culture Report Result Urine Culture 10,000 to 50,000 cfu/ml Urine Culture Mixed bacterial leeroy a characteristic of Urine Culture urogenital contamination. Reason For Referral No Information Medications Medication SIG (Take, Route, Frequency, Duration) Notes Start Date End Date Status PriLOSEC OTC 20 MG 1 tablet 30 minutes before morning meal Orally Once a day for 30 day(s) Not-Taking Eliquis 2.5 MG as directed Orally T wice a day for 5 days 07/10/2022 Not-Taking Ibuprofen 200 MG 1 tablet as needed O rally every 6 hrs Not-Taking Vitamin D-3 1000 UNIT 1 capsule Orally O nce a day 12/06/2018 Active Synthroid 88 MCG TAKE 1 TABLET DAILY IN THE MORNING ON AN EMPTY STOMACH Orally Once a day for 90 days Active Magnesium 125 MG as directed Orally Active Lisinopril 10 mg TAKE 1 TABLET DAILY oral once a day for 90 days Active Eliquis 5 mg TAKE 1 TABLET TWICE A DAY oral twice a day for 90 days Active Immunizations Vaccine Route Administration Date Status Comme nts [...] 10/14/2015 Refused Flu Vaccine Unknown 08/27/2014 Pending Social History Tobacco Use: Social History Observation Description Date Details (start date - stop date) Never Smoker NA - NA Tobacco Use/Smoking Question Answer Notes Patient is a nonsmoker Additional Findings: Tobacco Non-User Cu rrent non-smoker, currently using no form of tobacco Alcohol Screen Question Answer Notes Did you have a drink containing alcohol in the p ast year? 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 Problem 71679922 Lumbar disc dise ase (M51.9) Active confirmed Problem 95558186 Essential hypert ension (I10) Active confirmed Problem 395139833 Acquired hypothy roidism (E03.9) Active confirmed Problem 0393009 Prediabetes (R73.09) Active confirmed Problem 882934397 History of pulmo nary embolism (Z86.711) Active confirmed Problem Heart block (270269045) Heart block (I45.9) Active confirmed Problem 943432629 Pure hypercholesterolemia (E78.00) Active confirmed Problem 658144460 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) Active confirmed Problem 332039753 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 confirmed Vital Signs Blood pressure diastolic 60 mm Hg 01/01/2025 Height 62.25 in 01/01/2025 Blood pressure systolic 142 mm Hg 01/01/2025 Weight 111 lbs 01/01/2025 BMI 20.14 kg/m2 01/01/2025 Encounters Encounter Location Date Provider Diagnosis Pal Randall MD [address] [place] [id number] 12/25/2024 Pal Randall Acquired hypothyroid ism E03.9 ; Prediabetes R73.09 ; Pure hypercholesterolemia E78.00 ; Vitamin D deficiency E55.9 and Lymphocytosis D72.820 Pal Randall MD [address] [place] [address] Drive [address] [place] [id number] 07/04/2024 Pal Randall Prediabetes R73.09 a nd Acquired hypothyroidism E03.9 Pal Randall MD [address] [place] [address] Drive [address] [place] [id number] 11/17/2024 Pal Randall COVID-19 U07.1 ; Microscopic hematuria R31.29 and Thrombocytopenia D69.6 Pal Randall MD [address] [place] [id number] 01/01/2025 Pal Randall Elevated BUN R79.9 ; Essential hypertension I10 ; Skin lesion L98.9 ; Acquired hypothyroidism E03.9 ; Pure hypercholesterolemia E78.00 ; Prediabetes R73.09 ; Vitamin D deficiency E55.9 ; Colon cancer screening Z12.11 and Depression screening Z13.31 Pal Randall MD [address] [place] [id number] 10/30/2024 Pal Randall MD [address] [place] [id number] 11/09/2024 Pal Randall MD [address] [place] [id number] 01/12/2025 Pal Randall Essential hypertensi on I10 and Acquired hypothyroidism E03.9 Assessments Encounter Date Diagnosis (ICD Code) Assessment Notes Treatment Notes Treatment Clinical Notes Section Notes 12/25/2024 Acquired hypothyroid ism (ICD-10 - E03.9) 07/04/2024 Prediabetes (ICD-10 - R73.09) stable, no need formedication at this time 07/04/2024 Acquired hypothyroid ism (ICD-10 - E03.9) stable, will continue current regiment 11/17/2024 COVID-19 (ICD-10 - U07.1) is recovered. 11/17/2024 Microscopic hematuri a (ICD-10 - R31.29) was in er and urine had blood. son says she was not cathed. will repeat. is going to take container home and bring it back 01/01/2025 Elevated BUN (ICD-10 - R79.9) is secondary to the lisinopril. will repeat in 6 mo, will continue to monitor 01/01/2025 Essential hypertensi on (ICD-10 - I10) well controlled, will continue current regiment 01/12/2025 Essential hypertensi on (ICD-10 - I10) 12/25/2024 Prediabetes (ICD-10 - R73.09) 11/17/2024 Thrombocytopenia (ICD-10 - D69.6) that has resolved and platelts back to normal 01/01/2025 Skin lesion (ICD-10 - L98.9) if it doesn't resolve daughter is going to watch it and get her back 01/12/2025 Acquired hypothyroid ism (ICD-10 - E03.9) 12/25/2024 Pure hypercholesterolemia (ICD-10 - E78.00) 01/01/2025 Acquired hypothyroid ism (ICD-10 - E03.9) stable, will contnue current regiment 12/25/2024 Vitamin D deficiency (ICD-10 - E55.9) 01/01/2025 Pure hypercholesterolemia (ICD-10 - E78.00) doing well, 12/25/2024 Lymphocytosis (ICD-1 0 - D72.820) 01/01/2025 Prediabetes (ICD-10 - R73.09) stable, no need for medication at this time 01/01/2025 Vitamin D deficiency (ICD-10 - E55.9) stable, will contnue to monitor 01/01/2025 Colon cancer screeni ng (ICD-10 - Z12.11) guaiac negative 01/01/2025 Depression screening (ICD-10 - Z13.31) negative screen Plan Of Treatment Pending Test Test Name Order Date Electrocardiogram (EKG) 10/14/2015 Electrocardiogram (EKG) 12/08/2019 XR BARIUM SWALLOW, MODIFIED VIDEO 2021 Next Appt Details Provider Name:Pal milian, 07/02/2025 08:00:00 AM, [address] [place] [address], [address] [place] [address], [phone], Provider Name:Pal milian, 07/09/2025 11:00:00 AM, [address] [place] [address], Suite [facility], [place], [place], [phone], Provider Name:Pal milian, 12/31/2025 08:00:00 AM, [address] [place] [address], [address] [facility], [place], [place], [phone], Provider Name:Pal milian, 01/14/2026 01:00:00 PM, [address], [address], [place], [place], [phone], Insurance Providers Payer Name Payer Address Payer Phone Subscriber Number Group Number Insured Name Patient Relationship to Insured Coverage Start Date Coverage End Date [employer] [address] [place] [address] [id number] Donna Andino Self - patient is the insured [facility] [address] [place] [id number] Donna Andino Self - patient is the insured Medical (General) History Medical History History ICD Code colonoscopy 2010 had a hyperplastic poly p pulmonary embolist 05/13 vertebral artey disection 04/19
== END 2025-06-04 13:58 | disposition home or self-care (01) ==
LOC: HO.HCS 13:14
PROVIDERS: PCP Internal Medicine; Visit Provider Nurse Practitioner Family
DX: I48.92 Unspecified atrial flutter (principal); Z95.0 Presence of cardiac pacemaker; I44.2 Atrioventricular block, complete
CPT/HCPCS: 93280; 99214; G2211

== ENCOUNTER → 2025-06-04 13:13 | Outpatient (BNVA) | payer MEDICARE, OTHER, SELFPAY | PROVIDERS: PCP Internal Medicine; Visit Provider Nurse Practitioner Family | DX: Z45.018 Encounter for adjustment and management of other part of cardiac pacemaker (principal); I44.2 Atrioventricular block, complete; I48.92 Unspecified atrial flutter; Z79.01 Long term (current) use of anticoagulants | CPT/HCPCS: 93280; 99212 ==

== ENCOUNTER → 2025-06-23 23:59 | Outpatient (BNV) | payer MEDICARE, OTHER, SELFPAY ==
--- NOTE | 2025-09-17 20:41 | MHC.OFFVIS ---
Intake Visit Reasons: Remote Device Check ([employer]) Allergies No Known Allergies Allergy (Verified 06/04/25 13:28) [facility] Medical History Pacemaker Nystagmus, congenital Hypothyroidism Surgical History History of permanent cardiac pacemaker placement (~05/01/22) Family History Father Myocardial infarction Mother Pacemaker Social History Household Members: Spouse and Family Housing: House Alcohol intake: never Patient Tobacco Use Status: Never used Tobacco service: No Current occupational status: retired Office Procedures Cardiac Device Check Cardiac Device Check Details: PPM 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 [id number] Cardiac Device Interrogation, pacemaker Procedure code (CPT) selection complete Assessment & Plan Assessment & Plan (1) History of permanent cardiac pacemaker placement: Onset Date: ~05/01/22 Comment: MEDH[employer]; Dr. Patel - [facility], 05/01/2022 Code(s): Z95.0 - Presence of cardiac pacemaker Category: Surgical Plan: Coding Level of Care Code Procedure Only Diagnoses History of permanent cardiac pacemaker placement Z95.0 CPT Codes Cardiac Device Check - Cardiac Device 12: 90447-Pwselu Cardiac Device Interrogation, pacemaker ([id number])
== END ==
PROVIDERS: PCP Internal Medicine; Visit Provider Internal Medicine Cardiovascular Disease
DX: Z45.018 Encounter for adjustment and management of other part of cardiac pacemaker (principal)
CPT/HCPCS: 93294

== ENCOUNTER 2025-06-29 11:45 | Outpatient (REF) | payer MEDICARE, OTHER, SELFPAY ==
--- OUTSIDE RECORDS SUMMARY | 2025-06-29 04:00 | XMS_ITS ---
Author Organization Pal Randall MD Address [address] [place] [phone] Care Team Providers Care Stonehand Name Role Phone Pal Randall Primary Care Provider REASON FOR VISIT BUN, CREATININE Encounters Encounter Location Date Provider Diagnosis Pal Randall MD [address] [facility] [address] [place] [phone] 06/29/2025 Pal Randall Elevated BUN R79.9 Assessments Encounter Date Diagnosis (ICD Code) Assessment Notes Treatment Notes Treatment Clinical Notes Section Notes 06/29/2025 Elevated BUN (ICD-10 - R79.9) Plan Of Treatment Pending Test Test Name Order Date Blood Urea Nitrogen 06/29/2025 Creatinine 06/29/2025 Next Appt Details Provider Name:Pal milian, 07/09/2025 11:00:00 AM, [address] [place] [address], [address], [phone], Provider Name:Pal milian, 12/31/2025 08:00:00 AM, [address] [place] [address], [address], [phone], Provider Name:Pal milian, 01/14/2026 01:00:00 PM, [address] [place] [address], [address], [place], [phone], Progress Notes * Donna ANDINO MDOB:[birth year] (84 yo F)Acc No.[id number]:06/29/2025 Progress Note Patient: Donna BASURTO Provider: Cassandra Randall MD :1940 A ge:84 Y S ex:Female Date:06/29/2025 Address:[address] [place] [address], [facility] Subjective: * Chief Complaints: * 1 . BUN, CREATININE. * Medical History: Objective: * Vitals: Assessment: * Assessment: 1. E levated BUN - R79.9 Plan: * Treatment: * Procedure Codes: 3 6415 VENIPUNCT, ROUTINE* * * The named appointment provid er may or may not be the originator of this progress note, and it is not deemed complete until electronically signed by the appointment provider. Sign off status: Pending * Provider: Cassandra Randall MD Date: 0 06/29/2025 Generated for Kaila delgado/Rebecca/Joseluisitting on: 06/29/2025 11:47 AM EDT
[2025-06-29 12:35] LABS: Blood Urea Nitrogen 25 mg/dL (9-16); Estimated Glomerular Filt Rate > 60
== END 2025-06-29 11:46 | disposition home or self-care (01) ==
LOC: HO.LNP 11:45
PROVIDERS: Visit Provider Internal Medicine
DX: R79.9 Abnormal finding of blood chemistry, unspecified (principal)
CPT/HCPCS: 82565; 84520

== ENCOUNTER → 2025-09-22 23:59 | Outpatient (BNV) | payer MEDICARE, OTHER, SELFPAY ==
--- NOTE | 2025-10-05 21:43 | MHC.OFFVIS ---
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
== END ==
PROVIDERS: PCP Internal Medicine; Visit Provider Internal Medicine Cardiovascular Disease
DX: I44.2 Atrioventricular block, complete (principal); Z95.0 Presence of cardiac pacemaker
CPT/HCPCS: 93294